=== PATIENT | female | born 1955 | race Caucasian/White ===

== ENCOUNTER 2016-09-30 13:56 | Inpatient (IN) ==
[2016-09-30 15:23] LABS: MANUAL DIFF NEEDED? NO
[2016-09-30 15:26] LABS: BASO% 0.5 % (0.0-0.8); EOS# 0.26 X1000 (0.0-0.7); EOS% 3.1 % (0.0-10.0); HEMATOCRIT 33.8 % (37.0-47.0); HEMOGLOBIN 11.6 g/dL (12.0-16.0); LYMPH# 1.97 X1000 (1.2-3.4); LYMPH% 23.3 % (20.5-51.1); MCH 27.1 PG (27-31); MCHC 34.3 g/dL (33-37); MONO% 5.9 % (1.7-9.3); MPV 10.5 FL (7.4-10.4); NEUT% 67.2 % (42.2-75.2); PLT 314 X1000 (130-400); RBC 4.28 XMIL (4.2-5.4)
[2016-09-30 15:32] LABS: URINE SOURCE CATH
[2016-09-30 15:37] LABS: BILIRUBIN URINE NEGATIVE (NEGATIVE); BLOOD URINE MODERATE (NEGATIVE); COLOR YELLOW; GLUCOSE URINE >1000 mg/dL (NEGATIVE); LEUKOCYTES URINE LARGE (NEGATIVE); NITRITE URINE NEGATIVE (NEGATIVE); PROTEIN URINE 300 mg/dL (NEGATIVE); SP GRAVITY URINE 1.012; TURBIDITY URINE HAZY (CLEAR); UROBILINOGEN URINE NORMAL (NORMAL)
[2016-09-30 15:39] LABS: URINE MICRO REVIEW NEEDED? YES
[2016-09-30 15:50] LABS: UR EPITHELIAL CELLS <10 /HPF (<10); URINE BACTERIA NEGATIVE /HPF; URINE RBC TNTC /HPF (<10); URINE WBC TNTC /HPF (<10)
[2016-09-30 15:51] LABS: CALCIUM 8.5 mg/dL (8.8-10.2); POTASSIUM 4.6 mmol/L (3.5-5.1); TOTAL BILIRUBIN 0.19 mg/dL (0.20-1.00); TOTAL PROTEIN 6.3 g/dL (6.3-8.3)
[2016-09-30 16:01] LABS: URINE CASTS NONE SEEN; URINE CRYSTALS NONE SEEN; URINE SMALL ROUND CELLS NONE SEEN
--- NOTE | 2016-09-30 16:27 | PROVIDER DOCUMENTATION ---
This chart was entered by Mele Dominguez Scribe, acting as scribe for Vamshi Lovett MD. HPI-Female /OB/Breast - General Chief Complaint: UTI Symptoms Stated Complaint: KIDNEY PAIN Time Seen by Provider: 09/30/16 14:53 Source: reports: patient Allergies/Adverse Reactions: Patient Allergies Allergy/AdvReac Type Severity Reaction Status Date / Time No Known Allergies Allergy Verified 09/30/16 14:58 Home Medications: Home Medication List Medication Instructions Recorded Confirmed Last Taken Type Aspirin [Ecotrin] 81 mg PO DAILY 02/22/15 09/30/16 09/29/16 08:00 History Cholecalciferol (Vitamin D3) 1,000 unit PO DAILY 02/22/15 09/30/16 09/29/16 08: 00 History [Vitamin D3] Gabapentin 400 mg PO BID 02/22/15 09/30/16 09/29/16 08:00 History Levothyroxine [Synthroid] 125 microgm PO QAM 02/22/15 09/30/16 09/29/16 08:00 History Amlodipine [Norvasc] 5 mg PO DAILY #30 tablet 03/06/15 09/30/16 09/29/16 08:00 Rx Omeprazole 40 mg PO DAILY 06/01/15 09/30/16 09/29/16 08:00 History Insulin Lispro Protamin/Lispro 40 unit SQ TID AC 08/18/15 09/30/16 09/29/16 08: 00 History [Humalog Mix 75-25 Vial] Furosemide [Lasix] 20 mg PO DAILY #30 tablet 11/10/15 09/30/16 09/29/16 08:00 Rx Hydroxyzine Pamoate [Vistaril] 25 mg PO BID PRN PRN 11/29/15 09/30/16 09/29/16 08:00 History Insulin Glargine [Lantus] 50 unit SUBQ HS #0 11/30/15 09/30/16 09/29/16 08:00 Rx Potassium Chloride [Klor-Con 10] 10 meq PO DAILY 09/30/16 09/30/16 09/29/16 08: 00 History - History of Present Illness-Female /OB Nature of Presenting Problem: pt reports suprapubic pain x 2 months, worse today. patient self-caths. Patient was seeing , but due to financial issues is no longer seeing him. denies fever/chills, n/v/d, or hematuria. Does patient report she is ?: No Location of complaint: reports: suprapubic Quality of Pain: reports: sharp Severity in ED: reports: mild, moderate Onset/Duration: reports: gradual, other (2 months) Timing: reports: still present, getting worse (today) Context/Activities at Onset: reports: none Urinary Symptoms: reports: dysuria. denies: frequency, hematuria, hesitancy, low back pain Modifying Factors: worse with: urinating Associated Symptoms: denies: diarrhea, fever/chills, nausea, vomiting Similar Symptoms Previously?: Yes Recently seen or treated by another doctor?: No Review of Systems - Adult - REVIEW OF SYSTEMS - ADULT Constitutional: denies: chills, fever Eyes: reports: no symptoms reported Ears, Nose, Mouth & Throat: reports: no symptoms reported Cardiovascular: reports: no symptoms reported Respiratory: denies: dyspnea on exertion, shortness of breath Gastrointestinal: reports: abdominal pain. denies: diarrhea, nausea, vomiting Genitourinary: reports: dysuria. denies: discharge, hematuria Musculoskeletal: reports: no symptoms reported Integumentary: reports: no symptoms reported Neurological: reports: no symptoms reported Psychiatric: reports: no symptoms reported Endocrine: reports: no symptoms reported Hematologic/Lymphatic: reports: no symptoms reported Allergic/Immunologic: reports: no symptoms reported All Other Systems: Reviewed and Negative Past History - Adult - PAST MEDICAL HISTORY-ADULT Review of Records: reports: Nursing Assessment Review, Medications Reviewed Cardiovascular: reports: blood clots (dvt), HTN, hyperlipidemia Respiratory: reports: sleep apnea Gastrointestinal: reports: GERD Genitourinary: reports: kidney disease, chronic UTI's, other (bladder spasms, neurogenic bladder with obstructions) Endocrine/Immune: reports: Diabetes, thyroid disorder - PRIOR SURGERIES/PROCEDURES Surgical/Procedure History: reports: cholecystectomy, hysterectomy, indwelling device (suprapubic cath--10/11, replaced 11/21 c daigle cath because suprapubic cath was dislodged), other (bladder surgery, left knee, right hand) - PRIOR HOSPITALIZATIONS Prior Hospitalizations: reports: for other non-related - IMMUNIZATION STATUS Childhood Immunizations: See Nurse Assessment Flu Vaccine: See Nurse Assessment - FAMILY HISTORY Family History: reviewed, not pertinent - SOCIAL HISTORY Smoking: non-smoker Living Situation: family Physical Exam-General - PHYSICAL EXAM-ADULT Initial Vital Signs Reviewed: Yes - CONSTITUTIONAL General Appearance: alert, no apparent distress, obese - EYES Eyes: PERRL/EOMI, pink conjunctivae - HEAD, EARS, NOSE, MOUTH & THROAT HENMT: normocephalic/atraumatic, other (tacky MM's) - NECK Neck: non-tender, full range of motion, supple - RESPIRATORY Respiratory: chest non-tender, lungs clear, normal breath sounds - CARDIOVASCULAR Cardiovascular: normal peripheral pulses, regular rate, rhythm, no edema - GASTROINTESTINAL (ABDOMEN) Abdominal Exam: normal bowel sounds, soft, no organomegaly, no pulsatile mass, distended (obese), tenderness (suprapubic area). negative: guarding, rigid, hernia, mass - LYMPHATIC Lymphatic: no adenopathy. negative: inguinal node tender - MUSCULOSKELETAL Back Exam: normal inspection, no CVA tenderness, no vertebral tenderness Extremity: normal range of motion, non-tender - SKIN Integumentary: normal color, normal turgor, warm/dry - NEUROLOGIC Neurologic: grossly normal - PSYCHIATRIC Psych/Mental Status: anxious, tearful Progress - PLAN OF CARE/RESULTS Progress/Plan/Lab Results: Vital Signs - 8 hr 09/30/16 14:00 Temperature 98.6 F Pulse Rate 89 Respiratory Rate 18 Blood Pressure 161/83 O2 Sat by Pulse Oximetry 99 Laboratory Results - last 24 hr 09/30/16 09/30/16 09/30/16 15:16 15:16 15:26 WBC 8.46 RBC 4.28 Hgb 11.6 L Hct 33.8 L MCV 79.0 L MCH 27.1 MCHC 34.3 RDW Std Deviation 14.0 Plt Count 314 MPV 10.5 H Immature Gran % (Auto) 0.0 Neut % (Auto) 67.2 Lymph % (Auto) 23.3 [place] % (Auto) 5.9 Eos % (Auto) 3.1 Baso % (Auto) 0.5 Immature Gran # (Auto) 0.00 Neut # (Auto) 5.69 Lymph # (Auto) 1.97 [place] # (Auto) 0.50 Eos # (Auto) 0.26 Baso # (Auto) 0.04 Sodium 132 L Potassium 4.6 Chloride 95 L Carbon Dioxide 19 L Anion Gap 18 BUN 37 H Creatinine 3.1 H Estimated GFR/1.73 m2 15 BUN/Creatinine Ratio 12 Glucose 398 H Calculated Osmolality 290 Calcium 8.5 L Total Bilirubin 0.19 L AST 12 ALT 13 Alkaline Phosphatase 124 H Total Protein 6.3 Albumin 3.0 L Globulin 3.3 Albumin/Globulin Ratio 0.9 Urine Source CATH Urine Color YELLOW Urine Turbidity HAZY Urine pH 7.0 Ur Specific [place] 1.012 Urine Protein 300 A Ur Glucose (Stick) >1000 A Ur Ketones (Stick) NEGATIVE Urine Blood MODERATE A Urine Nitrite NEGATIVE Urine Bilirubin NEGATIVE Urobilinogen Dipstick NORMAL Urine Leukocytes LARGE A Urine WBC (Auto) TNTC A Urine RBC (Auto) TNTC A U Epithel Cells (Auto) <10 Urine Bacteria (Auto) NEGATIVE Urine Crystals NONE SEEN Small Round Cells NONE SEEN Urine Casts NONE SEEN Urine Yeast-like Cells PRESENT Orders Category Date Time Status CBC WITH ELECTRONIC DIFF [HEME] Stat Lab 09/30/16 15:16 Completed COMPREHENSIVE METABOLIC PANEL [CHEM] Stat Lab 09/30/16 15:16 Completed UA [URINALYSIS] [URINALYSIS] Stat Lab 09/30/16 15:26 Completed URINE MANUAL MICROSCOPIC [URINALYSIS] Stat Lab 09/30/16 15:26 Completed Result Diagrams: 09/30/16 15:16 09/30/16 15:16 - CONSULTS/PCP/HOSPITALIST Notification #1 *Consult/PCP/Hospitalist*: Hospitalist, Doreen Time Discussed: 16:25 Consult Disposition: Will see in ED, Admit Departure - Departure Time of Disposition Decision: 16:30 DIAGNOSIS: Cystitis [id number] renal failure Qualifiers: Acute renal failure type: unspecified Chronic kidney disease stage: unspecified stage Qualified Code(s): N17.9 - Acute kidney failure, unspecified; N18.9 - Chronic kidney disease, unspecified Disposition: ADMITTED INPATIENT 09 Certified Medical Emergency: Emergent Condition: Stable Referrals and Follow-Ups: Halie Valentino MD [Primary Care Provider] - - Critical Care Note This patient required my direct & personal management of CC.: No This chart was documented by the indicated scribe, (Mele Dominguez, Scribe) and accurately reflects the services I performed and decisions made by me, Vamshi Lovett MD, as attested by the provider's signature.
[2016-09-30] MEDS ORDERED: TYLENOL PO PRN (17:45)
[2016-09-30] MEDS ORDERED: APRESOLINE IV ONE (17:45)
[2016-09-30] MEDS ORDERED: HUMULIN R SUBQ ONE (17:45)
[2016-09-30] MEDS ORDERED: NORCO-7.5 PO PRN ×2 (17:45→17:51)
[2016-09-30] MEDS ORDERED: HYDROXYZINE PO PRN (17:45)
[2016-09-30] MEDS: LOVENOX SUBQ SCH (18:17)
[2016-09-30] MEDS: ROCEPHIN 1 GM/NS 1 GM/50 ML IVPB IV SCH (18:17)
[2016-09-30] MEDS: NS 1,000 ML IV SCH (18:17)
--- NOTE | 2016-09-30 18:45 | HISTORY AND PHYSICAL ---
PRIMARY CARE PHYSICIAN: Dr. Valentino. CHIEF COMPLAINT: Suprapubic pain. HISTORY OF PRESENT ILLNESS: The patient is a 61-year-old white female with a history of diabetes, urinary retention with self catheterization, hypertension, and hypothyroidism, admitted to the hospital after she complained of having fever, chills, and suprapubic pain that has been going on for about a week. The patient does not have any insurance so she could not see any of her doctors. At the same time, the patient has had recurrent urinary tract infections and has been off of antibiotics and according to the patient she has never gone 2 weeks without having some sort of antibiotics. For the past week and a half she started having some fever and chills. It got to the point where she had severe pain in her suprapubic region and she started noticing pus- like urine out of her catheterization, so she presented to the emergency room today for further evaluation. In the emergency room they noticed that she has greenish urine mixed with clots. The UA was positive for a UTI and the patient appears to be dehydrated. We were asked to evaluate the patient for admission. The patient was awake, alert, and oriented when I saw her. She answered questions appropriately. She confirmed that she has had recurrent UTIs and also had been on off and on oral antibiotics for UTI infections; the last around antibiotics less than 2 weeks ago. She nausea but no vomiting. Most of her symptoms are just pain around the suprapubic region. Has not taking anything to alleviate the symptoms. PAST MEDICAL HISTORY: 1. Type 2 diabetes. 2. Hypertension. 3. Hyperlipidemia. 4. Morbid obesity. 5. Urinary retention and self catheterization. Followed by Dr. Ocampo. 6. Peripheral neuropathy. 7. GERD. PAST SURGICAL HISTORY: The patient has had multiple bladder surgeries. ALLERGIES: No known drug allergies. FAMILY HISTORY: Reviewed and noncontributory. SOCIAL HISTORY: The patient denies tobacco, alcohol, or drugs. She lives with her . She is not sexually active. REVIEW OF SYSTEMS: Twelve systems were reviewed and were negative except for what was mentioned in the HPI. HOME MEDICATIONS: 1. Norvasc 5 mg p.o. daily. 2. Aspirin 81 mg 1 tablet p.o. daily. 3. Vitamin D3 1000 international units p.o. daily. 4. Lasix 20 daily. 5. Gabapentin 400 mg b.i.d. 6. Vistaril 25 mg b.i.d. 7. Lantus 50 mg at night. 8. Humalog 40 units before meal 3 times a day. 9. Synthroid 125 mcg p.o. daily. 10. Omeprazole 40 mg p.o. daily. 11. KCl 10 mEq p.o. daily. PHYSICAL EXAMINATION: VITAL SIGNS: Blood pressure 161/63, pulse of 89, respiration 18, temperature 98.6 degrees, saturations of 99% on room air. Weight 323 pounds, 5 feet 2 inches. GENERAL APPEARANCE: Morbidly obese, white female. Appears to be dry. AAO x3. HEENT: Anicteric sclerae. Clear conjunctivae. NECK: Supple. No JVD. No bruit. CARDIOVASCULAR: S1, S2. Normal rate and rhythm. No murmur, rubs, or gallops. PULMONARY: Clear to auscultation bilaterally. GI: Soft, nontender, nondistended. Normoactive bowel sounds. MUSCULOSKELETAL: No clubbing, cyanosis, or edema. : Significant suprapubic tenderness with palpation. NEUROLOGIC: Intact. PSYCHIATRIC: Euthymic mood. LABORATORY: White count 5.46, hemoglobin 11.6, hematocrit of 33.8, platelets of 314,000. Chemistry: Sodium 132, potassium 4.6, chloride 95, bicarb 19, BUN 37, creatinine 3.1 which is her baseline. Glucose of 398. Liver function tests are within normal limits. ASSESSMENT AND PLAN: This is a 61-year-old white female admitted to the hospital for suprapubic tenderness and dysuria, along with pus in the urine. 1. Severe urinary tract infection. She has been doing self catheterization for the past year due to urinary retention. Follow but by Dr. Ocampo. Has had multiple surgeries on her bladder. Urine culture and blood culture were sent from the ER. Start the patient on Rocephin. We will follow up cultures. We will admit the patient to the floor. She will need several days of IV antibiotics. We will keep her inpatient. 2. Dehydration. Start the patient on normal saline since her sodium is on the lower side. We will hold her diuretics. Recheck her renal function in the morning. 3. Diabetes type 2, insulin requiring. We will continue her Lantus and her premeal insulin. Will add a sliding scale for the patient. Put her on a diabetic diet. 4. Hypertension. Blood pressures is elevated. Currently we will resume her Norvasc and we will add hydralazine p.r.n. for systolic blood pressure greater than 180. 5. Hypothyroidism. We will resume her Synthroid 125 mcg daily. 6. Deep vein thrombosis prophylaxis. Put the patient on Lovenox renal dose. 7. Chronic kidney disease stage 4. Stable. Will continue to monitor for now. Consider nephrology consult if her renal is getting worse. 8. Code status. The patient is a full code. Her is her surrogate decision maker. The patient does not have a Living Will. cc: Halie Valentino MD
[2016-09-30] MEDS ORDERED: INSULIN PEN NEEDLES ONE (20:13)
[2016-09-30] MEDS: NEURONTIN PO SCH (20:14)
[2016-09-30] MEDS: ZOFRAN IV PRN (20:14)
[2016-09-30] MEDS ORDERED: LANTUS SUBQ SCH (21:00)
[2016-10-01 07:34] LABS: MANUAL DIFF NEEDED? NO
[2016-10-01 07:53] LABS: BASO% 0.5 % (0.0-0.8); EOS% 3.7 % (0.0-10.0); HEMATOCRIT 34.8 % (37.0-47.0); HEMOGLOBIN 11.5 g/dL (12.0-16.0); IMM GRAN# 0.03 X1000 (0.0-0.04); IMM GRAN% 0.4 % (0.0-0.5); LYMPH# 2.92 X1000 (1.2-3.4); LYMPH% 35.9 % (20.5-51.1); MCH 26.7 PG (27-31); MCV 80.9 FL (81-99); MONO# 0.49 X1000 (0.11-0.59); MPV 10.8 FL (7.4-10.4); NEUT% 53.5 % (42.2-75.2); PLT 345 X1000 (130-400)
[2016-10-01 08:16] LABS: CALCIUM 8.6 mg/dL (8.8-10.2); POTASSIUM 4.7 mmol/L (3.5-5.1)
[2016-10-01] MEDS: VITAMIN D PO SCH (08:22)
[2016-10-01] MEDS: HUMALOG MIX 75/25 SUBQ SCH ×2 (08:23→11:35)
[2016-10-01] MEDS: NORVASC PO SCH (08:23)
[2016-10-01] MEDS: ASPIRIN EC PO SCH (08:23)
[2016-10-01] MEDS: NEURONTIN PO SCH ×2 (08:23→20:32)
[2016-10-01] MEDS: SYNTHROID PO SCH (08:23)
[2016-10-01] MEDS: NS 1,000 ML IV SCH (08:24)
[2016-10-01] MEDS: PRILOSEC PO SCH (08:30)
[2016-10-01] MEDS: ZOFRAN IV PRN (09:05)
[2016-10-01] MEDS ORDERED: SODIUM CHLORIDE 0.9% INJ PRN (10:19)
[2016-10-01] MEDS: PHENERGAN IV PRN (10:53)
[2016-10-01] MEDS ORDERED: D5 NS 500 ML IV SCH (11:48)
[2016-10-01] MEDS ORDERED: D50W SYRINGE ONE (11:52)
[2016-10-01 12:31] LABS: HEMOGLOBIN A1C 11.7 % (4.8-6.0)
--- NOTE | 2016-10-01 12:43 | PROGRESS NOTE ---
DATE: 10/01/2016 SUBJECTIVE: Today, Ms. Garcia refers to be doing a little better. According to the nurse, she has just been confused, and her blood glucose has been going down; last one checked was in the 60s. OBJECTIVE: Blood pressure is 131/57, pulse of 60, respirations 20, temperature 97.4. Patient is saturating 100% on nasal cannula. General: Ms. Garcia is a 61-year-old female. She is in bed and did not seem to be in any distress. HEENT: Mucosa is pink and moist. Anicteric. Acyanotic. Neck is supple. Chest is clear. Cardiovascular: Regular rate and rhythm. Abdomen is soft, distended. There is a Dean catheter in place. Extremities: No pedal edema. TEST DEVELOPMENT ENGINEER: Patient is awake, seems confused. LABORATORY DATA: WBC is 8.14, hemoglobin is 11.5, platelet count is 345,000. Chemistry is reviewed. Creatinine is 3.1, which is not new. Glucose was 128. Repeat glucose check this morning seems to be 60. ASSESSMENT: 1. Altered mental status which started a while ago. Glucose is in the 60s and I am assuming it has been going lower, so we will give the patient a D 50 and get her some orange juice and encourage her to eat. I withheld the Lantus at least for now. 2. Suspected urinary tract infection. Patient is currently on ceftriaxone and will be pending the culture result. 3. History of urinary retention with in and out catheterization at home. 4. Chronic kidney disease, stage 4 to 5. 5. Nausea, unclear etiology. We are going to do an EKG and check on the patient's troponins to make sure the nausea and vomiting does not have any other extra GI etiology. I will also do the patient PTH, calcium, and vitamin D for tomorrow. The patient has a mild metabolic acidosis which I think is consistent with the degree of the renal failure. cc: MD YONAS Hutchinson
--- NOTE | 2016-10-01 14:55 | EKG Report ---
Test Performed on : 10/01/2016 12:32:22 PM Test Reason : chest discomfort Blood Pressure : / mmHG Vent. Rate : 082 BPM Atrial Rate : 082 BPM P-R Int : 158 ms QRS Dur : 086 ms QT Int : 390 ms P-R-T Axes : 042 -24 044 degrees QTc Int : 455 ms Normal sinus rhythm. Normal ECG When compared with ECG of 29-NOV-2015 23:38, No significant change was found Confirmed by Juan VILLAR, Ton Daniels ([id number]) on 10/02/2016 6:21:46 PM
[2016-10-01] MEDS: LOVENOX SUBQ SCH (17:50)
[2016-10-01] MEDS: ROCEPHIN 1 GM/NS 1 GM/50 ML IVPB IV SCH (17:52)
[2016-10-02] MEDS: NS 1,000 ML IV SCH (01:50)
[2016-10-02] MEDS: PRILOSEC PO SCH (06:13)
[2016-10-02 06:33] LABS: MANUAL DIFF NEEDED? NO
[2016-10-02 06:40] LABS: BASO% 0.3 % (0.0-0.8); EOS# 0.29 X1000 (0.0-0.7); EOS% 3.3 % (0.0-10.0); HEMATOCRIT 37.2 % (37.0-47.0); HEMOGLOBIN 12.1 g/dL (12.0-16.0); LYMPH# 1.59 X1000 (1.2-3.4); LYMPH% 17.8 % (20.5-51.1); MCH 26.7 PG (27-31); MCHC 32.5 g/dL (33-37); MCV 82.1 FL (81-99); MONO# 0.58 X1000 (0.11-0.59); MONO% 6.5 % (1.7-9.3); MPV 10.5 FL (7.4-10.4); NEUT% 72.1 % (42.2-75.2); PLT 329 X1000 (130-400); RBC 4.53 XMIL (4.2-5.4)
[2016-10-02 07:11] LABS: CALCIUM 8.6 mg/dL (8.8-10.2); MAGNESIUM 1.9 mg/dL (1.5-2.7); POTASSIUM 4.5 mmol/L (3.5-5.1)
[2016-10-02] MEDS: ASPIRIN EC PO SCH (09:33)
[2016-10-02] MEDS: NORVASC PO SCH (09:33)
[2016-10-02] MEDS: NEURONTIN PO SCH ×2 (09:33→20:33)
[2016-10-02] MEDS: SYNTHROID PO SCH (09:33)
[2016-10-02] MEDS: VITAMIN D PO SCH (09:33)
[2016-10-02] MEDS ORDERED: VITAMIN D PO SCH (11:45)
[2016-10-02] MEDS: PHOSLO PO SCH ×2 (12:23→17:03)
--- NOTE | 2016-10-02 12:35 | PROGRESS NOTE ---
DATE: 10/02/2016 SUBJECTIVE: Today, Ms. Garcia refers to be doing a whole lot better. When I saw her, she was sitting up in the chair, having a very rational conversation. Ms. Garcia also said that before she came in, she had not been taking her insulin for about 3 weeks prior because she ran out of it. OBJECTIVE: Vital signs: Blood pressure is 147/64, pulse of 77 respirations 18, temperature 97.6 degrees. General: Ms. Garcia is a 61-year-old female. She was sitting up in a chair, not seemingly distressed. HEENT: Mucosa pink and moist. Anicteric. Acyanotic. Neck: Supple. Chest: Clear. Cardiovascular: Regular rate and rhythm. There are no murmurs, no rubs. Abdomen: Soft, distended, but nontender. There is a Dean catheter in place. Extremities: No pedal edema. Central Nervous System: Patient is awake, alert, oriented, very conversational, and follows commands. LABORATORY DATA: WBC is 8.91, hemoglobin is 12.1, platelet count 329,000. Sodium is 134, potassium is 4.5, chloride is 100, bicarbonate is 21, BUN is 39, creatinine is 3.1. The patient's vitamin D level is less than 5 and PTH is 111. ASSESSMENT: 1. Altered mental status due to hypoglycemia. This is improved. We have withheld patient's long- acting for now. Her glucose has been at the lower end. The patient had A1c on presentation of 11.7, which is consistent with the fact that she was noncompliant. We would wait for the glucose to be more stabilized before we introduce her long-acting insulin. 2. Suspected urinary tract infection. Patient is on ceftriaxone. We are pending the urine culture. 3. History of neurogenic bladder with frequent in-and-out catheterizations at home. We will start the patient on oxybutynin and tamsulosin. 4. Chronic kidney disease, stage 4. 5. Nausea. Resolved. 6. 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 7. Secondary hyperparathyroidism. We will start the patient on Sensipar. 8. Extreme vitamin D deficiency. We will start the patient on ergocalciferol every 7 days. 9. Mild hyperphosphatemia. We will start the patient on phosphate binders. 10. Non-anion gap metabolic acidosis secondary to renal disease. We will start the patient on oral sodium bicarbonate. So, in general, I think Ms. Garcia is doing a lot better. We will discontinue the IV fluids so we do not over-hydrate her, encourage her to hydrate orally. We will also remove the Dean catheter, start her on oxybutynin for the neurogenic bladder and tamsulosin, and also medication for the bone and mineral disorder associated with chronic kidney disease. We are still pending the urine culture report to be able to adjust her medications. I think by tomorrow we should be able to discharge Ms. Garcia. cc: Ray Leone MD
[2016-10-02] MEDS: ROCEPHIN 1 GM/NS 1 GM/50 ML IVPB IV SCH (17:03)
[2016-10-02] MEDS: LOVENOX SUBQ SCH (17:03)
[2016-10-02] MEDS: DITROPAN PO SCH (20:33)
[2016-10-02] MEDS: SODIUM BICARBONATE PO SCH (20:34)
[2016-10-02] MEDS: FLOMAX PO SCH (20:34)
[2016-10-03] MEDS: PRILOSEC PO SCH (07:27)
[2016-10-03] MEDS: NORVASC PO SCH (08:18)
[2016-10-03] MEDS: SYNTHROID PO SCH (08:18)
[2016-10-03] MEDS: PHOSLO PO SCH ×3 (08:18→18:24)
[2016-10-03] MEDS: SENSIPAR PO SCH (08:18)
[2016-10-03] MEDS: NEURONTIN PO SCH ×2 (08:18→22:13)
[2016-10-03] MEDS: ASPIRIN EC PO SCH (08:18)
[2016-10-03] MEDS: SODIUM BICARBONATE PO SCH ×2 (08:18→22:13)
[2016-10-03] MEDS: DITROPAN PO SCH ×2 (08:18→22:13)
[2016-10-03] MEDS: PHENERGAN IV PRN (09:45)
[2016-10-03] MEDS: NORCO-7.5 PO PRN ×3 (09:45→22:09)
[2016-10-03] MEDS ORDERED: MIRALAX PO ONE (12:06)
[2016-10-03] MEDS ORDERED: LANTUS SUBQ ONE (12:20)
--- NOTE | 2016-10-03 12:50 | PROGRESS NOTE ---
DATE: 10/03/2016 SUBJECTIVE: Today, Ms. Garcia refers to be doing fine, but has constipation. According to Ms. Garcia, she has been using 40 units of glargine on a daily basis and also 40 units of 75/25 insulin 3 times per day before she came in. She said her glucose has also been going low on that regimen that her primary care doctor had put her on. OBJECTIVELY: Vital Signs: Today, her blood pressure is 158/76, pulse is 84, respirations 19, and temperature is 98.2 degrees. General: Ms. Garcia is a 61-year-old female. She was sitting up in a chair in no distress. HEENT: Mucosa pink and moist. Anicteric. Acyanotic. Neck: Supple. Chest: Clear. Cardiovascular: Regular rate and rhythm. Abdomen: Soft, distended, but nontender. Extremities: No pedal edema. Central Nervous System: Patient is awake, alert, and conversational LABORATORY DATA: Glucose is now 325. ASSESSMENT: 1. Altered mental status due to hypoglycemia, improved. 2. Suspected urinary tract infection. Patient is currently on ceftriaxone. Urine culture has been negative, but patient was on antibiotics before the sample. 3. History of neurogenic bladder with frequent in-and-out catheterization at home. The patient has been started on oxybutynin and tamsulosin, and seems to be doing fine. 4. 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 5. Secondary hyperparathyroidism. Patient is on Sensipar. 6. Vitamin D deficiency. We will continue with ergocalciferol. 7. Mild hyperphosphatemia. Patient is on phosphate binders. 8. Non-gap metabolic acidosis secondary to renal disease. 9. Constipation. We will start the patient on MiraLAX. 10. Severe uncontrolled diabetes mellitus. The patient's A1c was 11.7 on presentation and, on that, she was still also having some episodes of hypoglycemia. We reviewed her home medications. Today, we are going to start her on 50 units of Lantus, 5 units 3 times of regular insulin, and a sliding scale, and will be monitoring her glucose throughout the day and tomorrow. If she continues to be stable, we will be able to discharge her first thing tomorrow morning. cc: Ray Leone MD
[2016-10-03] MEDS: HUMULIN R SUBQ SCH ×4 (13:38→22:20)
[2016-10-03] MEDS: LOVENOX SUBQ SCH (18:24)
[2016-10-03] MEDS: ZOFRAN IV PRN (22:08)
[2016-10-03] MEDS: FLOMAX PO SCH (22:13)
[2016-10-03] MEDS: KEFLEX PO SCH (22:36)
[2016-10-04] MEDS: NORCO-7.5 PO PRN ×2 (06:00→20:12)
[2016-10-04] MEDS: PRILOSEC PO SCH (06:01)
--- NOTE | 2016-10-04 07:15 | Diag Imaging Result Doc PS360 ---
ABDOMEN FLAT/UPRIGHT - 10/03/2016 INDICATION: Abdominal Pain TECHNIQUE: Two views COMPARISON: 03/25/2016 FINDINGS: Stable cholecystectomy clips. There is a nonobstructive bowel gas pattern. No free air or abdominal calcifications. IMPRESSION: No acute disease. Electronically signed by Manuel Montoya 10/04/2016 7:12 AM
[2016-10-04 08:03] LABS: CALCIUM 8.4 mg/dL (8.8-10.2); POTASSIUM 5.4 mmol/L (3.5-5.1)
[2016-10-04] MEDS: HUMULIN R SUBQ SCH ×7 (08:27→20:33)
[2016-10-04] MEDS: PHOSLO PO SCH ×3 (08:30→17:18)
[2016-10-04] MEDS: SYNTHROID PO SCH (08:30)
[2016-10-04] MEDS: DITROPAN PO SCH ×2 (08:30→20:13)
[2016-10-04] MEDS: NORVASC PO SCH (08:30)
[2016-10-04] MEDS: SENSIPAR PO SCH (08:30)
[2016-10-04] MEDS: SODIUM BICARBONATE PO SCH ×2 (08:30→20:13)
[2016-10-04] MEDS: NEURONTIN PO SCH ×2 (08:30→20:13)
[2016-10-04] MEDS: ASPIRIN EC PO SCH (08:30)
[2016-10-04] MEDS: KEFLEX PO SCH ×2 (08:30→20:13)
[2016-10-04] MEDS ORDERED: GOLYTELY PO ONE (09:27)
[2016-10-04] MEDS: ZOFRAN IV PRN (13:12)
--- NOTE | 2016-10-04 15:01 | PROGRESS NOTE ---
DATE: 10/04/2016 SUBJECTIVE: Patient reports not able to have bowel movements and she usually uses Fleets enema at home. OBJECTIVE: Vital Signs: Temperature 98.7 degrees, heart rate 95, respiratory rate 20, blood pressure 147/58, O2 saturation 97% on room air. General Examination: This is a 61-year-old female, looking older than her age, lying in bed, in no acute distress. HEENT: Head is normocephalic, atraumatic. Anicteric sclerae and pale conjunctivae. Mucous membranes moist. Neck: Supple. No JVD noted. No carotid bruits. No lymphadenopathy. No thyromegaly. Cardiovascular: No murmur, gallops or rubs. Regular rate and rhythm. Respiratory: Clear bilaterally to auscultation. No work of breathing or using accessory muscles. Abdomen: Soft, nontender to palpation. Bowel sounds present. No organomegaly. Extremities: No clubbing, cyanosis, or edema. Peripheral pulses present in both legs. Neurological: Patient is alert and oriented x3. Moves 4 extremities. LABORATORY DATA: Reviewed. ASSESSMENT AND PLAN: 1. Altered mental status secondary to hypoglycemia, resolved. 2. Suspected urinary tract infection. By now the patient is on ceftriaxone and urine cultures are negative. We will continue while this patient is in the hospital. 3. History of neurogenic bladder. Aware. The patient is on oxybutynin and tamsulosin. 4. Constipation. We have given to her GoLYTELY and she drank almost 4 L of preparation for colonoscopy, but no bowel movement. We will wait and then tomorrow we will see if that medication works. 5. The rest of medical conditions all are stable. cc: Marko Valverde MD
[2016-10-04] MEDS: LOVENOX SUBQ SCH (17:19)
[2016-10-04] MEDS: FLOMAX PO SCH (20:13)
[2016-10-05] MEDS: ZOFRAN IV PRN (03:29)
[2016-10-05] MEDS: PRILOSEC PO SCH (06:12)
[2016-10-05] MEDS: HUMULIN R SUBQ SCH ×3 (06:12→12:17)
[2016-10-05 07:40] VITALS: BP 154/85
[2016-10-05] MEDS: PHOSLO PO SCH ×2 (07:51→12:17)
[2016-10-05] MEDS: NEURONTIN PO SCH (09:48)
[2016-10-05] MEDS: ASPIRIN EC PO SCH (09:48)
[2016-10-05] MEDS: NORVASC PO SCH (09:48)
[2016-10-05] MEDS: SENSIPAR PO SCH (09:48)
[2016-10-05] MEDS: SODIUM BICARBONATE PO SCH (09:48)
[2016-10-05] MEDS: KEFLEX PO SCH (09:48)
[2016-10-05] MEDS: DITROPAN PO SCH (09:48)
[2016-10-05] MEDS: SYNTHROID PO SCH (09:48)
--- NOTE | 2016-10-05 13:43 | DISCHARGE SUMMARY ---
ADMISSION DATE: 09/30/2016 DISCHARGE DATE: 10/05/2016 CONSULTATIONS: None. PERTINENT PROCEDURES: Abdomen x-ray showed stable cholecystectomy clips, nonobstructive bowel gas pattern. No free air. No abdominal calcifications. DISCHARGE DIAGNOSES: 1. Altered mental status secondary to hypoglycemia resolved. 2. Suspected urinary tract infection. Continue p.o. antibiotics. 3. History of neurogenic bladder. Aware. 4. Constipation. The patient was given GoLYTELY. The patient has had bowel movements after the GoLYTELY, improved. 5. 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 6. Secondary hyperparathyroidism. Continue Sensipar. 7. Vitamin D deficiency. Continue supplementation. 8. Mild hyperphosphatemia. Continue with phosphate monitors. 9. Anion gap metabolic acidosis secondary to renal disease, stable. 10. Severe uncontrolled diabetes mellitus. Patient's A1c was 11.7 on presentation but was still having episodes of hypoglycemia, improved. HOSPITAL COURSE: Briefly, Ms Garcia is a 61-year-old female with a past medical history of uncontrolled diabetes, hypertension, hyperlipidemia, morbid obesity, urinary retention and self catheterization followed by Dr. Ocampo. Peripheral neuropathy. GERD. The patient reported to the ED after complaining of fever, chills and suprapubic pain that has been ongoing for a week. The patient states she did not have insurance so she could not seen any of her doctors. At the same time the patient has had recurrent urinary tract infections. Has been off of antibiotics, and according to the patient, she has never gone 2 weeks without having some sort of antibiotics. For the past week and a half, she started having fevers and chills. It was to the point where the she had severe pain in her suprapubic region and she started noticing pus-like urine out of her catheterizations, so she presented to the ED for further evaluation. In the emergency room they noticed that she had greenish urine mixed with clots. The UA was positive for UTI. She also appeared to be dehydrated. The patient did complain of nausea but no vomiting. The patient was admitted for severe urinary tract infection. However, her culture only showed mixed renee with a normal white count. The patient has had some low-grade fevers. She was started on IV antibiotics as well as IV hydration. Her diuretics were held secondary to her dehydration. The patient the next day was having some altered mental status secondary to hypoglycemia. Did withhold her long- acting insulin. Her urine cultures came back as mixed culture. She was switched from IV antibiotics to p.o. Keflex. For the history of her neurogenic bladder and frequent the patient has been started on oxybutynin and Flomax. Has tolerated that well and started on Sensipar secondary to her hyperparathyroidism as well as phosphate binders. She did have a KUB that did show constipation. She was started on MiraLAX with good results. The patient has had medication adjustments with her insulin. She is appropriate for discharge home today. VITAL SIGNS: Temperature is 98.1 degrees, heart rate 103, respirations 20, blood pressure 134/85, O2 is 97% on room air. DISCHARGE DIET: Diabetic. DISCHARGE MEDICATIONS: As per Dr. Calderon. FOLLOW-UP: Patient is being discharged home with her . The patient can return to the ED for any worsening of symptoms. Dictated by REUBEN Davison for Marko Valverde MD cc: Marko Valverde MD
== END 2016-10-05 13:48 | disposition home or self-care (01) ==
LOC: ED 13:56 → 3N 17:48 → SUATTDRO 17:48
PROVIDERS: ATTEND Internal Medicine

== ENCOUNTER 2016-10-07 04:07 | Inpatient (IN) ==
[2016-10-07] MEDS ORDERED: MORPHINE IV ONE (04:37)
[2016-10-07] MEDS ORDERED: ZOFRAN IV ONE (04:37)
--- NOTE | 2016-10-07 04:39 | PROVIDER DOCUMENTATION ---
HPI-Musculoskeletal Pain/Inj - GENERAL Chief Complaint: Fall Stated Complaint: fall Time Seen by Provider: 10/07/16 04:26 Source: patient - HX OF PRESENT ILLNESS-MUSKULOSKELTAL Nature of Presenting Problem: pt was D/C from hospital on Saturday, and she was getting onto her porch @ home, fell onto L hip. She struck her R face, but no LOC. EMS helped her up, but has had increasing pain to L hip, difficulty ambulating since. Also says she fell on her bladder, adn that is another source of pain. Denies any pain except bladder, and L hip, the latter pain radiates to her knee. Quality of Pain: reports: aching, sharp Severity in ED: severe Onset/Duration: abrupt, 2 days ago Timing: constant, getting worse Modifying Factors: worse with: movement, palpation Any recent injury?: Yes Locality of Occurance: Home Similar Symptoms Previously?: No Recently seen or treated by another doctor?: Yes (was D/C from hosp on Saturday) - FALL INJURY Location of Pain/Injury: reports: abdomen, lower extremity Pain Radiation: reports: other (see HPI) Reason for Fall: reports: tripped Symptoms prior to fall:: reports: none Loss of Consciousness: no loss of consciousness Injury Associated Symptoms: reports: unable to bear weight - TRUNK INJURY Location of Injury(s)/Pain: reports: abdomen, pelvis Context / Method of Injury: reports: fall - HIP/PELVIS PAIN/INJURY Hip Pain Location: reports: hip (L) Pain Radiation: reports: other (to L knee) Context / Method of Injury: reports: fall - LOWER EXTREMITY PAIN/INJURY Lower Extremities Pain: hip: left Review of Systems - Adult - REVIEW OF SYSTEMS - ADULT Constitutional: reports: no symptoms reported Eyes: reports: no symptoms reported Ears, Nose, Mouth & Throat: reports: no symptoms reported Cardiovascular: reports: no symptoms reported Respiratory: reports: no symptoms reported Gastrointestinal: reports: see HPI, abdominal pain Musculoskeletal: reports: see HPI Integumentary: reports: no symptoms reported Neurological: reports: no symptoms reported Psychiatric: reports: no symptoms reported Endocrine: reports: no symptoms reported Hematologic/Lymphatic: reports: no symptoms reported Allergic/Immunologic: reports: no symptoms reported Past History - Adult - PAST MEDICAL HISTORY-ADULT Review of Records: reports: Medications Reviewed Major Childhood Illnesses: reports: denies history Cardiovascular: reports: blood clots (dvt), HTN, hyperlipidemia Respiratory: reports: sleep apnea Gastrointestinal: reports: GERD Obstetrical/Gynecological: reports: denies history Genitourinary: reports: kidney disease, chronic UTI's, other (bladder spasms, neurogenic bladder with obstructions) Musculoskeletal: reports: denies history Neurological: reports: denies history Endocrine/Immune: reports: Diabetes, thyroid disorder Other Conditions: reports: denies history - PRIOR SURGERIES/PROCEDURES Surgical/Procedure History: reports: cholecystectomy, hysterectomy, indwelling device (suprapubic cath--10/11, replaced 11/21 c daigle cath because suprapubic cath was dislodged), other (bladder surgery, left knee, right hand) - PRIOR HOSPITALIZATIONS Prior Hospitalizations: reports: for other non-related - IMMUNIZATION STATUS Childhood Immunizations: See Nurse Assessment Flu Vaccine: See Nurse Assessment - FAMILY HISTORY Family History: reviewed, not pertinent - SOCIAL HISTORY Smoking: denies Physical Exam-Injury Related - Physical Exam-Injury Related Initial Vital Signs Reviewed: Yes General Appearance: appears well, alert, mild distress Eyes: PERRL/EOMI, pink conjunctivae Head, Ears, Nose, Mouth & Throat: moist mucous membranes, normal ENT inspection , pharynx normal, other (ecchymosis to R cheek) Neck: non-tender, full range of motion, supple, normal inspection Respiratory: lungs clear, normal breath sounds, no respiratory distress, no accessory muscle use Cardiovascular: regular rate, rhythm, no gallop, no murmur Abdominal Exam: soft, tenderness (lower abdomen) Female Genitalia/Pelvic Exam: deferred Extremity: pedal edema (2+), tenderness (L hip. pain also worse with movement) Integumentary: normal color, warm/dry Neurologic: piece hand II-XII nml as tested, grossly normal, no motor/sensory deficits Psych/Mental Status: normal mood/affect, normal thought content, normal thought process, oriented x 3 Progress - PLAN OF CARE/RESULTS Progress/Plan/Lab Results: Vital Signs - 8 hr 10/07/16 04:17 10/07/16 06:44 Temperature 98.2 F Pulse Rate 116 H 103 H Respiratory Rate 18 Blood Pressure 204/168 107/90 O2 Sat by Pulse Oximetry 96 97 Laboratory Results - last 24 hr 10/07/16 10/07/16 10/07/16 04:30 04:30 05:15 WBC 6.76 RBC 3.64 L Hgb 9.8 L Hct 29.7 L MCV 81.6 MCH 26.9 L MCHC 33.0 RDW Std Deviation 14.8 H Plt Count 277 MPV 11.1 H Immature Gran % (Auto) 0.0 Neut % (Auto) 56.5 Lymph % (Auto) 27.7 Calloway % (Auto) 11.2 H Eos % (Auto) 4.3 Baso % (Auto) 0.3 Immature Gran # (Auto) 0.00 Neut # (Auto) 3.82 Lymph # (Auto) 1.87 Calloway # (Auto) 0.76 H Eos # (Auto) 0.29 Baso # (Auto) 0.02 Sodium 132 L Potassium 5.5 H Chloride 96 L Carbon Dioxide 18 L Anion Gap 18 BUN 66 H Creatinine 4.0 H Estimated GFR/1.73 m2 11 BUN/Creatinine Ratio 17 Glucose 256 H Calculated Osmolality 292 Calcium 8.3 L Total Bilirubin 0.13 L AST 18 ALT 16 Alkaline Phosphatase 117 H Total Protein 6.7 Albumin 3.4 L Globulin 3.3 Albumin/Globulin Ratio 1.0 Urine Source CATH Urine Color YELLOW Urine Turbidity HAZY Urine pH 7.0 Ur Specific Section 1.006 Urine Protein 200 A Ur Glucose (Stick) 200 A Ur Ketones (Stick) NEGATIVE Urine Blood MODERATE A Urine Nitrite NEGATIVE Urine Bilirubin NEGATIVE Urobilinogen Dipstick NORMAL Urine Leukocytes LARGE A Urine WBC (Auto) TNTC A Urine RBC (Auto) 10-20 A U Epithel Cells (Auto) <10 Urine Bacteria (Auto) NEGATIVE Urine Crystals NONE SEEN Small Round Cells Not Reportable Urine Casts NONE SEEN Urine Yeast-like Cells PRESENT Orders Category Date Time Status Daigle Cath Insertion ORDERED Care 10/07/16 06:42 Active CHEST-1 VIEW [RAD] Stat Exams 10/07/16 04:34 Completed PELVIS W/O CONTRAST [CT] Stat Exams 10/07/16 05:18 Completed XRAY PELVIS W/HIP 2-3VW LT [RAD] Stat Exams 10/07/16 04:34 Completed CBC WITH DIFF [HEME] Stat Lab 10/07/16 04:30 Completed COMPREHENSIVE METABOLIC PANEL [CHEM] Stat Lab 10/07/16 04:30 Completed URINALYSIS W/POSS RFLX CULT [URINALYSIS] Stat Lab 10/07/16 05:15 Completed URINE CULTURE [RM] Routine Lab 10/07/16 06:46 Received URINE MANUAL MICROSCOPIC [URINALYSIS] Stat Lab 10/07/16 05:15 Completed 0.9% Sodium Chloride Inj [Ns] 1,000 ml Med 10/07/16 06:43 Discontinued IV 999 mls/hr CefTRIAXONE 2 GM/NS [Rocephin 2 gm/Ns] Med 10/07/16 06:42 Discontinued 2 gm in 50 ml IV NOW Morphine Med 10/07/16 04:37 Discontinued 4 mg IV NOW ONE Ondansetron [Zofran] Med 10/07/16 04:37 Discontinued 8 mg IV NOW ONE Result Diagrams: 10/07/16 04:30 10/07/16 04:30 - XRAY 1 XRAY Study: Chest Impression: Abnormal XRAY Interpretation: Cardiomegly - CT/MRI 1 CT Study: Pelvis CT Results: No fx - CONSULTS/PCP/HOSPITALIST Notification #1 *Consult/PCP/Hospitalist*: Myla/Farooq Time Discussed: 08:01 Consult Disposition: Admit - CHANGE OF SHIFT REPORT (ED Provider) Report Given and Care Transferred to:: [facility] Time of Transfer: 06:17 Items Pending: CT/MRI Results Departure - Departure Date of Disposition Decision: 10/07/16 Time of Disposition Decision: 06:20 DIAGNOSIS: UTI (urinary tract infection), Renal failure, Fall Disposition: ADMITTED INPATIENT 09 Certified Medical Emergency: Emergent Condition: Stable Referrals and Follow-Ups: None,PCP [Primary Care Provider] - - Critical Care Note This patient required my direct & personal management of CC.: No
[2016-10-07 04:46] LABS: MANUAL DIFF NEEDED? NO
[2016-10-07 04:50] LABS: BASO% 0.3 % (0.0-0.8); EOS# 0.29 X1000 (0.0-0.7); EOS% 4.3 % (0.0-10.0); HEMATOCRIT 29.7 % (37.0-47.0); HEMOGLOBIN 9.8 g/dL (12.0-16.0); LYMPH# 1.87 X1000 (1.2-3.4); LYMPH% 27.7 % (20.5-51.1); MCH 26.9 PG (27-31); MCV 81.6 FL (81-99); MONO# 0.76 X1000 (0.11-0.59); MONO% 11.2 % (1.7-9.3); MPV 11.1 FL (7.4-10.4); NEUT% 56.5 % (42.2-75.2); PLT 277 X1000 (130-400); RBC 3.64 XMIL (4.2-5.4)
[2016-10-07 05:20] LABS: ALBUMIN 3.4 g/dL (3.5-5.0); CALCIUM 8.3 mg/dL (8.8-10.2); POTASSIUM 5.5 mmol/L (3.5-5.1); TOTAL BILIRUBIN 0.13 mg/dL (0.20-1.00); TOTAL PROTEIN 6.7 g/dL (6.3-8.3)
[2016-10-07 05:30] LABS: URINE SOURCE CATH
[2016-10-07 05:32] LABS: BILIRUBIN URINE NEGATIVE (NEGATIVE); BLOOD URINE MODERATE (NEGATIVE); COLOR YELLOW; GLUCOSE URINE 200 mg/dL (NEGATIVE); LEUKOCYTES URINE LARGE (NEGATIVE); NITRITE URINE NEGATIVE (NEGATIVE); PROTEIN URINE 200 mg/dL (NEGATIVE); SP GRAVITY URINE 1.006; TURBIDITY URINE HAZY (CLEAR); UROBILINOGEN URINE NORMAL (NORMAL)
[2016-10-07 05:34] LABS: URINE MICRO REVIEW NEEDED? YES
[2016-10-07 05:46] LABS: UR EPITHELIAL CELLS <10 /HPF (<10); URINE BACTERIA NEGATIVE /HPF; URINE CULTURE NEEDED? YES; URINE WBC TNTC /HPF (<10)
[2016-10-07 05:59] LABS: URINE CASTS NONE SEEN; URINE CRYSTALS NONE SEEN
--- NOTE | 2016-10-07 06:31 | Diag Imaging Result Doc PS360 ---
EXAM: PELVIS W/O CONTRAST HISTORY: fell, severe L hip pain TECHNIQUE: COMPARISON: None. FINDINGS: Neither hip is dislocated. No fracture to either hip. No widening of the pubic symphysis. The sacroiliac joints are symmetric. No fracture to the pelvis. IMPRESSION: No acute bony injury. Electronically signed by Scott Bhardwaj 10/07/2016 6:28 AM
--- NOTE | 2016-10-07 06:33 | Diag Imaging Result Doc PS360 ---
EXAM: XRAY PELVIS W/HIP 2-3VW LT HISTORY: she fell TECHNIQUE: Three views COMPARISON: None. FINDINGS: No fracture. No dislocation. IMPRESSION: No acute bony injury. Electronically signed by Scott Bhardwaj 10/07/2016 6:31 AM
--- NOTE | 2016-10-07 06:36 | Diag Imaging Result Doc PS360 ---
EXAM: CHEST-1 VIEW HISTORY: pre-op TECHNIQUE: Supine AP COMPARISON: None. FINDINGS: The lungs are well expanded. The heart is mildly enlarged. The vessels are not distended. There are no infiltrates. No effusion identified. Mild atelectasis in the mid left. IMPRESSION: Cardiomegaly. Electronically signed by Scott Bhardwaj 10/07/2016 6:33 AM
[2016-10-07] MEDS ORDERED: ROCEPHIN 2 GM/NS 2 GM/50 ML IVPB IV ONE (06:42)
[2016-10-07] MEDS ORDERED: NS 1,000 ML IV ONE (06:43)
[2016-10-07] MEDS ORDERED: ZOSYN 3.375 GM/NS 3.375 GM/50 ML IVPB IV SCH (08:45)
[2016-10-07] MEDS ORDERED: ZOFRAN IV PRN (09:47)
[2016-10-07] MEDS ORDERED: VITAMIN D PO SCH (09:47)
--- NOTE | 2016-10-07 10:16 | HISTORY AND PHYSICAL ---
HISTORY OF PRESENT ILLNESS: Ms. Garcia had just gotten discharged from this hospital. She was admitted back on 09/30/2016. I think she was discharged on the and she is back in and it is the . Apparently when she got home she fell and she has been sore. She came into the emergency room this morning. Hip and pelvic x-ray showed no fractures but she is still hurting across her hips. She has been burning some more with urination. She has had several urinary tract infections. I think she had bladder surgery in 2011 and she has had some trouble since that time. So, she has another urinary tract infection. Pelvic CT also showed no acute injury. Her white count was 6,760 but urine had too numerous to count white blood cells and lots of red blood cells, 10-20. Bacteria was negative. She denies fever or chills. No chest pain. Having a difficult time walking, hurting, and we are going to need to initiate some physical therapy and try and get her up and stronger. We will re-culture the urine. In looking at her previous data, the last time she was here, history of diabetes mellitus, urinary retention, she was doing self-catheterizations, hypertension, hypothyroidism. She was complaining of fever and chills and suprapubic pain for over a week. She does not have any insurance so she could not see any of her doctors at that time. Recurrent urinary tract infections. Has been off and on antibiotics. She has never gone 2 weeks by her report without having some sort of antibiotic on previous admission. The previous week before the last admission she started having fever and chills. It got to the point where she had severe pain in the suprapubic region. She started noticing pus-like urine out of the catheter, so that is what brought her to the emergency room. Apparently, she was a little dehydrated at that time. PAST MEDICAL HISTORY: 1. Diabetes mellitus type 2. 2. Hypertension. 3. Hyperlipidemia. 4. Morbid obesity. 5. Urinary retention and self catheterization. She is followed by Dr. Eduar Ocampo. 6. Peripheral neuropathy. 7. Gastroesophageal reflux disease. PAST SURGICAL HISTORY: Patient has had multiple bladder surgeries. ALLERGIES: No known drug allergies. FAMILY HISTORY: Per previous records. Noncontributory. SOCIAL HISTORY: Patient denies alcohol, tobacco, or drugs. She lives with her . REVIEW OF SYSTEMS: She does not report any weight loss or gain. No fever or chills.HEENT: Unremarkable. Respiratory: No increased work of breathing or dyspnea. Cardiovascular: No chest pain or tachy palpitation. GI: Unremarkable. : Unremarkable. Musculoskeletal: Unremarkable except for above. Neurologic: Unremarkable except for above. PHYSICAL EXAMINATION: VITAL SIGNS: Temperature 98.2 degrees, pulse 100, respirations 18, blood pressure 107/90. Height 5 feet 4 inches. EYES: Pupils are equal and round. LUNGS: Clear in all lung flores. CARDIOVASCULAR: Regular rhythm and rate without murmur or S3. ABDOMEN: Soft, nontender, nondistended. Positive bowel sounds. No hepatosplenomegaly. She has a little bit of suprapubic tenderness. Otherwise no pain while lying still. EXTREMITIES: Without clubbing, cyanosis, or edema. LAB: White count 6,760, hematocrit 29, platelet count 277,000. Sodium 132, potassium 5.5, chloride 96, bicarb 18, BUN 66, creatinine 4.0, blood sugar 256. Liver functions unremarkable. AST 18, ALT 16. Urine: Too numerous to count white blood cells, 10-20 red blood cells. Chest x- ray: There was some cardiomegaly. No infiltrates. Lung flores were clear. ASSESSMENT AND PLAN: 1. Recurrent urinary tract infection. We will see if we can explore some of her past data on micro. I see her last culture on 10/02 showed mixed renee. On 05/15 urine was no pathological growth. Back in February 2016 grew out E. coli. December 2015 Klebsiella pneumonia. So it looks like it is between Klebsiella and E. coli in the past. Klebsiella was sensitive to cefazolin and Levaquin. The E. coli was resistant to Levaquin, sensitive to amikacin and nitrofurantoin. So, I think for now we will put her on the Zosyn 3.375 mg IV q.6. Will ask Dr. Yovani Pa to assist in infectious disease, deciding what to do for long- term treatment. See if there is any sign of yeast in the urine. 2. Recent fall she did not fracture but she is very sore; it hurts in the pelvis. She is going to need some physical therapy. 3. Diabetes mellitus type 2. We will check pattern sugars. Put her on a sliding scale. 4. Morbid obesity. Expect she has some obstructive sleep apnea as well. We will have her on a little bit of O2 for now. 5. History of hypothyroidism. Will check her T4 and TSH. 6. Hypertension. Will watch blood pressures. 7. Chronic kidney disease. She has a creatinine of 4.0. In looking back at her previous numbers, her creatinine I think the lowest was 1.8; that was on September 2015. When she was discharged from the hospital the last time it was 3.5. So I think that is going to have to be addressed too. We will ask Dr. Cooper to see and see we can do to improve renal function. MEDICATIONS: Her list of medications from home. She is on Norvasc 5 mg a day, aspirin 81 mg a day. She takes vitamin D2 64341 units weekly, Lasix 20 mg p.o. daily, gabapentin 400 mg b.i.d., Vistaril 25 mg b.i.d. p.r.n. She is on Lantus 50 units subcutaneously at bedtime. She takes insulin lispro 75/25 40 units t.i.d., so we will continue those. We will stop the Levaquin. She is on levothyroxine 125 mcg q.a.m., omeprazole 40 mg daily, Ditropan 5 mg b.i.d. She takes sodium bicarbonate 650 mg p.o. b.i.d., Flomax 0.4 mg at bedtime, and potassium chloride 10 mEq daily. We are going to hold the Lasix. I think we ought to probably hold the Norvasc as well for right now and see what Dr. Cooper wants to do. We will give her normal saline and will run it at 85 mL an hour. In looking back, she has had a myocardial perfusion scan done on 09/30/2015. She had an ejection fraction of 76%. Normal left ventricular function at that time, so she should be able to handle fluid. We will give her 85 mL an hour of normal saline. cc: Freddy Trivedi MD
[2016-10-07] MEDS: NS 1,000 ML IV SCH (11:22)
[2016-10-07] MEDS: ZOSYN 2.25 GM/NS 2.25 GM/50 ML IVPB IV SCH ×3 (11:22→21:23)
[2016-10-07] MEDS: PRILOSEC PO SCH (11:23)
[2016-10-07] MEDS: DITROPAN PO SCH ×2 (11:23→21:22)
[2016-10-07] MEDS: ASPIRIN EC PO SCH (11:23)
[2016-10-07] MEDS: NEURONTIN PO SCH ×2 (11:23→21:22)
[2016-10-07] MEDS: SODIUM BICARBONATE PO SCH ×2 (11:23→21:22)
[2016-10-07] MEDS: SYNTHROID PO SCH (11:24)
[2016-10-07] MEDS: HUMULIN R SUBQ SCH ×3 (11:24→21:23)
[2016-10-07 12:17] LABS: UR CREAT RANDOM 24.3 mg/dL (11-20); UR PROT RANDOM 228.7 mg/dL
--- NOTE | 2016-10-07 13:31 | Diag Imaging Result Doc PS360 ---
EXAM: US RENAL 2 (RETROPER) COMPLETE HISTORY: elevated creatinine TECHNIQUE: COMPARISON: 09/23/2015 FINDINGS: Right kidney measures 11.7 x 4.7 x 4.1 cm. Borderline mildly increased renal echogenicity and cortical thickness. No renal mass. Slightly distended right renal pelvis. The left kidney measures 11.6 x 4.7 x 5.6 cm. Normal echogenicity and cortical thickness. No renal mass. Slightly distended left renal pelvis. A Dean has the urinary bladder decompressed. IMPRESSION: Difficult exam due to the patient's condition and body habitus. Each renal pelvis is mildly distended and there is borderline increased renal echogenicity and cortical thickness to the right kidney which can be seen with medical renal disease. Electronically signed by Scott Bhardwaj 10/07/2016 1:29 PM
[2016-10-07] MEDS: TYLENOL PO PRN ×2 (15:09→21:22)
[2016-10-07] MEDS: HUMALOG MIX 75/25 SUBQ SCH ×2 (15:45→17:45)
[2016-10-07] MEDS ORDERED: INSULIN PEN NEEDLES ONE (17:38)
--- NOTE | 2016-10-07 18:44 | CONSULTATION ---
DATE OF CONSULTATION: 10/07/2016 REASON FOR ADMISSION: Left hip pain with a recent fall and now soreness. REASON FOR CONSULTATION: Acute kidney injury on chronic kidney disease. CONSULTING PHYSICIAN: Freddy Trivedi MD HISTORY OF PRESENT ILLNESS: Ms. Euceda is a 61-year-old white female who has been seen by our services in the past. Patient has canceled several followup appointments after last being seen in our office on 11/30/2015. At that time her creatinine was noted to be 2.2. It is noted that she has had several admissions since then with recently on 09/30/2016. During that period of time, it was found that her creatinine remained in the 3's. Her previous admission was noted for kidney pain and she was just recently discharged in the last several days on 10/07/2016. It was noted that she had hip and pelvic x-ray that indicated no fractures across the hip area. She does have some burning on urination and was found to have a urinary tract infection. She did have a history of bladder surgery in 2011 and states that she has had intermittent trouble since that period of time. Her pelvic CT did show no acute injuries. She had a positive hematuria and proteinuria, negative bacteria. She has no complaints of chest pain, increased palpitation. She has no nausea, vomiting. No diarrhea. No fever or chills. Positive pain on urination. At this time, patient has been admitted to the floor. She is currently being evaluated and monitored with possible physical therapy while she was here. PAST MEDICAL HISTORY: Diabetes mellitus type 2, chronic kidney disease stage 4, hypertension, hyperlipidemia, morbid obesity, urinary retention with self catheterization, she is followed by Dr. Ocampo. Peripheral neuropathy. Gastroesophageal reflux. PAST SURGICAL HISTORY: Multiple bladder surgeries with Dr. Ocampo following. FAMILY HISTORY: Noncontributory. SOCIAL HISTORY: She lives with her . She denies tobacco, alcohol or illicit drug use with recent hospitalization and discharge on 10/07. CURRENT ALLERGIES: No known drug allergies. HOME MEDICATIONS: Synthroid, Ecotrin, gabapentin, Norvasc, Omeprazole, Humalog mix 75/25, Lasix, Vistaril, Lantus insulin, Klor-Con, Levaquin, Ditropan, sodium bicarbonate, tamsulosin and ergocalciferol. REVIEW OF SYSTEMS: Times 10 with pertinent positives listed above in the HPI. PHYSICAL EXAMINATION: Vital Signs: Temperature 98.9 degrees, blood pressure 149/78, heart rate 92, respirations 20, she is on room air. Last recorded saturation 99%. General: This is a 61- year-old white female. She is resting quietly in bed. She is in moderate distress secondary to left and back hip pain. Skin: Warm and dry. HEENT: Normocephalic, atraumatic. Conjunctivae is pale. She has CHAO. Mucous membranes are dry. Neck: Supple. Trachea midline. Unable to determine JVD due to body habitus. Cardiovascular: Regular rate and rhythm. Unable to determine murmur or gallop due to body habitus. Lungs: Clear to auscultation anteriorly. Equal excursion anterior, unable to determine any posterior. She remains on room air, equal excursion. Abdomen: Large, obese, soft, nontender. Positive bowel sounds. Hypoactive. Extremities: She is without clubbing or cyanosis. No edema present though they appear slightly puffy. Integumentary: No rashes or lesions noted. Neurological: She is alert and oriented x3. LABORATORY AND DIAGNOSTICS: Sodium 132, potassium 5.5, chloride 96, CO2 18, BUN 66, creatinine 4. Glucose 256. Her anion gap is 18, calcium 8.3, phosphorus has not been collected. Albumin is 3.4. White count 6.76, hemoglobin 9.8, hematocrit 29.7, with a platelet count of 277,000. Patient is on room air. Last recorded saturation 99%. She has a pelvis CT that was negative. Hip x-ray was negative. Chest x-ray shows cardiomegaly. Patient's urine electrolytes indicate a FENa score 6.98%. Urinalysis is positive for proteinuria, hematuria, negative for leukocytes. ASSESSMENT AND PLAN: 1. Acute kidney injury on chronic kidney disease stage 4. Patient's previous creatinine was 3 prior to her discharge on her last hospitalization in the last week. Her creatinine is now up to 4 with a BUN of 66, this may be multifactorial. She appears to have a urinary tract infection. She has recently fallen. She has been on oral antibiotics along with an ARB and diuretics. Renal ultrasound is currently pending. She is now on renal-dosed antibiotics. We will continue to be available and monitor. No indications for intervention. 2. Electrolytes, she has mild hyperkalemia with hyponatremia. This is probably contributed to more likely #1. She is on normal saline at 85 mL an hour. We will change her Zosyn to renal dosing. 3. Acid-base balance. This remains slightly acidotic as mentioned. 4. Anemia. This remains chronic in appearance. 5. Recent fall with pain. This is followed by primary care team. I would to thank you for allowing us to follow with this patient. Dictated by REUBEN Rey for Lucas Cooper MD cc: REUBEN eRy MD
--- NOTE | 2016-10-07 18:46 | CONSULTATION ---
DATE OF CONSULTATION: 10/07/2016 CONCLUSION: The patient recently fell and injured her leg. She also after she fell started complaining of dysuria. The patient appears to have a urinary tract infection. On urinalysis she has many white cells but no bacteria seen. The culture is pending. Patient has end-stage renal disease. RECOMMENDATIONS: I agree with decision to put the patient on Zosyn pending culture results. DISCUSSION: The patient recently fell and injured her leg. She says that she has been having dysuria. She has not had fever or chills. Laboratory studies thus far show a CBC with a white count of 6760, hemoglobin 9.8 and platelet count 277,000. Creatinine is 4. GFR is 11. Urinalysis shows white cells but no bacteria. Renal ultrasound shows increased renal echogenicity and cortical thickness compatible with medical renal disease. Pelvic CT scan shows no acute bone disease. Patient's chest x-ray shows cardiomegaly. The patient's liver studies are normal except for an alkaline phosphatase of 117. The patient self-catheterizes herself 4 times a day. PAST MEDICAL HISTORY/REVIEW OF SYSTEMS: Eyes and ears: She denies difficulty hearing or seeing. Neck: No stiffness. Respiratory: No cough but she does get short of breath with minimal exertion. Cardiovascular: No chest pain or palpitations. GI: Patient has obstipation, no nausea or vomiting. Genitourinary: As mentioned above, the patient has to self-catheterize herself 4 times a day. Currently she is complaining of dysuria. Neurologic: The patient has generalized weakness. She is not having seizures. Bones, joints, muscles: She does have pain in her knees and ankles when she stands and tries to walk. ADVERTISING COLUMNIST HISTORY: She is a 8, para 8, AB 0. She has had a hysterectomy. PREVIOUS HOSPITALIZATIONS AND OPERATIONS: She has had labor and deliveries and a hysterectomy, carpal tunnel surgery, knee surgeries and bladder operations. MEDICAL DISEASES: Positive for obesity, diabetes mellitus, hypertension and osteoarthritis, hypothyroidism. INFECTIOUS DISEASE HISTORY: Positive for vaginitis and urinary tract infection. FAMILY HISTORY: Positive for diabetes mellitus, hypertension, stroke, and cancer. [place]IAL HISTORY[place] . She does not drink alcoholic beverages or smoke cigarettes or abuse drugs. ALLERGIES: She has no known drug allergies. HOME MEDICATIONS: Include Flomax, bicarbonate, potassium, Ditropan, omeprazole, Synthroid, Levaquin, insulin, Vistaril, gabapentin, Lasix, Accutane and Norvasc. PHYSICAL EXAMINATION: Vital Signs: Temperature is 98.1 degrees, pulse 74, respirations 16, blood pressure 146/42. Patient is 5 feet 2 inches tall, weighs 243 pounds. Generally: This is an obese, middle-aged female. She is in no acute distress at this time. Head, eyes, ears, nose, and throat: She can hear my spoken words and see near objects. No drainage is noted from her nose or ears. Neck: No meningismus. Thorax: No increased AP diameter. Lungs: Clear to auscultation. Cardiovascular: Regular heart rate. Abdomen and flanks: Soft and nontender. Neurologic: Patient is awake. She is weak in all of her extremities. There is no tremor. Her sensation is intact to touch. ALLERGIES: Her chart lists no known allergies. Thank you for the consult. cc: Yovani Pa MD
[2016-10-07] MEDS: LANTUS SUBQ SCH (21:22)
[2016-10-07] MEDS: FLOMAX PO SCH (21:22)
[2016-10-08] MEDS: NS 1,000 ML IV SCH ×2 (01:32→10:02)
[2016-10-08] MEDS ORDERED: NORCO-7.5 PO ONE (02:05)
[2016-10-08] MEDS: ZOSYN 2.25 GM/NS 2.25 GM/50 ML IVPB IV SCH ×5 (03:01→23:14)
[2016-10-08] MEDS: HUMALOG MIX 75/25 SUBQ SCH ×3 (06:28→16:11)
[2016-10-08] MEDS: HUMULIN R SUBQ SCH ×3 (06:29→16:14)
[2016-10-08 06:31] LABS: MANUAL DIFF NEEDED? NO
[2016-10-08 06:34] LABS: BASO% 0.2 % (0.0-0.8); EOS% 4.9 % (0.0-10.0); HEMATOCRIT 26.7 % (37.0-47.0); HEMOGLOBIN 8.6 g/dL (12.0-16.0); LYMPH# 3.14 X1000 (1.2-3.4); LYMPH% 38.3 % (20.5-51.1); MCH 26.6 PG (27-31); MCHC 32.2 g/dL (33-37); MCV 82.7 FL (81-99); MONO# 0.63 X1000 (0.11-0.59); MONO% 7.7 % (1.7-9.3); MPV 10.2 FL (7.4-10.4); NEUT% 48.9 % (42.2-75.2); PLT 299 X1000 (130-400); RBC 3.23 XMIL (4.2-5.4)
[2016-10-08 06:58] LABS: ALBUMIN 3.2 g/dL (3.5-5.0); CALCIUM 8.4 mg/dL (8.8-10.2); MAGNESIUM 1.9 mg/dL (1.5-2.7); POTASSIUM 5.3 mmol/L (3.5-5.1); TOTAL BILIRUBIN 0.12 mg/dL (0.20-1.00); TOTAL PROTEIN 5.9 g/dL (6.3-8.3)
[2016-10-08 07:02] LABS: INR 0.96; PROTIME 10.1 Seconds (9.2-11.7); PTT 25.1 Seconds (22.0-36.0)
[2016-10-08 08:16] LABS: FREE T4 1.49 ng/dL (0.93-1.70)
[2016-10-08] MEDS: ASPIRIN EC PO SCH (08:20)
[2016-10-08] MEDS: DITROPAN PO SCH ×2 (08:20→20:09)
[2016-10-08] MEDS: SYNTHROID PO SCH (08:20)
[2016-10-08] MEDS: SODIUM BICARBONATE PO SCH ×2 (08:20→20:09)
[2016-10-08] MEDS: PRILOSEC PO SCH (08:21)
[2016-10-08] MEDS: NEURONTIN PO SCH ×2 (08:21→20:09)
[2016-10-08] MEDS: NEPHRO-VITE PO SCH (12:14)
--- NOTE | 2016-10-08 12:41 | PROGRESS NOTE ---
DATE: 10/08/2016 TIME SEEN: 0805. SUBJECTIVE: Ms. Garcia is resting quietly in bed. Her head of the bed is elevated. She states that she is actually feeling just a little bit better, though she does continue to have bilateral hip pain. She denies chest pain or increased work of breathing. OBJECTIVE: Vital signs: Her most recent vital signs, her last temperature 97.9 degrees, blood pressure 137/64, heart rate 77, respirations 17. She is on room air. Last recorded saturation is 96%. She has had 1125 in, 1300 out per Dean catheter. Labs: Sodium 137, potassium 5.3, chloride 104, CO2 20, BUN 57, creatinine 3.3, glucose 78. Her anion gap is 13. Her calcium is 8.4, magnesium 1.9, albumin 3.2. TSH is 6.49, free T4 is 1.49. Her white count 8.2, hemoglobin 8.6, hematocrit 26.7, with a platelet count of 299,000. Urine culture shows no growth after 24 hours. Patient has a PT of 10.1, INR 0.96, PTT 25.1. PHYSICAL EXAMINATION: General: This is a 61-year-old white female. She is resting in bed. Head of the bed is elevated. She appears chronically ill. She is in no acute distress. Skin: Warm and dry. HEENT: Normocephalic, atraumatic. Conjunctiva is pale. She has CHAO. Mucous membranes moist. Neck: Supple. Trachea midline. Unable to determine JVD due to patient being erect. Cardiovascular: Regular rate and rhythm. She has an S4. Lungs: Clear to auscultation anteriorly. Equal excursion. On room air. Abdomen: Large, obese, soft, nontender. Positive bowel sounds. Extremities: Have 1+ edema. No clubbing or cyanosis. Neurological: She is alert and oriented x3. Integumentary: Patient has bilateral bruises to the face. She has right facial scratch. She has bruise to the left cheek bone. She continues with bruises to the upper and lower extremities with noted bruising to the left hip. ASSESSMENT AND PLAN: 1. This is a 61-year-old patient with acute kidney injury on chronic kidney disease stage 3B. Patient's creatinine has continued to worsen over the last year. We have not seen her in our office secondary to her not wanting to come in due to not having any insurance coverage. We have stressed that her creatinine has slowly worsened over the past year. We did indicate we would need to have her follow up in our office within 2-3 weeks after discharge. Some improvement today. 2. Urinary tract infection. This is now followed by Dr. Pa. Renal dosed antibiotics. Continue. 3. Electrolytes. Patient had hyperkalemia with hyponatremia on her initial visit. She continues with mild hyperkalemia. We will place her on a low potassium diet. 4. Anemia. This is low but stable. Anemia panel has already been completed. She has a low B12 and a low folate and she is on folic acid. 5. Urinary tract infection. Again, Zosyn which is renally dosed by Dr. Pa. 6. Elevated TSH and free T4. Again, with primary care team following. I would like to thank you for allowing us to follow with this patient. Seen, data reviewed, discussed with Annia Borden on 10/08/16. I agree with the above assessment and plan of care. rg Dictated by REUBEN Rey for Lucas Cooper MD cc: REUBEN Rey MD [facility]
[2016-10-08] MEDS: ATIVAN PO SCH ×2 (13:26→17:10)
--- NOTE | 2016-10-08 15:08 | PROGRESS NOTE ---
DATE: 10/08/2016 PRESENT ILLNESS: The patient is currently being treated for a urinary tract infection manifested by dysuria. She also is complaining of pain in her low back and in the left hip which is made worse by passive movement of the hip. MEDICATIONS: The patient is on Zosyn. PHYSICAL EXAMINATION: Vital Signs: Temperature is 97.9 degrees, pulse 72, respirations 18, blood pressure 159/67. General: This is an ill-appearing, middle-aged female. She is in no acute distress except when I tried to move her left leg. Lungs: Clear to auscultation. Cardiovascular: Regular heart rate. Abdomen: Soft and nontender. LAB AND X-RAY: The patient's CBC shows a white count of 8,200, hemoglobin 8.6, and platelet count 299,000. Creatinine is 3.3. GFR is 14. Liver function studies are normal. Urine culture is negative. ASSESSMENT AND PLAN: The patient still may have an infection. Therefore, I think it would be reasonable to control her Zosyn for a few days. The pain in her hip, running down her leg into her knee persists. Comorbidities include diabetes mellitus, obesity, and osteoarthritis. cc: Yovani Pa MD
--- NOTE | 2016-10-08 18:10 | PROGRESS NOTE ---
DATE: 10/08/2016 SUBJECTIVE: She had just gotten discharged from the hospital. She was admitted back on 09/30/2016, discharged on the , back in on the . She got home and fell and has been sore. She came into the emergency room. Pelvic x-ray and CT of the pelvis was unremarkable but treating her for urinary tract infection. She is very anxious. PAST MEDICAL HISTORY: Reviewed again. 1. Diabetes mellitus type 2. 2. Hypertension. 3. Hyperlipidemia. 4. Morbid obesity. 5. Urinary retention with self-catheterization at home. She has a Dean catheter in place now. 6. Peripheral neuropathy. 7. Gastroesophageal reflux disease. 8. She has had multiple bladder surgeries. OBJECTIVE: General: Exam today she has got multiple complaints, it hurts around her pelvis, hurts in her legs, she feels like she is very anxious, complains of some nonspecific abdominal discomfort and asked for something for nerves. Vital signs: Temperature 97.4 degrees, pulse 72, respirations 18, blood pressure 159/67. Lungs: Are clear in all lung flores. Cardiovascular: Regular rhythm and rate without murmur or S3. Abdomen: Soft. Skin: Is warm and dry. Urine output 2 L. LAB: White count 8200, hematocrit 26, platelet count 299,000. Sodium 137, potassium 5.3, chloride 104, bicarb 20, BUN 57, creatinine 3.3, blood sugar 253, 223, 78. ASSESSMENT AND PLAN: 1. Being treated for urinary tract infection manage with dysuria. Complaint of lower back pain, left hip as well but that appears to be myofascial. Patient is on Zosyn so continue Zosyn for couple days. 2. Pain in her hip running down to her knee appears to be musculoskeletal after recent fall. 3. Diabetes mellitus type 2. Blood sugars controlled. 4. Obesity. 5. Osteoarthritis. 6. Patient has acute kidney injury on chronic stage 3B. Patient's creatinine continue worse over last year. Has been followed by Dr. Cooper, I do not think she has had followup. Continue follow renal function. Continue present IV fluids. 7. Anxiety. Will let her have some Ativan and see if this will help. She is on sodium bicarb 650 mg b.i.d., Flomax 0.4 mg at bedtime, Zosyn 2.25 mg IV q.6, normal saline at 85 mL an hour, Ativan 0.5 mg t.i.d., Synthroid 125 mcg a day, she taken her insulin, Neurontin 400 mg b.i.d., folic acid 1 daily, vitamin D 50,000 units every 7 days, aspirin 81 mg a day. cc: Freddy Trivedi MD
[2016-10-08] MEDS: FLOMAX PO SCH (20:09)
[2016-10-08] MEDS: LANTUS SUBQ SCH (20:09)
[2016-10-09] MEDS: NS 1,000 ML IV SCH ×3 (00:15→17:55)
[2016-10-09] MEDS: HUMULIN R SUBQ SCH ×4 (00:15→17:13)
[2016-10-09] MEDS: TYLENOL PO PRN (00:44)
[2016-10-09] MEDS: ATIVAN PO SCH ×4 (00:44→17:12)
[2016-10-09] MEDS: ZOSYN 2.25 GM/NS 2.25 GM/50 ML IVPB IV SCH ×3 (04:42→16:21)
[2016-10-09 07:01] LABS: IRON SATURATION 12 %; TIBC 233 ug/dL; TOTAL IRON 27 ug/dL (49-151); UNBOUND IRON 206 ug/dL (112-346)
[2016-10-09 07:20] LABS: CALCIUM 8.3 mg/dL (8.8-10.2); POTASSIUM 4.9 mmol/L (3.5-5.1)
[2016-10-09] MEDS: NEPHRO-VITE PO SCH (08:17)
[2016-10-09] MEDS: DITROPAN PO SCH ×2 (08:18→19:43)
[2016-10-09] MEDS: PRILOSEC PO SCH (08:20)
[2016-10-09] MEDS: SYNTHROID PO SCH (08:20)
[2016-10-09] MEDS: SODIUM BICARBONATE PO SCH ×2 (08:20→19:44)
[2016-10-09] MEDS: ASPIRIN EC PO SCH (08:20)
[2016-10-09] MEDS: NEURONTIN PO SCH ×2 (08:21→19:44)
[2016-10-09] MEDS: HUMALOG MIX 75/25 SUBQ SCH ×3 (08:22→16:30)
--- NOTE | 2016-10-09 09:12 | PROGRESS NOTE ---
DATE: 10/09/2016 PRESENT ILLNESS: The patient is currently being treated by me for a urinary tract infection. She continues to have the severe pain in her left hip, and it is worse when I move her hip. MEDICATIONS: The patient is on Zosyn. PHYSICAL EXAMINATION: Vital Signs: Temperature is 97.9 degrees, pulse 82, respirations 16, blood pressure 135/52. Generally, this is an ill-appearing, middle-aged female who is in no acute distress. Lungs clear to auscultation. Cardiovascular: Regular heart rate. Abdomen soft and nontender. Bones, joints, muscles. When I palpate her hip, it is not tender, and there is no erythema. When I passively move her hip, she complains of severe pain in it. LABORATORY DATA AND X-RAY: CBC for today shows a white count of 8,200. Hemoglobin 8.6 and platelet count 299,000. Creatinine is 3.2. The GFR is 15. Repeat urine culture is sterile. ASSESSMENT AND PLAN: 1. Patient has urinary tract infection. I am going to continue Zosyn for a few more days. 2. Regarding her left hip pain, I have consulted Dr. Leavitt. Patient's comorbidities include diabetes mellitus, obesity, and osteoarthritis. cc: Yovani Pa MD
--- NOTE | 2016-10-09 10:41 | PROGRESS NOTE ---
DATE: 10/09/2016 TIME SEEN: 0830. SUBJECTIVE: Ms. Garcia is resting quietly in bed. She has just been given Ativan for anxiety and lower hip pain. Her nurse is at her bedside. She denies chest pain, increased work of breathing. OBJECTIVE: Vital signs: Her most recent vital signs, temperature 98.3 degrees , blood pressure 145/71, heart rate 81, respirations 18. She is on room air. Last recorded saturation 96%. She has had 2610 in, 2975 out per Dean catheter. Labs: Sodium 139, potassium 4.9 , chloride 103, CO2 23, BUN 46, creatinine 3.2, glucose 132. Anion gap 15, calcium 8.3, albumin 3. White count 8.2, hemoglobin 8.6, hematocrit 26.7 yesterday. PHYSICAL EXAMINATION: General: This is a 61-year-old white female. She is resting in bed. She is in mild distress. She has just received Ativan. Skin: Warm and dry. HEENT : Normocephalic, atraumatic. Conjunctivae pale. She has CHAO. Mucous membranes are moist. Neck: Supple. Trachea midline. Unable to determine JVD due to patient's position and body habitus. Cardiovascular: She is regular rate and rhythm. Positive S4. No murmur. Lungs: Clear to auscultation anteriorly. Equal excursion. Diminished posterior bases. She is currently on room air. Abdomen: Obese, soft, nontender. Positive bowel sounds. Extremities: Have 1+ edema. No clubbing or cyanosis. Integumentary: The patient continues to have bilateral bruises to her face. She has right facial scratch. Bruises to the left cheekbone. Bruises to the upper arms, lower extremities, left hip. ASSESSMENT AND PLAN: 1. Acute kidney injury on chronic kidney disease stage 3B. Patient's creatinine is slowly improving, it is down to 3.2, with an improvement in her BUN. She continues on IV fluids as prescribed. No indications for intervention. 2. Urinary tract infection. She is on renal dosed antibiotics. 3. Electrolytes and acid-base balance. These remain stable. 4. Anemia. This has not been repeated, but low but stable. I would like to thank you for allowing us to follow with this patient. Seen, data reviewed, discussed with Annia Borden on 10/09/16. I agree with the above assessment and plan of care. rg Dictated by REUBEN Rey for Lucas Cooper MD cc: REUBEN Rey MD [facility]
[2016-10-09] MEDS ORDERED: NORCO-7.5 PO PRN (12:48)
[2016-10-09] MEDS: MORPHINE IV PRN ×2 (14:07→19:25)
[2016-10-09] MEDS ORDERED: INSULIN PEN NEEDLES ONE (14:49)
--- NOTE | 2016-10-09 14:57 | PROGRESS NOTE ---
DATE: 10/09/2016 SUBJECTIVE: This patient was recently discharged from the hospital. She was admitted back on 09/30/2016 and discharged on 10/05/2016. A couple of days after that, she was readmitted. No acute events overnight. This patient has been treated for urinary tract infection. She is also complaining about left hip pain to pain on mobilization. Orthopedic surgery has been consulted for evaluation. OBJECTIVE: Vital Signs: Temperature 97.9 degrees, pulse 82, respiratory rate 16, blood pressure 135/52. Oxygen saturation 99 on room air. HEENT: Head normocephalic. No trauma. PERRLA. Neck supple. No JVD. No masses. Central trachea. Chest clear to auscultation. No wheezing. No rales. Abdomen is soft. Mild tenderness to the level of the suprapubic area. She has generalized pain/soreness at the level of the lower back. Extremities: No edema. No clubbing. No cyanosis. Neurological. The patient is alert and oriented x3. No focal deficits. LABORATORY: Sodium 138, potassium 4.9, chloride 103, bicarbonate 20. BUN 46. Creatinine 3.2, glucose 132, calcium 8.3. ASSESSMENT AND PLAN: 1. Urinary tract infection. Infectious Disease Department is following this patient. Urine culture done on 10/07/2016 has been negative so far but also, we have a urine culture from 10/02/2016 that did not show any organism, just mixed renee. We will continue with the same medication. 2. Left hip pain running down to the knee, I will add pain medications pending Orthopedic Surgery Department evaluation. 3. Type 2 diabetes. Blood sugar is controlled. 4. Obesity, aware. 5. Osteoarthritis. Continue with the same management. 6. [id number] kidney injury, stage 3B. The BUN and creatinine are slightly better. Nephrology Department is following this patient. Continue with the same management for now. 7. Anxiety. Continue with the same medication. cc: Inder Moise MD
--- NOTE | 2016-10-09 15:16 | CONSULTATION ---
DATE OF CONSULTATION: 10/09/2016 CHIEF COMPLAINT: Left hip pain. HISTORY OF PRESENT ILLNESS: Ms. Garcia is a 61-year-old female who fell onto her left hip at home and she was brought to [facility] on 10/07/2016 for evaluation and we are consulted for further evaluation. She complains of pain in the left buttock region and denies pain in the groin or lateral hip. She also complains of back pain and pain radiating down her leg into her left knee. PAST MEDICAL HISTORY: 1. Diabetes mellitus type 2. 2. Hypertension. 3. Hyperlipidemia. 4. Morbid obesity. 5. Urinary retention with self catheterization. 6. Peripheral neuropathy. 7. Gastroesophageal reflux disease. PAST SURGICAL HISTORY: She has had multiple bladder surgeries. ALLERGIES: No known drug allergies. PRIMARY CARE PROVIDER: None. SOCIAL HISTORY: Patient denies alcohol, tobacco or drugs. REVIEW OF SYSTEMS: A 12 point review of systems was performed and is negative other than what was stated above in HPI. PHYSICAL EXAMINATION: General: The patient is resting comfortably at bedside and she is able to articulate and answer all questions fully. HEENT: Head is normocephalic, atraumatic. Neck: Supple. Respirations: Unlabored. Cardiac: She has 2+ pedal pulses bilaterally. Abdomen: Nondistended. Neurologic: She discerned soft touch to the left leg. Gross motor function is intact. Extremities: She denies pain to palpation of her greater trochanter of her hip and she has pain with palpation of the sciatic notch. She has a positive straight leg raise. She is neurovascularly intact with good peripheral pulses. No edema, ecchymosis or deformity is noted. ASSESSMENT: Left hip pain likely due to radiculopathy. PLAN: She states that she has an appointment in November with Dr. Hussain Christopher for a back injection and we are advising her to keep that appointment and follow up with him. We will have her wear an LSO brace and have her do physical therapy while she is in the hospital. Dictated by SENG Mccabe for Kirill Leavitt MD cc: SENG Mccabe MD [facility]
[2016-10-09] MEDS: FLOMAX PO SCH (19:44)
[2016-10-10] MEDS: SODIUM BICARBONATE PO SCH ×2 (02:00→08:22)
[2016-10-10] MEDS: DITROPAN PO SCH ×2 (02:00→08:23)
[2016-10-10] MEDS: NS 1,000 ML IV SCH ×2 (02:00→16:33)
[2016-10-10] MEDS: HUMULIN R SUBQ SCH ×4 (02:01→16:32)
[2016-10-10] MEDS: NEURONTIN PO SCH ×2 (02:01→08:22)
[2016-10-10] MEDS: FLOMAX PO SCH (02:01)
[2016-10-10] MEDS: LANTUS SUBQ SCH (02:01)
[2016-10-10] MEDS: MORPHINE IV PRN (03:12)
[2016-10-10] MEDS: ZOSYN 2.25 GM/NS 2.25 GM/50 ML IVPB IV SCH ×3 (03:12→15:27)
[2016-10-10 06:40] LABS: MANUAL DIFF NEEDED? NO
[2016-10-10 07:00] LABS: BASO% 0.1 % (0.0-0.8); EOS# 0.33 X1000 (0.0-0.7); EOS% 4.1 % (0.0-10.0); HEMATOCRIT 27.2 % (37.0-47.0); HEMOGLOBIN 8.6 g/dL (12.0-16.0); IMM GRAN# 0.02 X1000 (0.0-0.04); IMM GRAN% 0.2 % (0.0-0.5); LYMPH# 2.02 X1000 (1.2-3.4); MCH 26.4 PG (27-31); MCHC 31.6 g/dL (33-37); MCV 83.4 FL (81-99); MONO# 0.61 X1000 (0.11-0.59); MONO% 7.5 % (1.7-9.3); MPV 10.2 FL (7.4-10.4); NEUT% 63.1 % (42.2-75.2); PLT 319 X1000 (130-400); RBC 3.26 XMIL (4.2-5.4)
[2016-10-10 07:08] LABS: ALBUMIN 2.7 g/dL (3.5-5.0); CALCIUM 8.1 mg/dL (8.8-10.2)
[2016-10-10 07:13] LABS: HEMOGLOBIN A1C 10.8 % (4.8-6.0)
[2016-10-10] MEDS: PRILOSEC PO SCH (08:22)
[2016-10-10] MEDS: SYNTHROID PO SCH (08:22)
[2016-10-10] MEDS: ASPIRIN EC PO SCH (08:23)
[2016-10-10] MEDS: NEPHRO-VITE PO SCH (08:23)
[2016-10-10] MEDS: HUMALOG MIX 75/25 SUBQ SCH ×3 (08:24→16:32)
--- NOTE | 2016-10-10 08:24 | PROGRESS NOTE ---
DATE: 10/10/2016 SUBJECTIVE: Ms. Garcia is sitting at bedside chair, eating breakfast this morning. No acute distress. OBJECTIVE: Bilateral lower extremity Exam: She does have sensation to light touch to the feet. Focus motor exam does not show that she has good motor function in bilateral lower extremities. ASSESSMENT: Back pain with radiculopathy. PLAN: I think Ms. Garcia probably does have some degenerative changes in her back, which is probably causing some radiculopathy. I would recommend when she is discharged that she will need to follow with a spine surgeon, whom she has already seen, sounds like one orthopedic surgeon. We usually refer to spine and neuro. We will wait until her UTI has cleared. cc: Kirill Leavitt MD
[2016-10-10] MEDS: ATIVAN PO SCH ×2 (08:55→15:32)
--- NOTE | 2016-10-10 10:24 | PROGRESS NOTE ---
DATE: 10/10/2016 DATE SEEN: 10/10/2016 TIME SEEN: 08:30 AM SUBJECTIVE: Ms. Garcia is sitting up in a chair. She denies any chest pain. No increased work of breathing. She does state that her left hip hurts, though her abdominal and lower back area is feeling just slightly better. OBJECTIVE: Vital Signs: Her temperature 97.8 degrees, blood pressure 143/72, heart rate 80, respirations 18. She is on room air. Last recorded saturation 99%. She has had 1840 in. She has had 900 out per Dean catheter. LABORATORY DATA: Sodium 140, potassium 5, chloride 108, CO2 19. BUN 40, creatinine 2.8, glucose 101. Anion gap 13, calcium 8.1, phosphorus 4, albumin 2.7., White count 8.09. Hemoglobin 8.6, hematocrit 27.2, with a platelet count of 319,000. PHYSICAL EXAMINATION: General: This is a 61-year-old white female. She is resting in a chair. She is in no acute distress. Skin: Warm and dry. HEENT: Normocephalic, atraumatic. Conjunctiva is pink. She has CHAO. Mucous membranes are moist. Neck: Supple. Trachea midline. No JVD. Cardiovascular: Regular rate and rhythm. She has a positive S4. No murmur. Lungs: Clear to auscultation anteriorly. Equal excursion. Diminished posterior bases. She is currently on room air. Abdomen: Obese, soft, nontender. Positive bowel sounds. Extremities: 1+ edema. No clubbing or cyanosis. Integumentary: She continues with bruises to her facial area, upper arms, and lower extremities, and to her left hip lower sacral area. No clubbing or cyanosis present. Palpable pulses. ASSESSMENT AND PLAN: 1. Acute kidney injury on chronic kidney disease stage 3B. Patient's BUN and creatinine have continued to improve. She is close to her baseline. There is no indications for intervention today. 2. Electrolytes and acid-base balance. These are stable. 3. Anemia. This remains stable. 4. Urinary tract infection. Patient is on renal dosed antibiotics. 5. Recent fall. This is followed by the primary care team. I would to thank you for allowing us to follow with this patient. Seen, data reviewed, discussed with Annia Borden on 10/10/16. I agree with the above assessment and plan of care. rg Dictated by REUBEN Rey for Lucas Cooper MD cc: REUBEN Rey MD [facility]
[2016-10-10 14:23] VITALS: BP 158/49
--- NOTE | 2016-10-10 14:23 | PROGRESS NOTE ---
DATE: 10/10/2016 PRESENT ILLNESS: The patient has a urinary tract infection. MEDICATIONS: The patient is receiving Zosyn. PHYSICAL EXAMINATION: Vital Signs: Temperature is 98.4 degrees, respirations 18, blood pressure 156/66. General: This is a somewhat ill-appearing, middle-aged female. She is feeling much better today after she has had pain relief due to Dr. Bolanos's medication. Lungs: Clear to auscultation. Cardiovascular: Regular heart rate. Abdomen and flank: Soft and nontender. LABORATORY AND X-RAY: Patient's last positive urine culture was E. coli and the most recent one shows no growth. Her CBC for today shows a white count of 8090, hemoglobin 8.6 and platelet count 319,000. Creatinine is 2.8. The GFR is 17. ASSESSMENT AND PLAN: 1. The patient has a urinary tract infection. She is being discharged today. I have electronically sent a prescription for Keflex 500 mg p.o. every 12 hours to her pharmacy in [place]. The length of treatment will be 10 days. There will be 20 pills dispensed to her of the Keflex. 2. Comorbidities include diabetes mellitus, obesity and osteoarthritis. cc: Yovani Pa MD
--- NOTE | 2016-10-10 19:28 | DISCHARGE SUMMARY ---
ADMISSION DATE: 10/07/2016 DISCHARGE DATE: 10/10/2016 CONSULTATIONS: 1. Dr. Yovani Pa with Infectious Disease. 2. Dr. Lucas Cooper with Nephrology. 3. Dr. Kirill Leavitt with Orthopedics. PERTINENT PROCEDURES: 1. Hip/pelvis x-ray showed no acute bony injury. 2. Pelvis CT showed no acute bony injury. 3. Renal ultrasound was difficult due to the patient's body habitus. Each renal pelvis is mildly distended. There is borderline increased renal echogenicity and cortical thickness to the right kidney which can be seen with medical renal disease. DISCHARGE DIAGNOSES: 1. Acute kidney injury on chronic kidney disease, stage 3b followed by Nephrology. Stable, close to baseline. No indication for intervention. 2. Electrolytes and acid base remain stable as well as anemia. 3. Back pain with radiculopathy. She will need to follow up with a spine surgeon as per Dr. Leavitt. 4. Urinary tract infection. Patient will be discharged on p.o. antibiotics per Dr. Yovani Pa. HOSPITAL COURSE: Briefly, Ms Garcia is a 61-year-old female just recently discharged from the hospital. Admitted back on 09/30/2016, discharged on 10/05/2016 and back in on 10/07/2016. When she got home, she fell and has been sore. She came to the ED. Hip and pelvis x-ray showed no fractures, but she was still hurting across her hips. She has been burning some more with urination. She has had several urinary tract infections as well as bladder surgery in 2011 and stated that she had trouble with her urinary since that time. Pelvic CT showed no acute injury. Her white count was 6000, but her urine had too numerous to count white blood cells and lots of red cells. Bacteria was negative. No fever. No chills. The patient was having a difficult time walking, hurting. She does carry a history of diabetes mellitus, urinary retention. She was doing some self-catheterizations, followed by Dr. Ocampo. Morbid obesity. Hyperlipidemia, hypertension, diabetes mellitus type 2, peripheral neuropathy, GERD. The patient was admitted for recurrent UTI. She was started on IV antibiotics as well as IV fluids as well as consults for Dr. Yovani Pa as well as Dr. Cooper. She underwent a renal ultrasound that did show evidence of some medical renal disease. The patient still complained of left hip pain. Dr. Kirill Leavitt was brought in for consultation. He felt that the patient was having some back pain with radiculopathy reference to some degenerative changes in her back which is causing her some radiculopathy and recommend that when she is discharged to follow up with a spine and neurosurgeon. She has worked with physical therapy while here. Slowly, she has improved. There were no indications for intervention in reference to her acute kidney injury on chronic kidney disease. Electrolytes and acid balance. Acid base balance are stable as well as her anemia. She remained on renally dosed antibiotics. She will be discharged home on p.o. antibiotics as per Dr. Pa who has already sent her prescription to the pharmacy of [facility]. VITAL SIGNS AT TIME OF HER DISCHARGE: Temperature is 98.4 degrees, heart rate 95, respirations 18, blood pressure is 156/66, O2 is 99% on room air. DISCHARGE DIET: Regular. DISCHARGE MEDICATIONS: 1. As per Dr. Bolanos, Norvasc 5 mg p.o. daily. 2. Enteric-coated aspirin 81 mg p.o. daily. 3. Keflex 500 mg p.o. q.12 hours. 4. Vitamin D 50,000 units p.o. q. 7 days. 5. Lasix 20 mg p.o. daily. 6. Gabapentin 400 mg p.o. b.i.d. 7. Hydroxyzine pamoate 25 mg p.o. b.i.d. p.r.n. 8. Lantus 50 units subcutaneous at bedtime. 9. Humalog mix 75/25, 40 units subcutaneously t.i.d. 10. Synthroid 125 mcg p.o. q.a.m. 11. Prilosec 40 mg p.o. daily. 12. Ditropan 5 mg p.o. b.i.d. 13. Klor-Con 10 mEq p.o. daily. 14. Sodium bicarbonate 650 mg p.o. b.i.d. 15. Flomax 0.4 mg p.o. at bedtime. FOLLOWUP: The patient is being discharged home with her . She has a walker and does not want any home health. Patient is to return to the ED for any worsening of symptoms. She is to follow up with spine and neurosurgeon as per Dr. Leavitt and continue to take all medications as prescribed. Discharge Time: 30 minutes. Dictated by REUBEN Davison for Inder Moise MD cc: Inder Moise MD
== END 2016-10-10 17:08 | disposition home or self-care (01) ==
LOC: ED 04:07 → 3N 09:28 → SUATTDRO 09:28
PROVIDERS: ATTEND Internal Medicine

== ENCOUNTER 2017-01-19 14:35 | Inpatient (IN) ==
[2017-01-19 16:02] LABS: MANUAL DIFF NEEDED? NO
[2017-01-19 16:09] LABS: BASO% 0.3 % (0.0-0.8); EOS# 0.23 X1000 (0.0-0.7); EOS% 3.2 % (0.0-10.0); HEMATOCRIT 32.4 % (37.0-47.0); HEMOGLOBIN 10.8 g/dL (12.0-16.0); LYMPH# 2.39 X1000 (1.2-3.4); LYMPH% 32.9 % (20.5-51.1); MCH 27.1 PG (27-31); MCHC 33.3 g/dL (33-37); MCV 81.2 FL (81-99); MONO# 0.55 X1000 (0.11-0.59); MONO% 7.6 % (1.7-9.3); MPV 10.6 FL (7.4-10.4); PLT 409 X1000 (130-400); RBC 3.99 XMIL (4.2-5.4)
--- NOTE | 2017-01-19 16:09 | PROVIDER DOCUMENTATION ---
HPI-Abdominal Pain/GI Problem - General Chief Complaint: Female Stated Complaint: BLADDER Time Seen by Provider: 01/19/17 15:30 Source: patient, family Allergies/Adverse Reactions: Patient Allergies Allergy/AdvReac Type Severity Reaction Status Date / Time No Known Allergies Allergy Verified 01/19/17 15:54 Home Medications: Home Medication List Medication Instructions Recorded Confirmed Last Taken Type Aspirin [Ecotrin] 81 mg PO DAILY 02/22/15 11/26/16 11/25/16 History Gabapentin 400 mg PO BID 02/22/15 11/26/16 11/25/16 History Levothyroxine [Synthroid] 125 microgm PO QAM 02/22/15 11/26/16 11/25/16 History Amlodipine [Norvasc] 5 mg PO DAILY #30 tablet 03/06/15 11/26/16 11/25/16 Rx Omeprazole 40 mg PO DAILY 06/01/15 11/26/16 11/25/16 History Insulin Lispro Protamin/Lispro 40 unit SQ TID AC 08/18/15 11/26/16 11/25/16 History [Humalog Mix 75-25 Vial] Hydroxyzine Pamoate [Vistaril] 25 mg PO BID PRN PRN 11/29/15 11/26/16 11/25/16 History Insulin Glargine [Lantus] 50 unit SUBQ HS #0 11/30/15 11/26/16 11/25/16 Rx Oxybutynin [Ditropan] 5 mg PO BID #90 tablet 10/05/16 11/26/16 11/25/16 Rx Sodium Bicarbonate 650 mg PO BID #90 tablet 10/05/16 11/26/16 11/25/16 Rx Folic Acid/Vitamin B Comp W-C 1 each PO DAILY #60 tablet 10/10/16 11/26/1611/25 Rx [Nephro-Alanna] Hydrocodone/APAP 7.5 mg/325 mg 1 each PO Q6H PRN PRN #30 tablet 10/10/1611/25/16 Rx [[place]enix-7.5] Acetaminophen/Diphenhydramine 1 each PO Q6-8H PRN PRN #20 tablet 11/26/16 Unknown Rx [Percogesic 325-12.5 mg Tablet] Methocarbamol [Robaxin-750] 750 mg PO TID #15 tablet 11/26/16 Unknown Rx - History of Present Illness-ABD Nature of Presenting Problems: Pt presents to ER per EMS with c/o progressively worsening lower abdominal/ suprapubic pain, dysuria, and urinary frequency x 1 week. Reports seen at a ' walk in clinic' one week ago and started on antibiotics for 'urine infection,' but symptoms seem worse. Reports worsening pain now radiating through to back, nausea, general weakness, and questionable subjective fever. Reports hx ' bladder problems' in past. Abdominal Pain Onset Location: reports: suprapubic Pain Radiation: reports: flank Quality of Pain: reports: aching, fullness, other ('pressure') Severity in ED: reports: moderate Onset/Duration: reports: 1 week ago Timing: reports: still present, getting worse Activities at Onset: reports: none Exposure to sick contacts?: No Modifying Factors: improves with: nothing Associated Symptoms: reports: fever/chills (subjective), genitourinary problems (dysuria, urinary frequency.), nausea, weakness (general weakness) Last BM: unsure Dark Stools Present?: reports: none noticed Rectal Bleeding: reports: none Rectal Pain: reports: none Bruising or Bleeding Gums?: No Similar Symptoms Previously?: Yes (reports hx 'bladder' problems with similar symptoms in past.) Recently seen or treated by another doctor?: Yes (reports seen approx 1 week ago at a 'walk in clinic' and rx UTI) Review of Systems - Adult - REVIEW OF SYSTEMS - ADULT Constitutional: reports: see HPI, fever (SUBJECTIVE), other (GENERAL WEAKNESS) Eyes: reports: no symptoms reported Ears, Nose, Mouth & Throat: reports: no symptoms reported Cardiovascular: reports: no symptoms reported Respiratory: reports: no symptoms reported Gastrointestinal: reports: see HPI, abdominal pain (LOWER ABDOMINAL/SUPRAPUBIC PAIN), nausea, poor appetite Genitourinary: reports: see HPI, dysuria, frequency, flank pain, frequent UTI's Musculoskeletal: reports: no symptoms reported Neurological: reports: no symptoms reported Psychiatric: reports: no symptoms reported Endocrine: reports: no symptoms reported Hematologic/Lymphatic: reports: no symptoms reported Allergic/Immunologic: reports: no symptoms reported All Other Systems: Reviewed and Negative Past History - Adult - PAST MEDICAL HISTORY-ADULT Review of Records: reports: Old Records Reviewed, Nursing Assessment Review, Medications Reviewed, Social history reviewed & non-contributory. Major Childhood Illnesses: reports: denies history Cardiovascular: reports: blood clots (dvt), HTN, hyperlipidemia Respiratory: reports: sleep apnea Gastrointestinal: reports: GERD Obstetrical/Gynecological: reports: denies history Genitourinary: reports: kidney disease, chronic UTI's, other (bladder spasms, neurogenic bladder with obstructions) Musculoskeletal: reports: denies history Neurological: reports: denies history Psychiatric: reports: denies history Endocrine/Immune: reports: Diabetes, thyroid disorder Other Conditions: reports: denies history - PRIOR SURGERIES/PROCEDURES Surgical/Procedure History: reports: cholecystectomy, hysterectomy, indwelling device (suprapubic cath--10/11, replaced 11/21 c daigle cath because suprapubic cath was dislodged), other (bladder surgery, left knee, right hand) - PRIOR HOSPITALIZATIONS Prior Hospitalizations: reports: for other non-related - IMMUNIZATION STATUS Childhood Immunizations: See Nurse Assessment Flu Vaccine: See Nurse Assessment - FAMILY HISTORY Family History: reviewed, not pertinent - SOCIAL HISTORY Smoking: denies Substance Use: denies Physical Exam-General - PHYSICAL EXAM-ADULT Initial Vital Signs Reviewed: Yes - CONSTITUTIONAL General Appearance: alert (AOX3.), mild distress, anxious - EYES Eyes: PERRL/EOMI, pink conjunctivae - HEAD, EARS, NOSE, MOUTH & THROAT HENMT: normocephalic/atraumatic, moist mucous membranes, normal ENT inspection - NECK Neck: non-tender, full range of motion, supple - RESPIRATORY Respiratory: chest non-tender, lungs clear, normal breath sounds, no pleuratic chest pain, no respiratory distress - CARDIOVASCULAR Cardiovascular: normal peripheral pulses, regular rate, rhythm, other (2+ TO 3+ LOWER EXTREMITY EDEMA) - GASTROINTESTINAL (ABDOMEN) Abdominal Exam: normal bowel sounds, soft, no organomegaly, tenderness ( PALPABLE TENDERNESS TO LOWER MIDLINE/SUPRAPUBIC AREAS OF ABDOMEN NOTED ON EXAM.) , other (OBESE) - LYMPHATIC Lymphatic: no adenopathy - MUSCULOSKELETAL Back Exam: CVA tenderness (BILATERAL FLANK TENDERNESS) Extremity: normal range of motion, non-tender, normal capillary refill, pedal edema, swelling (2+ TO 3+ LOWER EXTREMITY EDEMA) Peripheral Pulses: radial (R): 3+, radial (L): 3+, dorsalis-pedis (R): 3+, dorsalis-pedis (L): 3+ - SKIN Integumentary: normal color, normal turgor, warm/dry - NEUROLOGIC Neurologic: grossly normal, no motor/sensory deficits - PSYCHIATRIC Psych/Mental Status: normal mood/affect, oriented x 3 Progress - PLAN OF CARE/RESULTS Progress/Plan/Lab Results: Vital Signs - 8 hr 01/19/17 14:37 Temperature 97.8 F Pulse Rate 85 Respiratory Rate 18 Blood Pressure 158/87 O2 Sat by Pulse Oximetry 100 Orders Category Date Time Status IV [Saline Loc] NOW Care 01/19/17 15:59 Active CBC WITH ELECTRONIC DIFF [HEME] Stat Lab 01/19/17 15:47 Results COMPREHENSIVE METABOLIC PANEL [CHEM] Stat Lab 01/19/17 15:47 Received UA [URINALYSIS W/POSS RFLX CULT-1] [URINALYSIS] Stat Lab 01/19/17 15:24 Uncollected Result Diagrams: 01/19/17 15:47 01/19/17 15:47 - CT/MRI 1 CT Study: Abdomen, Pelvis Impression: Abnormal ( FINDINGS: The gallbladder has been removed. I believe there is mild fatty infiltration of the liver. Normal noncontrasted spleen, pancreas, and adrenal glands. There are bilateral renal cysts and cortical scarring. No renal stones. Mild to moderate bilateral hydronephrosis. No ureteral stones. No aortic aneurysm. There are enlarged periaortic and pericaval lymph nodes similar to the prior exam. No bowel obstruction. Normal appendix. No abscess. There is stool throughout the colon. The bladder wall is thickened and there are adjacent inflammatory changes. No calcifications within the bladder. There is a single air bubble within the urinary bladder. There are calcifications within the uterus. Prominent spinal stenosis at similar to the prior exam. IMPRESSION: 1.Recurrent cystitis with bilateral hydronephrosis 2.Bilateral renal scarring 3.Cholecystectomy 4.Stable retroperitoneal adenopathy 5.Constipation 6.Spinal stenosis at L4-5 7.Mild fatty infiltration of the liver Electronically signed by Scott Bhardwaj 01/19/2017 5:00 PM) - CONSULTS/PCP/HOSPITALIST Notification #1 *Consult/PCP/Hospitalist*: Irvin ALEXIS / Dr. Jameson (Hospitalist) Time Discussed: 17:52 (Will accept pt, see in the ER and write all orders. ) Departure - Departure Date of Disposition Decision: 01/19/17 Time of Disposition Decision: 17:52 DIAGNOSIS: Hypokalemia, Dehydration Urinary tract infection Qualifiers: Urinary tract infection type: site unspecified Hematuria presence: with hematuria Qualified Code(s): N39.0 - Urinary tract infection, site not specified ; R31.9 - Hematuria, unspecified [id number] renal failure Qualifiers: Acute renal failure type: unspecified Chronic kidney disease stage: unspecified stage Qualified Code(s): N17.9 - Acute kidney failure, unspecified; N18.9 - Chronic kidney disease, unspecified Disposition: ADMITTED INPATIENT 09 Certified Medical Emergency: Emergent Condition: Stable Referrals and Follow-Ups: None,PCP [Primary Care Provider] - - Critical Care Note This patient required my direct & personal management of CC.: No Attestation - Physician/ SARA Attestation Patient care was provided by Advanced Practice Provider:: Yes Advanced Practice Provider:: Sebastien Mcfadden Advanced Practice Provider documentation review:: The Mid-level provider documentation, treatment plan and medical decision making was reviewed by the physician who agrees with all treatment and medical decision making by the MLP. The physician spent face to face time with patient:: No Advanced Practice Provider documentation review:: Supervising physician onsite and consulted in the evaluation and care of this patient. The physician did not have a face to face encounter with the patient.
[2017-01-19 16:11] LABS: URINE SOURCE CATH
[2017-01-19 16:14] LABS: URINE MICRO REVIEW NEEDED? YES
[2017-01-19 16:16] LABS: BILIRUBIN URINE NEGATIVE (NEGATIVE); BLOOD URINE MODERATE (NEGATIVE); GLUCOSE URINE 300 mg/dL (NEGATIVE); LEUKOCYTES URINE LARGE (NEGATIVE); NITRITE URINE NEGATIVE (NEGATIVE); PROTEIN URINE 300 mg/dL (NEGATIVE); SP GRAVITY URINE 1.008; TURBIDITY URINE HAZY (CLEAR); UROBILINOGEN URINE NORMAL (NORMAL)
[2017-01-19 16:21] LABS: UR EPITHELIAL CELLS <10 /HPF (<10); URINE BACTERIA NEGATIVE /HPF; URINE RBC 20-40 /HPF (<10)
[2017-01-19 16:22] LABS: COLOR GREEN; URINE CULTURE NEEDED? YES; URINE WBC TNTC /HPF (<10)
[2017-01-19 16:31] LABS: ALBUMIN 3.3 g/dL (3.5-5.0); CALCIUM 8.5 mg/dL (8.8-10.2); POTASSIUM 3.3 mmol/L (3.5-5.1); TOTAL BILIRUBIN 0.18 mg/dL (0.20-1.00); TOTAL PROTEIN 6.9 g/dL (6.3-8.3)
[2017-01-19] MEDS ORDERED: ROCEPHIN 1 GM in NS 50 ML IV ONE (16:46)
--- NOTE | 2017-01-19 17:03 | Diag Imaging Result Doc PS360 ---
EXAM: CT ABDOMEN/PELVIS W/O CONTRAST HISTORY: BILATERAL FLANK PAIN TECHNIQUE: CT abdomen and pelvis without contrast. Dose reduction protocol. COMPARISON: 09/24/2015 FINDINGS: The gallbladder has been removed. I believe there is mild fatty infiltration of the liver. Normal noncontrasted spleen, pancreas, and adrenal glands. There are bilateral renal cysts and cortical scarring. No renal stones. Mild to moderate bilateral hydronephrosis. No ureteral stones. No aortic aneurysm. There are enlarged periaortic and pericaval lymph nodes similar to the prior exam. No bowel obstruction. Normal appendix. No abscess. There is stool throughout the colon. The bladder wall is thickened and there are adjacent inflammatory changes. No calcifications within the bladder. There is a single air bubble within the urinary bladder. There are calcifications within the uterus. Prominent spinal stenosis at similar to the prior exam. IMPRESSION: 1.Recurrent cystitis with bilateral hydronephrosis 2.Bilateral renal scarring 3.Cholecystectomy 4.Stable retroperitoneal adenopathy 5.Constipation 6.Spinal stenosis at L4-5 7.Mild fatty infiltration of the liver Electronically signed by Scott Bhardwaj 01/19/2017 5:00 PM
[2017-01-19] MEDS ORDERED: NS 1,000 ML IV ONE (17:46)
[2017-01-19 18:38] LABS: UR CREAT RANDOM 50.3 mg/dL (11-20); UR PROT RANDOM 517.2 mg/dL
[2017-01-19] MEDS ORDERED: KLOR-CON PO ONE (19:09)
[2017-01-19] MEDS: NS 1,000 ML IV SCH (20:14)
[2017-01-19] MEDS: SODIUM BICARBONATE PO SCH (22:27)
[2017-01-19] MEDS: TYLENOL PO PRN (22:28)
[2017-01-19] MEDS: HEPARIN SUBQ SCH (22:28)
[2017-01-19] MEDS: DITROPAN PO SCH (22:28)
[2017-01-20] MEDS: HUMULIN R SUBQ SCH ×5 (00:50→21:55)
[2017-01-20] MEDS: ZOFRAN IV PRN ×2 (03:38→21:50)
[2017-01-20] MEDS: HEPARIN SUBQ SCH ×3 (04:27→21:52)
[2017-01-20] MEDS: SYNTHROID PO SCH (06:48)
[2017-01-20] MEDS: PRILOSEC PO SCH (06:51)
[2017-01-20 06:57] LABS: HEMATOCRIT 31.5 % (37.0-47.0); HEMOGLOBIN 10.1 g/dL (12.0-16.0); MCHC 32.1 g/dL (33-37); MCV 84.2 FL (81-99); MPV 10.7 FL (7.4-10.4); RBC 3.74 XMIL (4.2-5.4)
[2017-01-20 07:13] LABS: ALBUMIN 2.8 g/dL (3.5-5.0); CALCIUM 7.7 mg/dL (8.8-10.2); POTASSIUM 3.6 mmol/L (3.5-5.1)
[2017-01-20] MEDS: NS 1,000 ML IV SCH (07:20)
[2017-01-20 07:35] LABS: FREE T4 1.37 ng/dL (0.93-1.70)
[2017-01-20] MEDS: 1/2 NS 1,000 ML IV SCH ×3 (08:12→16:48)
[2017-01-20] MEDS: NORVASC PO SCH (08:13)
[2017-01-20] MEDS: DITROPAN PO SCH ×2 (08:13→21:52)
[2017-01-20] MEDS: ASPIRIN EC PO SCH (08:13)
[2017-01-20] MEDS: SODIUM BICARBONATE PO SCH ×2 (08:13→21:52)
[2017-01-20] MEDS: HYDROXYZINE PO SCH (08:13)
[2017-01-20] MEDS: TYLENOL PO PRN ×2 (12:30→21:51)
--- NOTE | 2017-01-20 15:37 | HISTORY AND PHYSICAL ---
PRIMARY CARE PHYSICIAN: Dr. Valentino. UROLOGIST: Dr. Ocampo. CHIEF COMPLAINT: A 1 week history of suprapubic pain, dysuria, frequency, and urgency. HISTORY OF PRESENT ILLNESS: Ms. Garcia is a 61-year-old female with a history of multiple medical problems including diabetes mellitus, type 2, stage IV chronic kidney disease, chronic urinary retention secondary to a neurogenic bladder which requires self-catheterizations , who presented to the ER today with a chief complaint of a 1-week history of dysuria, frequency, urgency, and suprapubic pain. The patient states that this has happened to her before. She usually ends up admitted to the hospital because she has a urinary tract infection. The patient reports that she went to an urgent care clinic about a week ago and was diagnosed with a urinary tract infection and given a prescription for an antibiotic. The patient reports that after she finished the antibiotic, which she could not remember the name of, she still had the same symptoms. The patient also reports chills but no fever. She also reports a very poor appetite. She denies having any nausea or vomiting at this time. The patient reports that she performs self- catheterizations because of her neurogenic bladder. The patient is followed by Dr. Ocampo. The patient has had multiple urologic procedures done in the past. Today, in the ER , a urinalysis was done that revealed large leukocytes, grainy colored urine, moderate blood, and many WBCs. This was followed by a CTA of the abdomen and pelvis which revealed recurrent cystitis with bilateral hydronephrosis. Also, the patient was noted to have a BUN of 39 with a creatinine of 4.2. The patient's baseline creatinine is around 3.1. In the ER, urine culture was obtained and the patient was started on Rocephin as well as IV fluids. PAST MEDICAL HISTORY: 1. Hypertension. 2. Chronic urinary retention. 3. Neurogenic bladder requiring self-catheterizations. 4. Diabetes mellitus type 2. 5. Morbid obesity. 6. Hypothyroidism. 7. Dyslipidemia. 8. GERD. 9. Chronic hydronephrosis. 10. Obstructive sleep apnea. 11. Recurrent urinary tract infections. 12. History of arterial ischemia of the left arm. 13. Gastritis. 14. Chronic kidney disease stage IV. PAST SURGICAL HISTORY: 1. Cystoscopy with bladder biopsy in September of 2013. 2. Cystoscopy with suprapubic tube placement. 3. Cystoscopy with bladder biopsy in January of 2015. 4. Left brachial artery thrombectomy. 5. Left ulna artery thrombectomy. FAMILY HISTORY: Reviewed and noncontributory due to age. SOCIAL HISTORY: The patient is and lives at home with her . She denies any tobacco, alcohol, or illicit drug use. ALLERGIES: No known drug allergies. HOME MEDICATIONS: 1. Sodium bicarbonate 650 mg p.o. twice a day. 2. Klor-Con 1 tablet oral daily. 3. Ditropan 5 mg p.o. twice a day. 4. Omeprazole 40 mg p.o. daily. 5. Synthroid 125 mcg p.o. every morning. 6. Vistaril 25 mg p.o. daily. 7. Gabapentin 400 mg p.o. twice a day. 8. Lasix 40 mg p.o. daily. 9. Aspirin 81 mg p.o. daily. 10. Norvasc 5 mg p.o. daily. 11. Lipitor 40 mg p.o. daily. REVIEW OF SYSTEMS: A 12 point review of systems has been performed. Please refer to the history of present illness for pertinent positives and negatives. PHYSICAL EXAMINATION: VITAL SIGNS: Temperature is 97.8 degrees, blood pressure 158/87, heart rate 85 , respirations 18, O2 saturations 100% on room air. GENERAL: This is a morbidly obese female lying on the stretcher in no acute distress. SKIN: No lesions. No rashes. Normal capillary refill. HEENT: Normocephalic and atraumatic. PERRLA. EOMI. Trachea midline. Oral mucosa is moist. NECK: Supple. No JVD. No lymphadenopathy. No carotid bruits. HEART: S1, S2 normal. Regular rate and rhythm. LUNGS: Equal air entry bilaterally. No wheezing, no rales, no rhonchi. ABDOMEN: Positive bowel sounds. Soft. Positive for suprapubic tenderness. No rebound tenderness. EXTREMITIES: There is +1 edema bilaterally. No cyanosis. No calf tenderness. NEUROLOGIC: The patient is alert and oriented x4. No focal neurologic deficits noted. Cranial nerves 2 through 12 intact. LABS: White blood cell count 7.2, hemoglobin 10.8, hematocrit 32.4, platelets 409,000. Sodium 141, potassium 3.3, chloride 105, CO2 21, BUN 39, creatinine 4.2, glucose 147, calcium 8.5. Total bilirubin 0.1, AST 19, ALT 17, alkaline phosphatase 103, albumin 3.3. UA positive for moderate blood, large leukocytes, too numerous to count WBCs. CT of the abdomen and pelvis reveals recurrent cystitis with bilateral hydronephrosis, constipation, mild fatty infiltration of the liver. ASSESSMENT AND PLAN: 1. Cystitis with bilateral hydronephrosis. A urine culture has been obtained. A Dean catheter has been placed. We will start the patient on intravenous antibiotics and consult urology. 2. Acute kidney injury on chronic kidney disease stage 4. The patient's creatinine today is 4.2. We will check urine studies. We will also start the patient on normal saline and monitor the urine output closely. We will avoid nephrotoxic agents. If the patient's creatinine does not improve, we will consult the chemistry faculty member. 3. Insulin-dependent diabetes mellitus type 2. We will start the patient on sliding scale insulin and monitor Accu-Cheks before meals and at bedtime. 4. Neurogenic bladder. The patient has a Dean catheter in place at this time. 5. Hypertension. We will continue on Norvasc. 6. Hypothyroidism. Continue on Synthroid. 7. Gastroesophageal reflux disease. Continue on omeprazole. 8. Deep vein thrombosis prophylaxis. We will start the patient on heparin 5000 units subcutaneous every 8 hours. 9. The plan of care was discussed with the patient at the bedside. cc: Chloe Jameson MD MTDD
[2017-01-20] MEDS: ROCEPHIN 1 GM in NS 50 ML IV SCH (16:48)
--- NOTE | 2017-01-20 18:43 | PROGRESS NOTE ---
DATE: 01/20/2017 SUBJECTIVE: The patient states that she feels a lot better today. No acute events noted overnight. OBJECTIVE: Vital Signs: Temperature 97.0 degrees, blood pressure 186/67, heart rate 78, respirations 20, O2 saturation is 100% on room air. General: This is a morbidly obese female, lying in bed in no acute distress. Head: Normocephalic, atraumatic. Heart: S1, S2. Normal. Regular rate and rhythm. Lungs: Clear to auscultation bilaterally. No wheezes , no rales. No rhonchi. Abdomen: Positive bowel sounds. Soft, nontender, nondistended. Extremities: 2+ edema. No cyanosis. No calf tenderness. Neurologic: The patient is alert and oriented x4. No focal neurologic deficits noted. LABS: White blood cell count 5.3, hemoglobin 10.1, hematocrit 31.5, platelet count 320,000. Sodium 144, potassium 3.6, chloride 110, CO2 21, BUN 36, creatinine 3.6, glucose 164, calcium 7.7, phosphorus 4.1, albumin 2.8. ASSESSMENT AND PLAN: 1. Cystitis with bilateral hydronephrosis. Continue with IV antibiotic therapy and IV fluids. Urology has been consulted. 2. Acute kidney injury on chronic kidney disease. Improving. Continue with IV fluids. 3. Hypertension. I am going to add metoprolol to the patient's antihypertensive regimen. 4. Neurogenic bladder. Aware. 5. Hypothyroidism. Continue on Synthroid. 6. Diabetes mellitus type 2. Continue on sliding scale insulin. 7. Gastroesophageal reflux disease. Continue on omeprazole. 8. Deep vein thrombosis prophylaxis. Continue on heparin 5000 units subcutaneous every 8 hours. 9. Will consult Physical Therapy. cc: MD YONAS Nance
[2017-01-20] MEDS: LOPRESSOR PO SCH (21:52)
[2017-01-21] MEDS: 1/2 NS 1,000 ML IV SCH ×3 (03:16→23:27)
[2017-01-21] MEDS: HEPARIN SUBQ SCH ×3 (06:22→22:29)
[2017-01-21] MEDS: HUMULIN R SUBQ SCH ×4 (06:22→22:31)
[2017-01-21] MEDS: PRILOSEC PO SCH (06:24)
[2017-01-21] MEDS: SYNTHROID PO SCH (06:24)
[2017-01-21 06:51] LABS: HEMATOCRIT 30.6 % (37.0-47.0); HEMOGLOBIN 10.1 g/dL (12.0-16.0); MCH 27.5 PG (27-31); MCV 83.4 FL (81-99); MPV 10.5 FL (7.4-10.4); RBC 3.67 XMIL (4.2-5.4)
[2017-01-21 07:17] LABS: ALBUMIN 2.8 g/dL (3.5-5.0); CALCIUM 7.9 mg/dL (8.8-10.2); POTASSIUM 3.6 mmol/L (3.5-5.1)
--- NOTE | 2017-01-21 08:06 | CONSULTATION ---
DATE OF CONSULTATION: 01/20/2017 REQUESTING PHYSICIAN: Dr. Jameson. REASON FOR CONSULTATION: Bilateral hydronephrosis. HISTORY OF PRESENT ILLNESS: A 61-year-old female, who has an extensive urologic history of intermittent hematuria, recurrent UTIs and urinary retention. She was originally seen by a urologist in [place], subsequently in and eventually switched her care to Dr. Miguel Ocampo. She reports most recently having seen Dr. Ocampo in November of this year. She has neurogenic bladder, which has been managed with a suprapubic tube that inadvertently came out, urethral catheterization, and intermittent catheterization. Most recently she reports having been catheterizing herself twice a day and getting fairly large amounts of urine in amount of over 10 ounces. She presented to the emergency room 1 day ago with abdominal and suprapubic pain as well as increase in frequency. She reports being seen on outpatient basis at the walk-in clinic and being told she has "UTI." She denies gross hematuria, nausea or vomiting, unintentional weight loss. During evaluation she had a CT of abdomen and pelvis without contrast which revealed a thickened urinary bladder with perivesical inflammation as well as bilateral mild hydronephrosis. She had Dean catheter placed. Upon admission her creatinine was 4.2. Today it is down to 3.6. PAST MEDICAL HISTORY: Diabetes mellitus, hypertension, hyperlipidemia, obesity, peripheral neuropathy, GERD, urinary retention secondary to neurogenic bladder. PAST SURGICAL HISTORY: Cystoscopy with retrograde pyelogram and bladder biopsies, cystoscopy with suprapubic tube placement. ALLERGIES: No known drug allergies. MEDICATIONS: Synthroid, gabapentin, aspirin, Norvasc, omeprazole, Vistaril, Ditropan, sodium bicarbonate, furosemide, potassium, Lipitor. FAMILY HISTORY: She denies family history of malignancies. SOCIAL HISTORY: She denies tobacco, alcohol or drug use. REVIEW OF SYSTEMS: Negative in 12 systems except as HPI. PHYSICAL EXAMINATION: Vital signs: Temperature 97.7 degrees, pulse 78, blood pressure 189/72.General: No acute distress. Pleasant female. HEENT: Normocephalic atraumatic. Cardiovascular: Regular rhythm. Pulmonary: Bilateral breath sounds. Abdomen: Protuberant, nontender, no distention. Bladder is nontender to palpation, Dean catheter in place draining straw-colored urine. Pelvic examination was deferred at this time. Lymphatics: No groin lymphadenopathy. Dermatologic: No obvious skin rashes. Neurologic: Alert and oriented x 3. Psychiatric: Appropriate mood and affect. PERTINENT LABORATORY DATA: White cell count of 5000, creatinine 3.6. Urinalysis on 01/19/2017 positive for glucose, protein, blood, white cells. It is negative for bacteria. PERTINENT IMAGES: CT abdomen and pelvis without contrast per HPI. ASSESSMENT/PLAN: A 61-year-old female with diabetes and neurogenic bladder, with subsequent urinary retention. She reports recently decreasing her catheterization schedule from 4 times to 3 times and subsequently to 2 times in the last month. She has bilateral hydronephrosis which is likely related to the fact the bladder stay full. I have discussed with her the importance of catheterizing at least 3 times a day. She is on Ditropan secondary to urge incontinence and frequency, and that definitely does not help her empty, but should not affect her upper tract as long as she catheterizes on regimented schedule. Per record review, her creatinine was around 3 in September of this year, 3 in December 2015, and 2.8 in August of 2015. I have discussed with the patient that until her creatinine stabilizes, it is worth keeping urethral Dean in place. I have discussed that once renal function is improved, she should be able to resume catheterizing herself, but has to do it at least 3 times a day. I reiterated the importance of upper tract damage if she does not adhere. We will also revisit placement of suprapubic tube. At this point she would like to proceed with intermittent self catheterization. PLAN: 1. I agree with Dean catheter for now. 2. Okay to remove Dean catheter by the time of discharge-stabilization of her kidney function. 3. She states she will catheterize herself 3 times a day. 4. We will be happy to see her in clinic 2-4 weeks after discharge with the measurement of postvoid residual and checking a urine. Thank you for the consultation. cc: MD Chloe Thapa MD
[2017-01-21] MEDS: DITROPAN PO SCH ×2 (09:14→22:30)
[2017-01-21] MEDS: ASPIRIN EC PO SCH (09:14)
[2017-01-21] MEDS: NORVASC PO SCH (09:14)
[2017-01-21] MEDS: HYDROXYZINE PO SCH (09:14)
[2017-01-21] MEDS: SODIUM BICARBONATE PO SCH ×2 (09:14→22:30)
[2017-01-21] MEDS: LOPRESSOR PO SCH ×2 (09:14→22:30)
--- NOTE | 2017-01-21 15:09 | PROGRESS NOTE ---
DATE: 01/21/2017 SUBJECTIVE: Patient reports feeling better today. The patient reports that she was told how many times she needs to do catheterization but today after she has this Dean catheter. Denies any fever. Denies any chills. OBJECTIVE: Vital Signs: Temperature 98.0 degrees, heart rate 65, respiratory rate 16, blood pressure 168/63, O2 saturation 98% on room air. General Examination: This is a morbidly obese and chronically ill-looking, 61-year-old female lying in bed, in no acute distress. HEENT: Head is normocephalic, atraumatic. Neck: Supple. No JVD noted. No carotid bruits. Cardiovascular: S1, S2 heard. No murmurs, gallops, or rubs. Regular rate and rhythm. Respiratory: Clear bilaterally to auscultation. No work of breathing or using accessory muscles. Abdomen: Soft, nontender to palpation. Nondistended. Bowel sounds present. No organomegaly. Extremities: There is 2+ pitting edema. No cyanosis. Peripheral pulses present in both legs. Neurological: Patient is alert and oriented x3. Moves 4 extremities. LABORATORY DATA: White cell count 6.11, hemoglobin 10.1, hematocrit 30.6, platelets 340,000. BMP shows creatinine 3.4 and BUN 34. ASSESSMENT AND PLAN: 1. Cystitis with bilateral hydronephrosis. Dr. Chaney has been consulted for bilateral hydronephrosis. We know the patient has neurogenic bladder and initially she was managing with a suprapubic catheter but now she was told that she needs to do self catheterization at least 3-4 times per day. That is the reason why she developed hydronephrosis. Since she is on a Dean catheter the creatinine is going back to her baseline, which apparently is 3.0 according to urology. They are okay to remove the Dean catheter when she is discharged. They are going to see her in the office in 4 weeks. At this time we are going to continue with the same management. 2. Acute on chronic kidney disease. With Dean catheter this patient is doing much better. Definitely kidney function is going back to baseline. We are going to continue to check BMP. 3. Hypertension. Metoprolol has been added to her current treatment yesterday. Blood pressure is still a little bit high. Will continue checking blood pressure every 6 hours. 4. Neurogenic bladder. Aware. Patient is on Ditropan. 5. Hypothyroidism. Will continue with same dose of Synthroid. 6. Diabetes mellitus type 2. We will continue with sliding scale insulin as well. 7. Gastroesophageal reflux disease. We will continue omeprazole. 8. Physical deconditioning. Physical therapy has been consulted. Patient reports that she has become very weak recently. Will check with them to see if this patient will need to go to a rehab facility or not. cc: Marko Valverde MD
[2017-01-21] MEDS: ROCEPHIN 1 GM in NS 50 ML IV SCH (15:59)
[2017-01-21] MEDS: TYLENOL PO PRN (17:54)
[2017-01-22] MEDS: HUMULIN R SUBQ SCH ×2 (06:14→12:56)
[2017-01-22 06:48] LABS: MANUAL DIFF NEEDED? NO
[2017-01-22 06:52] LABS: BASO% 0.1 % (0.0-0.8); EOS# 0.38 X1000 (0.0-0.7); EOS% 5.5 % (0.0-10.0); HEMATOCRIT 32.8 % (37.0-47.0); HEMOGLOBIN 10.7 g/dL (12.0-16.0); LYMPH# 2.01 X1000 (1.2-3.4); LYMPH% 28.9 % (20.5-51.1); MCH 26.8 PG (27-31); MCHC 32.6 g/dL (33-37); MONO# 0.42 X1000 (0.11-0.59); MPV 10.7 FL (7.4-10.4); NEUT% 59.5 % (42.2-75.2); PLT 327 X1000 (130-400)
[2017-01-22] MEDS: SYNTHROID PO SCH (06:55)
[2017-01-22] MEDS: HEPARIN SUBQ SCH ×3 (06:56→12:56)
[2017-01-22] MEDS: PRILOSEC PO SCH (06:56)
[2017-01-22 07:05] LABS: POTASSIUM 3.6 mmol/L (3.5-5.1)
[2017-01-22 07:52] VITALS: BP 171/76
[2017-01-22] MEDS: ASPIRIN EC PO SCH (10:41)
[2017-01-22] MEDS: LOPRESSOR PO SCH (10:41)
[2017-01-22] MEDS: HYDROXYZINE PO SCH (10:41)
[2017-01-22] MEDS: SODIUM BICARBONATE PO SCH (10:42)
[2017-01-22] MEDS: DITROPAN PO SCH (10:42)
[2017-01-22] MEDS: NORVASC PO SCH (10:42)
[2017-01-22] MEDS: 1/2 NS 1,000 ML IV SCH (11:41)
[2017-01-22] MEDS: TYLENOL PO PRN (11:53)
--- NOTE | 2017-01-22 14:42 | Diag Imaging Result Doc PS360 ---
CHEST-PORTABLE - 01/22/2017 INDICATION: mild sob TECHNIQUE: COMPARISON: 10/11/2016 FINDINGS: There is some linear atelectasis in the left upper lobe. No focal infiltrates, pneumothorax, or pleural effusion. Heart size is borderline enlarged. IMPRESSION: No specific acute disease. Electronically signed by Manuel Montoya 01/22/2017 2:40 PM
--- NOTE | 2017-01-22 15:20 | DISCHARGE SUMMARY ---
ADMISSION DATE: 01/19/2017 DISCHARGE DATE: 01/22/2017 CONSULTATIONS: Dr. Chaney with urology. PERTINENT PROCEDURES: Abdomen and pelvis CT showed recurrent cystitis with bilateral hydronephrosis, bilateral renal scarring and cholecystectomy, stable retroperitoneal adenopathy, constipation, spinal stenosis at L4 through L5, mild fatty infiltration of the liver. DISCHARGE DIAGNOSES: 1. Cystitis with bilateral hydronephrosis. Neurogenic bladder with subsequent urinary retention. She reported Dr. Chaney decreasing her catheterization schedule from four to three times and then subsequently to two times in the last month. He discussed with her the importance of catheterizing at least 3 times a day. She will remain on Ditropan secondary to urge incontinence and frequency. He reiterated the importance the upper GI tract damage if she does not adhere. They will also revisit placement of a suprapubic tube. At this point, she would like to proceed with intermittent self catheterization. Her Daigle catheter will be removed at discharge. Catheterize herself 3 times a day. I will follow up with her in the clinic in 2-4 weeks after discharge with management of postvoid residuals and checking of her urine. 2. Acute on chronic kidney disease. Stable. 3. Hypertension. Metoprolol has been added to her current regimen. 4. Neurogenic bladder. Aware. Continue Ditropan. 5. Hypothyroidism. Continue Synthroid. 6. Diabetes mellitus type 2. Continue home medications. 7. Gastroesophageal reflux disease. Continue proton pump inhibitor. 8. Physical deconditioning. The patient has been working with physical therapy. She will be discharged to rehabilitation. HOSPITAL COURSE: Ms. Garica is a 61-year-old female with a history of multiple medical problems, including diabetes mellitus type 2, stage IV chronic kidney disease, chronic urinary retention secondary to neurogenic bladder which requires self catheterization, who presented to the ED with a chief complaint of 1 week of dysuria, frequency, urgency and suprapubic pain. This has happened to her before. She usually ends up admitted to the hospital because of UTI. She reports she went to the urgent care a week ago, was diagnosed with a UTI and given prescription antibiotic. She finished the antibiotic that she could not remember the name of. She still has the same symptoms. She reports that she performs self catheterization because of her neurogenic bladder. She is followed by Dr. Ocampo. She has had multiple urologic procedures done in the past. In the ED, urinalysis showed large leukocytes, grainy colored urine, moderate blood, many WBCs. CT of the abdomen and pelvis revealed recurrent cystitis with bilateral hydronephrosis, as well as a BUN of 39 and a creatinine of 4.2. Her baseline is around 3.1. Urine culture was obtained and she was started on IV Rocephin, as well as IV fluids with a urology consult. A Daigle catheter was placed. Per Dr. Chaney's report, after speaking with the patient she reports she recently decreased her catheterization schedule from 4 times to 3 times and subsequently to 2 times in the last month. She has bilateral hydronephrosis which is likely related to the fact that bladder stays full. He did discuss the importance of catheterization at least 3 times a day. She is on Ditropan secondary to urge incontinence and frequency, and that definitely does not help her empty, but it should not affect her upper GI tract as long as she catheterizes on a regimented schedule. He agrees with the Adigle catheter and, once her creatinine is stable, she can start self catheterizing again and, again, he reiterated the importance of upper GI tract damage if she does not adhere to her self catheterization schedule. He also revisited placement of a suprapubic tube. At this point, she would like to proceed with intermittent self catheterization. His recommendations is at least 3 times per day, and follow up in the clinic in 2-4 weeks after discharge to measure postvoid residuals and shaking of urine. The patient was noted to have physical deconditioning. Physical therapy was consulted. They recommend rehabilitation. She has been accepted to [facility]. VITAL SIGNS AT TIME OF DISCHARGE: Temperature is 97.4 degrees, heart rate 69, respirations 20, blood pressure 171/76, O2 was 97% on room air. Creatinine at time of her discharge was 3.2. DISCHARGE DIET: Diabetic. DISCHARGE MEDICATIONS: As per Dr. Calderon. Please see MAR. FOLLOWUP: Ms. Garcia is being discharged to [facility]. She will follow up with Dr. Chaney in 2-4 weeks. She will continue with self catheterizations three times a day. Take all medications as prescribed. She can return to the ED for any worsening of symptoms. Dictated by REUBEN Davison for Marko Valverde MD Addendum: Patient was seen and examined by myself. Agree with OR[employer]LE [employer]MS CONSULTANT note. It reflects my assessment and plan. Patient admitted basically to hospital for acute on chronic kidney disease secondary to neurogenic bladder. Urology was consulted who remarked the importance of self catheterization at least three times per day. She was placed on daigle catheter while she was here and it was removed upon discharge, and creatinine went back to 3.0 which is her baseline. Patient is being discharged in stable condition and will be seen by Urologist in 4 weeks. cc: Marko Valverde MD MTDD
== END 2017-01-22 16:37 ==
LOC: ED 14:35 → 3N 20:01 → SUATTDRO 20:01 → 3N 20:48
PROVIDERS: ADMIT Internal Medicine; ATTEND Internal Medicine

== ENCOUNTER 2018-07-07 22:31 | Inpatient (IN) ==
[2018-07-08 00:30] LABS: URINE SOURCE CATH
[2018-07-08 00:36] LABS: BILIRUBIN URINE NEGATIVE (NEGATIVE); BLOOD URINE LARGE (NEGATIVE); COLOR BROWN; GLUCOSE URINE NEGATIVE (NEGATIVE); KETONE URINE NEGATIVE (NEGATIVE); LEUKOCYTES URINE LARGE (NEGATIVE); NITRITE URINE NEGATIVE (NEGATIVE); PH URINE 6.5; PROTEIN URINE 300 mg/dL (NEGATIVE); SP GRAVITY URINE 1.004; TURBIDITY URINE TURBID (CLEAR); UROBILINOGEN URINE NORMAL (NORMAL)
[2018-07-08 00:46] LABS: PHOSPHORUS 9.2 mg/dL (2.7-4.5)
[2018-07-08 00:59] LABS: D-DIMER 0.96 ug/mLFEU (0.0-0.52)
[2018-07-08 01:05] LABS: UR EPITHELIAL CELLS >10 /HPF (<10); URINE BACTERIA NEGATIVE /HPF; URINE RBC 20-40 /HPF (<10); URINE WBC TNTC /HPF (<10); URINE YEAST NONE SEEN
[2018-07-08 01:05] LABS: PTT 89.8 Seconds (22.3-41.8)
[2018-07-08 01:06] LABS: URINE CASTS NONE SEEN; URINE CRYSTALS NONE SEEN; URINE SMALL ROUND CELLS NONE SEEN
[2018-07-08] MEDS ORDERED: LASIX IV ONE (01:11)
[2018-07-08] MEDS ORDERED: VITAMIN K PO ONE (01:19)
[2018-07-08] MEDS ORDERED: DUONEB (A & A) INH ONE (01:20)
[2018-07-08] MEDS ORDERED: ALBUTEROL 0.5% INH CONC FOR HYPERKALEMIA INH ONE (01:24)
[2018-07-08] MEDS ORDERED: CALCIUM CHLORIDE 1 GM in NS 100 ML IV ONE (01:24)
[2018-07-08] MEDS ORDERED: HUMULIN R IV ONE ×2 (01:26→05:09)
[2018-07-08] MEDS ORDERED: D50W SYRINGE IV ONE ×2 (01:26→05:09)
[2018-07-08] MEDS ORDERED: IMODIUM LIQUID PO ONE (01:51)
[2018-07-08] MEDS ORDERED: REGLAN IV ONE (01:53)
[2018-07-08] MEDS ORDERED: ZOFRAN IM ONE (01:55)
[2018-07-08 02:11] LABS: PROTIME 74.5 Seconds (11.0-16.0)
[2018-07-08 02:12] LABS: INR 8.36
[2018-07-08 04:03] LABS: BASO# 0.02 X1000 (0.0-0.2); BASO% 0.2 % (0.0-0.8); EOS# 0.37 X1000 (0.0-0.7); EOS% 3.9 % (0.0-10.0); HEMATOCRIT 30.5 % (37.0-47.0); HEMOGLOBIN 9.3 g/dL (12.0-16.0); LYMPH# 4.18 X1000 (1.2-3.4); LYMPH% 44.2 % (20.5-51.1); MCH 26.3 PG (27-31); MCHC 30.5 g/dL (33-37); MCV 86.2 FL (81-99); MONO# 0.62 X1000 (0.11-0.59); MONO% 6.6 % (1.7-9.3); MPV 9.9 FL (7.4-10.4); NEUT# 4.26 X1000 (1.4-6.5); NEUT% 45.1 % (42.2-75.2); PLT 345 X1000 (130-400); RBC 3.54 XMIL (4.2-5.4); RDW 16.4 % (11.5-14.5); WBC 9.45 X1000 (4.8-10.8)
[2018-07-08 04:31] LABS: PROTIME 86.6 Seconds (11.0-16.0); PTT 98.1 Seconds (22.3-41.8)
[2018-07-08 04:58] LABS: AGAP 21; ALB/GLOB RATIO 1.2; ALBUMIN 2.9 g/dL (3.5-5.0); ALKALINE PHOSPHATASE 68 U/L (32-104); BUN 82 mg/dL (8-22); CALCIUM 7.6 mg/dL (8.8-10.2); CHLORIDE 106 mmol/L (98-107); COSMO 301; GLUCOSE 115 mg/dL (70-104); GOT 9 U/L (10-30); GPT 8 U/L (10-36); PHOSPHORUS 9.2 mg/dL (2.7-4.5); SODIUM 138 mmol/L (136-145); TCO2 11 mmol/L (25-35); TOTAL BILIRUBIN 0.17 mg/dL (0.20-1.00); TOTAL PROTEIN 5.3 g/dL (6.3-8.3)
[2018-07-08 04:59] LABS: CREATININE 7.9 mg/dL (0.5-0.9)
[2018-07-08 05:02] LABS: POTASSIUM 6.3 mmol/L (3.5-5.1)
[2018-07-08] MEDS ORDERED: VITAMIN K SUBQ ONE (06:18)
--- NOTE | 2018-07-08 06:21 | Diag Imaging Result Doc PS360 ---
CHEST-2 VIEWS - 07/07/2018 INDICATION: sob COMPARISON: 06/24/2018 FINDINGS: Lung volumes are low. There is worsening pulmonary vascular congestion. There is worsening multifocal ill-defined infiltrate bilaterally. Stable cardiomegaly. No pneumothorax or pleural effusion. IMPRESSION: Worsening pulmonary vascular congestion. Worsening ill-defined infiltrates bilaterally concerning for pulmonary edema. Correlate clinically. Electronically signed by Manuel Montoya 07/08/2018 6:18 AM
[2018-07-08] MEDS ORDERED: NS 2,000 ML MISC PRN (07:22)
[2018-07-08] MEDS: HUMALOG SUBQ SCH ×4 (07:22→21:18)
--- NOTE | 2018-07-08 07:27 | EKG Report ---
Test Performed on : 07/07/2018 11:48:04 PM Test Reason : CP Blood Pressure : / mmHG Vent. Rate : 090 BPM Atrial Rate : 090 BPM P-R Int : 174 ms QRS Dur : 054 ms QT Int : 336 ms P-R-T Axes : 050 -33 024 degrees QTc Int : 411 ms Sinus rhythm. with frequent and consecutive premature ventricular complexes. Left axis deviation Inferior infarct , age undetermined Possible Anterolateral infarct (cited on or before 24-JUN-2018) Abnormal ECG When compared with ECG of 24-JUN-2018 21:00, (Unconfirmed) premature ventricular complexes. are now present ST now depressed in Anterior leads Nonspecific T wave abnormality now evident in Anterolateral leads Unconfirmed Result
--- NOTE | 2018-07-08 08:23 | NEPHROLOGY CONSULTATION ---
DATE: 07/08/2018 REASON FOR ADMISSION: Abnormal labs. REASON FOR CONSULTATION: Hyperkalemia with ESRD and assistance with medical management. CONSULTING PHYSICIAN: Dr. Hills for Dr. Chacon. HISTORY OF PRESENT ILLNESS: Ms. Garcia is a 62-year-old white female, who is known to our outpatient services for hemodialysis at the [facility] on Saturday, , Saturday. The patient is due for her dialysis treatment today. She had labs drawn with her INR yesterday per [facility] the [facility]. Due to these abnormal labs, the patient was sent to the ER. She was found to have an INR of 8.36, ProTime 74.5, PTT of 89.8. Her D-dimer was slightly elevated at 0.96. She also had a slight bump in her troponin of 0.358 from her previous hospitalization. The patient was found initially to have a potassium of 7.3. During this stay, she was to be treated with Lasix, albuterol inhaler, D50, and insulin. I had received a phone call from Dr. Hills at 1:20 am, indicating that her EKG appeared normal, and they were to repeat labs in an hour. I had requested that they needed to give her an amp of calcium gluconate to protect her heart function. I did not receive a phone call between 2 and 3 a.m., but presented to the emergency room at 6 a.m. this morning. The patient's potassium is down to 6.3. Her INR is found to be 10.1. Vital signs appear normal. She is in sinus rhythm on the monitor. She denies chest pain. States that she has had nausea, vomiting, and diarrhea for approximately 1 [facility] the [facility]. She states she has an occasional cough. No recent fever or chills. No increased lower extremity swelling that she can see. She has had some oozing around her left femoral tunnel dialysis catheter, though there is dry blood at that site at this time. She has no complaints of recent falls, though she has severe ecchymoses to her upper and lower extremities. PAST MEDICAL HISTORY: She is positive for end-stage renal disease with hemodialysis at the outpatient clinic on Saturday, , Saturday. She has hypertension, hypothyroidism, diabetes mellitus type 2, anemia of chronic disease, chronic back pain, sleep apnea, osteodystrophy of chronic disease. She has chronic urinary tract infections with a positive urine on initial straight cath. She has a long history of long-term rehab. PAST SURGICAL HISTORY: Hysterectomy, carpal tunnel surgery, left knee surgery, bladder surgery, previous spinal blocks, placement of dialysis tunneled catheter, last one to the right chest wall, now current one to the left groin. SOCIAL HISTORY: The [facility] a [facility] in a [facility]. She is followed by Dr. Valentino. Denies any tobacco, alcohol, or illicit drug use. FAMILY HISTORY: Sister with coronary artery disease with PCIs. Mother with uterine cancer. No history of renal disease. ALLERGIES: Listed as no known drug allergies. HOME MEDICATIONS: Have yet to be reconciled. Previous medications have been Norvasc, PhosLo, Coreg, Tylenol, Epogen, vitamin D2, Dialyvite, Neurontin, EMLA cream, Synthroid, belladonna, Ditropan, MiraLAX, and hydrocodone. REVIEW OF SYSTEMS: Review of systems x10 with pertinent positives listed above in the HPI. IMAGING AND LABORATORY DATA: Her most recent labs drawn at 3:50 show a sodium of 138, potassium 6.3, chloride 106, CO2 of 11, BUN 82, creatinine 7.9, glucose 115, her anion gap is 21, her calcium is 7.6. Her phosphorus is 9.2, albumin is 2.9, magnesium is 2. Her white count is 9.45, hemoglobin 9.3, hematocrit 30.5, with a platelet count of 345,000. Her PT is up to 86.6, INR 10.12, PTT 98.1. Her most recent troponin is slightly lower at 0.344. Plasma lactate is 0.5. Urinalysis shows turbid brown urine, positive for proteinuria, hematuria, leukocytes, WBCs, indicating negative for urine bacteria. This has been sent for culture. She has also had stool sent for culture. Blood cultures are currently pending. Her initial chest x- ray on admission showed worsening pulmonary vascular congestion, worsening ill-defined infiltrates, bilateral, for pulmonary edema. PHYSICAL EXAMINATION: Vital Signs: The patient's most recent vital signs show her last temperature 98.4, current blood pressure 151/62, heart rate 76, respirations are 22. She is on room air, and her last recorded saturation is 98% on the monitor. The patient has had large stool out this evening with some emesis, nothing recorded. General: This is a 63-year-old, elderly female. She appears older than her stated age. She is in no acute distress. She appears chronically ill. Skin: Warm and dry. HEENT: Normocephalic, atraumatic. Conjunctivae pale pink. She has CHAO. Mucous membranes are dry. Heart: No murmur or gallop appreciated. Lungs: Clear to auscultation bilaterally. Equal excursion. Currently on room air. Abdomen: Large, obese, soft, nontender. Hypoactive bowel sounds. Genitourinary: Not inspected. Extremities: She has a femoral PermCath to her left groin. There is some dried blood under the dressing. She has no rashes or lesions. Trace pretibial edema. Neurological: She is alert and oriented x3. Good historian assist with exam. ASSESSMENT AND PLAN: 1. Chronic kidney disease stage 5D. The patient is currently in the emergency room. She is awaiting a bed assignment on [facility]. Her potassium is at 6.3. Her INR is elevated. I have spoken to Dr. Chacon in regards with emergent dialysis. We will plan for dialysis early this morning. We will place her on a 2-potassium bath. She is to dialyze for 3.5 hours. We will hold all heparin, and pull the patient to her outpatient dry weight after receiving 2 units of FFP. 2. Elevated INR and PT. We will repeat her vitamin K 5 mg subcutaneously. We will also give her 2 units of fresh frozen plasma. Dr. Chacon is in agreement. 3. Anemia. This is fairly stable. We will continue to monitor during her hospital stay. 4. Urinary tract infection. Culture has been sent. We will order Rocephin to be given prophylactically with no renal dosing indicated. 5. Acid-base balance. The patient is metabolic acidosis. We will plan for correction on dialysis. I would like to thank you for allowing us to follow with this patient. Dictated by REUBEN Rey for Lucas Cooper MD cc: REUBEN eRy MD [facility]
[2018-07-08 08:42] LABS: INR 10.12
[2018-07-08 09:30] LABS: BASO# 0.02 X1000 (0.0-0.2); BASO% 0.3 % (0.0-0.8); EOS# 0.18 X1000 (0.0-0.7); IMM GRAN# 0.02 X1000 (0.0-0.04); IMM GRAN% 0.3 % (0.0-0.5); LYMPH# 1.37 X1000 (1.2-3.4); LYMPH% 22.6 % (20.5-51.1); MCV 86.7 FL (81-99); MONO# 0.51 X1000 (0.11-0.59); MONO% 8.4 % (1.7-9.3); MPV 9.6 FL (7.4-10.4); NEUT# 3.97 X1000 (1.4-6.5); NEUT% 65.4 % (42.2-75.2); PLT 328 X1000 (130-400); RBC 3.46 XMIL (4.2-5.4); RDW 16.3 % (11.5-14.5); WBC 6.07 X1000 (4.8-10.8)
[2018-07-08 09:42] LABS: PTT 83.3 Seconds (22.3-41.8)
[2018-07-08 10:06] LABS: INR 4.42; PROTIME 45.1 Seconds (11.0-16.0)
[2018-07-08 10:09] LABS: CALCIUM 7.8 mg/dL (8.8-10.2)
[2018-07-08 10:17] LABS: POTASSIUM 6.6 mmol/L (3.5-5.1)
[2018-07-08] MEDS ORDERED: ROCEPHIN 1 GM in NS 50 ML IV SCH (12:00)
[2018-07-08] MEDS ORDERED: ALBUTEROL NEB INH PRN (14:58)
--- NOTE | 2018-07-08 15:00 | CARDIOLOGY CONSULTATION ---
DATE: 07/08/2018 INDICATION FOR CONSULTATION: Abnormal cardiac enzymes. HISTORY OF PRESENT ILLNESS: Ms. Garcia is a 63-year-old female with a history of end-stage renal disease, who apparently presented to the hospital yesterday on instruction from her primary care physician for abnormal laboratories, including a markedly elevated INR, as well as potassium. She had been in her usual state of health, and missed her dialysis session on Saturday due to the weather, such that her last dialysis session was on . She denies any overt shortness of breath, other than her typical shortness of breath that occurs with minimal exertion. She denies any orthopnea or pain complaints. She has been treated for a recent gynecologic yeast infection with fluconazole, I believe, and did not notify her primary care physician, who manages her Coumadin. She denies any overt bleeding issues or falls. No recent fevers. No chest pain. PAST MEDICAL HISTORY: Significant for: 1. End-stage renal disease. 2. 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 3. Hypertension. 4. Hyperlipidemia. 5. Sleep apnea. 6. Multiple troponinemias with consistently positive troponins on every check back through 05/2017. SOCIAL HISTORY: She does not currently smoke. She is , lives with her . No alcohol. FAMILY HISTORY: Significant for hypertension. REVIEW OF SYSTEMS: A 10-system review of systems is negative, except for those things mentioned in the HPI. PHYSICAL EXAMINATION: Vital Signs: She is afebrile, her heart rate is 77, blood pressure is 157/69. General: She is in no acute distress. HEENT: Oropharynx is moist. Poor dentition. Eye examination shows pink conjunctivae. White sclerae. Neck: No obvious thyromegaly or thyroid tenderness. Cardiovascular: She sounds to be in a regular rate and rhythm. I do not hear any obvious murmurs. She has no S3. She has no lower extremity edema. She has warm and well perfused extremities. Chest: Sounds relatively clear. She just finished her dialysis session. She has no increased work of breathing. Abdomen: Soft, nontender. She has no obvious organomegaly. Skin: Warm and dry throughout with the exception of some mild ecchymoses primarily on her left upper extremity. Neurological: She is moving all extremities well. She has no lateralizing symptoms. Psychiatric: Alert, oriented, pleasant. She has normal mood and affect. PERTINENT DATA: Her EKG reviewed by me on 07/07/2018 at 2348 shows sinus rhythm. She has low voltage. She has no ischemic changes. No sign of injury. Her chest x-ray demonstrated worsened pulmonary vascular congestion with ill-defined infiltrates bilaterally, concerning for pulmonary edema. Her laboratory data demonstrates white count of 6, her hematocrit is 30, her platelet count is 328,000. Her INR is 4.4, with a presenting INR of 8.8. Her sodium is 136, potassium was 6.6, with a presenting of 7.3, her BUN is 84, creatinine is 8. Her troponin was 0.326 most recently. Her presenting troponin was 0.358. She had a troponin of 0.439 on 06/05/2018. ASSESSMENT: Ms. Garcia is a 63-year-old female with a history of end-stage renal disease with persistently positive troponins. Troponin is likely elevated secondary to combined volume overload as well as hyperkalemia and end-stage renal disease. PLAN: We will evaluate her with an echocardiogram. If this is unremarkable, then I would not proceed with an ischemia evaluation given her normal EKG. She runs persistently positive troponin levels. I have instructed her to contact her primary care physician when initiated on antibiotics secondary to her concurrent use of warfarin. Will follow up on the echo, and if this is unremarkable, then we will likely sign off. cc: Edilson Arias MD
--- NOTE | 2018-07-08 15:38 | PROGRESS NOTE ---
DATE: 07/08/2018 INTERVAL HISTORY: Please note that the history and physical has not been dictated on the patient, and there is no ER documentation. I obtained history component by seeing the patient in person. In brief, Ms. Garcia is a 63-year-old lady with multiple past comorbidities, including end-stage renal disease, multiple UTIs, hypertension, insulin-dependent diabetes mellitus, anemia of chronic disease, heart failure with preserved ejection fraction, MRSA from hemodialysis catheter, who comes in with chief complaints of diarrhea with loose watery stools of 3 days duration, cough with hemoptysis, and abnormal labs done at an outside place. She states that she lives with her at home. Overnight, she was found to have elevated INR for which she received p.o. and subcutaneous vitamin K and 2 units of fresh frozen plasma. She was also found to have hyperkalemia. She was given insulin D 50, calcium gluconate and albuterol. At the time of evaluation by the time I could evaluate the patient, the patient was already taken for hemodialysis. The patient currently denies any chest pain. She is feeling a little short of breath; however, it is better than when she came in with. She also denies any more hemoptysis, though she has a routine cough because of sinusitis. She had 1 bowel movement in the emergency room which was loose. After that, she has not had a bowel. She states she was started on antibiotics for her urinary tract infection as an outpatient. According to records, it is amoxicillin currently. OBJECTIVE: Vital Signs: Detect temperature of 97.8 degrees, pulse of 81 per minute, respiratory rate 19, blood pressure 178/67, saturating 95% on 2 L nasal cannula. General: She does not appear in any acute distress. HEENT: Oral cavity is moist. Lungs: Air entry bilaterally equal. No wheeze, rhonchi, or crackles. Cardiovascular: S1, S2 normal. No murmur, rub, or gallop. Abdomen: Soft, nontender. Extremities: No lower extremity edema. She had left groin hemodialysis catheter. Neurologic: She is alert, oriented x3. LABS: Repeat BMP has been ordered in the morning time. Her CBC had detected no leukocyte, normal hemoglobin and normal platelet count. MICROBIOLOGY: Her stool fecal occult blood test was negative. Her stool for WBC was also negative. She had urine culture and blood culture in lab. IMAGING: Chest x-ray performed on admission had pulmonary vascular congestion and worsening ill- defined infiltrate bilaterally concerning for pulmonary edema. ASSESSMENT AND PLAN: 1. Hyperkalemia in the setting of end-stage renal disease status post multiple medications in the emergency room and was trending down. Patient is receiving hemodialysis currently. I will get repeat potassium study done after hemodialysis. Her EKG did not have peak T-waves, however it was of poor quality and I will repeat it in the afternoon time. 2. Elevated troponins. She denies known history of coronary artery disease. She did have elevated troponins on previous admission as well. This could be in the setting of end-stage renal disease and current metabolic derangement. I will follow up with echocardiogram. 3. Supratherapeutic INR in the setting of warfarin that she has been taking for diagnosis of pulmonary embolism in February 2019. Hold warfarin. Followup daily INR. Her acute gastroenteritis and use of multiple medications could have interacted with warfarin metabolism, which might have caused supratherapeutic INR. 4. Chronic kidney disease stage V on Saturday, , Saturday hemodialysis with normocytic anemia related to anemia of chronic disease, currently appears stable. The patient to receive hemodialysis on Saturday, , Saturday schedule. Additional dialysis schedule will be set up based on her electrolyte profile. Appreciate Nephrology recommendation. 5. Acute hypoxic respiratory failure because of bilateral pulmonary edema and pulmonary vascular congestion. This will be taken care of during hemodialysis with ultrafiltration. 6. History of insulin-dependent diabetes mellitus. Start her home insulin glargine regimen, continue levothyroxine for hypothyroidism, continue oxybutynin for bladder spasms, continue Percocet for her chronic pain. 7. History of multiple urinary tract infections. The patient continues to have bladder spasms for which she is taking oxybutynin. Currently, patient denies any urinary symptoms per se; however, her history has been inconsistent, so it has been difficult to determine if she has urinary symptoms for which we will treat with antibiotics. Considering she has not had any leukocytosis, my plan is to stop antibiotics very soon if her symptoms resolve. Unfortunately, urine culture has been collected and would likely grow something. 8. Disposition: The patient remains inside the hospital for close monitoring of her electrolyte profile. Plan of care is discussed with her. All of her questions have been answered. Surrogate decision maker is the patient's and sister. cc: Brett Barnett MD
--- NOTE | 2018-07-08 15:40 | Diag Imaging Result Doc PS360 ---
EXAM: CHEST-2 VIEWS - 07/08/2018 HISTORY: Pulm edema TECHNIQUE: Chest two views COMPARISON: Prior exam 07/08/2018 FINDINGS: There is stable cardiomegaly. Inspiration is mildly shallow. There has been some decrease in vascular congestion/interstitial edema compared to prior. There is some perihilar atelectasis on the left. There is no substantial pleural effusion or pneumothorax identified. IMPRESSION: Stable cardiomegaly. Some decrease in vascular congestion/interstitial edema compared to prior. Electronically signed by Tono Clancy 07/08/2018 3:37 PM
[2018-07-08] MEDS: NORVASC PO SCH (15:53)
[2018-07-08] MEDS: TYLENOL PO PRN (15:54)
[2018-07-08] MEDS: PERCOCET-5 PO PRN (15:54)
--- NOTE | 2018-07-08 16:12 | EKG Report ---
Test Performed on : 07/08/2018 4:04:51 PM Test Reason : Follow up hyperkalemia Blood Pressure : / mmHG Vent. Rate : 092 BPM Atrial Rate : 092 BPM P-R Int : 164 ms QRS Dur : 082 ms QT Int : 354 ms P-R-T Axes : 043 -26 061 degrees QTc Int : 437 ms Normal sinus rhythm. Normal ECG When compared with ECG of 07-JUL-2018 23:48, (Unconfirmed) premature ventricular complexes. are no longer present Criteria for Inferior infarct are no longer present ST no longer depressed in Inferior leads ST no longer depressed in Anterior leads Nonspecific T wave abnormality no longer evident in Inferior leads Nonspecific T wave abnormality, improved in Anterolateral leads Unconfirmed Result
[2018-07-08 16:48] LABS: CALCIUM 7.9 mg/dL (8.8-10.2); CREATININE 4.7 mg/dL (0.5-0.9); POTASSIUM 4.5 mmol/L (3.5-5.1)
[2018-07-08] MEDS: LIDODERM TOP SCH (17:54)
[2018-07-08] MEDS: ZOFRAN IV PRN (21:17)
[2018-07-08] MEDS: LASIX PO SCH (21:17)
[2018-07-08] MEDS: DITROPAN PO SCH (21:18)
[2018-07-08] MEDS: COREG PO SCH (21:18)
[2018-07-08] MEDS: CALMOSEPTINE OINTMENT TOP PRN (21:53)
--- NOTE | 2018-07-08 23:12 | ECHO REPORT ---
ORDER DATE: 07/08/2018 MEASUREMENTS: Left ventricular end-diastolic diameter 4.2, end systolic diameter 2.3, left atrium 4.4. SUMMARY: 1. Technically difficult study due to limited acoustic window quality. Intravenous echo contrast agent was utilized to enhance endocardial definition. 2. The aortic valve is trileaflet and opens adequately on 2-dimensional images. Mild mitral annular calcification is demonstrated. The tricuspid valve is without evidence of structural abnormality. The aortic root is normal size. The pulmonic valve is not well demonstrated. 3. Normal left ventricular chamber size with mild concentric left ventricular hypertrophy is suggested. Estimated left ventricular ejection fraction appears to be at least 65%. No regional wall motion abnormalities are evident. The left atrium is mildly enlarged. The right atrium and right ventricle are grossly normal size with grossly preserved right ventricular systolic function. 4. No pericardial effusion. 5. Appearance of inferior vena cava suggests normal central venous pressure. cc: MD Edilson Zee MD
[2018-07-09] MEDS: PERCOCET-5 PO PRN ×2 (00:15→06:01)
[2018-07-09] MEDS: CALMOSEPTINE OINTMENT TOP PRN (04:09)
[2018-07-09] MEDS: ZOFRAN IV PRN (04:41)
[2018-07-09] MEDS: TYLENOL PO PRN (04:41)
[2018-07-09 05:43] LABS: INR 1.69; PROTIME 21.2 Seconds (11.0-16.0)
[2018-07-09] MEDS: HUMALOG SUBQ SCH ×4 (06:00→21:44)
[2018-07-09] MEDS: SYNTHROID PO SCH (06:00)
[2018-07-09 06:18] LABS: ALBUMIN 2.8 g/dL (3.5-5.0); CALCIUM 7.9 mg/dL (8.8-10.2); PHOSPHORUS 6.3 mg/dL (2.7-4.5); POTASSIUM 5.2 mmol/L (3.5-5.1)
--- NOTE | 2018-07-09 08:57 | HISTORY AND PHYSICAL ---
PRIMARY CARE PHYSICIAN: Halie Valentino MD REASON FOR ADMISSION: Abnormal labs. HISTORY OF PRESENT ILLNESS: Ms. Chaim Garcia is a patient well known to our service with past medical history of endstage kidney disease dialyzed on Saturday, and Saturday; type 2 diabetes, hypothyroidism, hypertension, and abnormal cardiac enzymes who has been admitted previously for pneumonia, UTI, pulmonary edema and bleeding from her dialysis catheter site. On this occasion she comes in complaining of a 1-day history of sudden shortness of breath, but to compound matters, she was referred to the hospital because of her abnormal labs, namely potassium of 7.3, PT 72, INR of 8.8. She only admits to having 2 episodes of hemoptysis today, no hematuria or bleeding per rectum even though she has had multiple loose stools over the last several days. No bleeding from any other orifice. She denies any lightheadedness or weakness with this. She did say in addition to her shortness of breath she had been having some orthopnea today, but no leg swelling or abdominal distention. No fever or chills. No chest pain, palpitations or any anginal-type symptoms. No abdominal pain. No GI complaints. No complaints. REVIEW OF SYSTEMS: A 12 systems review was done, defined per HPI. ALLERGIES: No known allergies per the patient. HOME MEDICATION: List has not been reconciled at this time. SOCIAL HISTORY: Lives with her . Does not smoke, drink or use illicit drugs. FAMILY HISTORY: Notable for heart disease and diabetes in first-degree relatives. History of uterine cancer. PAST SURGICAL HISTORY: She has had carpal tunnel surgery, left knee surgery, bladder surgery, hysterectomy, dialysis catheter placements. DATA: White count 7000, hemoglobin 10, hematocrit 30, platelets 374,000. Chemistry: Sodium is 135, potassium 7.3, bicarbonate 16, BUN 74, creatinine 7.8, calcium 7.7, magnesium 1.9, phosphorus 9.2. Troponin 0.358, but CK is only 56. Albumin 3.1. Lactate is normal. PT 76, INR 3.4. Urinalysis does show too numerous to count WBCs and RBCs 20-40, large leukocytes, greater than 10 epithelial cells. Chest film shows increased vascular markings with borderline cardiomegaly. EKG: Ordered, but not available for review. Calcium chloride was given empirically as well as intravenous Lasix. PHYSICAL EXAMINATION: VITAL SIGNS: Blood pressure 134/90, heart rate 79, respirations 20, temperature 98.4, 93% on room air. GENERAL: She is a middle-aged chronically ill woman who is not in acute distress. She is A and O x3. Normal mood and affect. HEAD: Normocephalic, atraumatic. EYES: PERRLA. She is anicteric and mildly pale. ENT: Oropharynx exam is grossly normal. No central cyanosis. NECK: Supple. No visible JVD noted. The neck is short and thick. No thyromegaly visualized. No bruit appreciated. CHEST: Few bibasilar crepitations heard with decreased sounds in the bases. CARDIOVASCULAR: First and second heart sounds heard with a 2/6 systolic ejection murmur heard in the aortic and pulmonic areas. No radiation appreciated. Rhythm is regular. ABDOMEN: Protuberant and soft. No focal areas of tenderness. Decreased bowel sounds. RECTAL: Exam is deferred. EXTREMITIES: No edema, clubbing or peripheral cyanosis. NEURO: No focal deficits. SKIN: Intact with no breakdown, lesions or erythema, although sacrum and gluteal areas were not examined. MUSCULAR: Grossly normal. ASSESSMENT AND PLAN: 1. Pulmonary edema secondary to underlying heart disease/underlying kidney disease. Patient will be scheduled for hemodialysis today, which is her usual scheduled day for ultrafiltration and hemodialysis. Lasix was given since the patient is not anuric to assist with pulmonary edema and hyperkalemia. 2. Hyperkalemia secondary to endstage renal disease and yet to be determined other causes, i.e. medications. Dextrose, insulin, albuterol, calcium chloride and Lasix given to address this. Will repeat levels in a few hours and may repeat some of these treatments if still elevated, i.e. greater than 5.4 potassium. 3. Hypertension. Resume high blood pressure medications provided they will not worsen current electrolyte derangements. 4. Type 2 diabetes. Will continue with long-acting insulin and sliding scale. 5. Endstage kidney disease. Consult Dr. Cooper for hemodialysis and ultrafiltration. 6. Abnormal troponins. Repeat troponin and CK. This probably could be related to underlying kidney disease. I was empirically going to start the patient on aspirin, but patient warned me that aspirin has made her bleed out in the past. For now we will avoid this. Coupled with that, the patient's PT and PTT are elevated and this will further increase her risk of bleeding. Elevated PT and PTT etiology is yet to be determined. The patient has told me that she has not been taking anticoagulation for close to 2-4 weeks. Will give the patient a 1-time dose of vitamin K orally and repeat INR later today. The patient has had a history of deep vein thrombosis and pulmonary emboli and caution on treating this should be considered in light of her past medical history. cc: MD Pascual Fontenot MD
[2018-07-09] MEDS ORDERED: BASAGLAR SUBQ SCH (09:00)
[2018-07-09] MEDS: LIDODERM TOP SCH (09:32)
[2018-07-09] MEDS: COREG PO SCH ×2 (09:33→21:42)
[2018-07-09] MEDS: NEPHRO-VITE PO SCH (09:33)
[2018-07-09] MEDS: LASIX PO SCH ×2 (09:33→21:42)
[2018-07-09] MEDS: NEURONTIN PO SCH (09:33)
[2018-07-09] MEDS: DITROPAN PO SCH ×2 (09:33→21:42)
[2018-07-09] MEDS: NORVASC PO SCH (09:34)
[2018-07-09 10:16] LABS: HEMATOCRIT 31.8 % (37.0-47.0); HEMOGLOBIN 9.4 g/dL (12.0-16.0); MCHC 29.6 g/dL (33-37); MCV 87.8 FL (81-99); MPV 10.3 FL (7.4-10.4); RBC 3.62 XMIL (4.2-5.4); RDW 16.5 % (11.5-14.5); WBC 5.59 X1000 (4.8-10.8)
[2018-07-09] MEDS ORDERED: COUMADIN PO ONE (11:15)
--- NOTE | 2018-07-09 11:52 | PROGRESS NOTE ---
DATE: 07/27/2018 INTERVAL HISTORY: No acute events. SUBJECTIVE: Patient is feeling much better. Yesterday, I had evaluated her for her left leg pain, which was present right below-knee on anterior kim. There were no evidence of any bleeding or mass or fracture. I had ordered local lidocaine patch, following which she had started feeling better. She is feeling much better today. Denies any new complaints. We discussed about her INR, history of blood clots. Discussed about resuming her Coumadin. I answered all of her questions. VITALS: Currently, temperature of 98 degrees, pulse of 68, blood pressure 134/41, saturating 92 to 96 percent on room air. PHYSICAL EXAMINATION: General: Appears obese, not in any acute distress. HEENT: Oral cavity is moist. Lungs: Air entry bilaterally equal. No wheeze, rhonchi, or crackles. Cardiovascular: S1, S2 normal. No murmur or gallop. Abdomen: Soft, nontender. Extremities: No lower extremity edema. She has a left-sided groin hemodialysis catheter. She also has lidocaine patch over left anterior kim. Neurologic: She is alert, oriented x3. LABS: Suggestive of normocytic anemia, normal platelet count. INR of 1.69. Her potassium is 5.2. She does have low bicarbonate, elevated BUN and creatinine, and blood sugars have been within acceptable range, except hyperphosphatemia and hypocalcemia, though her corrected calcium is within normal limits. ASSESSMENT AND PLAN: 1. Hyperkalemia in the setting of end-stage renal disease, status post multiple medications in the emergency room, now resolving and currently in acceptable range after dialysis on July 08. Electrocardiogram did not have peak T-waves or hyperkalemia-related changes. I will continue to monitor basic metabolic panel. 2. Elevated troponins without known history of coronary artery disease. This was likely in the setting of multiple metabolic derangement, including hyperkalemia and end-stage renal disease. Her echocardiogram had ejection fraction of 65% without any regional wall motion abnormalities. 3. Supratherapeutic INR in the setting of warfarin use for history of pulmonary embolism in March 2018, and a right internal jugular vein deep vein thrombosis in April 2018, exacerbated by a history of diarrhea at home, now resolved after vitamin K administration. I will resume her warfarin today with 1-time load and follow up with daily INR. Currently, her INR is 1.7. I will follow up INR tomorrow morning. If it is still subtherapeutic, my plan is to start her on heparin drip until the INR becomes therapeutic as she had pulmonary embolism and right internal jugular vein deep vein thrombosis within less than 3 months. 4. Chronic kidney disease stage 5 on Saturday, , Saturday hemodialysis with normocytic anemia of chronic disease with hyperphosphatemia, currently stable. The patient will receive hemodialysis tomorrow. I will start her on calcium acetate. Nephrology on board. She does not have any need of blood transfusion currently as her hemoglobin is stable. 5. Acute hypoxic respiratory failure because of bilateral pulmonary edema and pulmonary vascular congestion on presentation, now improving. Continue hemodialysis with ultrafiltration and home dose of Lasix since she is still making urine, though incontinent. 6. History of insulin-dependent diabetes mellitus. Resume her home and continue her home insulin glargine regimen, continue levothyroxine for hypothyroidism, continue oxybutynin for bladder spasms, Percocet for chronic pain. 7. History of multiple urinary tract infections with multiple organisms, including recent urinary tract infection with Pseudomonas. Her urinary symptoms have been inconsistent and it was difficult to make out if the chronology of her symptoms were in association of vaginal candidiasis and if it was just bladder spasm related to her history of bladder spasm. However, she does intermittently mention burning while passing urine. Considering it asymptomatic urinary tract infection, I will change her antibiotics to intravenous cefepime and will follow up with final urine culture results. 8. Disposition: The patient will be transferred out of [facility] to medical floor. Once her INR becomes therapeutic, my plan is to discharge her home with [facility] and patient is in agreement, though she is bed-bound chronically. Plan of care was discussed with her. All of her questions have been answered. cc: Brett Barnett MD
[2018-07-09] MEDS: MAXIPIME 0.5 GM in NS 50 ML IV SCH (12:17)
[2018-07-09] MEDS: PHOSLO PO SCH ×2 (12:17→17:01)
[2018-07-09] MEDS ORDERED: HEPARIN IV ONE (13:16)
[2018-07-09] MEDS: HEPARIN 25,000 UNIT in NS 250 ML IV SCH (13:34)
--- NOTE | 2018-07-09 14:48 | NEPHROLOGY PROGRESS NOTE ---
DATE: 07/09/2018 TIME SEEN: 0845. SUBJECTIVE: Ms. Garcia is sitting up in bed. She has her breakfast in front of her. States that she is slightly nauseated today. OBJECTIVE: Her most recent vital signs: Temperature is 98.3 degrees, blood pressure 136/57, heart rate 67, respirations 18, she is on 2 L nasal cannula, last recorded saturation 98%. Intake and output: She has had 1342 in, 2984 out. This was on dialysis. LABORATORY DATA: Sodium 137, potassium 5.2, chloride 100, CO2 of 20, BUN 45, creatinine 5, glucose is 91, her anion gap is 17, calcium 7.9, phosphorus 6.3, albumin is 2.8. Her pro-time is 21.2 with an INR of 1.69. Previous hemoglobin of 9. MICROBIOLOGICAL DATA: Patient has urine cultures that have resulted has gram-negative rods. PHYSICAL EXAMINATION: General: This is a 63-year-old white female. She is resting quietly in bed. She appears chronically ill, in no acute distress. Skin: Warm and dry. HEENT: Normocephalic, atraumatic. Conjunctiva is pale pink. She has CHAO. Mucous membranes are dry. Neck: Supple trachea midline. No evidence of JVD in the upright position. Cardiovascular: She has regular rate and rhythm. No murmur or gallop is appreciated. Lungs: Clear to auscultation bilateral with equal excursion. She is on O2. Abdomen: Obese, soft, large, nontender. Positive bowel sounds, hypoactive. Genitourinary: Not inspected. Minimal void with dialysis assist. Extremities: She continues with femoral PermCath to her left groin. Dressing has been changed. This is dry and intact. She does continue with trace pretibial edema. Integumentary: She has different stages of healing of ecchymosis to her upper and lower extremities. Neurological: She is alert and oriented x3. ASSESSMENT AND PLAN: 1. Chronic kidney disease, stage 5D. The patient is due for her routine dialysis treatment in the a.m. No indications for acute changes today. 2. Electrolytes, hyperkalemia. This remains slightly elevated. No indications for intervention. We will continue to monitor. 3. Anemia. This is low but stable. 4. Elevated INR. Patient had responded nicely to 2 doses of vitamin K and 2 units of fresh frozen plasma yesterday. Her PT is 21.2 with an INR of 1.69 today. Hemoglobin remains stable. 5. Urinary tract infection. Patient is currently on Rocephin. She continues with gram-negative rods. Sensitivity is pending. 6. Weakness, more than likely secondary to #1 and #4. We will continue to monitor. I would like to thank you for allowing us to follow with this patient. Dictated by REUBEN Rey for Lucas Cooper MD cc: REUBEN Rey MD
[2018-07-09] MEDS: COUMADIN PO SCH (21:42)
[2018-07-10] MEDS: HEPARIN 25,000 UNIT in NS 250 ML IV SCH ×2 (03:18→12:24)
[2018-07-10 04:23] LABS: BASO# 0.03 X1000 (0.0-0.2); BASO% 0.5 % (0.0-0.8); EOS# 0.38 X1000 (0.0-0.7); EOS% 5.7 % (0.0-10.0); HEMATOCRIT 29.3 % (37.0-47.0); HEMOGLOBIN 8.9 g/dL (12.0-16.0); LYMPH# 2.17 X1000 (1.2-3.4); LYMPH% 32.8 % (20.5-51.1); MCH 26.5 PG (27-31); MCHC 30.4 g/dL (33-37); MCV 87.2 FL (81-99); MONO# 0.55 X1000 (0.11-0.59); MONO% 8.3 % (1.7-9.3); MPV 10.2 FL (7.4-10.4); NEUT# 3.49 X1000 (1.4-6.5); NEUT% 52.7 % (42.2-75.2); PLT 343 X1000 (130-400); RBC 3.36 XMIL (4.2-5.4); RDW 16.2 % (11.5-14.5); WBC 6.62 X1000 (4.8-10.8)
[2018-07-10 04:35] LABS: PROTIME 24.2 Seconds (11.0-16.0)
[2018-07-10 04:41] LABS: ALBUMIN 2.9 g/dL (3.5-5.0); CALCIUM 7.6 mg/dL (8.8-10.2); CREATININE 5.4 mg/dL (0.5-0.9); PHOSPHORUS 6.8 mg/dL (2.7-4.5)
[2018-07-10 04:45] LABS: POTASSIUM 6.3 mmol/L (3.5-5.1)
[2018-07-10] MEDS: HUMALOG SUBQ SCH ×4 (06:11→20:41)
[2018-07-10] MEDS: SYNTHROID PO SCH (06:11)
[2018-07-10] MEDS ORDERED: TIGHT: 0.2 ML/HR FOR DIALYSIS MISC PRN (06:58)
[2018-07-10] MEDS ORDERED: HEPARIN IV PRN (06:58)
[2018-07-10] MEDS ORDERED: NS 2,000 ML MISC PRN (06:58)
[2018-07-10] MEDS ORDERED: INSULIN PEN NEEDLES ONE (07:47)
[2018-07-10] MEDS: LASIX PO SCH ×2 (09:38→20:44)
[2018-07-10] MEDS: COREG PO SCH ×2 (09:38→20:39)
[2018-07-10] MEDS: NEPHRO-VITE PO SCH (09:38)
[2018-07-10] MEDS: PHOSLO PO SCH ×3 (09:38→17:18)
[2018-07-10] MEDS: NORVASC PO SCH (09:39)
[2018-07-10] MEDS: DITROPAN PO SCH ×2 (09:39→20:39)
[2018-07-10] MEDS: NEURONTIN PO SCH (09:39)
[2018-07-10] MEDS: BASAGLAR SUBQ SCH (09:39)
[2018-07-10] MEDS: LIDODERM TOP SCH (09:40)
[2018-07-10] MEDS: ZOFRAN IV PRN (10:35)
--- NOTE | 2018-07-10 14:07 | NEPHROLOGY PROGRESS NOTE ---
DATE: 07/10/2018 SUBJECTIVE: Ms. Garcia is sitting up in bed. She states that she is feeling a little bit better. She remains on heparin drip. No acute distress. LABORATORY DATA: Sodium 134, potassium 6.3, chloride 100, CO2 of 21, BUN 54, creatinine 5.4, glucose 79, anion gap 13, calcium 7.6, phosphorus 6.8, albumin is 2.9. White count 6.0, hemoglobin 8.9, hematocrit 29.3, with a platelet count of 343,000. Her ProTime is 24.2 with an INR of 2, PTT 76.4, on heparin drip, currently titrating. PHYSICAL EXAMINATION: Vital Signs: Temperature 98.1 degrees, blood pressure 116/48, heart rate 65, respirations 16, she is on 2 L nasal cannula, last recorded saturation 98%. She has had 112 in. She has had 0 documented out. General: This is a 63-year-old white female. She appears older than her stated age, in no acute distress. Skin: Warm and dry. HEENT: Normocephalic, atraumatic. Conjunctiva is pale. She has CHAO. Mucous membranes are dry. Neck: Supple. Trachea midline. Unable to determine JVD due to her body habitus and the position in her bed. Cardiovascular: She is regular rate and rhythm. No murmur or gallop appreciated. Lungs: Clear to auscultation bilateral with equal excursion on O2. Abdomen: Obese, soft, large, nontender. Positive bowel sounds, hypoactive noted. Genitourinary: Not inspected. Minimal void with dialysis assist. Extremities: The patient has femoral PermCath to the left groin. Dressing is dry and intact. She has trace pretibial edema. Integumentary: She has different stages of healing of ecchymosis to her upper and lower extremities. Neurologic: Alert and oriented x3. ASSESSMENT AND PLAN: 1. Chronic kidney disease stage 5D. The patient is due for her routine dialysis treatment today. We will place her on a 2-potassium bath. She is to dialyze for 3.5 hours. We will again challenge the patient's dry weight. 2. Electrolytes. The patient has had rebound hyperkalemia. Potassium of 6.3. We would place her on a regular diet, low potassium intake. We will dialyze her on a 2-potassium bath. 3. Acidosis. This is planned for correction on dialysis. 4. Anemia. This remains low, but stable. 5. Elevated INR. The patient remains on heparin drip. Her PTT is 76.4. Followed by the primary care team. 6. Urinary tract infection. She remains on Rocephin. I would like to thank you for allowing us to follow with this patient. Dictated by REUBEN Rey for Lucas Cooper MD cc: REUBEN Rey MD
--- NOTE | 2018-07-10 15:26 | PROGRESS NOTE ---
DATE: 07/10/2018 INTERVAL HISTORY: The patient is doing well. No new complaints this morning. No acute events overnight. Denies dyspnea, chest pain, fever, chills, and increased cough. REVIEW OF SYSTEMS: Twelve point review of systems negative except as per interval history. LABS: WBC 6.6, hemoglobin 8.9, hematocrit 29.3, platelets 343,000. INR 2, PTT 24.2. Sodium 134, potassium 6.3, BUN 54, creatinine 5.4, a.m. glucose 86 but down to 52 overnight, calcium 7.6, phosphorus 6.8, albumin 2.9. VITAL SIGNS: T-max 98.9 degrees, pulse 82, respirations 18, blood pressure 140/52, O2 saturation 98% on room air. PHYSICAL EXAMINATION: General: No acute distress. Vital Signs: As above. HEENT: Normocephalic, atraumatic. Moist mucous membranes. No cervical adenopathy. Cardiovascular: Regular rate and rhythm. No murmurs, rubs, or gallops. Pulmonary: Clear to auscultation bilaterally. No wheezing, rales, or rhonchi noted. Abdomen: Soft, nontender, nondistended. Bowel sounds positive. Extremities: Peripheral pulses intact. No clubbing, cyanosis, or edema. Left groin Vas-Cath remains in place. Neurologic: Cranial nerves grossly intact. No focal motor or sensory deficits. Psychiatric: Normal mood and affect. Awake, alert, oriented x3. Skin: No new rashes or lesions identified. ASSESSMENT AND PLAN: 1. End-stage renal disease. Nephrology on board and continued to adjust dialysis. Attempting to get more fluid off of her and to regulate potassium as below. Continue to monitor labs. 2. Hyperkalemia. Multiple medications on admission. Improved with dialysis but now somewhat high again today. The patient is asymptomatic. Nephrology on board and dialyzing today. 3. Elevated troponin, only mild elevation, likely type 2 myocardial infarction/demand ischemia related to end-stage renal disease, hyperkalemia. Echocardiogram unremarkable. 4. Recent pulmonary embolism, supratherapeutic INR. The patient with pulmonary embolism in March of 2018 and right internal jugular deep venous thrombosis in April 2018. Was on warfarin at home. INR on admission was supratherapeutic up to 10.1. This was reversed and came down to 1.6. Now back on Coumadin and up therapeutic at 2.0. Heparin drip was stopped as her INR is now therapeutic. 5. Insulin-dependent diabetes mellitus, hyperglycemia. Patient with mild intermittent episodes of hypoglycemia on her home dose and sliding scale. Decreased basal insulin to 20 units daily. We will monitor sugar. 6. Possible urinary tract infection. Patient with some dysuria on admission. Urine culture growing gram-negative rods, specifics pending. The patient has previously had multiple urinary tract infections with recent pseudomonas. Continue cefepime until urine culture result is available. 7. Disposition. Nephrology still trying to get more fluid off her and adjust her potassium. Also awaiting final urine culture. When nephrology clears her for discharge and urine culture results, we will hopefully be able to discharge her home with home health, which is what the patient prefers. She is chronically bedbound. YONAS
[2018-07-10] MEDS: MAXIPIME 0.5 GM in NS 50 ML IV SCH (16:39)
[2018-07-10] MEDS: COUMADIN PO SCH (20:39)
[2018-07-10] MEDS: PERCOCET-5 PO PRN (22:26)
[2018-07-11] MEDS: HEPARIN 25,000 UNIT in NS 250 ML IV SCH (00:34)
[2018-07-11 05:48] LABS: ALBUMIN 2.6 g/dL (3.5-5.0); CALCIUM 7.6 mg/dL (8.8-10.2); CREATININE 4.6 mg/dL (0.5-0.9); PHOSPHORUS 5.2 mg/dL (2.7-4.5); POTASSIUM 4.6 mmol/L (3.5-5.1)
[2018-07-11] MEDS: SYNTHROID PO SCH (06:40)
[2018-07-11] MEDS: HUMALOG SUBQ SCH ×4 (06:42→22:03)
[2018-07-11 07:03] LABS: INR 2.57; PROTIME 29.5 Seconds (11.0-16.0)
[2018-07-11] MEDS: NEPHRO-VITE PO SCH (08:16)
[2018-07-11] MEDS: LASIX PO SCH ×2 (08:16→22:02)
[2018-07-11] MEDS: NEURONTIN PO SCH (08:16)
[2018-07-11] MEDS: DITROPAN PO SCH ×2 (08:17→22:02)
[2018-07-11] MEDS: PHOSLO PO SCH ×4 (08:17→18:31)
[2018-07-11] MEDS: COREG PO SCH ×2 (08:17→22:03)
[2018-07-11] MEDS: NORVASC PO SCH (08:17)
[2018-07-11] MEDS: BASAGLAR SUBQ SCH (08:18)
[2018-07-11] MEDS: LIDODERM TOP SCH (08:18)
--- NOTE | 2018-07-11 09:25 | NEPHROLOGY PROGRESS NOTE ---
DATE: 07/11/2018 SUBJECTIVE: The patient is sitting up in bed eating breakfast. She states that she feels better. She is wanting to go home. OBJECTIVE: Vital Signs: Temperature 99 degrees, pulse 73, respiratory rate 18, blood pressure 141/37. Intake 772 mL, output 3.2 L. General: This is a middle-aged female, sitting up in bed. Awake and alert, no acute distress. HEENT: Normocephalic, atraumatic. Her mucous membranes are dry. Poor dental hygiene. CHAO. EOMI. Neck: Supple. No JVD. No hepatojugular reflux. Cardiovascular: Regular rate and rhythm without murmur or gallop. Pulmonary: She is on room air. She is clear bilaterally. She has equal excursion. No increased work of breathing. Abdomen: Obese, soft, nontender. Positive bowel sounds all 4 quadrants. : Minimal void. Hemodialysis assist. Extremities: She has trace lower extremity edema, left greater than right. There is a femoral PermCath noted. Integumentary: Skin is clean, dry and intact with ecchymoses. Her dressing is clean, dry, and intact. LAB DATA: WBC of 6.6, hemoglobin 8.9. Sodium 138, potassium 4.6, CO2 25, creatinine 4.6, albumin 2.6, calcium 7.6. ASSESSMENT AND PLAN: 1. Chronic kidney disease stage 5D with fluid overload and hyperkalemia. The patient has underwent dialysis 2 days in a row and has had almost 6 L removed during that time. She is not overloaded at this time and is back to room air. We will plan to dialyze her on Saturday per her routine prescription. 2. Electrolytes, acid-base balance. These are in target. Her potassium is 4.6. Hyperkalemia resolved. 3. Anemia, stable. Continue EPO in the hospital. 4. Elevated INR. She is on Coumadin at this time. Dictated by REUBEN Abreu for Lucas Cooper MD cc: Lucas Cooper MD
[2018-07-11] MEDS: MAXIPIME 0.5 GM in NS 50 ML IV SCH (11:45)
[2018-07-11] MEDS: VELTASSA PO SCH (11:46)
[2018-07-11] MEDS: ZOFRAN IV PRN (12:19)
--- NOTE | 2018-07-11 15:41 | PROGRESS NOTE ---
DATE: 07/11/2018 SUBJECTIVE: She is sitting up in bed. She is working with her coloring book. She has no major complaints. OBJECTIVE: Blood pressure is 144/51, heart rate 69, respiratory rate of 19, temperature 99.7 degrees, 100% on room air.Cardiovascular: Regular rate and rhythm. Pulmonary: Bilateral breath sounds. Clear to auscultation. GI: Soft, nontender, nondistended. Bowel sounds are positive. LABORATORY DATA: INR is 2.5 today. BUN and creatinine 35 and 4.6. PROBLEM LIST: 1. End-stage renal. Continue dialysis. Nephrology is following. 2. Hyperkalemia. She is improving today is back to normal but she had dialysis. I am going to initiate Veltassa and just monitor her. 3. Elevated troponin which is likely demand ischemia and end-stage renal. She seems to be stable. 4. Pulmonary embolism with supratherapeutic INR. Her INR is now therapeutic and we will monitor her INR periodically. 5. Diabetes. Her blood sugars are overall controlled. 6. Pseudomonas urinary tract infection. She is on cefepime, which I think should be covering it, so we will continue to monitor. DISPOSITION: She is going to go home. We are waiting on discharge plans. She wants to go home with home health so we will continue to monitor with nephrology and decide about discharged this weekend. We will continue to follow. cc: Jason Clifford MD
[2018-07-11] MEDS: COUMADIN PO SCH (22:02)
[2018-07-12] MEDS: HUMALOG SUBQ SCH ×4 (06:01→22:36)
[2018-07-12] MEDS: SYNTHROID PO SCH (06:03)
[2018-07-12 06:46] LABS: BASO# 0.03 X1000 (0.0-0.2); BASO% 0.4 % (0.0-0.8); EOS% 5.2 % (0.0-10.0); HEMATOCRIT 29.5 % (37.0-47.0); HEMOGLOBIN 8.8 g/dL (12.0-16.0); LYMPH# 2.21 X1000 (1.2-3.4); LYMPH% 28.6 % (20.5-51.1); MCH 26.1 PG (27-31); MCHC 29.8 g/dL (33-37); MCV 87.5 FL (81-99); MONO# 0.68 X1000 (0.11-0.59); MONO% 8.8 % (1.7-9.3); MPV 9.8 FL (7.4-10.4); NEUT# 4.41 X1000 (1.4-6.5); PLT 351 X1000 (130-400); RBC 3.37 XMIL (4.2-5.4); RDW 16.3 % (11.5-14.5); WBC 7.73 X1000 (4.8-10.8)
[2018-07-12 07:07] LABS: CALCIUM 8.4 mg/dL (8.8-10.2); CREATININE 5.4 mg/dL (0.5-0.9); PHOSPHORUS 6.4 mg/dL (2.7-4.5); POTASSIUM 5.4 mmol/L (3.5-5.1)
[2018-07-12] MEDS ORDERED: NS 2,000 ML MISC PRN (08:20)
[2018-07-12] MEDS ORDERED: TIGHT: 0.2 ML/HR FOR DIALYSIS MISC PRN (08:20)
[2018-07-12] MEDS ORDERED: HEPARIN IV PRN (08:20)
[2018-07-12] MEDS: BASAGLAR SUBQ SCH (09:06)
[2018-07-12] MEDS: NEURONTIN PO SCH (09:06)
[2018-07-12] MEDS: DITROPAN PO SCH ×2 (09:07→22:34)
[2018-07-12] MEDS: NORVASC PO SCH (09:07)
[2018-07-12] MEDS: COREG PO SCH ×2 (09:07→22:34)
[2018-07-12] MEDS: LASIX PO SCH ×2 (09:07→22:34)
[2018-07-12] MEDS: PHOSLO PO SCH ×3 (09:07→16:55)
[2018-07-12] MEDS: LIDODERM TOP SCH (09:07)
[2018-07-12] MEDS: NEPHRO-VITE PO SCH (09:07)
[2018-07-12] MEDS: VELTASSA PO SCH (09:10)
[2018-07-12] MEDS ORDERED: EPOGEN SUBQ ONE ×2 (09:33→13:45)
--- NOTE | 2018-07-12 09:56 | NEPHROLOGY PROGRESS NOTE ---
DATE: 07/12/2018 SUBJECTIVE: Patient is sitting up in bed waiting to go to dialysis. She hopes to go home. OBJECTIVE: Vital Signs: Temperature 98.6 degrees, pulse 64, respiratory rate 17, blood pressure 131/87. Intake and output have not been recorded. General: This is a middle-aged female, sitting up in bed in no acute distress. HEENT: Normocephalic, atraumatic. Oral mucosa moist. Neck: Supple without JVD. Cardiovascular: Regular rate and rhythm. No murmur or gallop. Pulmonary: Clear bilaterally. Equal excursion. Abdomen: Soft. Positive bowel sounds. Obese. : Minimal void. Hemodialysis assist. Extremities: Trace lower edema, left greater than right. Integumentary: Skin is warm and dry. LAB DATA: WBC of 7.7, hemoglobin 8.8. Sodium 135, potassium 5.4, CO2 28, creatinine 5.4. ASSESSMENT AND PLAN: 1. Chronic kidney disease 5 D. Today is her routine dialysis day. She will dialyze on a 2 potassium bath/ultrafiltration to dry weight 3-1/2 hour treatment. 2. Electrolytes, acid-base balance, anemia. Acceptable. She will be treated with dialysis as noted above. 3. Anemia, stable. Continue EPO. Dictated by REUBEN Abreu for Lucas Cooper MD cc: Lucas Cooper MD
[2018-07-12] MEDS: ZOFRAN IV PRN (11:59)
[2018-07-12] MEDS: MAXIPIME 0.5 GM in NS 50 ML IV SCH (13:41)
--- NOTE | 2018-07-12 16:18 | PROGRESS NOTE ---
DATE: 07/12/2018 SUBJECTIVE: The patient has no major complaints. She is asking about going home. OBJECTIVE: Vital signs: Blood pressure 150/45, heart rate 69, respiratory rate 19, temperature 98.6 degrees. 93 to 100 percent on room air. Cardiovascular: Regular rate and rhythm. Pulmonary: Bilateral breath sounds clear to auscultation. GI: Soft, nontender, nondistended. Bowel sounds are positive. PROBLEM LIST: 1. End-stage renal. She is on dialysis. Nephrology is continuing to manage. 2. Hyperkalemia. Is a little bit resurgence today. We did start Veltassa. Continue to follow. 3. Elevated troponin which is demand ischemia and stable. 4. Pulmonary embolism. We are waiting on a repeat INR. 5. Type 2 diabetes. Blood sugars overall controlled. 6. Pseudomonas urinary tract infection. She is on cefepime. Oral options are really limited, am not sure, we may have to potentially give her cefepime with dialysis. DISPOSITION: Anticipate discharge soon. I am just not entirely sure, but I will discuss with Nephrology about is there a potential for her to be able to go home soon. cc: Jason Clifford MD
[2018-07-12] MEDS: COUMADIN PO SCH (22:34)
[2018-07-13] MEDS: SYNTHROID PO SCH (06:06)
[2018-07-13] MEDS: HUMALOG SUBQ SCH ×3 (06:24→17:14)
[2018-07-13 06:45] LABS: BASO# 0.04 X1000 (0.0-0.2); BASO% 0.6 % (0.0-0.8); EOS# 0.36 X1000 (0.0-0.7); EOS% 5.1 % (0.0-10.0); HEMATOCRIT 29.3 % (37.0-47.0); HEMOGLOBIN 8.6 g/dL (12.0-16.0); LYMPH# 2.17 X1000 (1.2-3.4); LYMPH% 30.8 % (20.5-51.1); MCH 25.7 PG (27-31); MCHC 29.4 g/dL (33-37); MCV 87.7 FL (81-99); MONO# 0.65 X1000 (0.11-0.59); MONO% 9.2 % (1.7-9.3); MPV 9.7 FL (7.4-10.4); NEUT# 3.83 X1000 (1.4-6.5); NEUT% 54.3 % (42.2-75.2); PLT 285 X1000 (130-400); RBC 3.34 XMIL (4.2-5.4); WBC 7.05 X1000 (4.8-10.8)
[2018-07-13 06:57] LABS: INR 3.58; PROTIME 38.2 Seconds (11.0-16.0)
[2018-07-13 07:08] LABS: ALBUMIN 2.8 g/dL (3.5-5.0); CALCIUM 8.1 mg/dL (8.8-10.2); CREATININE 4.2 mg/dL (0.5-0.9); PHOSPHORUS 5.2 mg/dL (2.7-4.5); POTASSIUM 4.9 mmol/L (3.5-5.1)
[2018-07-13] MEDS: VELTASSA PO SCH (09:41)
[2018-07-13] MEDS: LIDODERM TOP SCH (09:42)
[2018-07-13] MEDS: NORVASC PO SCH (09:42)
[2018-07-13] MEDS: LASIX PO SCH (09:42)
[2018-07-13] MEDS: NEURONTIN PO SCH (09:42)
[2018-07-13] MEDS: COREG PO SCH (09:42)
[2018-07-13] MEDS: NEPHRO-VITE PO SCH (09:43)
[2018-07-13] MEDS: DITROPAN PO SCH (09:43)
[2018-07-13] MEDS: BASAGLAR SUBQ SCH (09:43)
[2018-07-13] MEDS: PHOSLO PO SCH ×3 (09:43→17:24)
[2018-07-13] MEDS: MAXIPIME 0.5 GM in NS 50 ML IV SCH (11:54)
[2018-07-13 16:03] VITALS: BP 120/40
--- NOTE | 2018-07-13 16:34 | DISCHARGE SUMMARY ---
ADMISSION DATE: 07/08/2018 DISCHARGE DATE: 07/13/2018 PROBLEM LIST: 1. End stage renal. 2. Hyperkalemia. 3. Elevated troponin due to demand ischemia. 4. History of pulmonary embolism. 5. Type 2 diabetes. 6. Pseudomonas urinary tract infection. 7. Coagulopathy. CONSULTATIONS: 1. Nephrology. 2. Cardiology. HOSPITAL COURSE: The patient came in with abnormal cardiac enzymes and an elevated potassium, and her INR was 8.8. The patient was admitted for coagulopathy. She had pulmonary edema. She was hyperkalemic. Renal was consulted. Cardiology was consulted. She was on Coumadin and her INR on admission was 8 and german to 10. She got 2 units of FFP and probably a lot of other treatments, but in any case, the patient stabilized. She did get dialysis for her hyperkalemia. Cardiology was also consulted because of her elevated troponins, but they felt that this was secondary to multiple issues, including her end-stage renal and hyperkalemia. Her echocardiogram showed an EF of 65%, was otherwise unremarkable. Her troponins were 0.358, 0.326. The patient stabilized, hyperkalemia improved, elevated troponins were not considered to be a major issue. She had a supratherapeutic INR, history of PE, was on Coumadin at 2.5. Her INR reduced. I think she ended up being a bit subtherapeutic, 1.6 on the and then she was put back on her Coumadin at 2.5. The day of discharge her INR has come up to 3.5, so I have elected to hold her dose tonight and start her on 2 mg daily. In any case, her potassium has still been up and down. Today her potassium is down to 4.9. I did go ahead and start Veltassa. She had been 5.4 the day before. I think she may need some chronic therapy associated with Veltassa. I went ahead and wrote her a prescription. Hopefully that will be covered. She is a dialysis patient, that is not a guarantee. She has a Pseudomonas UTI which has been sensitive to cefepime and ceftazidime. She has gotten cefepime since the which is only about 4 days/5 days. I have discussed with Renal Service about giving her ceftazidime which it was also sensitive to with dialysis or after dialysis for another at least 2 doses, so she should get treatment there. Other than that, I feel she is stable for discharge. The other issue is her INR is a bit up and down at 3.58, but we have adjusted her Coumadin, hold her dose tonight and start 2 mg tomorrow. DISCHARGE MEDICATIONS: Amlodipine 10, Dialyvite daily, gabapentin 200 daily, glargine 30 daily, Lasix 80 b.i.d., Protonix 40 daily, Coumadin 2 at bedtime starting the , albuterol q.8, Coreg 6.25 b.i.d., Ditropan 5 daily, Epogen is Saturday, Saturday, Saturday, MiraLAX 17 q.6, probably just daily should be fine on that, oxycodone p.r.n. Synthroid 75 daily and then the Veltassa 7.4 daily. FOLLOWUP: She will follow up with Dr. Cooper and Dr. Valentino. She will need a PT/INR in 48 to 72 hours. I have ordered home health to draw that and get results to her primary care physician, which I think is Dr. Valentino, who manages her Coumadin, and she will get at least another couple doses of ceftazidime per Renal Service with outpatient dialysis to complete her course for Pseudomonas urinary tract infection. She has gotten a dose of cefepime prior to discharge. TIME SPENT: 32 minute discharge. cc: MD Halie Crow MD Reginald D. Gladish, MD MTDD
[2018-07-13] MEDS: PERCOCET-5 PO PRN (17:23)
== END 2018-07-13 18:48 | disposition home health service (06) | DRG 640 ==
LOC: ED 22:31 → EDIPHOLD 07-08 03:26 → SUATTDRO 07-08 03:26 → 3S 07-08 18:06 → 3N 07-09 15:38
PROVIDERS: ATTEND Internal Medicine
CPT/HCPCS: 36430; 71020; 71046; 80048; 80053; 80069; 81001; 82270; 82550; 82948; 83605; 83735; 84100; 84484; 85025; 85027; 85379; 85610; 85730; 86850; 86900; 86901; 87040; 87045; 87046; 87077; 87088; 87186; 87205; 89055; 93005; 93306; 94640; 94761; 96365; 96372; 96375; 99285; A9270; C8924; J0692; J0696; J0885; J1644; J1815; J1940; J2405; J3430; J7030; J7050; P9017; Q9957; XXXXX

== ENCOUNTER 2018-07-31 12:56 | Inpatient (IN) ==
[2018-07-31] MEDS ORDERED: SODIUM CHLORIDE 0.9% INJ ONE (14:18)
[2018-07-31] MEDS ORDERED: PROTONIX IV ONE (14:18)
[2018-07-31] MEDS ORDERED: ROCEPHIN 1 GM in NS 50 ML IV ONE (14:18)
[2018-07-31 14:26] LABS: BASO# 0.04 X1000 (0.0-0.2); BASO% 0.6 % (0.0-0.8); EOS# 0.38 X1000 (0.0-0.7); EOS% 5.9 % (0.0-10.0); HEMATOCRIT 33.2 % (37.0-47.0); HEMOGLOBIN 10.2 g/dL (12.0-16.0); LYMPH# 1.46 X1000 (1.2-3.4); LYMPH% 22.8 % (20.5-51.1); MCH 26.3 PG (27-31); MCHC 30.7 g/dL (33-37); MCV 85.6 FL (81-99); MONO# 0.61 X1000 (0.11-0.59); MONO% 9.5 % (1.7-9.3); MPV 10.6 FL (7.4-10.4); NEUT% 61.2 % (42.2-75.2); PLT 320 X1000 (130-400); RBC 3.88 XMIL (4.2-5.4); RDW 16.8 % (11.5-14.5); WBC 6.39 X1000 (4.8-10.8)
[2018-07-31 14:44] LABS: ALB/GLOB RATIO 1.3; ALBUMIN 3.4 g/dL (3.5-5.0); CALCIUM 8.3 mg/dL (8.8-10.2); CREATININE 3.5 mg/dL (0.5-0.9); POTASSIUM 4.6 mmol/L (3.5-5.1); TOTAL BILIRUBIN 0.26 mg/dL (0.20-1.00); TOTAL PROTEIN 6.1 g/dL (6.3-8.3)
[2018-07-31 14:55] LABS: URINE SOURCE CATH
--- NOTE | 2018-07-31 14:58 | Diag Imaging Result Doc PS360 ---
CHEST-2 VIEWS - 07/31/2018 INDICATION: sob HD COMPARISON: 07/18/2018 FINDINGS: Lung volumes are severely low. There is cardiomegaly. There is some ill-defined infiltrate at the left upper lobe. No pneumothorax or significant pleural effusion. IMPRESSION: Left upper lobe infiltrate. Electronically signed by Manuel Montoya 07/31/2018 2:56 PM
[2018-07-31 15:00] LABS: BILIRUBIN URINE NEGATIVE (NEGATIVE); BLOOD URINE LARGE (NEGATIVE); COLOR ORANGE; GLUCOSE URINE 200 mg/dL (NEGATIVE); KETONE URINE NEGATIVE (NEGATIVE); LEUKOCYTES URINE LARGE (NEGATIVE); NITRITE URINE NEGATIVE (NEGATIVE); PH URINE 6.5; PROTEIN URINE 300 mg/dL (NEGATIVE); TURBIDITY URINE HAZY (CLEAR); UROBILINOGEN URINE NORMAL (NORMAL)
[2018-07-31 15:01] LABS: UR EPITHELIAL CELLS <10 /HPF (<10); URINE BACTERIA NEGATIVE /HPF; URINE RBC TNTC /HPF (<10); URINE WBC TNTC /HPF (<10)
[2018-07-31 15:07] LABS: URINE YEAST NONE SEEN
[2018-07-31] MEDS ORDERED: ASPIRIN PO ONE (15:29)
--- NOTE | 2018-07-31 15:48 | EKG Report ---
Test Performed on : 07/31/2018 3:24:53 PM Test Reason : CP Blood Pressure : / mmHG Vent. Rate : 062 BPM Atrial Rate : 062 BPM P-R Int : 164 ms QRS Dur : 084 ms QT Int : 420 ms P-R-T Axes : 038 -30 025 degrees QTc Int : 426 ms Normal sinus rhythm. Left axis deviation Abnormal ECG When compared with ECG of 18-JUL-2018 18:48, (Unconfirmed) No significant change was found Unconfirmed Result
[2018-07-31] MEDS ORDERED: MAXIPIME 1 GM in NS 50 ML IV ONE (16:19)
[2018-07-31] MEDS: MAXIPIME 1 GM in NS 50 ML IV SCH (18:15)
[2018-07-31 19:00] LABS: INR 1.87
[2018-07-31 19:01] LABS: PTT 45.4 Seconds (22.3-41.8)
[2018-07-31] MEDS: NORVASC PO SCH (19:01)
--- NOTE | 2018-07-31 19:13 | HISTORY AND PHYSICAL ---
ADDENDUM: I agree with most components of history, physical, assessment and plan. In brief, Ms. Garcia is a 63-year-old lady who came in from the dialysis unit as she had significant perineal pain when her dialysis catheter got kinked associated with hematuria. While in the emergency room, she was hemodynamically stable except that the chest x-ray did suggest a left upper lobe infiltrate; however, patient has been afebrile. Currently, the patient denies any abdominal discomfort, and she wanted to eat. PHYSICAL EXAMINATION: VITAL SIGNS: Temperature of 98.5 degrees, pulse of 65, blood pressure of 119/57, saturating 100% on room air. GENERAL: She does not appear in any acute distress. HEENT: Oral cavity is moist. LUNGS: Air entry bilaterally equal. No wheeze, rhonchi, or crackles. CARDIOVASCULAR: S1, S2 normal. Regular. No murmur, rub, or gallop. ABDOMEN: Soft, nontender. GENITOURINARY: She has a urine catheter. She has a left-sided groin dialysis catheter. She denies any cough except occasionally. LABORATORY DATA: Urinalysis was suggestive of large blood, RBCs and WBCs. MICROBIOLOGY: Urine culture in lab. ASSESSMENT AND PLAN: 1. Acute hematuria likely related to obstructed Dean catheter and suspected urinary bladder trauma because of kinking of urinary catheter. I will continue to monitor patient under observation status and follow up with coagulation profile. We will continue her intravenous antibiotics for suspected urinary tract infection. 2. Left upper lobe infiltrate without any symptoms of leukocytosis. I will just monitor her. 3. Chronically elevated troponin in the setting of end-stage renal disease. I will follow up with EKG. 4. For end-stage renal disease, nephrology will be consulted. DISPOSITION: Patient would be admitted under observation status until her hematuria resolves. Plan of care discussed with her. cc: Brett Barnett MD
--- NOTE | 2018-07-31 19:49 | HISTORY AND PHYSICAL ---
CHIEF COMPLAINT: "My bottom hurts and my catheter hurts." HISTORY OF PRESENT ILLNESS: This is a morbidly obese, 63-year-old female with a history of end- stage renal disease on hemodialysis, diabetes mellitus type 2, hypertension, and medical noncompliance. She presented to the emergency room after having dialysis. She stated that during dialysis, they made her sit in a hard chair, and it hurt the chronic decubitus on her sacral and buttocks area. She stated that her Dean catheter was laid in her lap during dialysis, and it would not drain. She states that other than this, she has been in her normal state of health. She denied any chest pain, palpitations, any syncope, dizziness, any fevers. In the emergency room, she was noted to have hematuria but scant catheter drainage. The catheter was repositioned and began draining, and her vaginal pressure and suprapubic pressure relieved. The patient has a long history of decubitus to sacral and buttocks, as well as perirectal and vulvar irritation. She states that this had been better. Pain had been less until she sat in the hard chair at dialysis. PAST MEDICAL HISTORY: End-stage renal disease on chronic hemodialysis, diabetes mellitus type 2, hypertension, hypothyroid, anemia of chronic disease, chronic back pain, sleep apnea, chronic urinary tract infections with the last documented being in June 2018. She did have Pseudomonas, for which she received Ancef. PAST SURGICAL HISTORY: Hysterectomy, carpal tunnel surgery, left knee surgery, bladder surgery, placement of dialysis tunneled catheter. SOCIAL HISTORY: She denies any alcohol, tobacco, or illicit drug use. ALLERGIES: Listed as no known drug allergies. HOME MEDICATIONS: A list will be obtained by the nursing staff, and once verified, we will review and restart as appropriate. REVIEW OF SYSTEMS: Discussed with patient with pertinent positives stated in HPI. She denied any syncope, dizziness, any chest pain, palpitations, any nausea, vomiting, diarrhea, constipation, any fevers or chills. PHYSICAL EXAMINATION: GENERAL: This is a 63-year-old female who is lying in the bed, watching TV, in no distress. VITAL SIGNS: Blood pressure is 165/84 with a heart rate of 68, respirations are 18, temperature is 98.6 degrees, with O2 saturations 100% on room air. EYES: Pupils equal, round, react to light. EOMs are intact. Sclerae anicteric. HENT: Head is normocephalic, atraumatic. Mucous membranes are moist. NECK: Supple, with trachea midline. CARDIOVASCULAR: Regular rate and rhythm. S1 and S2 appreciated. She has no murmur. She has bilateral lower extremity edema which is chronic. Calves are nontender to palpation. Peripheral pulses are palpable x4 extremities. PULMONARY: Breath sounds are diminished at the bases, clear. Chest rises and falls symmetrically with respiration. Chest wall is nontender to palpation. GASTROINTESTINAL: Abdomen is large, soft, nontender, nondistended, with bowel sounds in all 4 quadrants. GENITOURINARY: She has a Dean patent to the bedside bag. She does have hematuria with urine the color of trotter Joaquim-Aid. Suprapubic is nontender to palpation. NEUROLOGIC: She is alert and oriented x3. LABORATORIES: WBC is 6.3 with hemoglobin 10.2, hematocrit 33.2, and platelets of 320,000. Sodium 142, potassium 4.6, BUN 30, creatinine 3.5, with a glucose of 112. Troponin was 0.476, repeat was 0.439. IMAGING STUDIES: Chest x-ray reveals a left upper lobe infiltrate. ASSESSMENT AND PLAN: 1. Left upper lobe infiltrate. We will obtain blood cultures. Start antibiotic coverage of cefepime. We will start incentive spirometer and monitor. 2. End-stage renal disease, on hemodialysis. We will consult Dr. Cooper for medical management. 3. Hypertension. We will identify home medications and continue as appropriate. 4. Hypothyroid. We will check a TSH and continue her medications. 5. Diabetes mellitus type 2. She will be placed on pattern blood glucose with sliding scale insulin. 6. Anemia of chronic disease. This is stable. We will monitor hemoglobin and hematocrit. 7. Hematuria. This is very likely secondary to her catheter being pulled or malpositioned. We will monitor her I and O as well as the color of her urine. 8. Chronic decubitus. We will consult Wound Management. 9. Further treatments pending hospital course. Dictated by REUBEN Ramos for Brett Barnett MD This chart was documented by, REUBEN Ramos and accurately reflects the services performed, treatment plan and medical decisions as attested by the providers signature Brett Barnett MD. cc: REUBEN Ramos MD I agree with most components of history, physical, assessment and plan. A separate addendum has been dictated. MTDD
[2018-07-31] MEDS: MORPHINE IV PRN (21:06)
[2018-07-31] MEDS: NEURONTIN PO SCH (22:36)
[2018-07-31] MEDS: COREG PO SCH (22:36)
--- NOTE | 2018-08-01 00:11 | PROVIDER DOCUMENTATION ---
This chart was entered by Minal Breaux Scribe, acting as scribe for Marilee Longoria MD. HPI-Female /OB/Breast - General Chief Complaint: UTI Symptoms Stated Complaint: ABDOMINAL PAIN Time Seen by Provider: 07/31/18 14:01 Allergies/Adverse Reactions: Patient Allergies Allergy/AdvReac Type Severity Reaction Status Date / Time No Known Allergies Allergy Verified 06/29/18 16:13 Home Medications: Home Medication List Medication Instructions Recorded Confirmed Last Taken Type Folic Acid/Vit Bcomp,C [Dialyvite 1 tab PO DAILY 10/09/17 07/08/18 07/07/18 History 800 Tablet] Hydrophilic Cream [Triad] 1 applicatn TOP DAILY 10/09/17 07/08/18 07/07/18 History Epoetin Tien [Epogen] 10,000 unit SUBQ MoWeFr@0900 vial 12/02/17 07/31/18 07/07/18 Rx Levothyroxine [Synthroid] 75 microgm PO DAILY@0700 tablet 12/02/17 07/31/18 07/07/18 Rx Oxybutynin [Ditropan] 5 mg PO BID tablet 12/02/17 07/08/18 07/07/18 Rx Albuterol Sulfate 0.63 mg IH Q8HR PRN #120 vial.neb 04/09/18 07/31/18 07/07/18 Rx Carvedilol [Coreg] 6.25 mg PO BID #60 tab 04/09/18 07/31/18 07/07/18 Rx Amlodipine Besylate 1 tab PO DAILY 06/27/18 07/31/18 07/07/18 History Furosemide [Lasix] 2 tab PO BID 06/27/18 07/31/18 07/07/18 History Gabapentin 2 cap PO DAILY 06/27/18 07/31/18 07/07/18 History Insulin Glargine,Hum.rec.anlog 30 units SQ DAILY 06/27/18 07/31/18 07/07/18 History [Lantus Solostar] Oxycodone HCl/Acetaminophen 1 ea PO Q6-8H PRN PRN #20 tab 06/27/18 07/31/18 07/07/18 Rx [Percocet 5-325 mg Tablet] Pantoprazole [Protonix] 1 tab PO DAILY 06/27/18 07/31/18 07/07/18 History Patiromer [Veltassa] 8.4 gm PO DAILY #30 pkt 07/13/18 Unknown Rx Amoxicillin/Potassium Clav 1 ea PO TID 07/31/18 07/31/18 Unknown History [Augmentin 500-125 Tablet] Warfarin Sodium [Coumadin] 2.5 mg PO QHS 07/31/18 07/31/18 Unknown History - History of Present Illness-Female /OB Nature of Presenting Problem: Patient is a 63 year old female who presents to the ED via EMS with suprapubic pain and hematuria. Also states having a bedsore to buttock. Denies fever. she also report SOB for the last few weeks, denies chest pain or plapitation. denies leg edema. Does patient report she is ?: No Location of complaint: reports: suprapubic Radiation: reports: none Quality of Pain: reports: aching Severity in ED: reports: mild Onset/Duration: reports: unsure Timing: reports: still present Context/Activities at Onset: reports: light activity Urinary Symptoms: reports: hematuria Modifying Factors: improves with: nothing Associated Symptoms: reports: denies symptoms Similar Symptoms Previously?: Yes Recently seen or treated by another doctor?: No Review of Systems - Adult - REVIEW OF SYSTEMS - ADULT Constitutional: reports: no symptoms reported Eyes: reports: no symptoms reported Ears, Nose, Mouth & Throat: reports: no symptoms reported Cardiovascular: reports: no symptoms reported Respiratory: reports: no symptoms reported Gastrointestinal: reports: abdominal pain (suprapubic). denies: diarrhea, nausea, vomiting Genitourinary: reports: no symptoms reported, hematuria. denies: dysuria, flank pain Musculoskeletal: reports: no symptoms reported. denies: back pain, muscle aches, neck pain Integumentary: reports: other (bed sores). denies: hives, itching, rash Neurological: reports: no symptoms reported Past History - Adult - PAST MEDICAL HISTORY-ADULT Review of Records: reports: Nursing Assessment Review, Medications Reviewed, Social history reviewed & non-contributory. Major Childhood Illnesses: reports: denies history Cardiovascular: reports: blood clots (dvt), CHF, HTN, hyperlipidemia, murmur Respiratory: reports: sleep apnea Gastrointestinal: reports: GERD Obstetrical/Gynecological: reports: denies history Genitourinary: reports: dialysis, ESRD, kidney disease, chronic UTI's, other (bladder spasms, neurogenic bladder with obstructions) Musculoskeletal: reports: denies history Neurological: reports: denies history Psychiatric: reports: denies history Endocrine/Immune: reports: Diabetes, thyroid disorder Other Conditions: reports: denies history - PRIOR SURGERIES/PROCEDURES Surgical/Procedure History: reports: cholecystectomy, hysterectomy, indwelling device (suprapubic cath--10/11, replaced 11/21 c daigle cath because suprapubic cath was dislodged), orthopedic (extremity), other (bladder surgery, left knee, right hand) - PRIOR HOSPITALIZATIONS Prior Hospitalizations: reports: for other non-related - IMMUNIZATION STATUS Childhood Immunizations: See Nurse Assessment Flu Vaccine: See Nurse Assessment - FAMILY HISTORY Family History: reviewed, not pertinent - SOCIAL HISTORY Smoking: denies Substance Use: denies Physical Exam-General - PHYSICAL EXAM-ADULT Initial Vital Signs Reviewed: Yes - CONSTITUTIONAL General Appearance: alert, no apparent distress. negative: lethargic, slow to respond - HEAD, EARS, NOSE, MOUTH & THROAT HENMT: moist mucous membranes. negative: angioedema, hearing deficit - RESPIRATORY Respiratory: chest non-tender, lungs clear, normal breath sounds. negative: crackles, rhonchi - CARDIOVASCULAR Cardiovascular: normal peripheral pulses, regular rate, rhythm, systolic murmur. negative: tachycardia - GASTROINTESTINAL (ABDOMEN) Abdominal Exam: normal bowel sounds, soft, tenderness (suprapubic). negative: guarding, rebound - GENITOURINARY Female Genitalia/Pelvic Exam: other (hematuria present in urinary catheter bag) - MUSCULOSKELETAL Back Exam: no CVA tenderness, no vertebral tenderness - SKIN Integumentary: normal turgor, warm/dry, other (erythematous patches lower back (sacral area), no signs of infection). negative: cyanosis, jaundice - PSYCHIATRIC Psych/Mental Status: oriented x 3. negative: paranoid Progress - PLAN OF CARE/RESULTS Progress/Plan/Lab Results: Vital Signs - 8 hr 07/31/18 17:30 Temperature 98.5 F Pulse Rate 65 Respiratory Rate 18 Blood Pressure 191/57 O2 Sat by Pulse Oximetry 100 Laboratory Results - last 24 hr 07/31/18 07/31/18 07/31/18 14:17 14:17 14:17 WBC 6.39 RBC 3.88 L Hgb 10.2 L Hct 33.2 L MCV 85.6 MCH 26.3 L MCHC 30.7 L RDW Std Deviation 16.8 H Plt Count 320 MPV 10.6 H Immature Gran % (Auto) 0.0 Neut % (Auto) 61.2 Lymph % (Auto) 22.8 [place] % (Auto) 9.5 H Eos % (Auto) 5.9 Baso % (Auto) 0.6 Immature Gran # (Auto) 0.00 Neut # (Auto) 3.90 Lymph # (Auto) 1.46 [place] # (Auto) 0.61 H Eos # (Auto) 0.38 Baso # (Auto) 0.04 PT 23.0 H INR 1.87 PTT (Actin FS) 45.4 H Sodium 142 Potassium 4.6 Chloride 104 Carbon Dioxide 23 L Anion Gap 15 BUN 30 H Creatinine 3.5 H Estimated GFR/1.73 m2 13 BUN/Creatinine Ratio 9 Glucose 112 H Calculated Osmolality 290 Calcium 8.3 L Total Bilirubin 0.26 AST 8 L ALT 5 L Alkaline Phosphatase 77 Troponin T Total Protein 6.1 L Albumin 3.4 L Globulin 2.7 Albumin/Globulin Ratio 1.3 Lipase 19 Urine Source Urine Color Urine Turbidity Urine pH Ur Specific [place] Urine Protein Ur Glucose (Stick) Ur Ketones (Stick) Urine Blood Urine Nitrite Urine Bilirubin Urobilinogen Dipstick Urine Leukocytes Urine WBC (Auto) Urine RBC (Auto) U Epithel Cells (Auto) Urine Bacteria (Auto) Urine Crystals Small Round Cells Urine Casts Urine Yeast-like Cells 07/31/18 07/31/18 07/31/18 14:31 14:36 16:49 WBC RBC Hgb Hct MCV MCH MCHC RDW Std Deviation Plt Count MPV Immature Gran % (Auto) Neut % (Auto) Lymph % (Auto) [place] % (Auto) Eos % (Auto) Baso % (Auto) Immature Gran # (Auto) Neut # (Auto) Lymph # (Auto) [place] # (Auto) Eos # (Auto) Baso # (Auto) PT INR PTT (Actin FS) Sodium Potassium Chloride Carbon Dioxide Anion Gap BUN Creatinine Estimated GFR/1.73 m2 BUN/Creatinine Ratio Glucose Calculated Osmolality Calcium Total Bilirubin AST ALT Alkaline Phosphatase Troponin T 0.476 H* 0.439 H* Total Protein Albumin Globulin Albumin/Globulin Ratio Lipase Urine Source CATH Urine Color ORANGE Urine Turbidity HAZY Urine pH 6.5 Ur Specific [place] 1.010 Urine Protein 300 A Ur Glucose (Stick) 200 A Ur Ketones (Stick) NEGATIVE Urine Blood LARGE A Urine Nitrite NEGATIVE Urine Bilirubin NEGATIVE Urobilinogen Dipstick NORMAL Urine Leukocytes LARGE A Urine WBC (Auto) TNTC A Urine RBC (Auto) TNTC A U Epithel Cells (Auto) <10 Urine Bacteria (Auto) NEGATIVE Urine Crystals Not Reportable Small Round Cells Not Reportable Urine Casts Not Reportable Urine Yeast-like Cells NONE SEEN Orders Category Date Time Status Admit Patient To Observation Status Routine AdmDCTranf 07/31/18 18:26 Active Activity - Up with Assistance ORDERED Care 07/31/18 18:08 Active Intake and Output-Strict ORDERED Care 07/31/18 18:08 Active Nursing- MD Consult Request ROUTINE Care 07/31/18 18:11 Active Update & Confirm Home Medicati ROUTINE Care 07/31/18 18:11 Active Vital Signs Order Q 8-HR ASSESS Care 07/31/18 18:08 Active Z-Document. for Tele Applied ORDERED Care 07/31/18 18:09 Active Physician/Provider Consults Routine Cons 07/31/18 18:08 Ordered Renal Diet Diet 07/31/18 17:18 Active cxr [CHEST-2 VIEWS] [RAD] Stat Exams 07/31/18 14:18 Completed CBC WITH DIFF [HEME] Routine Lab 07/31/18 18:40 Ordered CBC WITH ELECTRONIC DIFF [HEME] Stat Lab 07/31/18 14:17 Completed CMP [COMPREHENSIVE METABOLIC PANEL] [CHEM] Stat Lab 07/31/18 14:17 Completed LIPASE [CHEM] Stat Lab 07/31/18 14:17 Completed PROTIME WITH INR [COAG] Routine Lab 07/31/18 14:17 Completed PTT [COAG] Stat Lab 07/31/18 14:17 Completed TROPONIN T Routine Lab 07/31/18 19:11 Completed TROPONIN T Stat Lab 07/31/18 14:31 Completed TROPONIN T Stat Lab 07/31/18 16:49 Completed URINALYSIS W/POSS RFLX CULT [URINALYSIS] Stat Lab 07/31/18 14:36 Completed URINE CULTURE [RM] Routine Lab 07/31/18 15:08 Received URINE MANUAL MICROSCOPIC [URINALYSIS] Stat Lab 07/31/18 14:36 Completed Acetaminophen [Tylenol] Med 07/31/18 18:08 Active 650 mg PO Q6H PRN PRN Amlodipine [Norvasc] Med 07/31/18 18:15 Active 10 mg PO DAILY Aspirin Med 07/31/18 15:29 Discontinued 325 mg PO NOW ONE Carvedilol [Coreg] Med 07/31/18 21:00 Active 6.25 mg PO BID CefEPIME [Maxipime] 1 gm Med 07/31/18 16:19 Discontinued 0.9% Sodium Chloride Inj [Ns] 50 ml IV NOW CefEPIME [Maxipime] 1 gm Med 07/31/18 18:15 Active 0.9% Sodium Chloride Inj [Ns] 50 ml IV Q12H CefTRIAXONE [Rocephin] 1 gm Med 07/31/18 14:18 Discontinued 0.9% Sodium Chloride Inj [Ns] 50 ml IV NOW Gabapentin [Neurontin] Med 07/31/18 21:00 Active 100 mg PO BID Levothyroxine [Synthroid] Med 08/01/18 07:00 Active 75 microgm PO DAILY@0700 Pantoprazole [Protonix] Med 07/31/18 14:18 Discontinued 40 mg IV NOW ONE Sodium Chloride 0.9% Med 07/31/18 14:18 Discontinued 10 ml INJ NOW ONE Telemetry [OM.EQ] Routine Oth 07/31/18 18:08 Active EKG [EKG] Stat Ther 07/31/18 14:17 Draft Transfer/Admit Order [TRANSFER] Routine Transfer 07/31/18 18:16 Completed Result Diagrams: 07/31/18 14:17 07/31/18 14:17 - EKG 1 Time of EKG reading by physician:: 15:24 EKG Read and Signed by:: Theo Vyas EKG Interpretation (*Must complete 3 of following elements*): Abnormal Rate: 62 Rhythm: normal sinus rhythm [place]: left [place] Interval: normal Comments: abnormal ECG - XRAY 1 XRAY Study: Chest Impression: See EMR Report ( CHEST-2 VIEWS - 07/31/2018 INDICATION: sob HD COMPARISON: 07/18/2018 FINDINGS: Lung volumes are severely low. There is cardiomegaly. There is some ill-defined infiltrate at the left upper lobe. No pneumothorax or significant pleural effusion. IMPRESSION: Left upper lobe infiltrate. Electronically signed by Manuel Montoya 07/31/2018 2:56 PM 07/31/18 1456 Interpreting Physician: Manuel Montoya MD Dictated Date/Time: 07/31/18 1450 cc: Marilee Núñez MD; Halie Valentino MD) - CONSULTS/PCP/HOSPITALIST Notification #1 *Consult/PCP/Hospitalist*: NOE Sheldon admitting for Dr. Leone Time Discussed: 16:36 Consult Disposition: Admit (Hx, PE and patient care discussed with NOE Sheldon, accepted.) #2 Consult: Dr. Dumont Time Discussed: 16:11 Consult Disposition: other (Dr. Dumont said her troponin elevation is likely from ESRD, no chest pain or new EKG changes. trend troponin for 2 more times.) Departure - Departure Date of Disposition Decision: 07/31/18 Time of Disposition Decision: 16:35 DIAGNOSIS: SOB (shortness of breath) UTI (urinary tract infection) Qualifiers: Urinary tract infection type: site unspecified Hematuria presence: with hematuria Qualified Code(s): N39.0 - Urinary tract infection, site not specified; R31.9 - Hematuria, unspecified Disposition: ADMITTED INPATIENT 09 Certified Medical Emergency: Emergent Condition: Stable - Critical Care Note This patient required my direct & personal management of CC.: No Attestation - Physician/ SARA Attestation Patient care was provided by Advanced Practice Provider:: No The physician spent face to face time with patient:: Yes Advanced Practice Provider documentation review:: Supervising physician onsite and consulted in the evaluation and care of this patient. The physician did have a face to face encounter with the patient. This chart was documented by the indicated scribe, (Minal Breaux Scribe) and accurately reflects the services I performed and decisions made by me, Marilee Longoria MD, as attested by the provider's signature.
[2018-08-01] MEDS: MAXIPIME 1 GM in NS 50 ML IV SCH ×2 (06:15→17:36)
[2018-08-01] MEDS: CALMOSEPTINE OINTMENT TOP PRN (06:19)
[2018-08-01 06:55] LABS: BASO# 0.04 X1000 (0.0-0.2); BASO% 0.5 % (0.0-0.8); EOS# 0.44 X1000 (0.0-0.7); HEMATOCRIT 35.2 % (37.0-47.0); HEMOGLOBIN 10.7 g/dL (12.0-16.0); LYMPH% 21.7 % (20.5-51.1); MCH 26.4 PG (27-31); MCHC 30.4 g/dL (33-37); MCV 86.9 FL (81-99); MONO# 0.64 X1000 (0.11-0.59); MONO% 8.7 % (1.7-9.3); MPV 10.7 FL (7.4-10.4); NEUT# 4.67 X1000 (1.4-6.5); NEUT% 63.1 % (42.2-75.2); PLT 342 X1000 (130-400); RBC 4.05 XMIL (4.2-5.4); RDW 17.1 % (11.5-14.5); WBC 7.39 X1000 (4.8-10.8)
[2018-08-01] MEDS: NEURONTIN PO SCH ×2 (11:22→21:10)
[2018-08-01] MEDS: NORVASC PO SCH (11:22)
[2018-08-01] MEDS: COREG PO SCH ×2 (11:22→21:10)
[2018-08-01] MEDS: SYNTHROID PO SCH (11:22)
--- NOTE | 2018-08-01 16:35 | NEPHROLOGY PROGRESS NOTE ---
DATE: 08/01/2018 SUBJECTIVE: She was admitted yesterday after dialysis because of complaint of blood in her urine. She has missed several of her treatments recently, but she did attend on yesterday. She was evaluated in the emergency room and subsequently admitted to the hospital with diagnoses of hematuria and left upper lobe pulmonary infiltrate. She is being treated with cefepime and her routine home medications. No shortness of breath, nausea or vomiting today. OBJECTIVE: Vital Signs: Blood pressure 156/53, heart rate 68, respirations 16. General: No acute distress. Skin: Warm and dry. Conjunctivae are pink. Neck: Neck veins are not appreciated. Heart: Regular. Lungs: Equal. No crackles. Abdomen: Soft, nontender. Bowel sounds are present. Extremities: 1+ edema. No clubbing or cyanosis. IMPRESSION: 1. Hematuria. Culture negative thus far. Likely Dean trauma. 2. Pulmonary infiltrate. She is receiving IV antibiotics. Not sure what to make of that. Certainly, she is well compensated and I would not expect this would require protracted hospitalization. 3. CKD 5D. Her next scheduled dialysis is tomorrow. Electrolytes/acid base/anemia all in target. cc: Lucas Cooper MD
--- NOTE | 2018-08-01 19:49 | PROGRESS NOTE ---
DATE: 08/01/2018 INTERVAL HISTORY: No acute events. Her hematuria is resolving. Patient denies chest pain, cough, nausea, vomiting, abdominal pain. VITALS: Detect temperature of 98.6 degrees, pulse 70, respiratory rate 18, blood pressure 140/41, saturating 100% on nasal cannula. PHYSICAL EXAMINATION: Patient does not appear in any acute distress, oral cavity is moist. Air entry bilateral equal, no wheeze, rhonchi, or crackles. S1, S2 normal, regular. No murmur, rub, or gallop.Abdomen: Soft, nontender. She has urine catheter which is just emptied. There is some blood that I could see in the Dean catheter bag. She has left-sided groin dialysis catheter. LAB DATA: Suggestive of normocytic anemia with hemoglobin of 10.7, platelet count of 342,000 which is stable. No BMP today. Her troponins had peaked. Her urine culture has not shown any growth. ASSESSMENT AND PLAN: 1. Hematuria likely traumatic at the time of Dean catheter insertion currently appears to be resolving. I will keep the Dean catheter in and if hematuria results tomorrow my plan is to discontinue urine catheter. 2. Left upper lobe infiltrate without symptoms of cough, shortness of breath or leukocytosis. It looks pulmonary vascular congestion on my evaluation, I will continue intravenous cefepime and will follow up with chest x-ray tomorrow morning. Her urine culture has no growth till date. If chest x-ray is better and patient does not have any symptoms my plan is to stop the antibiotics. 3. End-stage renal disease on hemodialysis. Nephrology on board. 4. Continue amlodipine for essential hypertension with carvedilol, continue levothyroxine for hypothyroidism, gabapentin for peripheral neuropathy, start clotrimazole vaginal cream for vaginal candidiasis. 5. Disposition. Patient remains inside the hospital to monitor for resolution of hematuria. If her hematuria is better and urine culture does not show any growth by tomorrow my plan is to discharge her back home. Plan of care discussed with her, all of her questions have been answered. cc: Brett Barnett MD
[2018-08-01] MEDS: MORPHINE IV PRN (21:10)
[2018-08-01] MEDS: GYNE-LOTRIMIN VAGINAL CREAM VAG SCH (22:55)
[2018-08-01] MEDS: TYLENOL PO PRN (23:50)
[2018-08-02] MEDS: MORPHINE IV PRN ×3 (01:48→22:31)
[2018-08-02] MEDS: MAXIPIME 1 GM in NS 50 ML IV SCH ×2 (06:14→18:36)
[2018-08-02] MEDS: SYNTHROID PO SCH (06:14)
--- NOTE | 2018-08-02 07:42 | Diag Imaging Result Doc PS360 ---
EXAM: CHEST-PORTABLE - 08/02/2018 HISTORY: Follow up chest xray for left upper lobe infiltrate TECHNIQUE: Portable chest COMPARISON: 07/31/2018 FINDINGS: There is cardiomegaly. Inspiration is somewhat shallow. There are mild perihilar infiltrates or edema. There is no substantial pleural effusion or pneumothorax identified. IMPRESSION: Cardiomegaly. Somewhat shallow inspiration. Mild perihilar infiltrates or edema. Electronically signed by Tono Clancy 08/02/2018 7:40 AM
[2018-08-02] MEDS: NORVASC PO SCH (08:24)
[2018-08-02] MEDS: NEURONTIN PO SCH ×2 (08:24→22:30)
[2018-08-02] MEDS: COREG PO SCH ×2 (08:24→22:29)
[2018-08-02] MEDS ORDERED: HEPARIN IV PRN (09:16)
[2018-08-02] MEDS ORDERED: NS 2,000 ML MISC PRN (09:16)
--- NOTE | 2018-08-02 16:03 | PROGRESS NOTE ---
DATE: 08/02/2018 INTERVAL HISTORY: No acute events overnight. The patient went for dialysis today. She continues to have hematuria. She is denying chest pain, shortness of breath. She is occasionally coughing, but it is not something more than usual for her. She denies nausea, vomiting, abdominal pain. PHYSICAL EXAMINATION: Vital signs: Current vitals detect temperature of 97.6 degrees, pulse 56, respiratory rate 20, blood pressure 130/48, saturating 99% on 2 L nasal cannula. General: Morbidly obese, not in any acute distress. HEENT: Oral cavity is moist. Lungs: Air entry bilaterally equal. No wheeze, rhonchi, or crackles. Cardiovascular: S1, S2 normal. No murmur, rub, or gallop. Abdomen: Soft, nontender. She has urine catheter and there is some blood in the catheter bag. She has left-sided groin dialysis catheter. LABORATORY DATA: No new labs today. Previously, her INR was elevated to 1.8 as she was taking warfarin. ASSESSMENT AND PLAN: 1. Hematuria, likely in the setting of warfarin use as well as related to presence of Dean catheter. It has not subsided. The patient is hemodynamically stable. However, on previous CT scan abdomen in 2018, she did have bladder wall thickening. Considering her current hematuria, I will consult Urology to see if she would need any uroscopic diagnostics. I am holding warfarin for now which she was taking for pulmonary embolism. 2. Left upper lobe infiltrate without any symptoms of cough, shortness of breath, or leukocytosis. Likely pulmonary vascular congestion in the setting of end- stage renal disease. My plan is to stop antibiotics since her urine culture has been negative. Repeat chest x-ray does not suggest any significant abnormality. 3. End-stage renal disease on hemodialysis. Nephrology on board. She has received hemodialysis today. 4. Continue amlodipine for essential hypertension, carvedilol for essential hypertension, levothyroxine for hypothyroidism, gabapentin for peripheral neuropathy, clotrimazole vaginal cream for vaginal candidiasis. 5. History of pulmonary embolism. Hold warfarin at the moment considering her ongoing hematuria. 6. Disposition. Awaiting Urology recommendations. If no further inpatient diagnostics are planned, my plan is to discharge the patient later today or tomorrow. Plan of care discussed with her. All of her questions have been answered. cc: Brett Barnett MD MTDD
--- NOTE | 2018-08-02 16:16 | NEPHROLOGY PROGRESS NOTE ---
DATE: 08/02/2018 SUBJECTIVE: She had nausea and vomiting this morning, but states she is better now. No chest pain or shortness of breath. OBJECTIVE: Vital Signs: Blood pressure 147/51, heart rate 58, respirations 16, afebrile. She is currently on dialysis. Heart: Regular. No gallops. Lungs: Equal. No crackles. Neck: Neck veins are not distended. Abdomen: Benign. Extremities: Have no edema, clubbing, or cyanosis. IMPRESSION: Chronic kidney disease 5D. She is undergoing her routine dialysis treatment today. Electrolytes and acid-base are in target as of yesterday. Euvolemic. No changes. cc: Lucas Cooper MD
--- NOTE | 2018-08-02 19:53 | Diag Imaging Result Doc PS360 ---
EXAM: CT ABDOMEN/PELVIS W/O CONTRAST - 08/02/2018 HISTORY: Hematuria, evaluate for nephrolithiasis, bladder mass TECHNIQUE: CT renal stone search without contrast COMPARISON: 06/24/2018 FINDINGS: There is substantial bilateral hydronephrosis with bilateral hydroureters similar to the prior exam. There are no obstructing renal stones identified. There is no discrete nonobstructing renal stone identified. There are extensive atherosclerotic vascular calcifications, including at renal arteries. There is a Dean catheter in the urinary bladder. There is some thickening of the urinary bladder clemente which is most prominent anteriorly and superiorly on the right. This appears to have decreased, but the apparent difference could be exaggerated because the urinary bladder is more distended on this exam compared to the prior exam. There is retroperitoneal adenopathy which appears stable. There are lumbar spine degenerative changes and L5 pars interarticularis defects similar to prior. There is no evidence of bowel obstruction. There is no free air. IMPRESSION: Bilateral hydronephrosis and bilateral hydroureters similar to prior. No evidence of obstructing renal stone. No discrete renal stone identified. There are extensive atherosclerotic vascular calcifications. Apparent mild decrease in urinary bladder wall thickening compared to prior. This may relate to cystitis, scarring, or unusual mass lesion. Stable retroperitoneal adenopathy. Lumbar spine degenerative changes and L5 pars interarticularis defects. This exam was performed using automated exposure control, adjustment of mA or kV according to patient size, and/or use of iterative reconstruction technique. Electronically signed by Tono Clancy 08/02/2018 7:51 PM
--- NOTE | 2018-08-02 20:02 | CONSULTATION ---
DATE OF CONSULTATION: 08/02/2018 ATTENDING AND REFERRING PHYSICIAN: Angel. HISTORY OF PRESENT ILLNESS: This 63-year-old female was admitted with hematuria and left upper lobe lung infiltrate. The patient has end-stage renal disease and is on hemodialysis 3 times a week. She states that while at dialysis she had increasing pelvic area pain and pressure. She also noted hematuria in her Dean catheter. When she was seen in the emergency room, it appears the catheter was readjusted and it started draining and that felt better, however she continued with hematuria. The patient has been followed in the Urology Clinic for many years secondary to a neurogenic bladder. She was supposed to be on clean intermittent catheterization around 4 times a day. The patient admits she did not do that very often and would develop a febrile urinary tract infection and had to be admitted to the hospital. The patient has had multiple cystoscopic exams and retrograde pyelograms to evaluate her recurrent episodes of hematuria. The evaluations were either negative or consistent with hemorrhagic cystitis. The patient states that she is feeling better since she has been in the hospital. She continues with Dean catheter drainage and the urine is light pink. She does not make very much urine. 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 CURRENT MEDICATIONS: Documented on her chart. PAST SURGICAL HISTORY: Hysterectomy, multiple cystoscopic exams with bilateral retrograde pyelograms, and some bladder biopsies. Left knee surgery, carpal tunnel surgery, placement of a dialysis catheter in the left inguinal area. SOCIAL HISTORY: She denies tobacco or alcohol use. ALLERGIES: No known drug allergies. REVIEW OF SYSTEMS: She states she has a decubitus ulcer on her lower back. She is receiving home IV antibiotics secondary to a Pseudomonas urinary infection. She denies any problems with strokes or seizures. She states she really does not have a cough or any type of chest pain. She denies current bowel problems. PHYSICAL EXAMINATION: General: A morbidly obese, age apparent, normally developed, white female, oriented in all ways and cooperative. HEENT: Normal for age. Lungs: Clear. Cardiovascular: Regular rate and rhythm. Grade 2 systolic ejection murmur. Abdomen: Very obese, soft, nontender. No hepatosplenomegaly or masses. Normal bowel sounds. Exam: Reveals a Dean catheter in place. A complete exam is deferred until surgery. Extremities: No clubbing, cyanosis, or edema. Neurologic: No focal deficits. LABORATORY EVALUATION: Has a white count of 7.39, hemoglobin 10.7, hematocrit of 35.2 and platelets are 342,000. Serum electrolytes are normal. BUN 30, creatinine 3.5. She last dialyzed today. Urinalysis on the 4th had too numerous to count white cells, mjb-[id number]-count red cells, with the indwelling Dean catheter. The urine culture was no growth. IMPRESSION: 1. Morbid obesity. 2. End-stage renal disease. 3. Neurogenic bladder with history of retention. 4. Greater than a 10 year history of recurrent hematuria with multiple evaluations evaluated as normal or consistent with hemorrhagic cystitis. Her last evaluation was about 3-1/2 years ago. RECOMMEND: Cystoscopic exam with bilateral retrograde ureteral pyelograms and bladder biopsies as needed. This planned procedure, benefits versus risks, possible complications, including bleeding, infection, not finding a reason for hematuria other then being on dialysis and being anticoagulated, need for bladder biopsies, need for further evaluation was discussed with the patient. She seems to understand and desires to proceed. We discussed still the best way to manage her bladder would be clean intermittent catheterization. The frequency of catheterizations could probably be reduced since she is on dialysis. We will further discuss that after her evaluation. Thank you for this consultation. cc: Miguel Ocampo MD
[2018-08-02] MEDS ORDERED: COREG PO SCH (21:00)
[2018-08-02] MEDS ORDERED: LASIX PO SCH (21:00)
[2018-08-02] MEDS: DITROPAN PO SCH (22:40)
[2018-08-02] MEDS: GYNE-LOTRIMIN VAGINAL CREAM VAG SCH (22:41)
[2018-08-03] MEDS: MORPHINE IV PRN ×5 (04:16→23:20)
[2018-08-03] MEDS: SYNTHROID PO SCH (06:40)
[2018-08-03 06:45] LABS: BASO# 0.03 X1000 (0.0-0.2); BASO% 0.4 % (0.0-0.8); EOS% 6.9 % (0.0-10.0); HEMATOCRIT 34.7 % (37.0-47.0); HEMOGLOBIN 10.5 g/dL (12.0-16.0); LYMPH# 1.78 X1000 (1.2-3.4); LYMPH% 24.5 % (20.5-51.1); MCH 26.4 PG (27-31); MCHC 30.3 g/dL (33-37); MCV 87.4 FL (81-99); MONO# 0.72 X1000 (0.11-0.59); MONO% 9.9 % (1.7-9.3); MPV 10.8 FL (7.4-10.4); NEUT# 4.24 X1000 (1.4-6.5); NEUT% 58.3 % (42.2-75.2); PLT 321 X1000 (130-400); RBC 3.97 XMIL (4.2-5.4); RDW 16.9 % (11.5-14.5); WBC 7.27 X1000 (4.8-10.8)
[2018-08-03 06:52] LABS: INR 1.41; PROTIME 18.3 Seconds (11.0-16.0)
[2018-08-03 07:05] LABS: CALCIUM 8.5 mg/dL (8.8-10.2); CREATININE 4.7 mg/dL (0.5-0.9); PHOSPHORUS 5.7 mg/dL (2.7-4.5); POTASSIUM 4.8 mmol/L (3.5-5.1)
[2018-08-03] MEDS: NEPHRO-VITE PO SCH (10:58)
[2018-08-03] MEDS: DITROPAN PO SCH ×2 (10:58→21:28)
[2018-08-03] MEDS: NORVASC PO SCH (10:58)
[2018-08-03] MEDS: NEURONTIN PO SCH ×3 (10:58→21:28)
[2018-08-03] MEDS: PROTONIX PO SCH (10:59)
[2018-08-03] MEDS: COREG PO SCH ×2 (10:59→21:28)
--- NOTE | 2018-08-03 17:57 | PROGRESS NOTE ---
DATE: 08/03/2018 INTERVAL HISTORY: No acute events. She continues to have a little bit of hematuria. Urology had seen the patient. Apparently, patient has had history of multiple episodes of hemorrhagic cystitis in the past with negative workup. She is planned to undergo cystoscopy evaluation tomorrow. The patient denies any chest pain or shortness of breath. Denies any new complaints. We discussed about holding her Coumadin that she has been taking for DVT and PE in light of her current hematuria, and she agreed with the plan. OBJECTIVE: Vital Signs: Currently detect temperature of 98.4 degrees, pulse 61, respiratory rate 16, blood pressure 127/48, saturating 98% on 2 L nasal cannula. General: Does not appear in any acute distress. HEENT: Oral cavity is moist. No pallor, cyanosis, clubbing, or icterus. Morbidly obese. Lungs: Air entry bilaterally equal. No wheeze, rhonchi, or crackles. Heart: S1, S2 normal. No murmur, rub, or gallop. Abdomen: Soft, nontender. She has urine catheter and some blood in the catheter bag. Back: She has left-sided groin dialysis catheter. LABORATORY DATA: Suggestive of normocytic anemia, normal platelet count. INR of 1.4. Normal electrolytes except elevated BUN and creatinine. She also has hyperphosphatemia. No new microbiological data. Urine culture did not have any growth. ASSESSMENT AND PLAN: 1. Hematuria in the setting of warfarin use, presence of Dean catheter with prior history of multiple hemorrhagic cystitis episode. Since it has continued, urology was consulted, and the patient is to undergo cystoscopy evaluation on August 04. CT scan of abdomen and pelvis had detected bilateral hydronephrosis and hydroureter without any obstructing renal stone. In fact, decrease in the urinary bladder wall thickening compared to prior presentation. Her hydronephrosis was stable as compared to prior presentation. Continue to hold warfarin. 2. Left upper lobe infiltrate without any symptoms of cough, shortness of breath, or leukocytosis on presentation. The patient is now complaining of cough with yellowish expectoration. On the repeat chest x-ray, it did look like pulmonary vascular congestion in the setting of end- stage renal disease. I have stopped the antibiotics. In any case, I will send the sputum to see if it grows any bacteria or not. I will reintroduce antibiotics until I get the sputum results back. 3. End-stage renal disease on hemodialysis. Nephrology on board. She is on Saturday, , Saturday hemodialysis schedule. 4. 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 Continue to hold warfarin and restart warfarin tomorrow after uroscopic cystoscopic procedure if her hematuria resolves. 5. Disposition: Patient remains inside the hospital for management of her hematuria. Plan of care discussed with her. All of her questions have been answered. cc: Brett Barnett MD
[2018-08-03] MEDS: GYNE-LOTRIMIN VAGINAL CREAM VAG SCH (21:29)
[2018-08-04] MEDS: SYNTHROID PO SCH (06:07)
[2018-08-04] MEDS ORDERED: FENTANYL ONE (08:46)
[2018-08-04] MEDS ORDERED: NEOSPORIN G.U. IRRIGANT ONE (08:47)
[2018-08-04] MEDS ORDERED: ROBINUL ONE (08:47)
[2018-08-04] MEDS ORDERED: XYLOCAINE-MPF 2% ONE (08:47)
[2018-08-04] MEDS ORDERED: DIPRIVAN 1% ONE (08:47)
[2018-08-04] MEDS ORDERED: KEFZOL 2 GM/D5W 2 GM/50 ML IVPB ONE (09:09)
[2018-08-04] MEDS ORDERED: EPHEDRINE ONE (09:28)
[2018-08-04] MEDS ORDERED: NEO-SYNEPHRINE ONE (09:38)
[2018-08-04] MEDS ORDERED: SODIUM CHLORIDE 0.9% 10 ML ONE (09:38)
[2018-08-04] MEDS ORDERED: ZOFRAN ONE (09:41)
--- NOTE | 2018-08-04 11:23 | NEPHROLOGY PROGRESS NOTE ---
DATE: 08/04/2018 SUBJECTIVE: Patient is resting in bed. No events overnight. OBJECTIVE: Vital Signs: Temperature 98.2 degrees, pulse 68, respiratory rate 18, blood pressure 118/69. Intake 1.4 L. Output none. Physical Examination: General: Middle-aged female, chronically ill-appearing, resting in bed. She is in no acute distress. HEENT: Normocephalic, atraumatic. CHAO. Oral mucosa moist. Dentition poor. Neck: Supple. Trachea midline. No JVD. Cardiovascular: Regular rate and rhythm. No gallop appreciated. Pulmonary: She is clear bilaterally. Has equal excursion. Does remain on O2 supplementation via nasal cannula. Abdomen: Obese, soft. Positive bowel sounds. : Not inspected. Extremities: No clubbing, cyanosis. She has some trace dependent edema to the backs of the thighs. Integumentary: Skin is pale, warm, and dry. Neurologic: Grossly nonfocal otherwise. Lab Data: Labs on 08/03/2018, sodium 147, potassium 4.8, CO2 24, BUN 35, creatinine 4.7, calcium 8.5. ASSESSMENT AND PLAN: 1. Chronic kidney disease 5D. She routinely dialyzes on Saturday, , Saturday. She did undergo dialysis on Saturday and had 4 L removed at that time. She appears euvolemic today. Does not have any indications for additional treatment today. We will plan to keep her on her routine schedule and dialyze her again tomorrow. 2. Hematuria, felt likely traumatic from Dean catheter insertion. Plan was to discontinue that. Dictated by REUBEN Abreu for Lucas Cooper MD Face to face encounter, data reviewed, discussed with Sheyla Knutson on 08/04/18. I agree with the above assessment and plan of care. cc: Lucas Cooper MD [facility]
--- NOTE | 2018-08-04 12:44 | PROGRESS NOTE ---
DATE: 08/04/2018 INTERVAL HISTORY: The patient had started developing right-sided breast pain yesterday and she is complaining of tenderness there. She denies any abnormal breast discharge. She has been afebrile. Temperature of 97.4 degrees, pulse 73, respiratory rate 16, blood pressure 130/45, saturating 100% on nasal cannula. We discussed about getting an ultrasound of the breast. Patient is about to go for a cystoscopy procedure today. PHYSICAL EXAMINATION: General: Does not appear in any acute distress. Oral cavity is moist. Lungs: Air entry bilaterally equal. No wheeze, rhonchi, or crackles. S1, S2 normal. No murmur, rub, or gallop. Abdomen is soft, nontender. She has a urine catheter with some blood in the catheter bag. She has left-sided groin dialysis catheter. Right breast examination suggests there is a hematoma or mass at around 9 o'clock position, which is excruciatingly tender. There is also tinea corporis rash underneath the lower margin of the breast. LABS: No new labs today. ASSESSMENT AND PLAN: 1. Hematuria in the setting of warfarin use, though the INR was therapeutic on admission. The patient did have a history of multiple hemorrhagic cystitis episode with negative workup. Urology is planning cystoscopy procedure today. CT scan of the abdomen and pelvis did detect bilateral hydronephrosis and hydroureter without any obstructive renal mass on admission. Continue to hold warfarin. 2. Left upper lobe infiltrate without any symptoms of cough, shortness of breath, or leukocytosis on presentation. The patient does have a history of chronic obstructive pulmonary disease and according to her, her cough symptoms are mostly pretty close to her baseline. In any case, I will get sputum analysis. She is not on any antibiotics. Sputum may suggest just colonization if it grows any bacteria since the patient is not significantly symptomatic. I will continue to monitor. 3. End-stage renal disease, on hemodialysis. Nephrology on board. On Saturday, , Saturday dialysis schedule. 4. History of internal jugular deep venous thrombosis in April 2018 and pulmonary embolism in February 2018. Continue to hold warfarin and start it after urologic procedure today. 5. Disposition. Based on urology procedure, I will consider discharging patient later today or tomorrow. Plan of care discussed with her. 6. Right breast mass. She has had a breast ultrasound in the past which was negative for right- sided breast malignancy . On my evaluation, it does looked like a hematoma so I will consider get an ultrasound to rule out any underlying mass. I will also start her on topical antifungal for tinea rash. Plan of care discussed with the patient. All of her questions have been answered. cc: Brett Barnett MD MTDD
--- NOTE | 2018-08-04 12:46 | Diag Imaging Result Doc PS360 ---
EXAM: RETROGRADES 2 OR 3 FILMS HISTORY: NEUROGENIC BLADDER, ZULY. RETROGRADES TECHNIQUE: 28 films submitted COMPARISON: None. FINDINGS: The early films show retrograde filling of the distal ureter. A catheter was advanced into the ureter to fill the renal pelvis. The ureter is dilated. Poor distention of the renal pelvis and calyces. Catheter was also advanced into the right ureter which have a similar appearance with dilatation of the ureter pelvis and calyces. No stricture or focal filling defect identified. IMPRESSION: Bilateral hydronephrosis. Electronically signed by Scott Bhardwaj 08/04/2018 12:43 PM
[2018-08-04] MEDS: DITROPAN PO SCH ×2 (13:28→22:00)
[2018-08-04] MEDS: PROTONIX PO SCH (13:28)
[2018-08-04] MEDS: NEPHRO-VITE PO SCH (13:28)
[2018-08-04] MEDS: NEURONTIN PO SCH ×2 (13:28→22:00)
[2018-08-04] MEDS: LOTRIMIN 1% CREAM TOP SCH ×2 (13:29→22:01)
[2018-08-04] MEDS: MORPHINE IV PRN ×3 (13:40→22:00)
[2018-08-04] MEDS: NORVASC PO SCH (14:09)
[2018-08-04] MEDS: COREG PO SCH ×2 (14:09→22:00)
--- NOTE | 2018-08-04 15:04 | OPERATIVE NOTE ---
PROCEDURE DATE: 08/04/2018 SURGEON: Dr. Miguel Ocampo. PREOPERATIVE DIAGNOSES: 1. Hematuria in a patient with end-stage renal disease. 2. Neurogenic bladder with urinary retention. POSTOP DIAGNOSES: 1. Hematuria in a patient with end-stage renal disease. 2. Neurogenic bladder with urinary retention. PROCEDURES PERFORMED: 1. Cystoscopic exam. 2. Bilateral retrograde ureteral pyelograms. 3. Cold cup bladder biopsy with fulguration. ANESTHESIA: General via laryngeal mask. FINDINGS: 1. Cystoscopic exam: Urethra - greater than 21-Iranian, without stricture. 2. Bladder - Ureteral orifices laterally displaced on the high trigone. The ureteral orifices were wide open and the 21-Iranian sheath cystoscope could be passed through the ureteral openings and into the distal ureter on both sides. There was bullous edema consistent with an indwelling Dean catheter and some red areas consistent with cystitis cystica. There were no papillary lesions noted. 3. Left retrograde ureteral pyelogram revealed marked hydroureteronephrosis on the left and right sides. No filling defects were seen. 4. exam - Normal external female. Atrophic mucosa. No adnexal masses. Palpably normal bladder. There appeared to be a sacral decubitus ulcer on the right side. The anal sphincter was very patulous. INDICATION FOR PROCEDURE: This 63-year-old female with long history of poorly controlled diabetes and neurogenic bladder, with end-stage renal disease. Was noted to have hematuria. DESCRIPTION OF PROCEDURE: After informed consent was obtained from the patient and her receiving IV antibiotics, she was taken the main OR cystoscopy room,, placed in the supine position. General anesthesia via laryngeal mask was achieved. She was then placed in the low lithotomy position and prepped and draped in the usual sterile fashion for cystoscopic exam. A 21-Iranian sheath cystoscope was passed through the patient's urethra and into the bladder with findings as noted above. The 21-Iranian sheath cystoscope engaged the left ureteral orifice and advanced into the distal ureter. An 8-Iranian cone-tipped catheter was passed through the cystoscope and into the ureter, advanced up to the mid ureter. Contrast was injected. Again, no filling defects were seen. The patient had very hydronephrotic collecting systems bilaterally. Right retrograde ureteral pyelogram was accomplished similarly. The 8-Iranian cone-tipped catheter was removed. The cold cup biopsy forceps were placed and a cold cup biopsy was taken from the right mid posterior wall and the left upper trigone. These were sent to Pathology in separate containers. The Bugbee electrode was placed and hemostasis was achieved. The bladder was left distended. A 16-Iranian Dean catheter was passed through the patient's urethra and into the bladder. 10 mL sterile water placed in the Dean's balloon. The efflux was clear. She tolerated the procedure well. Estimated blood loss was 1 mL. She was taken to the recovery room in good condition. cc: Miguel Ocampo MD
--- NOTE | 2018-08-04 15:38 | Diag Imaging Result Doc PS360 ---
EXAM: US BREAST COMPLETE UNILAT-RT 08/04/2018 HISTORY: Right breast pain with hematoma. Rule out mass. COMMENT: All four quadrants and the subareolar region are evaluated. There is dense fibroglandular tissue. There are no discrete masses or other ultrasonographic abnormalities. There has been no appreciable change since 10/24/2017. IMPRESSION: No evidence of mass or other ultrasonographic abnormality. Electronically signed by Brent Feliz 08/04/2018 3:35 PM
[2018-08-04] MEDS: GYNE-LOTRIMIN VAGINAL CREAM VAG SCH (22:00)
[2018-08-05] MEDS: MORPHINE IV PRN ×3 (02:51→22:10)
[2018-08-05 06:38] LABS: BASO# 0.03 X1000 (0.0-0.2); BASO% 0.3 % (0.0-0.8); EOS# 0.56 X1000 (0.0-0.7); EOS% 6.1 % (0.0-10.0); HEMATOCRIT 35.1 % (37.0-47.0); HEMOGLOBIN 10.6 g/dL (12.0-16.0); LYMPH# 1.95 X1000 (1.2-3.4); LYMPH% 21.3 % (20.5-51.1); MCH 26.4 PG (27-31); MCHC 30.2 g/dL (33-37); MCV 87.5 FL (81-99); MONO# 0.77 X1000 (0.11-0.59); MONO% 8.4 % (1.7-9.3); MPV 10.8 FL (7.4-10.4); NEUT# 5.85 X1000 (1.4-6.5); NEUT% 63.9 % (42.2-75.2); PLT 364 X1000 (130-400); RBC 4.01 XMIL (4.2-5.4); RDW 16.9 % (11.5-14.5); WBC 9.16 X1000 (4.8-10.8)
[2018-08-05] MEDS ORDERED: HEPARIN IV PRN (06:39)
[2018-08-05] MEDS ORDERED: NS 2,000 ML MISC PRN (06:39)
[2018-08-05] MEDS ORDERED: TIGHT: 0.2 ML/HR FOR DIALYSIS MISC PRN (06:39)
[2018-08-05] MEDS: SYNTHROID PO SCH (06:40)
[2018-08-05 06:48] LABS: INR 1.25; PROTIME 16.6 Seconds (11.0-16.0)
[2018-08-05 07:00] LABS: CALCIUM 8.9 mg/dL (8.8-10.2); MAGNESIUM 2.3 mg/dL (1.5-2.7); PHOSPHORUS 8.3 mg/dL (2.7-4.5); POTASSIUM 5.8 mmol/L (3.5-5.1)
[2018-08-05 07:10] LABS: CREATININE 6.2 mg/dL (0.5-0.9)
[2018-08-05] MEDS: ALBUTEROL NEB INH PRN (07:49)
[2018-08-05] MEDS: PROTONIX PO SCH (08:10)
[2018-08-05] MEDS: PERIDEX MT SCH (08:10)
[2018-08-05] MEDS: NEPHRO-VITE PO SCH (08:10)
[2018-08-05] MEDS: NORVASC PO SCH (08:11)
[2018-08-05] MEDS: NEURONTIN PO SCH ×3 (08:11→08:16)
[2018-08-05] MEDS: DITROPAN PO SCH (08:11)
[2018-08-05] MEDS: COREG PO SCH ×2 (08:11→22:55)
[2018-08-05] MEDS ORDERED: MAXIPIME 2 GM in NS 100 ML IV SCH ×2 (10:00→17:00)
--- NOTE | 2018-08-05 15:20 | NEPHROLOGY PROGRESS NOTE ---
DATE: 08/05/2018 SUBJECTIVE: The patient is sitting up in bed. She is hoping to go home today after dialysis. OBJECTIVE: Vital signs: Temperature 98.3, pulse 68, respiratory rate 15, blood pressure 118/97, intake 1.6 L, output 881 mL. General: This is a middle-aged female sitting up in bed. She is awake and alert. She is no acute distress. HEENT: Normocephalic, atraumatic. PERRL. Oral mucosa moist. Neck: Supple without JVD. Cardiovascular: Regular rate and rhythm without murmur or gallop. Pulmonary: She is clear bilaterally. She is currently on room air. Abdomen: Obese, soft, with positive bowel sounds. : Not inspected. Extremities: Without clubbing, cyanosis, or edema. Integumentary: Skin is warm and dry. LAB DATA: Hemoglobin 10.6. Sodium 131, potassium 5.8, CO2 24, creatinine 6.2. ASSESSMENT AND PLAN: 1. Chronic kidney disease 5D. Today is her routine dialysis day. She will dialyze on a 2K bath/UF to her dry weight/3.5 hour treatment. 2. Disposition. From a Renal perspective, we have no reason to keep her after dialysis. She can be discharged at the discretion of the primary. 3. Hematuria in the setting of Coumadin. The patient has been seen by Urology. 4. Left upper lobe infiltrate. Has history of chronic obstructive pulmonary disease. Followed by primary. Dictated by REUBEN Abreu for Lucas Cooper MD Face to face encounter, data reviewed, discussed with Sheyla Knutson on 08/05/18. I agree with the above assessment and plan of care. cc: Lucas Cooper MD [facility]ENTERHuang
--- NOTE | 2018-08-05 17:56 | PROGRESS NOTE ---
DATE: 08/05/2018 INTERVAL HISTORY: The patient underwent cystoscopy procedure yesterday, which she tolerated well without any acute abnormalities detectable. She still has urinary catheter. She continues to have hematuria. We discussed about pneumonia. We also discussed about the fact that we are holding the Coumadin and that it puts her at risk of progression of her pulmonary embolism and right internal jugular DVT. After discussion with the patient, we decided to hold off on Coumadin for now, get another ultrasound of the right internal jugular vein, and once her hematuria resolves as an outpatient, consider restarting Coumadin. She is in agreement. OBJECTIVE: Currently vital signs detect temperature 98.7 degrees, pulse 73, respiratory rate 18, blood pressure 124/47, saturating 100% on room air. On physical examination, morbidly obese, not in any acute distress. Oral cavity is moist. She is wearing glasses. Air entry bilaterally equal. No wheeze, rhonchi, or crackles. S1, S2 normal. No murmur, rub or gallop. Abdomen is soft, nontender. She has urinary catheter with bloody output. She also has a left-sided groin dialysis catheter. Right breast examination essentially suggest no new hematoma that I could appreciate. Ultrasound of the breast was also unremarkable. There is no tenderness. The tinea corporis rash underneath the lower margin of the breast is essentially stable. MICROBIOLOGY: Sputum culture is growing gram-negative rods. DIAGNOSTIC DATA: Breast ultrasound did not detect any evidence of mass or any ultrasonographic abnormality. The patient underwent cystoscopic exam, bilateral retrograde ureteral pyelogram and cold cup bladder biopsy with fulguration. 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 ASSESSMENT AND PLAN: 1. Hematuria in the setting of warfarin use, likely because of hemorrhagic cystitis versus traumatic Edan catheterization. Currently her INR is down to 1.25. She is status post ureteroscopic procedure and biopsy. Continue to hold warfarin. After discussion with Urology, the patient was provided 2 options. One was to discontinue Dean catheter and do intermittent catheterization by home care nurse as an outpatient or continue Dean catheter. The patient decided on the former, so we will go ahead and discontinue Dean catheter. 2. Left upper lobe pneumonia due to gram-negative organism. Start the patient on intravenous cefepime. Follow up with final culture results. She continues to complain of sputum with yellowish expectoration, and now is symptomatic. 3. Endstage renal disease on Saturday, and Saturday hemodialysis. Follow up with potassium level for hyperkalemia. 4. History of internal jugular deep venous thrombosis in 04/2018 and pulmonary embolism in 02/2018. Continue to hold warfarin. After discussion with the risk versus benefit, it was decided to hold warfarin until her hematuria resolves. We will also follow up with right internal jugular ultrasound to look at the status of the internal jugular blood clot, and she would consider resuming warfarin as an outpatient after discussion with her regular doctor. 5. Right breast mass. Ultrasound was negative for any acute abnormalities. 6. Disposition I am awaiting final sputum culture results. Once they are back my plan is to change antibiotics to p.o. and potentially discharge her back to home tomorrow. Plan of care discussed with her. All of her questions have been answered. cc: Brett Barnett MD
[2018-08-05] MEDS ORDERED: ZOFRAN IV PRN (21:42)
[2018-08-06] MEDS: NEURONTIN PO SCH ×3 (00:28→08:55)
[2018-08-06] MEDS: DITROPAN PO SCH ×3 (00:28→21:37)
[2018-08-06] MEDS: LOTRIMIN 1% CREAM TOP SCH ×2 (00:29→08:57)
[2018-08-06] MEDS: GYNE-LOTRIMIN VAGINAL CREAM VAG SCH (00:29)
[2018-08-06] MEDS: PERIDEX MT SCH ×2 (00:29→08:54)
[2018-08-06] MEDS ORDERED: IMODIUM PO ONE ×2 (00:53→06:29)
[2018-08-06] MEDS: SYNTHROID PO SCH (06:54)
[2018-08-06] MEDS: ALBUTEROL NEB INH PRN (07:42)
--- NOTE | 2018-08-06 08:28 | NEPHROLOGY PROGRESS NOTE ---
DATE: 08/06/2018 SUBJECTIVE: Patient is sitting up in bed. She states that she had multiple episodes of diarrhea last night. OBJECTIVE: Vital Signs: Temperature 99.4 degrees, pulse 69, respiratory rate 18, blood pressure 136/40. Intake 920 mL, output 2.4 L. Physical Examination: General: Middle-aged, chronically ill-appearing female sitting up in bed. Awake and alert. No acute distress today. HEENT: Normocephalic, atraumatic. Her oral mucosa is dry. Neck: Supple. There is no JVD. Cardiovascular: Regular rate and rhythm. Pulmonary: She is on room air. Clear bilaterally. Abdomen: Soft, obese. Positive bowel sounds. : Not inspected. Extremities: No clubbing, cyanosis, edema. Integumentary: Skin remains warm and dry. Neurologic: Grossly nonfocal. Lab Data: She has had no chemistries or hematologies drawn. She did have a Clostridium difficile toxin assay that was negative. ASSESSMENT AND PLAN: 1. Chronic kidney disease 5D. Continue on dialysis Saturday, , Saturday while she remains in the hospital. She can continue her outpatient treatment at her home clinic once she is discharged. 2. Left upper lobe infiltrate. I believe they are waiting on her final cultures to come back to send her home on appropriate antibiotics. 3. Disposition. Again, from a renal perspective, she can be discharged at the discretion of the primary. Otherwise, will continue her next dialysis treatment tomorrow. Dictated by REUBEN Abreu for Lucas Cooper MD Face to face encounter, data reviewed, discussed with Sheyla Knutson on 08/06/18. I agree with the above assessment and plan of care. cc: Lucas Cooper MD [facility]
[2018-08-06] MEDS: NORVASC PO SCH (08:54)
[2018-08-06] MEDS: COREG PO SCH ×2 (08:54→21:37)
[2018-08-06] MEDS: NEPHRO-VITE PO SCH (08:54)
[2018-08-06] MEDS: PROTONIX PO SCH (08:54)
[2018-08-06 12:31] VITALS: BP 138/49
[2018-08-06] MEDS ORDERED: LEVAQUIN PO ONE (13:53)
[2018-08-06] MEDS: TYLENOL PO PRN ×2 (14:06→21:37)
[2018-08-06] MEDS: CALMOSEPTINE OINTMENT TOP PRN (14:07)
--- NOTE | 2018-08-06 16:25 | DISCHARGE SUMMARY ---
ADMISSION DATE: 08/03/2018 DISCHARGE DATE: 08/06/200 PRIMARY CARE PHYSICIAN: Dr. Valentino. ADMISSION DIAGNOSES: 1. Left upper lobe infiltrate. 2. End-stage renal disease, on hemodialysis. 3. Hypertension. 4. Hypothyroidism. 5. Diabetes type 2. 6. Anemia of chronic disease. 7. Hematuria. 8. Chronic decubitus. DISCHARGE DIAGNOSES: 1. Hematuria in the setting of warfarin use, likely because of hemorrhagic cystitis versus traumatic Dean catheterization. 2. A left upper lobe pneumonia due to a gram-negative organism. 3. End-stage renal disease with hemodialysis Saturday, , Saturday. 4. History of internal jugular deep venous thrombosis in April 2018 and pulmonary embolism in February 2018. 5. A right breast mass with ultrasound negative for acute abnormalities. SUMMARY OF FINDINGS: This is a 63-year-old female who presented to the emergency room after having dialysis stating that during dialysis they made her sit in a hard chair and hurt the chronic decubitus on her sacral and buttocks area. Stated that her Dean catheter was laid in her lap during dialysis and it would not drain. The catheter was repositioned and began draining and her vaginal pressure and suprapubic pressure was relieved. She has a long he standing history of decubitus to her sacral area and buttocks as well as a perirectal and vulvar irritation. The pain had improved until she sat in the hard chair at dialysis. Her chest x-ray revealed a left upper lobe infiltrate so she was admitted, started on antibiotic coverage with cefepime. We consulted Nephrology for her dialysis treatment. We held her anticoagulant. We consulted Urology. They did a cystoscopic exam with a bilateral retrograde ureteral pyelogram and a cold cut bladder biopsy with fulguration. She tolerated that procedure well. We did do a breast ultrasound on 08/04/2018 for right breast pain with a hematoma. The impression showed no evidence of mass or other ultrasonographic abnormality. She has remained afebrile for greater than 24 hours and it is now felt that she can safely be discharged home with home health services. We made the decision to hold her Coumadin after we discussed it with the patient due to the blood in her urine and she will need to discuss that with her outpatient doctor on resuming it once her hematuria resolves. We did remove her urine catheter. Home health care nurse is to do 3 times weekly straight catheterization to evaluate for any urine retention as per the urology recommendations. She is to check her blood sugars and restart her insulin as required after discussion with her primary care physician. She did not require any insulin on this admission, so the attending stopped it and it is now felt that she can safely be discharged home. DISCHARGE MEDICATIONS: 1. DuoNeb 0.63 mg inhalation every 8 hours p.r.n. 2. Clotrimazole 1% cream topically b.i.d. 3. Folic acid 0.8 mg 1 tablet p.o. daily. 4. Gabapentin 100 mg 2 capsules p.o. daily. 5. Levaquin 500 mg p.o. every 48 #4 with no refill. 6. Oxybutynin 5 mg p.o. b.i.d. 7. Pantoprazole 40 mg p.o. daily. 8. Amlodipine 10 mg p.o. daily. 9. Coreg 6.25 mg p.o. b.i.d. 10. Epogen 23126 units subcutaneous Saturday, Saturday, Saturday. 11. Triad cream 1 application topically daily. 12. Synthroid 75 mcg p.o. daily. 13. Oxycodone 08/3250 p.o. every 6-8 hours p.r.n. 14. Veltassa 8.4 gram p.o. daily. FOLLOWUP: 1. Follow-up she will need to follow up with her primary care physician in 1 to 2 weeks and call the office for an appointment. 2. She will need to follow up with Nephrology and call their office for an appointment. 3. She needs to follow up with Urology and call their office for an appointment. 4. Again, she will have home health services. All discharge instructions have been reviewed with the patient and she verbalizes understanding. TIME SPENT: 35 minutes Dictated by REUBEN Garcia for Brett Barnett MD cc: REUBEN Garcia MD Bhavna Gowda, MD Reginald D. Gladish, MD William E. Hughes, MD I agree with above mentioned discharge summary. A separate addendum has been dictated. [facility]
--- NOTE | 2018-08-06 17:43 | PROGRESS NOTE ---
DATE: 08/06/2018 This is also an addendum to the discharge summary dictated by the nurse practitioner. I agree with most components of her discharge summary mentioned. In brief, Ms. Garcia was admitted for hematuria and underwent cystoscopy and biopsy and uroscopic procedure. She tolerated the procedure well. She continues to have hematuria for which her Coumadin has been held. SUBJECTIVE: The patient states overnight she has had diarrhea, but C. difficile toxin was unremarkable. I discussed with her about antibiotic associated diarrhea and the fact that it should get better as I am changing antibiotics from intravenous to Ceftin that she can take by mouth. OBJECTIVE: Vital signs: Temperature 98.3 degrees, pulse 70, respiratory rate 20, blood pressure 138/49, saturating 95% on 2 L nasal cannula. General: Obese, not in any acute distress. HEENT: Oral cavity is dry. Lungs: Air entry bilaterally equal. No wheeze, rhonchi, crackles. Cardiovascular: S1, S2 normal. No murmur, rub, or gallop. Abdomen: Soft, nontender. She does not have a urine catheter. She has a left-sided groin dialysis catheter. MICROBIOLOGY: Sputum culture is now growing Proteus mirabilis which was sensitive to levofloxacin. LABS: Essentially no new labs today. Her ultrasound of the right neck is pending. ASSESSMENT: 1. Hematuria in the setting of warfarin use. Likely because of hemorrhagic cystitis versus traumatic Dean catheterization, status post cystoscopy. 2. Left upper lobe pneumonia due to Proteus. 3. End-stage renal disease. On Saturday, , and Saturday hemodialysis. 4. History of internal jugular deep vein thrombosis in April 2018 and pulmonary embolism in February 2018. On warfarin. 5. History of insulin-dependent diabetes mellitus. PLAN: At the time of discharge she still had hematuria and after discussion with Urology and the patient, the urine catheter was discontinued. Plan was to have her intermittent catheterization thrice every week by home care nurse. Her warfarin was held. She was advised to follow up on right-sided neck ultrasound results as an outpatient when she sees her doctor and discuss about restarting warfarin as tolerated. She was also provided a prescription of levofloxacin for her pneumonia that she should complete. At the time of discharge all of her questions were answered. cc: Brett Barnett MD
--- NOTE | 2018-08-07 11:35 | Extremity Venous Study ---
PROCEDURE NAME: Venous U/S Right Arm - 08/05/2018 PROCEDURE: Right upper extremity venous duplex and color flow imaging study using the GE Vivid E9 ultrasound System with a 9L-D transducer. REFERRING PHYSICIAN: Dr. Barnett. MANAGER CLINIC: Janell Kumar [facility]. IDENTIFICATION: 63-year-old female. INDICATION: Follow up deep venous thrombosis involving the right internal jugular vein. FINDINGS: Right internal jugular vein had flow through it. There was some thickening of the venous wall suggestive of chronic thrombophlebitis but no acute deep venous thrombosis involving the internal jugular vein on the right. The right subclavian and axillary vein had flow through them as did the brachial vein on the right. The superficial veins involving the right arm were compressible throughout their length. INTERPRETATION: Chronic thrombophlebitis involving the right internal jugular vein without evidence of an acute deep venous thrombosis involving the right internal jugular vein. cc: MD Brett Mcdonough MD
[2018-08-08] MEDS ORDERED: LEVAQUIN PO SCH (09:00)
== END 2018-08-07 01:15 | disposition home or self-care (01) | DRG 668 ==
LOC: SUPCPDRO → ED 12:56 → EDIPHOLD 18:39 → INTOOBSV 18:39 → 4N 08-01 07:39
PROVIDERS: ATTEND Internal Medicine
CPT/HCPCS: 71010; 71020; 71045; 71046; 74176; 74420; 76641; 80048; 80053; 81001; 82948; 83690; 83735; 84100; 84132; 84134; 84484; 85025; 85610; 85730; 87070; 87077; 87088; 87186; 87205; 87324; 88305; 88313; 93005; 93971; 94640; 94761; 96365; 96366; 96367; 96375; 99285; A9270; C9113; J0690; J0692; J0696; J1644; J2270; J2370; J2405; J3010; J7030; Q9966; Q9967; S0164; XXXXX

== ENCOUNTER 2018-09-04 05:34 | Inpatient (IN) ==
--- NOTE | 2018-09-04 05:42 | PROVIDER DOCUMENTATION ---
HPI-Rash/Wound/ReCheck - General Stated Complaint: spider bite Time Seen by Provider: 09/04/18 05:38 Source: patient Allergies/Adverse Reactions: Allergies Allergy/AdvReac Type Severity Reaction Status Date / Time No Known Allergies Allergy Verified 06/29/18 16:13 Home Medications: Home Medication List Medication Instructions Recorded Confirmed Last Taken Type Folic Acid/Vit Bcomp,C [Dialyvite 1 tab PO DAILY 10/09/17 08/01/18 07/31/18 09:00 History 800 Tablet] Hydrophilic Cream [Triad] 1 applicatn TOP DAILY 10/09/17 08/01/18 07/31/18 20:00 History Epoetin Tien [Epogen] 10,000 unit SUBQ MoWeFr@0900 vial 12/02/17 07/31/18 07/07/18 Rx Levothyroxine [Synthroid] 75 microgm PO DAILY@0700 tablet 12/02/17 07/31/18 07/07/18 Rx Oxybutynin [Ditropan] 5 mg PO BID tablet 12/02/17 08/01/18 07/31/18 08:00 Rx Albuterol Sulfate 0.63 mg IH Q8HR PRN #120 vial.neb 04/09/18 07/31/18 07/07/18 Rx Carvedilol [Coreg] 6.25 mg PO BID #60 tab 04/09/18 07/31/18 07/07/18 Rx Amlodipine Besylate 1 tab PO DAILY 06/27/18 07/31/18 07/07/18 History Gabapentin 2 cap PO DAILY 06/27/18 07/31/18 07/07/18 History Oxycodone HCl/Acetaminophen 1 ea PO Q6-8H PRN PRN #20 tab 06/27/18 07/31/1806/27 Rx [Percocet 5-325 mg Tablet] Pantoprazole [Protonix] 1 tab PO DAILY 06/27/18 07/31/18 07/07/18 History Patiromer [Veltassa] 8.4 gm PO DAILY #30 pkt 07/13/18 08/01/18 07/31/18 08:00 Rx Clotrimazole 1% Cream [Lotrimin 1% 1 applic TOP BID #1 tube 08/06/18 Unknown Rx Cream] Levofloxacin [Levaquin] 500 mg PO Q48H #4 tab 08/06/18 Unknown Rx Clindamycin [Cleocin] 300 mg PO Q6HR #80 cap 08/28/18 Unknown Rx Hydrocodone/Acetaminophen [[place] 1 ea PO Q4-6H PRN PRN #12 tab 08/28/18 Unknown Rx 5-325 Tablet] Sulfamethoxazole/Trimethoprim 2 ea PO BID #40 tab 08/28/18 Unknown Rx [Bactrim Ds Tablet] - History of Present Illness-Dermatology Nature of Presenting Problem: Patient is a 63 year old white female with ESRD (followed by Dr. Hobbs, scheduled for hemodialysis this am) who presents by EMS with worsening painful ulceration over right breast . Patient seen on arrival by Dr. Hobbs who plans hemodialysis today. Dr. Hobbs is concerned that ulceration may be related to her underlying kidney disease. No reported fever. Location: reports: other (right breat ulceration with black eschar) Onset/Duration: reports: gradual, other (onset 1 month ago) Timing: reports: still present Context/Associated Symptoms: denies: fever Identifiable cause?: No Locality of [place]: Home Similar Symptoms Previously?: No Recently seen or treated by another doctor?: No Review of Systems - Adult - REVIEW OF SYSTEMS - ADULT Constitutional: denies: chills, fever Eyes: reports: no symptoms reported Ears, Nose, Mouth & Throat: reports: no symptoms reported Cardiovascular: denies: chest pain Respiratory: denies: shortness of breath Gastrointestinal: denies: abdominal pain Genitourinary: denies: dysuria Musculoskeletal: reports: no symptoms reported Integumentary: reports: no symptoms reported Neurological: reports: see HPI Psychiatric: reports: see HPI Endocrine: reports: no symptoms reported Hematologic/Lymphatic: reports: no symptoms reported Allergic/Immunologic: reports: no symptoms reported All Other Systems: Reviewed and Negative Past History - Adult - PAST MEDICAL HISTORY-ADULT Review of Records: reports: Old Records Reviewed, Nursing Assessment Review, M edications Reviewed, Social history reviewed & non-contributory. Major Childhood Illnesses: reports: denies history Cardiovascular: reports: blood clots (dvt), CHF, HTN, hyperlipidemia, murmur Respiratory: reports: sleep apnea Gastrointestinal: reports: GERD Obstetrical/Gynecological: reports: denies history Genitourinary: reports: dialysis, ESRD, kidney disease, chronic UTI's, other (bladder spasms, neurogenic bladder with obstructions) Musculoskeletal: reports: denies history Neurological: reports: denies history Psychiatric: reports: denies history Endocrine/Immune: reports: Diabetes, thyroid disorder Other Conditions: reports: denies history - PRIOR SURGERIES/PROCEDURES Surgical/Procedure History: reports: cholecystectomy, hysterectomy, indwelling device (suprapubic cath--10/11, replaced 11/21 c daigle cath because suprapubic cath was dislodged), orthopedic (extremity), other (bladder surgery, left knee, right hand) - PRIOR HOSPITALIZATIONS Prior Hospitalizations: reports: for other non-related - IMMUNIZATION STATUS Childhood Immunizations: See Nurse Assessment Flu Vaccine: See Nurse Assessment - FAMILY HISTORY Family History: reviewed, not pertinent Physical Exam-General - CONSTITUTIONAL General Appearance: alert, obese - EYES Eyes: other (clear) - HEAD, EARS, NOSE, MOUTH & THROAT HENMT: moist mucous membranes - NECK Neck: supple - RESPIRATORY Respiratory: no respiratory distress, no accessory muscle use, decreased breath sounds, other (large ulceration over inferior aspect of right breast with black eschar) - CARDIOVASCULAR Cardiovascular: regular rate, rhythm - GASTROINTESTINAL (ABDOMEN) Abdominal Exam: non tender, soft - MUSCULOSKELETAL Back Exam: no CVA tenderness Extremity: other (dialysis catheter in place over left groin) Peripheral Pulses: radial (R): 2+, radial (L): 2+ - SKIN Integumentary: normal color, normal turgor - NEUROLOGIC Neurologic: grossly normal - PSYCHIATRIC Psych/Mental Status: anxious Progress - PLAN OF CARE/RESULTS Progress/Plan/Lab Results: Vital Signs - 8 hr 09/04/18 05:56 Temperature 98.0 F Pulse Rate 80 Respiratory Rate 18 Blood Pressure 210/80 O2 Sat by Pulse Oximetry 98 Orders Category Date Time Status Dialysate Bath: DIRECTED Care 09/04/18 06:47 Active Dialysate Flow: DIRECTED Care 09/04/18 06:47 Active Dialysis Blood Flow: DIRECTED Care 09/04/18 06:47 Active Dialysis Machine Settings: DIRECTED Care 09/04/18 06:47 Active Dialysis Treatment Time: DIRECTED Care 09/04/18 06:47 Active Dialysis Treatment Weight ROUTINE Care 09/04/18 06:47 Active Dialysis UF Removal Amount: DIRECTED Care 09/04/18 06:47 Active Dialyzer Type: DIRECTED Care 09/04/18 06:47 Active NRSG - Obtain Dialysis Consent NOW Care 09/04/18 06:47 Active CBC WITH ELECTRONIC DIFF [HEME] Stat Lab 09/04/18 06:38 Ordered CMP [COMPREHENSIVE METABOLIC PANEL] [CHEM] Stat Lab 09/04/18 06:39 Uncollected LACTATE, PLASMA [CHEM] Stat Lab 09/04/18 06:39 Uncollected 0.9% Sodium Chloride Inj [Ns] 2,000 ml Med 09/04/18 06:47 Ordered MISC As Directed mls/hr Heparin Med 09/04/18 06:47 Ordered 5,000 unit IV BOLUS PRN Morphine Med 09/04/18 06:48 Once 4 mg IV NOW ONE Ondansetron [Zofran] Med 09/04/18 06:49 Once 4 mg IV NOW ONE Result Diagrams: 09/04/18 06:14 09/04/18 09:25 - CONSULTS/PCP/HOSPITALIST Notification #1 *Consult/PCP/Hospitalist*: Keesha Bolanos Time Discussed: 10:27 Consult Disposition: Will see in ED, Admit - CHANGE OF SHIFT REPORT (ED Provider) 1 Report Given and Care Transferred to:: Dr. Vyas Time of Transfer: 07:00 Items Pending: Labs Comment: contact Dr. Hobbs when labs are back Departure - Departure Date of Disposition Decision: 09/04/18 Time of Disposition Decision: 10:26 DIAGNOSIS: Ulcer of skin of breast, ESRD (end stage renal disease) Disposition: ADMITTED INPATIENT 09 Certified Medical Emergency: Emergent Condition: Fair Referrals and Follow-Ups: Halie Valentino MD [Primary Care Provider] - - Critical Care Note This patient required my direct & personal management of CC.: No Attestation - Physician/ SARA Attestation Patient care was provided by Advanced Practice Provider:: No The physician spent face to face time with patient:: Yes Advanced Practice Provider documentation review:: Supervising physician onsite and consulted in the evaluation and care of this patient. The physician did have a face to face encounter with the patient.
[2018-09-04] MEDS ORDERED: HEPARIN IV PRN (06:47)
[2018-09-04] MEDS ORDERED: NS 2,000 ML MISC PRN (06:47)
[2018-09-04] MEDS ORDERED: MORPHINE IV ONE (06:48)
[2018-09-04] MEDS ORDERED: ZOFRAN IV ONE (06:49)
[2018-09-04 06:50] LABS: BASO# 0.02 X1000 (0.0-0.2); BASO% 0.2 % (0.0-0.8); EOS# 0.62 X1000 (0.0-0.7); HEMATOCRIT 37.6 % (37.0-47.0); IMM GRAN# 0.04 X1000 (0.0-0.04); IMM GRAN% 0.4 % (0.0-0.5); LYMPH# 1.46 X1000 (1.2-3.4); LYMPH% 16.4 % (20.5-51.1); MCH 24.7 PG (27-31); MCHC 31.9 g/dL (33-37); MCV 77.5 FL (81-99); MONO# 0.68 X1000 (0.11-0.59); MONO% 7.6 % (1.7-9.3); NEUT# 6.08 X1000 (1.4-6.5); NEUT% 68.4 % (42.2-75.2); PLT 410 X1000 (130-400); RBC 4.85 XMIL (4.2-5.4); RDW 17.8 % (11.5-14.5)
[2018-09-04 10:00] LABS: AGAP 15; ALBUMIN 3.1 g/dL (3.5-5.0); ALKALINE PHOSPHATASE 98 U/L (32-104); BUN 47 mg/dL (8-22); CALCIUM 8.5 mg/dL (8.8-10.2); CHLORIDE 99 mmol/L (98-107); COSMO 284; CREATININE 4.5 mg/dL (0.5-0.9); ESTIMATED GFR 10; GLUCOSE 92 mg/dL (70-104); GOT 8 U/L (10-30); GPT < 5 U/L (10-36); POTASSIUM 5.3 mmol/L (3.5-5.1); SODIUM 136 mmol/L (136-145); TCO2 22 mmol/L (25-35); TOTAL BILIRUBIN 0.26 mg/dL (0.20-1.00); TOTAL PROTEIN 6.2 g/dL (6.3-8.3)
[2018-09-04] MEDS ORDERED: TYLENOL PO PRN (10:31)
[2018-09-04] MEDS ORDERED: MAXIPIME 1 GM in NS 50 ML IV ONE (11:29)
[2018-09-04] MEDS ORDERED: VANCOMYCIN IV PER PHARMACY MISC SCH ×2 (11:30→12:27)
[2018-09-04] MEDS: HUMALOG SUBQ SCH ×3 (13:28→21:26)
[2018-09-04] MEDS: HEPARIN SUBQ SCH (13:35)
[2018-09-04] MEDS ORDERED: VANCOMYCIN 1 GM/NS 1 GM/250 ML IVPB IV ONE (14:00)
--- NOTE | 2018-09-04 14:38 | HISTORY AND PHYSICAL ---
PRIMARY CARE PROVIDER: Halie Valentino MD GUM COOK: Lucas Cooper MD CHIEF COMPLAINT: Right breast lesion with pain. HISTORY OF PRESENT ILLNESS: Ms. Garcia is a 63-year-old female who looks older than her stated age and carries a past medical history of end-stage renal disease on hemodialysis, diabetes mellitus type 2, hypertension, hypothyroidism, medical noncompliance, who came to the ED because of right breast pain. The patient does have an area that looks like eschar as well and redness, tenderness, and hot to the touch. She reports she believed it was a spider bite. She has been taking p.o. antibiotics for it that were given to her in the emergency room. Home health has also been addressing it with wound care. She also has a wound, a chronic decubitus, on her sacral as well as buttock area that is also being addressed by home health. However, she could no longer stand the pain and came to the ED to be evaluated. She was first taken to hemodialysis per ED report. Dr. Cooper was concerned that this area may need some debridement or just at least evaluated by General Surgery. We will go ahead and place her on IV antibiotic and await General Surgery's recommendations, and we will go ahead and consult Wound Care and admit her to the floor. PAST MEDICAL HISTORY: 1. End-stage renal disease, on hemodialysis. 2. Diabetes mellitus, type 2. 3. Hypertension. 4. Hypothyroidism. 5. Anemia of chronic disease. 6. Chronic back pain. 7. Sleep apnea. 8. Chronic urinary tract infections. 9. Previous right breast wound, believed to be from a spider bite. 10. Previous sacral and buttock area decubitus that are chronic. PAST SURGICAL HISTORY: 1. Hysterectomy. 2. Carpal tunnel. 3. Left knee. 4. Bladder surgery. 5. Placement and replacement of tunneled dialysis catheter to her left groin. SOCIAL HISTORY: No alcohol, tobacco, or illicit drug use. She lives at home with her who has stage IV cancer and has home health. ALLERGIES: No known drug allergies. HOME MEDICATIONS: Have not been reconciled. REVIEW OF SYSTEMS: The patient denies any chest pain, shortness of breath, fever, chills. No nausea, vomiting, diarrhea, or constipation. No syncope or dizziness. PHYSICAL EXAMINATION: VITAL SIGNS: Temperature is 97.8 degrees, heart rate 73, respirations 18, blood pressure 169/66, O2 was 96% on 2 L nasal cannula. GENERAL: Ms. Garcia is a 63-year-old female who is lying on the stretcher in dialysis in no acute distress. HEENT: Atraumatic, normocephalic. PERRL. NECK: Supple. Trachea midline. CARDIOVASCULAR: S1, S2 appreciated. No murmurs, gallops, or rubs noted. No JVD. PULMONARY: Bilateral breath sounds clear. GASTROINTESTINAL: Soft, nontender, nondistended. Positive bowel sounds 4 quadrants. SKIN: She does have under her right breast an area that is hot to the touch, reddened with some eschar. She has a hemodialysis catheter in her left groin. She also verbally reported a sacral and a buttock decubitus that are chronic; however, due to her being on hemodialysis, I did not physically assess these. I did not want to interrupt her dialysis machine. NEUROLOGIC: No focal deficits noted. LABORATORY DATA: White count 8, hemoglobin 12, hematocrit 37, platelet count 410,000. Sodium 136, potassium 5.3, BUN 47, creatinine 4.5, blood glucose is 92. DIAGNOSTIC DATA: None. ASSESSMENT AND PLAN: 1. Right breast infection, probable cellulitis, eschar. Rule out calciphylaxis. We will continue IV antibiotics with vancomycin and cefepime. We will renally dose those. She will receive her first dose after antibiotics. We will have Pharmacy dose her vancomycin and we renally dosed her cefepime q. 48 h. after dialysis. 2. Hyperkalemia of 5.3. Addressed in dialysis. 3. End-stage renal disease, on hemodialysis Saturday, , Saturday. 4. Known chronic sacral and buttocks decubitus. We will consult Wound Care. 5. Hypertension. We will continue home medications when reconciled. 6. Hypothyroidism. 7. Type 2 diabetes. We will do fingerstick blood sugars and sliding scale. 8. Anemia of chronic disease, stable. Further recommendation to follow physician evaluation and laboratory and diagnostic data. Patient seen and examined by me face to face, all the laboratory, vitals signs and images were reviewed, patient presented with right breast pain that actually has been going on for a couple weeks, the area is red, warm, with signs of infection, has a black scar in the lower part of the areolar area that likely has to be removed surgically, she will be admitted and placed on antibiotics, broad coverage, we will continue with some of her home medications, dialysis, pain treatment, telemetry, I agree with the rest of the [employer]CR[employer]IVER assessment and plan, Inder Wood MD. Dictated by REUBEN Davison for Inder Moise MD cc: MD Lucas Calvin MD Lynn R. Buckner, MD Bhavna Gowda, MD [facility] HOSPITALHuang
[2018-09-04] MEDS ORDERED: VANCOMYCIN 1 GM/NS 1 GM/250 ML IVPB IV SCH (15:00)
[2018-09-04] MEDS: NORCO-7.5 PO PRN ×2 (15:26→21:23)
--- NOTE | 2018-09-04 16:31 | NEPHROLOGY CONSULTATION ---
DATE: 09/04/2018 DATE AND TIME OF EXAMINATION: She was seen at 0600 on the morning of 09/04/2018. REASON FOR CONSULTATION: Assistance with medical management. HISTORY OF PRESENT ILLNESS: Ms. Garcia is a 63-year-old white female who is well known to us from outpatient dialysis as well as from frequent admissions to the hospital. She had plans for dialysis this morning, but she called the ambulance before it was time to go to dialysis and asked to be taken to the emergency room. Specifically, she had a lesion on her right breast that she states is a spider bite. There was no spider witnessed, but she simply reached this conclusion based on appearance. Very tender, large eschar. She is concerned about it. No chills or fever or sweats or night sweats. Shortness of breath is minimal. PAST MEDICAL HISTORY: ESRD, diabetes, hypertension, hypothyroidism, CKD, obstructive sleep apnea, bed-bound state. HOME MEDICATIONS: Include multivitamin, Mircera, levothyroxine, oxybutynin, carvedilol, albuterol, amlodipine, gabapentin, pantoprazole, oxycodone, patiromer, clotrimazole, levofloxacin, clindamycin, hydrocodone, sulfamethoxazole. These antibiotics were just recently written and she has not started them. They were written for her breast abnormality. SOCIAL HISTORY: She lives in the [facility] in a trailer that is fitted for the patient requiring hospital bed. Lives with her , who has metastatic cancer. FAMILY HISTORY: Noncontributory. REVIEW OF SYSTEMS: Noncontributory. PHYSICAL EXAMINATION: Vital Signs: Blood pressure 174/54, heart rate 67, respirations 14, afebrile. Generally she is a chronically ill, elderly obese woman, in no acute distress. Skin is pale and dry. Conjunctivae are pink. Pupils are equal. Oropharynx is clear. No teeth. Normal tongue. Neck is supple. Trachea is midline. Neck vein distention is not visible. Heart is regular. No gallops. Lungs are equal, shallow. No crackles. Right breast with 3 cm eschar with surrounding erythema but no induration. Exquisitely tender. No discharge. Abdomen is soft, obese, nontender with bowel sounds present. Extremities: 1+ edema. No clubbing or cyanosis. IMPRESSION: Breast ulcer. Not totally characteristic for calciphylaxis, but certainly concerning. We will check PTH, calcium, phosphate. Her binder is not listed on her medication list. If she is taken to the operating room by Dr. Crocker, then a biopsy would be very helpful in directing our care. We will dialyze her on the morning of the . No other changes. cc: Lucas Cooper MD
[2018-09-04] MEDS: ZOFRAN IV PRN (18:51)
--- NOTE | 2018-09-04 21:13 | CONSULTATION ---
DATE OF CONSULTATION: 09/04/2018 REASON FOR CONSULTATION: Ms. Garcia is a 63-year-old white female who has endstage renal disease. She has developed an open wound and redness involving her right breast, and we were asked to evaluate her breast. There is a question whether this could be related to her endstage renal disease and calciphylaxis. PAST MEDICAL HISTORY: Endstage renal disease, diabetes, hypertension, hypothyroidism, obstructive sleep apnea, and she is essentially bedbound. HOME MEDICATIONS: Multiple and listed in the chart, and reviewed by me. SOCIAL HISTORY: She lives in a trailer. She has a hospital bed. Her is at home with her, but he has metastatic cancer. Noncontributory. REVIEW OF SYSTEMS: A 14-point review of systems was performed and was essentially the same except for history of present illness. PHYSICAL EXAMINATION: On exam, Ms. Chaim Garcia is an older white female who is overweight, but she is awake, pleasant, in no acute distress. HEENT: No jaundice. No oral lesions. No cervical or supraclavicular lymphadenopathy. Her heart has a regular rate. Lungs were clear. Her abdomen was soft. Her right breast had an open wound just to the right of the nipple-areolar complex, with an eschar. She had induration and hardness involving her distal breast in the periareolar area, with some redness. The tissue was abnormally firm. Her left breast was normal to palpation. She had no significant peripheral edema. She had no focal deficits. She is awake and cooperative. IMPRESSION: Chronic open wound involving right breast, with the distal part of breast tissue or the area in the periareolar space hard, with some surrounding inflammation and cellulitis. There does not appear to be un-drained purulence. PLAN: Tomorrow I will debride her right breast wound. We may have to remove the distal part of her breast and nipple-areolar complex to get a healthy wound. I discussed this frankly with her, again reiterating that this could be like a partial mastectomy once we debride all the abnormal tissue. We will send it to the pathologist for permanent section. We will plan to do this tomorrow. She wants to proceed. She is okay with losing the distal part of her breast if needed. cc: Stacy Crocker MD
[2018-09-05] MEDS: DILAUDID IV PRN ×4 (00:11→21:25)
[2018-09-05] MEDS: HEPARIN SUBQ SCH ×2 (00:17→13:12)
[2018-09-05] MEDS: BENADRYL IV PRN ×2 (02:58→21:26)
[2018-09-05] MEDS ORDERED: FENTANYL ONE (07:45)
[2018-09-05] MEDS ORDERED: DIPRIVAN 1% ONE (07:45)
[2018-09-05] MEDS ORDERED: XYLOCAINE-MPF 2% ONE (07:48)
[2018-09-05] MEDS ORDERED: QUELICIN (DOSE) ONE (07:55)
[2018-09-05 07:56] LABS: AGAP 17; ALB/GLOB RATIO 0.7; ALBUMIN 2.8 g/dL (3.5-5.0); ALKALINE PHOSPHATASE 101 U/L (32-104); BUN 37 mg/dL (8-22); CALCIUM 8.4 mg/dL (8.8-10.2); CHLORIDE 99 mmol/L (98-107); COSMO 281; CREATININE 4.3 mg/dL (0.5-0.9); ESTIMATED GFR 10; GLUCOSE 64 mg/dL (70-104); GOT 10 U/L (10-30); GPT < 5 U/L (10-36); MAGNESIUM 2.1 mg/dL (1.5-2.7); POTASSIUM 5.1 mmol/L (3.5-5.1); SODIUM 137 mmol/L (136-145); TCO2 21 mmol/L (25-35); TOTAL BILIRUBIN 0.31 mg/dL (0.20-1.00); TOTAL PROTEIN 6.6 g/dL (6.3-8.3)
[2018-09-05] MEDS: HUMALOG SUBQ SCH ×4 (08:11→21:26)
[2018-09-05] MEDS ORDERED: SENSORCAINE 0.5%-EPI 1:200,000 ONE (08:45)
[2018-09-05 09:05] LABS: CALCIUM 8.5 mg/dL (8.8-10.2); PHOSPHORUS 5.5 mg/dL (2.7-4.5)
[2018-09-05 09:33] LABS: BASO# 0.03 X1000 (0.0-0.2); BASO% 0.4 % (0.0-0.8); EOS# 0.62 X1000 (0.0-0.7); EOS% 8.4 % (0.0-10.0); HEMATOCRIT 37.5 % (37.0-47.0); HEMOGLOBIN 11.4 g/dL (12.0-16.0); LYMPH# 1.63 X1000 (1.2-3.4); MCH 24.4 PG (27-31); MCHC 30.4 g/dL (33-37); MCV 80.3 FL (81-99); MONO# 0.61 X1000 (0.11-0.59); MONO% 8.2 % (1.7-9.3); MPV 10.5 FL (7.4-10.4); NEUT# 4.52 X1000 (1.4-6.5); PLT 389 X1000 (130-400); RBC 4.67 XMIL (4.2-5.4); RDW 17.6 % (11.5-14.5); WBC 7.41 X1000 (4.8-10.8)
[2018-09-05] MEDS ORDERED: MORPHINE ONE (09:42)
[2018-09-05] MEDS: ZOFRAN IV PRN (10:46)
--- NOTE | 2018-09-05 13:05 | OPERATIVE NOTE ---
PROCEDURE DATE: 09/05/2018 PREOPERATIVE DIAGNOSIS: Open wound and necrosis of distal periareolar right breast tissue. POSTOPERATIVE DIAGNOSIS: Open wound and necrosis of distal periareolar right breast tissue. PRINCIPLE PROCEDURES: Partial mastectomy of the distal right breast. SURGEON: Dr. Stacy Crocker MD. ANESTHESIA: General. ESTIMATED BLOOD LOSS: 30 mL. DRAINS: None. INDICATIONS: Chaim Garcia is a 63-year-old white female, who has end-stage renal disease and requires chronic hemodialysis. She has developed a chronic open wound with necrosis involving the lateral periareolar area of the right breast. She also has a hard compromised distal right breast tissue, and we decided we had to excise all of this tissue which would include the nipple-areolar complex of the right breast to get a healthy wound. DESCRIPTION OF PROCEDURE: The patient was brought to the operating room, placed supine, received general anesthesia, and was ventilated. Right breast was prepped and draped in a sterile field. I marked an elliptical incision that would encompass all the compromised skin and breast tissue involving her distal right breast. This did involve her nipple areolar complex, and the chronic open sore with necrosis. I made my incision with a 10 blade scalpel. Then, I used the cautery to cut through the distal part of her breast and amputate this compromised breast tissue, skin and nipple-areolar complex. I used hemostats and 3-0 silk ties as needed to control larger blood vessels. The rest of the bleeding was controlled using the cautery. I closed the wound in layers. First layer with 3-0 popoff Vicryl stitches, closed the breast tissue anteriorly and posteriorly, and then I used a skin clip webmethods architect to close the skin transversely. Dressings will be applied. She tolerated the procedure well with plans for her to go the recovery room and then return to the floor. cc: Stacy Crocker MD
--- NOTE | 2018-09-05 13:06 | NEPHROLOGY PROGRESS NOTE ---
DATE: 09/05/2018 SUBJECTIVE: Her pain is controlled adequately today. She has plans for surgical resection of her right breast ulcer. Dr. Crocker will send a sample to pathology to assess for possible calciphylaxis. No shortness of breath, nausea or vomiting. OBJECTIVE: Vital Signs: Blood pressure 175/70, heart rate 68, respirations 12, afebrile. General: No acute distress. Skin: Warm and dry. Neck: Neck veins are not distended. Heart: Regular. No gallops. Lungs: Equal. No crackles. Breasts: Not examined today. Abdomen: Soft, obese, nontender. Bowel sounds present. Extremities: Minimal edema. No clubbing, or cyanosis. IMPRESSION: 1. Chronic kidney disease 5D. She will have her routine dialysis today. 2. Breast lesion. Excisional biopsy today. PLAN: We will check PTH, phosphorus, calcium. Possible calciphylaxis. cc: Lucas Cooper MD
[2018-09-05] MEDS ORDERED: APRESOLINE IV PRN (13:13)
--- NOTE | 2018-09-05 13:39 | PROGRESS NOTE ---
DATE: 09/05/2018 SUBJECTIVE: The patient is status post partial mastectomy of the distal right breast due to an open wound and necrosis of the distal periareolar right breast tissue. She seems to be doing good, her breast is covered with a dressing. She is tolerating p.o. She is complaining about pain in that area, but better compared with yesterday. Blood pressure elevated. I have placed this patient back on her home medications and also as needed medications for high blood pressure. OBJECTIVE: Vital Signs: Temperature 97.8 degrees, pulse 85, respiratory rate 21 and blood pressure 193/64. Oxygen saturation 99% on 2 L of nasal cannula. HEENT: Head normocephalic. No trauma. PERRLA. Neck: Supple. No JVD. No masses. Central trachea. Chest: Decreased breath sounds at the bases. Right breast covered with a dressing. Abdomen: Soft, nontender, and nondistended. No hepatosplenomegaly. Neurological: The patient is alert and oriented x3. No focal neurological deficits. LABORATORY: WBC 7.4, hemoglobin 11.4, hematocrit 37.5, and platelets 389,000. Sodium 137, potassium 5.1, chloride 99, bicarbonate 21, BUN 37, creatinine 4.3, glucose 64, calcium 8.5, phosphorus 5.5, and magnesium 2.1. ASSESSMENT AND PLAN: 1. Right breast open wound and necrosis of the distal periareolar, status post partial mastectomy of the distal right breast. She seems tolerating well the procedure. We will continue to monitor. We will continue with antibiotics. Blood cultures so far negative. 2. Hypertension. I have placed this patient back on her home medications, and also medications as needed for high blood pressure. We will continue to monitor. Continue with dialysis as well. 3. Hyperkalemia, resolved. 4. End-stage renal disease on hemodialysis Saturday, and Saturday. 5. Known chronic sacral and buttocks decubitus ulcer. Continue with wound care. 6. Hypothyroidism. Continue with levothyroxine. 7. Type 2 diabetes. Continue with pattern of blood sugar and sliding scale insulin. 8. Anemia of chronic disease. Stable. 9. Morbid obesity with a body mass index of 40.6 kg. Aware. cc: Inder Moise MD
[2018-09-05] MEDS: NORVASC PO SCH (14:22)
[2018-09-05] MEDS: COREG PO SCH ×2 (14:22→21:24)
[2018-09-05 19:36] LABS: URINE SOURCE CATH
[2018-09-05 19:43] LABS: BILIRUBIN URINE NEGATIVE (NEGATIVE); BLOOD URINE LARGE (NEGATIVE); COLOR ORANGE; GLUCOSE URINE 100 mg/dL (NEGATIVE); KETONE URINE NEGATIVE (NEGATIVE); LEUKOCYTES URINE LARGE (NEGATIVE); NITRITE URINE NEGATIVE (NEGATIVE); PROTEIN URINE 600 mg/dL (NEGATIVE); TURBIDITY URINE TURBID (CLEAR); UR EPITHELIAL CELLS <10 /HPF (<10); URINE BACTERIA NEGATIVE /HPF; URINE RBC TNTC /HPF (<10); URINE WBC TNTC /HPF (<10); UROBILINOGEN URINE NORMAL (NORMAL)
[2018-09-05 19:52] LABS: URINE CASTS NONE SEEN
[2018-09-06] MEDS: HEPARIN SUBQ SCH ×3 (00:31→23:27)
[2018-09-06] MEDS: DILAUDID IV PRN ×5 (01:48→23:26)
[2018-09-06] MEDS ORDERED: PNEUMOVAX 23 IM ONE (02:19)
[2018-09-06] MEDS: BENADRYL IV PRN (03:05)
[2018-09-06] MEDS: ZOFRAN IV PRN (04:30)
[2018-09-06] MEDS: SYNTHROID PO SCH (06:09)
[2018-09-06 06:14] LABS: HEMATOCRIT 34.5 % (37.0-47.0); HEMOGLOBIN 10.5 g/dL (12.0-16.0); MCH 24.7 PG (27-31); MCHC 30.4 g/dL (33-37); MCV 81.2 FL (81-99); MPV 9.7 FL (7.4-10.4); RBC 4.25 XMIL (4.2-5.4); RDW 17.3 % (11.5-14.5); WBC 7.63 X1000 (4.8-10.8)
[2018-09-06] MEDS: HUMALOG SUBQ SCH ×4 (06:30→21:13)
[2018-09-06 06:49] LABS: CREATININE 4.8 mg/dL (0.5-0.9)
--- NOTE | 2018-09-06 08:03 | GENERAL SURGERY PROGRESS NOTE ---
DATE: 09/06/2018 SUBJECTIVE: Patient seems to be doing okay. OBJECTIVE: Vital Signs: Patient is currently afebrile. Her vital signs are stable. General: No acute distress. Cardiovascular: Regular rate and rhythm. Chest wall: With dressing intact. No erythema noted. ASSESSMENT AND PLAN: A 63-year-old female, currently postoperative day #1 from partial mastectomy of the right distal breast. Postoperative state. At this time, patient seems to be doing okay from a postoperative state. We will continue to monitor through the weekend and have Dr. Crocker evaluate her again on Saturday. cc: Griffin Arizmendi MD
[2018-09-06] MEDS ORDERED: NS 2,000 ML MISC PRN (09:33)
[2018-09-06] MEDS ORDERED: TIGHT: 0.2 ML/HR FOR DIALYSIS MISC PRN (09:33)
[2018-09-06] MEDS ORDERED: HEPARIN IV PRN (09:33)
[2018-09-06] MEDS: NEPHRO-VITE PO SCH (09:36)
[2018-09-06] MEDS: NORVASC PO SCH (09:36)
[2018-09-06] MEDS: COREG PO SCH ×3 (09:37→21:15)
[2018-09-06] MEDS: NEURONTIN PO SCH (09:37)
[2018-09-06] MEDS: MAXIPIME 0.5 GM in NS 50 ML IV SCH (15:47)
--- NOTE | 2018-09-06 17:59 | PROGRESS NOTE ---
DATE: 09/06/2018 SUBJECTIVE: This patient is status post partial mastectomy. At this moment, she is getting dialysis. She has been complaining of right breast pain, but she seems to be doing okay. She is tolerating p.o. and tolerating dialysis. OBJECTIVE: Vital Signs: Temperature 98.8, pulse 69, respiratory rate 18, blood pressure 172/53, oxygen saturation 99 on 3 L of nasal cannula. HEENT: Head normocephalic. No trauma. PERRLA. Neck: Supple. No JVD. No masses. Central trachea. Chest: Decreased breath sounds at the bases. Right breast covered with a dressing, some serous discharge. She has some ilya and they look fine, no pus. Abdomen: Soft, nontender, nondistended. No hepatosplenomegaly. Extremities: No edema. No clubbing. No cyanosis. Neurological: The patient is alert and oriented x3. No focal deficits. LABORATORY: WBC 7.6, hemoglobin 10.5, hematocrit 34.5, platelets 354. Sodium 135, potassium 5, chloride 98, bicarbonate 24, BUN 46, creatinine 4.8, glucose 107, calcium 8. ASSESSMENT AND PLAN: 1. Right breast open wound and necrosis of the distal areolar area, status post partial mastectomy of the distal right breast. She seems to be doing good. She is complaining of pain, continue to monitor during the weekend. Surgery Department on board. Blood cultures so far negative. 2. Hypertension. Continue with same management. 3. Hyperkalemia, resolved. 4. End-stage renal disease. On hemodialysis Saturday, and Saturday. At this moment, she is getting dialysis. 5. Known chronic sacral and buttocks decubitus ulcer, continue with wound care. 6. Hypothyroidism. Continue with levothyroxine. 7. Type 2 diabetes. Continue with pattern of blood sugar and sliding scale insulin. 8. Anemia of chronic disease, stable. 9. Morbid obesity with a body mass index of 40.6, aware. Diet and exercise has been discussed. cc: Inder Moise MD
[2018-09-07] MEDS: DILAUDID IV PRN ×4 (03:40→21:37)
[2018-09-07 06:29] LABS: BASO# 0.03 X1000 (0.0-0.2); BASO% 0.4 % (0.0-0.8); EOS# 0.45 X1000 (0.0-0.7); EOS% 6.4 % (0.0-10.0); HEMATOCRIT 34.5 % (37.0-47.0); HEMOGLOBIN 10.3 g/dL (12.0-16.0); LYMPH# 1.98 X1000 (1.2-3.4); MCH 24.3 PG (27-31); MCHC 29.9 g/dL (33-37); MCV 81.6 FL (81-99); MONO# 0.67 X1000 (0.11-0.59); MONO% 9.5 % (1.7-9.3); MPV 10.1 FL (7.4-10.4); NEUT# 3.94 X1000 (1.4-6.5); NEUT% 55.7 % (42.2-75.2); PLT 329 X1000 (130-400); RBC 4.23 XMIL (4.2-5.4); RDW 17.3 % (11.5-14.5); WBC 7.07 X1000 (4.8-10.8)
[2018-09-07] MEDS: SYNTHROID PO SCH (06:43)
[2018-09-07] MEDS: HUMALOG SUBQ SCH ×4 (06:44→21:49)
[2018-09-07 06:48] LABS: CALCIUM 7.9 mg/dL (8.8-10.2); CREATININE 3.2 mg/dL (0.5-0.9); POTASSIUM 4.2 mmol/L (3.5-5.1)
--- NOTE | 2018-09-07 07:00 | GENERAL SURGERY PROGRESS NOTE ---
DATE: 09/07/2018 Patient seems to be doing well. Her wound has an intact dressing on it. She has been hemodynamically stable. No major issues. We will just monitor her through the weekend, given the severity of her wound. cc: Griffin Arizmendi MD
[2018-09-07] MEDS: NEPHRO-VITE PO SCH (09:19)
[2018-09-07] MEDS: NEURONTIN PO SCH (09:19)
[2018-09-07] MEDS: COREG PO SCH ×2 (09:19→21:38)
[2018-09-07] MEDS: NORVASC PO SCH (09:19)
--- NOTE | 2018-09-07 13:20 | PROGRESS NOTE ---
DATE: 09/07/2018 INTERVAL HISTORY: The patient doing well, status post partial right mastectomy. Still complaining of right breast pain, but reasonably controlled on current medication. No new complaints. No acute events overnight. REVIEW OF SYSTEMS: 12-point review of systems negative except as per interval history. LABORATORIES: CBC 7, hemoglobin 10.3, hematocrit 34.5, platelets 329,000. Sodium 138, potassium 4.2, bicarb 27, BUN 25, creatinine 3.2, glucose 138. OBJECTIVE: Vitals: Temperature maximum 99.2 degrees, pulse 66, respirations 18, blood pressure 130/49, O2 saturation 95% on 3 L by nasal cannula. General: No acute distress. Vitals as above. HEENT: Normocephalic, atraumatic. Moist mucous membranes. No cervical adenopathy. Cardiovascular: Regular rate and rhythm. No murmurs, rubs, or gallops. Pulmonary: Essentially clear to auscultation bilaterally. Right breast dressed. Dressing clean, dry, intact. Surgical incision with ilya, which looks good. Abdomen: Soft, nontender, nondistended. Bowel sounds positive. Extremities: Peripheral pulses intact. No clubbing, cyanosis, or edema. Neurologic: Cranial nerves grossly intact. No focal deficits. Psychiatric: Normal mood and affect. Awake, alert, oriented x3. Skin: As above. Otherwise, no new rashes or lesions. Skin: Decubitus ulcers bandaged. ASSESSMENT AND PLAN: 1. Right breast wound with necrosis and infection. Status post partial mastectomy of the right breast. Seems to be doing well postoperative. Pain reasonably controlled. Blood cultures no growth. Surgery following and wants to monitor her over the weekend to make sure that no further intervention is necessary. Continue antibiotics with vancomycin and Cefepime for now. 2. Hypertension. Reasonable control on current regimen. Monitor. 3. Hyperkalemia, resolved. 4. Endstage renal disease. On scheduled dialysis Saturday, , and Saturday. 5. Chronic sacral and buttocks ulcers, stable. Continue wound care. 6. Hypothyroidism. Continue home Synthroid. 7. Diabetes. Reasonable control on current regimen, continue monitoring glucoses. 8. Anemia of chronic disease. Blood counts stable. 9. Morbid obesity. Diet and exercise have been discussed. BMI of 40.6.
[2018-09-07] MEDS: HEPARIN SUBQ SCH (17:09)
[2018-09-08] MEDS: DILAUDID IV PRN ×6 (01:07→21:17)
[2018-09-08] MEDS: HEPARIN SUBQ SCH (04:24)
[2018-09-08 06:16] LABS: BASO# 0.02 X1000 (0.0-0.2); BASO% 0.3 % (0.0-0.8); EOS# 0.54 X1000 (0.0-0.7); EOS% 7.8 % (0.0-10.0); HEMOGLOBIN 10.5 g/dL (12.0-16.0); MCH 24.6 PG (27-31); MONO# 0.64 X1000 (0.11-0.59); MONO% 9.2 % (1.7-9.3); MPV 9.9 FL (7.4-10.4); NEUT# 4.15 X1000 (1.4-6.5); NEUT% 59.7 % (42.2-75.2); PLT 345 X1000 (130-400); RBC 4.27 XMIL (4.2-5.4); RDW 17.6 % (11.5-14.5); WBC 6.95 X1000 (4.8-10.8)
[2018-09-08] MEDS: SYNTHROID PO SCH (06:38)
[2018-09-08] MEDS: HUMALOG SUBQ SCH ×4 (06:38→21:19)
[2018-09-08 06:39] LABS: ALBUMIN 2.8 g/dL (3.5-5.0); CALCIUM 8.4 mg/dL (8.8-10.2); CREATININE 4.2 mg/dL (0.5-0.9); PHOSPHORUS 5.7 mg/dL (2.7-4.5); POTASSIUM 4.4 mmol/L (3.5-5.1)
--- NOTE | 2018-09-08 08:09 | PROGRESS NOTE ---
DATE: 09/08/2018 Ms. Garcia is now postop day 3 from a distal right partial mastectomy for a chronic open wound involving her right breast. We closed her wound primarily. It is intact but there is some cellulitis along the wound. She has been on IV antibiotics including Maxipime and vancomycin. Her white blood cell count is normal. She is afebrile. The incision site is tender. She has end- stage renal disease and is on chronic hemodialysis. Her heart rate is 62, blood pressure 154/61, O2 saturation 99%. She is afebrile. White blood cell count is 7, hematocrit is 35%. BUN and creatinine are 33 and 4.2. There is no drainage from her wound. I agree with continuing IV antibiotics at this time and we will follow the wound. cc: Stacy Crocker MD
[2018-09-08] MEDS: NORVASC PO SCH (10:03)
[2018-09-08] MEDS: NEPHRO-VITE PO SCH (10:03)
[2018-09-08] MEDS: COREG PO SCH ×2 (10:03→21:19)
[2018-09-08] MEDS: NEURONTIN PO SCH (10:03)
--- NOTE | 2018-09-08 12:56 | NEPHROLOGY PROGRESS NOTE ---
DATE: 09/08/2018 SUBJECTIVE: Ms. Garcia is resting quietly on her left side. She has a dressing to her right chest wall with indications of some discomfort secondary to a partial mastectomy. OBJECTIVE: Vital Signs: Her most recent vital signs show her last temperature 97.7, blood pressure 154/61, heart rate 62, respirations 16, she is on 2 L nasal cannula with last recorded saturation 99%. She has had 1920 in. She has had 400 out to Dean catheter. General: This is a 63-year-old white female resting quietly in bed. She appears in no acute distress though moderate discomfort. Skin: Warm and dry. HEENT: Normocephalic, atraumatic. Conjunctivae pale pink. She has CHAO. Mucous membranes are dry. Neck: Supple. Trachea midline. Unable to determine JVD. Cardiovascular: She is regular rate and rhythm. She is without murmur or gallop. Lungs: Clear to auscultation bilaterally. Equal excursion on O2. Abdomen: Large, obese, soft, nontender. Positive bowel sounds. Genitourinary: Not inspected. Minimal void with dialysis assist. Integumentary: The patient has distal partial mastectomy, postop day #3, with dressing to her right breast. This is following complaints of cellulitis. IV antibiotics include Maxipime and vancomycin. She remains afebrile. Neurological: She is alert and oriented x3. LABORATORY DATA: Sodium 138, potassium 4.4, chloride 99, CO2 25, BUN 33, creatinine 4.2, glucose is 153. The patient's anion gap is 14. Calcium 8.4, phosphorus 5.7, albumin is 2.8. White count 6.95, hemoglobin 10.5, hematocrit 35, platelet count 345,000. ASSESSMENT AND PLAN: 1. Chronic kidney disease, stage 5D. Patient is due for her routine dialysis treatment in the a.m. No indications for intervention today. 2. Electrolytes, acid-base balance, and anemia. These are acceptable. 3. Cellulitis versus possible calciphylaxis to her right breast. Her specimen from biopsy is still pending. This is followed by Surgery and primary care. We will attempt to rule out calciphylaxis. She remains on renal dosed antibiotics. I would to thank you for allowing us to follow with this patient. Dictated by REUBEN Rey for Lucas Cooper MD Face to face encounter, data reviewed, discussed with Annia Borden on 09/08/18. I agree with the above assessment and plan of care. cc: REUBEN Rey MD [facility]
--- NOTE | 2018-09-08 13:44 | PROGRESS NOTE ---
DATE: 09/08/2018 INTERVAL HISTORY: Complaining only of right breast pain. Doing well on current pain med regimen. Surgery took her bandage down this morning. There is still some redness at the site, but no fluctuance, induration, or drainage. No new complaints. No acute events from 08/05. REVIEW OF SYSTEMS: Twelve point review of systems negative except as per interval history. LABORATORIES: WBC 6.9, hemoglobin 10.5, hematocrit 35, platelets 345,000. BUN 33, creatinine 4.2, glucose 159, albumin 2.8. OBJECTIVE: Vitals: Temperature maximum 98.8 degrees, pulse 63, respirations 22, blood pressure 144/57, O2 saturation 98% on room air. General: No acute distress. Vitals: As above. HEENT: Normocephalic, atraumatic. Moist mucous membranes. No cervical adenopathy. Cardiovascular: Regular rate and rhythm. No murmurs, rubs or gallops. Pulmonary: Clear to auscultation bilaterally. Right partial mastectomy site with stapled wound. Minimal erythema around the wound, but no induration, fluctuance or drainage. Minimal tenderness. Abdomen: Soft, nontender, nondistended. Bowel sounds positive. Extremities: Peripheral pulses intact. No clubbing, cyanosis, or edema. Neurologic: Cranial nerves grossly intact. No focal deficits. Psychiatric: Normal mood and affect. Awake, alert, oriented x3. Skin: No new rashes or lesions. Surgical site as above. Skin: Decubitus ulcers bandaged. ASSESSMENT AND PLAN: 1. Right breast wound with necrosis and infection. Status post partial mastectomy of the right breast. Doing well postop. Pain reasonably controlled. Blood cultures negative. Still awaiting pathology. Given ongoing erythema, Surgery wants to continue to watch the wound, but no immediate plan for intervention given the lack of fluctuance, induration, drainage, or other clear signs of infection. Continue antibiotics with vancomycin and cefepime for now. 2. Hypertension, reasonable control on current regimen. Continue to monitor. 3. Hyperkalemia, resolved. 4. End-stage renal disease, on scheduled dialysis Tuesdays, , and Saturdays. 5. Chronic sacral and buttocks ulcer, stable. Continue wound care. 6. Hypothyroidism. Continue on Synthroid. 7. Diabetes. Good control on current regimen. Continue monitoring glucose. 8. Anemia of chronic disease. Blood count stable on last check. 9. Morbid obesity. Diet and exercise have been discussed. BMI 40.6. DISPOSITION: Likely to transition to p.o. antibiotics and discharge home when Surgery is satisfied that no further intervention will be needed for her right breast.
[2018-09-08] MEDS: MAXIPIME 0.5 GM in NS 50 ML IV SCH (15:25)
[2018-09-09] MEDS: DILAUDID IV PRN ×3 (01:31→19:54)
[2018-09-09] MEDS: HEPARIN SUBQ SCH ×3 (06:45→17:10)
[2018-09-09] MEDS: SYNTHROID PO SCH (06:46)
[2018-09-09] MEDS: HUMALOG SUBQ SCH ×3 (06:51→16:00)
[2018-09-09 07:18] LABS: ALBUMIN 2.8 g/dL (3.5-5.0); CALCIUM 8.4 mg/dL (8.8-10.2); CREATININE 4.7 mg/dL (0.5-0.9); PHOSPHORUS 6.1 mg/dL (2.7-4.5); POTASSIUM 4.4 mmol/L (3.5-5.1)
--- NOTE | 2018-09-09 10:10 | PROGRESS NOTE ---
DATE: 09/09/2018 Ms. Garcia's right breast wound seems to have cellulitis at the closure. There is no purulence. It seems to be less tender. It is intact. PLAN: We will continue IV antibiotics and wound care. Her pathology is pending. cc: Stacy Crocker MD
[2018-09-09] MEDS: NEURONTIN PO SCH (10:24)
[2018-09-09] MEDS: NEPHRO-VITE PO SCH (10:24)
[2018-09-09] MEDS: NORVASC PO SCH (10:25)
[2018-09-09] MEDS: COREG PO SCH ×2 (10:25→19:55)
--- NOTE | 2018-09-09 12:43 | PROGRESS NOTE ---
DATE: 09/09/2018 INTERVAL HISTORY: No acute events overnight noted. No new complaints. Right breast pain remains well controlled. REVIEW OF SYSTEMS: Twelve point review negative except as per interval history. LABORATORY DATA: Sodium 129, potassium 4.4, BUN 40, creatinine 4.7, glucose 195 to 164. PHYSICAL EXAMINATION: Vital signs: T-max 98.6 degrees, pulse is 60, respirations 18, blood pressure 140/69, O2 saturation 98% on 2 L by nasal cannula. General: No acute distress. Vital signs above. HEENT: Normocephalic, atraumatic. Moist mucous membranes. Neck: No cervical adenopathy. Cardiovascular: Regular rate and rhythm. No murmurs, rubs, or gallops. Pulmonary: Clear to auscultation bilaterally. Chest wall: Right partial mastectomy site with a stapled wound. Everything around the wound appears to be Improving. Still no induration, fluctuance, or drainage. Minimal tenderness which also appears to be improving. Abdomen: Soft, nontender, nondistended. Bowel sounds positive. Extremities: Peripheral pulses intact. No clubbing, cyanosis. Trace to 1+ edema, stable. Neurologic: Cranial nerves grossly intact. No focal deficits identified. Psychiatric: Normal mood and affect. Awake, alert, oriented x3. Skin: No new rashes or lesions. Surgical site as above. Decubitus ulcers bandaged. ASSESSMENT AND PLAN: 1. Right breast wound with necrosis and infection. Status post partial mastectomy of the right breast. Doing well postoperatively. Pain has been controlled. Blood cultures are negative. Pathology still pending. On antibiotics for possible cellulitis of the wound site given her erythema. Everything does appear to be improving. Mild tenderness. Still no fluctuance, induration, or purulent drainage to suggest deeper infection. 2. Hypertension, reasonable control. Continue to monitor. 3. Hyperkalemia, resolved. 4. Hyponatremia, sudden-onset. No clear inciting etiology. Will recheck labs this afternoon to see if it is real. If it is, will consider placing patient on fluid restriction. 5. Endstage renal disease, on dialysis Tuesdays, and Saturdays. Nephrology following. 6. Hypothyroidism. Continue on Synthroid. 7. Diabetes. Good control on current regimen. Continue monitoring glucose. 8. Anemia of chronic disease. Blood counts remain stable on last check. 9. Morbid obesity. Diet and exercise have been discussed. BMI 40.6.
[2018-09-09] MEDS: NS 2,000 ML MISC PRN (14:00)
[2018-09-09 14:17] LABS: CALCIUM 8.5 mg/dL (8.8-10.2); CREATININE 4.6 mg/dL (0.5-0.9); POTASSIUM 4.7 mmol/L (3.5-5.1)
[2018-09-09] MEDS ORDERED: STERILE WATER INJ. INJ ONE ×2 (15:29→17:34)
[2018-09-09] MEDS ORDERED: CATHFLO IV ONE ×2 (15:29→17:34)
[2018-09-09] MEDS ORDERED: VANCOMYCIN 1 GM/NS 1 GM/250 ML IVPB IV ONE (17:00)
--- NOTE | 2018-09-09 20:17 | NEPHROLOGY PROGRESS NOTE ---
DATE: 09/09/2018 DATE AND TIME SEEN: On 09/09/2018 at 0650 hours. SUBJECTIVE: Ms. Garcia is resting quietly in bed. Head of the bed is slightly elevated. She is in no acute distress. Skin is warm and dry. She denies any discomfort. She has just been changed. OBJECTIVE: Vital Signs: Temperature 98.3 degrees, blood pressure 138/56, heart rate 65, respirations 20. She is on room air, last recorded saturation 97%. She has had 1060 input and 250 mL out to void. LABORATORY DATA: Sodium 129, potassium 4.4, chloride 93, CO2 of 23, BUN 40, creatinine 4.7, glucose 164. Her anion gap is 13, calcium 8.4, phosphorus 6.1, albumin 2.8. Previous hemoglobin 10.3. Her last PTH was 130 on the . PHYSICAL EXAMINATION: General: This is a 63-year-old white female resting quietly in bed. Head of the bed is elevated. She is in no acute distress. Skin: Warm and dry. HEENT: Normocephalic, atraumatic. Conjunctiva is pale. She has CHAO. Mucous membranes are dry. Neck: Supple. Trachea midline. No evidence of JVD. Cardiovascular: Regular rate and rhythm. She is without murmur or gallop. She has an S4. Lungs: Clear to auscultation bilaterally. Equal excursion on room air. Abdomen: Soft, quiet. Positive bowel sounds. Genitourinary: Not inspected. Minimal void with dialysis assist. Extremities: No edema. No clubbing or cyanosis. Integumentary: Patient has a dressing to her right breast. This is dry and intact. This is postoperative day number 4. Not inspected. Neurological: Alert and oriented x3. ASSESSMENT AND PLAN: 1. Chronic kidney disease stage 5D. The patient is due for her routine dialysis treatment today. We will place her on a 2-potassium bath. She is to dialyze for 3-1/2 hours. We will attempt to pull the patient to her outpatient dry weight. We will hold heparin today secondary to continuing to have pressure dressing to her right breast. 2. Electrolytes and acid-base balance. These are acceptable with correction on dialysis. 3. Anemia. This is acceptable. 4. Cellulitis versus calciphylaxis to her right breast. Followed by surgery. We are currently attempting to rule out calciphylaxis secondary to waiting for biopsying. She remains on renal dosed antibiotics. I would like to thank you for allowing us to follow with this patient. Dictated by REUBEN Rey for Lucas Cooper MD Face to face encounter, data reviewed, discussed with Annia Borden on 09/09/18. I agree with the above assessment and plan of care. cc: REUBEN Rey MD [facility]
[2018-09-10] MEDS: DILAUDID IV PRN ×5 (03:28→21:01)
[2018-09-10] MEDS: COREG PO SCH ×3 (05:05→20:10)
[2018-09-10] MEDS: HUMALOG SUBQ SCH ×6 (05:05→22:00)
[2018-09-10] MEDS: HEPARIN SUBQ SCH ×3 (06:18→18:38)
[2018-09-10] MEDS: SYNTHROID PO SCH (06:18)
[2018-09-10 07:42] LABS: ALBUMIN 2.8 g/dL (3.5-5.0); CALCIUM 8.1 mg/dL (8.8-10.2); CREATININE 4.9 mg/dL (0.5-0.9); PHOSPHORUS 5.9 mg/dL (2.7-4.5); POTASSIUM 4.6 mmol/L (3.5-5.1)
[2018-09-10] MEDS ORDERED: NS 2,000 ML MISC PRN (08:04)
[2018-09-10] MEDS ORDERED: TIGHT: 0.2 ML/HR FOR DIALYSIS MISC PRN (08:04)
[2018-09-10] MEDS ORDERED: HEPARIN IV PRN (08:04)
--- NOTE | 2018-09-10 08:06 | PROGRESS NOTE ---
DATE: 09/10/2018 Ms. Garcia's right breast incision appears to be less red. The incision seems to be healing well. There is no evidence of wound infection, although we did feel that she had some cellulitis along the wound immediately postoperatively. She remains on IV antibiotics and intermittent hemodialysis. Her skin clips will have to remain at least another week. cc: Stacy Crocker MD
[2018-09-10] MEDS: NS 2,000 ML MISC PRN (08:42)
[2018-09-10] MEDS: NEURONTIN PO SCH (13:04)
[2018-09-10] MEDS: NEPHRO-VITE PO SCH (13:04)
[2018-09-10] MEDS: NORVASC PO SCH (13:04)
--- NOTE | 2018-09-10 14:12 | PROGRESS NOTE ---
DATE: 09/10/2018 INTERVAL HISTORY: No acute events overnight. No new complaints. Right breast pain improving and remains well controlled. The patient seen on dialysis. REVIEW OF SYSTEMS: Twelve point review of systems is negative except as per interval history. LABORATORY DATA: Sodium 133, potassium 4.6, bicarbonate 23, BUN 44, creatinine 4.9, glucose 148, phosphorus 5.9, albumin 2.8, calcium 8.1. VITAL SIGNS: T-max 99.0, pulse 68, respirations 18, blood pressure 148/53, O2 saturation 97% on 3 L by nasal cannula. PHYSICAL EXAMINATION: General: No acute distress. Vitals: As above. HEENT: Normocephalic and atraumatic. Moist mucous membranes. No cervical adenopathy. Cardiovascular: Regular rate and rhythm. No murmurs, rubs or gallops. Pulmonary: Clear to auscultation bilaterally. No wheezing, rales or rhonchi. Chest Wall: Right partial mastectomy site with stapled wound. Erythema around the wound appears to be largely resolved. Still no induration, fluctuance or drainage. Abdomen: Soft, nontender and nondistended. Bowel sounds positive. Extremities: Peripheral pulses intact. No clubbing or cyanosis. Trace to 1+ edema stable. Neurologic: Cranial nerves grossly intact. No focal deficits identified. Psychiatric: Normal mood and affect. Awake, alert and oriented x3. Skin: No new rashes or lesions. Surgical site as above. Decubitus ulcers bandaged. ASSESSMENT AND PLAN: 1. Right breast wound with necrosis and infection. Status post partial mastectomy of the right breast. Doing well postoperatively, pain has been controlled. Blood cultures negative. Pathology showing thickened squamous epithelium and breast tissue with marked acute and chronic inflammation, necrosis, ulceration and granulation tissue formation. On antibiotics for possible cellulitis at the wound site, which appears to be much improved/nearly resolved. No fluctuance, induration or purulent drainage to suggest deeper infection. Anticipate discharge once Surgery is satisfied with the progress of her wound. 2. Hypertension. Occasional elevations but overall reasonable control. Continue to monitor. 3. Hyperkalemia, resolved. 4. Hyponatremia. Mild, asymptomatic and slightly improved. No need for acute intervention at this time. Continue to monitor. 5. End-stage renal disease. Nephrology following. Gets dialysis Saturday, , and Saturday. 6. Hypothyroidism. Continue on Synthroid. 7. Diabetes. Good control on current regimen. Continue monitoring glucose. 8. Anemia of chronic disease. Blood counts stable on last check. 9. Morbid obesity. Diet and exercise were discussed. Body mass index 40.6. 10. Decubitus ulcers have been present for quite some time. Continue with wound care.
--- NOTE | 2018-09-10 15:40 | NEPHROLOGY PROGRESS NOTE ---
DATE: 09/10/2018 TIME SEEN: 0825. SUBJECTIVE: Ms. Garcia is resting quietly in bed. She is in the dialysis unit. She is getting ready to start her hemodialysis. She has no specific complaints, though she appears chronically ill. OBJECTIVE: Vital signs: Her most recent vital signs, her temperature is 98.2, blood pressure 148/53, heart rate 60, respirations 20. She is on 2 L nasal cannula. Last recorded saturation 97%. She has had 1,580 in, 1,714 out. Labs: Sodium 133, potassium 4.6, chloride 97, CO2 23, BUN 44, creatinine 4.9, glucose is 147. The patient has an anion gap of 13. Her calcium is 8.1, phosphorus 5.9, albumin 2.8. The patient has a previous hemoglobin of 10.5 on the . PHYSICAL EXAMINATION: General: This is a 63-year-old white female resting quietly in bed, in no acute distress, though chronically ill. Skin: Warm and dry. HEENT: Normocephalic, atraumatic. Conjunctiva is pale pink. She has CHAO. Mucous membranes are dry. Neck: Supple. Trachea midline. No evidence of JVD. Cardiovascular: She is regular rate and rhythm. She has an S4 present. Lungs: Clear to auscultation bilaterally. Equal excursion. On room air. Abdomen: Large, round, soft, nontender. Positive bowel sounds. Genitourinary: Not inspected. Minimal void with dialysis assist. Extremities: Have no edema. No clubbing or cyanosis. Integumentary: The patient has a dressing to her right breast. This is dry and intact. Postop day #5. Not inspected. Neurological: Alert and oriented x3. ASSESSMENT AND PLAN: 1. Chronic kidney disease stage 5D. The patient was unable to tolerate her dialysis treatment yesterday secondary to clotting of her dialysis catheter. She was given Cathflo yesterday x2. It was left in during the night. We will plan for dialysis on a 2 K bath. She is to dialyze for 3.5 hours. We will attempt to pull patient to her outpatient dry weight using heparin flush today. 2. Electrolytes and acid-base balance and anemia. These are all acceptable. 3. Infection of right breast, status post partial mastectomy. This is followed by Surgery and the primary care. We have spoken to Radiology in regards with looking for cells indicating possible calciphylaxis. I would like to thank you for allowing us to follow with this patient. Dictated by REUBEN Rey for Lucas Cooper MD cc: REUBEN Rey MD
[2018-09-10] MEDS ORDERED: VANCOMYCIN 1 GM/NS 1 GM/250 ML IVPB IV ONE (17:00)
[2018-09-10] MEDS: MAXIPIME 0.5 GM in NS 50 ML IV SCH (17:47)
[2018-09-10] MEDS ORDERED: B & O 15A SUPP PR ONE (19:25)
[2018-09-11] MEDS: DILAUDID IV PRN ×5 (01:26→21:46)
[2018-09-11] MEDS: SYNTHROID PO SCH ×2 (05:57→06:01)
[2018-09-11] MEDS: HEPARIN SUBQ SCH ×2 (05:57→17:41)
[2018-09-11] MEDS ORDERED: NS 2,000 ML MISC PRN (06:39)
[2018-09-11] MEDS ORDERED: HEPARIN IV PRN (06:39)
[2018-09-11] MEDS ORDERED: TIGHT: 0.2 ML/HR FOR DIALYSIS MISC PRN (06:39)
[2018-09-11] MEDS: HUMALOG SUBQ SCH ×4 (06:47→21:51)
[2018-09-11 07:05] LABS: ALBUMIN 2.6 g/dL (3.5-5.0); CALCIUM 7.7 mg/dL (8.8-10.2); CREATININE 3.4 mg/dL (0.5-0.9); POTASSIUM 4.2 mmol/L (3.5-5.1)
[2018-09-11] MEDS ORDERED: CALMOSEPTINE OINTMENT TOP PRN (12:32)
[2018-09-11] MEDS: NEURONTIN PO SCH (13:04)
[2018-09-11] MEDS: NEPHRO-VITE PO SCH (13:05)
[2018-09-11] MEDS: NORVASC PO SCH (13:05)
[2018-09-11] MEDS: COREG PO SCH ×2 (13:08→21:50)
--- NOTE | 2018-09-11 15:43 | NEPHROLOGY PROGRESS NOTE ---
DATE: 09/11/2018 SUBJECTIVE: Patient is sitting up in bed. She is complaining of her diet consistency. Specifically, that she wants ground up sausage and gravy with her eggs. OBJECTIVE: Vital Signs: Temperature 98.8 degrees, pulse 65, respiratory rate 16, blood pressure 129/56. Intake. 906 mL; output 4.1 liters. General: Elderly female, resting in bed. Awake alert, no acute distress. HEENT: Normocephalic, atraumatic. CHAO. Neck: Supple. No JVD. Cardiovascular: Regular rate and rhythm. Pulmonary: Clear bilaterally. Abdomen: Soft, positive bowel sounds. Chest: Right breast with ilya. No drainage. Extremities: No clubbing, cyanosis, edema. Integumentary: Skin is warm and dry, other than above noted and skin is fine. Neurologic: Grossly nonfocal. LAB DATA: Sodium 139, potassium 4.2, CO2 26, phosphorus 5.0, calcium 7.7. ASSESSMENT AND PLAN: 1. Chronic kidney disease 5 D. She dialyzes on Saturday, Saturday, Saturday. We will continue her on that schedule. Next dialysis tomorrow. 2. Cellulitis versus calciphylaxis to the right breast. We are awaiting secondary report of the biopsy. 3. Electrolytes, acid-base balance. These are acceptable. Dictated by REUBEN Abreu for Lucas Cooper MD cc: Lucas Cooper MD
[2018-09-11] MEDS ORDERED: VANCOMYCIN 1 GM/NS 1 GM/250 ML IVPB IV ONE (17:00)
--- NOTE | 2018-09-11 18:11 | PROGRESS NOTE ---
DATE: 09/11/2018 Ms. Garcia's breast incision seems to be healing well. Her clips remain in place. She is nearing discharge. I think that her skin clips need to stay at least in until next week. Maybe we can ask home health to remove them next . I feel that her wound is healing well. cc: Stacy Crocker MD
--- NOTE | 2018-09-11 18:29 | PROGRESS NOTE ---
DATE: 09/11/2018 INTERVAL HISTORY: No acute events overnight. Her vitals were unremarkable. The patient is denying any new complaints. We discussed about right breast wound ilya management, surgeon is also at bedside. Currently, patient denies any nausea, vomiting, undue pain on the right breast site. VITAL SIGNS: Temperature 98.5, pulse 69, respiratory rate 20, blood pressure 140/42. Saturating 96% on 2 L nasal cannula. PHYSICAL EXAMINATION: General: Patient does not appear in any acute distress. She is eating her dinner. HEENT: Oral cavity is moist. Lungs: Air entry bilaterally equal. No wheeze or rhonchi or crackles. Cardiovascular: S1, S2 normal. No murmur, rub, or gallop. Abdomen: Soft, nontender. Mild bilateral lower extremity edema. She also has a transverse scar of partial mastectomy with ilya on. There is mild erythema around the staple site. LABS: She does not have new CBC, BMP is suggestive of elevated BUN and creatinine. Microbiology: Blood culture no positive data. No new imaging. ASSESSMENT AND PLAN: 1. Right breast wound with necrosis and infection, status post partial mastectomy on 09/05/2018, with local cellulitis. Continue intravenous vancomycin and intravenous cefepime, and I will stop it at the time of discharge. Surgeon is planning removal of every alternate ilya today or tomorrow, and then would plan outpatient removals of ilya at least one week later, I will discuss with director of social work team if home nurse can do that since the patient has transportation issues in seeing the surgeon doctor in his office. She does not have any localized tenderness on the breast. 2. Continue home amlodipine, carvedilol for essential hypertension; levothyroxine for hypothyroidism; folic acid, multivitamin, gabapentin for chronic pain, end-stage renal disease. Nephrology on board. She is on Saturday, , Saturday hemodialysis through left groin catheter. 3. Anemia of chronic disease, diabetes and morbid obesity are currently in stable condition. I will continue silver sulfadiazine for decubitus ulcer and wound care. 4. Disposition: If her wound continues to do better and the surgeon doctor is able to remove alternate ilya, my plan is to discharge her without any antibiotics tomorrow to home. We also have to make plans of outpatient ilya removed either in surgeon's office or with home health care. I will involve director of social work to figure that out. Plan of care discussed with her. All of her questions have been answered. cc: Brett Barnett MD
[2018-09-11] MEDS: ZOFRAN IV PRN (21:55)
[2018-09-12] MEDS: ZOFRAN IV PRN ×3 (00:48→21:37)
[2018-09-12] MEDS: DILAUDID IV PRN ×7 (00:50→21:38)
[2018-09-12] MEDS: HEPARIN SUBQ SCH ×2 (04:59→17:11)
[2018-09-12] MEDS: SYNTHROID PO SCH ×2 (05:06→08:04)
[2018-09-12 06:45] LABS: ALBUMIN 2.9 g/dL (3.5-5.0); CALCIUM 8.2 mg/dL (8.8-10.2); CREATININE 3.2 mg/dL (0.5-0.9); PHOSPHORUS 4.6 mg/dL (2.7-4.5); POTASSIUM 3.8 mmol/L (3.5-5.1)
[2018-09-12] MEDS: HUMALOG SUBQ SCH ×3 (06:59→16:58)
[2018-09-12] MEDS: NEPHRO-VITE PO SCH (08:14)
[2018-09-12] MEDS: NEURONTIN PO SCH (08:14)
[2018-09-12] MEDS: COREG PO SCH ×2 (08:15→21:38)
[2018-09-12] MEDS: NORVASC PO SCH (08:15)
--- NOTE | 2018-09-12 13:29 | PROGRESS NOTE ---
DATE: 09/12/2018 INTERVAL HISTORY: No acute events overnight. SUBJECTIVE: Ms. Garcia is feeling the same. Denies any new complaints. She tells me that the surgeon doctor had evaluated her and had recommended that the patient should remain inside the hospital for another day considering mild erythema around the staple site and then tomorrow, staple removal will be planned. I discussed with the social and political studies professor team. It looks like the home care team can take care of remaining ilya as an outpatient and she may not have to follow up with surgeon doctor just for stable removal in the future, considering she has had ambulance issues and transportation issues currently. OBJECTIVE: Vital signs: Currently, temperature of 98.5 degrees, pulse 59, respiratory rate 14, blood pressure 123/48, saturating 96% 2 L nasal cannula. General: Morbidly obese, not in any acute distress. HEENT: Oral cavity is moist. Lungs: Air entry bilaterally equal. No wheeze, rhonchi, crackles. Cardiovascular: S1, S2 normal. No murmur or gallop. Abdomen: Soft, nontender. Extremities: Mild bilateral lower extremity edema. Skin: She has a transverse incision of partial mastectomy with ilya on about 20 cm over the right breast, and there is mild erythema around the incision site without any fluctuance that I could notice and only mild tenderness. LABORATORY DATA: BMP suggestive of normal electrolytes except elevated BUN/creatinine. Hyperglycemia in acceptable range. Microbiology noted. No imaging data. ASSESSMENT AND PLAN: 1. Right breast wound with necrosis and infection, status post partial mastectomy on 09/05/2018 with local cellulitis. Continue intravenous vancomycin and intravenous cefepime dosing according to Nephrology, which I will stop at the time of discharge. Surgery team on board and they are planning possible alternate staple removal tomorrow after which the remaining ilya should be removed by home care nurse next week on Saturday. The orders have been placed for it. 2. Others: Essential hypertension. Continue home amlodipine and carvedilol; continue levothyroxine for hypothyroidism; gabapentin for peripheral neuropathy; she is on Saturday, , Saturday hemodialysis through left groin catheter for her end-stage renal disease, and I will continue her folic acid and multivitamin for normocytic anemia. DISPOSITION: After alternate ilya have been removed by surgery team, I will plan on discharging the patient home with home care potentially later today or most likely tomorrow. Plan of care discussed with her. All of her questions have been answered. cc: Brett Barnett MD
[2018-09-12] MEDS: MAXIPIME 0.5 GM in NS 50 ML IV SCH (15:35)
--- NOTE | 2018-09-12 17:43 | PROGRESS NOTE ---
DATE: 09/12/2018 Ms. Garcia's mastectomy site is healing well. I removed every other skin clip. I think the rest of the skin clips need to stay for at least another week. There is some redness at her incision, but I do not feel there is any infection along her wound. Discharge planning is being done. cc: Stacy Crocker MD
[2018-09-13] MEDS: HUMALOG SUBQ SCH ×3 (00:51→15:46)
[2018-09-13] MEDS: DILAUDID IV PRN ×3 (00:54→13:51)
[2018-09-13] MEDS: ZOFRAN IV PRN ×3 (00:54→11:00)
[2018-09-13] MEDS: SYNTHROID PO SCH (05:52)
[2018-09-13] MEDS: HEPARIN SUBQ SCH (05:52)
[2018-09-13] MEDS ORDERED: NS 2,000 ML MISC PRN (07:47)
[2018-09-13] MEDS ORDERED: HEPARIN IV PRN (07:47)
[2018-09-13] MEDS ORDERED: TIGHT: 0.2 ML/HR FOR DIALYSIS MISC PRN (07:47)
[2018-09-13 08:43] LABS: ALBUMIN 2.5 g/dL (3.5-5.0); CALCIUM 8.4 mg/dL (8.8-10.2); CREATININE 4.3 mg/dL (0.5-0.9); PHOSPHORUS 5.9 mg/dL (2.7-4.5); POTASSIUM 4.6 mmol/L (3.5-5.1)
[2018-09-13] MEDS ORDERED: SSD CREAM TOP SCH (09:00)
[2018-09-13] MEDS ORDERED: CATHFLO IV ONE (09:21)
[2018-09-13] MEDS ORDERED: STERILE WATER INJ. INJ ONE (09:21)
[2018-09-13] MEDS: COREG PO SCH (12:22)
[2018-09-13] MEDS: NORVASC PO SCH (12:22)
[2018-09-13] MEDS: NEPHRO-VITE PO SCH (12:22)
[2018-09-13] MEDS: NEURONTIN PO SCH (12:22)
[2018-09-13] MEDS ORDERED: ULTRAM PO ONE (13:00)
[2018-09-13 15:48] VITALS: BP 153/42
--- NOTE | 2018-09-14 07:44 | NEPHROLOGY PROGRESS NOTE ---
DATE: 09/13/2018 SUBJECTIVE: The patient is undergoing hemodialysis. Her catheter is not flowing. She is to have cath flow placed. OBJECTIVE: Vital Signs: Temperature 98.6 degrees, pulse 60, respiratory rate 20, blood pressure 137/39. Intake 1.1 L, output 250 mL. General: This is a middle-aged female, resting in bed. She does not appear in distress. HEENT: Normocephalic, atraumatic. CHAO. Oral mucosa moist. Neck: Supple without JVD. Cardiovascular: Regular rate and rhythm. Pulmonary: No increased work of breathing. She is clear. Abdomen: Soft. Positive bowel sounds. : She continues with ilya to the right breast. There is some erythema noted to the incision line. Integumentary: Skin is warm and dry. Extremities: No clubbing, cyanosis, or edema. LABORATORY DATA: Sodium 135, potassium 4.6, CO2 of 23, creatinine 4.3, calcium 8.8. Phosphorus 5.9. Albumin 2.5. ASSESSMENT AND PLAN: 1. Chronic kidney disease 5D. She did not dialyze yesterday. We are dialyzing her today. Her labs are acceptable. If her catheter will not flow, to hold dialysis until Saturday if need be. 2. Cellulitis versus calciphylaxis to the right breast. We did call and request Pathology to review her specimen, specifically for calciphylaxis to rule that out. 3. Electrolytes, acid-base balance. Those are acceptable. 4. Disposition. Patient likely to be discharged today or tomorrow. Dictated by REUBEN Abreu for Lucas Cooper MD cc: Lucas Cooper MD
--- NOTE | 2018-09-14 11:27 | DISCHARGE SUMMARY ---
ADMISSION DATE: 09/04/2018 DISCHARGE DATE: 09/13/2018 DISCHARGE DISPOSITION: Home. DISCHARGE CONDITION: The patient is hemodynamically stable. She is pretty much bedbound because of morbid obesity. She has some discomfort on the right breast site, mainly burning. However, there is no discharge or warmth at the incision site. DISCHARGE DIAGNOSES: 1. Right breast lesion with eschar formation with necrosis of wound and surrounding inflammation and cellulitis. 2. Mastectomy surgery site wound infection/inflammation 2. Hyperkalemia. 3. Chronic sacral and buttock decubitus ulcer, not infected. OTHER DIAGNOSES: 1. Essential hypertension. 2. Hypothyroidism. 3. Peripheral neuropathy. 4. End-stage renal disease on Saturday, , Saturday hemodialysis through left groin catheter. 5. Anemia of chronic disease. 6. Chronic back pain. 7. Previous right breast wound, believed to be from spider bite. DISCHARGE MEDICATIONS: Amlodipine 10 mg daily, folic acid, vitamin B complex 1 tablet daily, gabapentin 200 mg daily, pantoprazole 40 mg daily, albuterol sulfate 0.63 mg inhaler every 8 hours as needed, carvedilol 6.25 mg b.i.d., [place] 5 one tablet every 6 hours as needed for pain(12 tablets have been prescribed), silver sulfadiazine cream 1 application daily, levothyroxine 75 mcg daily. CONSULTATIONS DURING HOSPITALIZATION: General surgeon, Dr. Crocker, and policy and planning manager, Dr. Cooper. PROCEDURES DURING HOSPITALIZATION: On September 05, the patient underwent partial mastectomy of distal right breast for open wound and necrosis of the distal periareolar right breast tissue. VITALS: At the time of discharge, temperature 98.4 degrees, pulse 80, respiratory rate 19, blood pressure 180/40, saturating 100% on nasal cannula. PHYSICAL EXAMINATION: Morbidly obese. Not in acute distress. However, she is complaining of some pain over the right breast site. Oral cavity is moist. Lungs: Air entry bilaterally equal. No wheeze, rhonchi, crackles. Cardiovascular: S1, S2 normal. No murmur, rub, or gallop. Abdomen: Soft, nontender. Mild bilateral lower extremity edema. She has a transverse incision of partial mastectomy on the right with ilya, about 20 cm over right breast. Her ilya have been removed on intermittent basis. Some of the ilya are still on. There is mild erythema around the incision site without any fluctuance and only mild tenderness. SIGNIFICANT LABS DURING HOSPITAL ADMISSION: Her sodium was 135, BUN 38, creatinine 4.3, blood sugar 165, albumin 2.5. Her hemoglobin was 10.5, platelet count of 345,000. SIGNIFICANT MICROBIOLOGY DATA DURING HOSPITAL ADMISSION: Urine culture had yeast. Blood culture, no growth to date. SIGNIFICANT IMAGING DURING HOSPITALIZATION: No significant imaging. PATHOLOGY: The right breast tissue had suggested, it had thickened squamous epithelium and breast tissue with marked acute and chronic inflammation, necrosis, ulceration, and granulation tissue formation. There were scattered dystrophic calcifications within the subcutaneous tissue vessels that were identified. This could be in the setting of chronic kidney disease related calcium deposition on my review of the pathology report. HOSPITAL COURSE SUMMARY: Ms. Garcia is a 63-year-old, lady with a past medical history of end-stage renal disease who came in on 09/04/2018 with chief complaint of right breast lesion with pain. In the emergency room, it looked like she had an eschar formation as well as there was redness and tenderness around the wound on the right breast. She reports she believed it was a spider bite. Apparently, the wound had appeared several days ago. She was seen in the emergency room and was discharged on oral antibiotics and wound nurse was taking care of it at home. However, her pain became intractable and she had come to the emergency room again. This time around, she was admitted for need for IV antibiotics. General surgery was consulted. Considering her wound failure of p.o. antibiotics outpatient and chronically open wound, she underwent right- sided partial mastectomy of distal right breast for open wound and necrosis of distal periareolar right breast tissue, which she tolerated well. Postprocedure course was, however, uncomplicated except there was some erythema around the ilya on the right breast site. Suspecting infection, she was kept on intravenous vancomycin and cefepime. She received her routine hemodialysis during this admission. Her erythema did not get worse during hospital admission and so intermittent ilya were removed. At the time of discharge, there was no evidence of any fluctuance at the wound site and she was on IV antibiotics for almost 9 days so it was decided to discharge the patient. Through school social worker team home care, staple removal of right breast remaining wound ilay was planned. The patient's ilya should be removed no earlier than 5 days after discharge. Staple removal order has been put in for the staple removal on Saturday. Plan of care was discussed with the patient and all of her questions were answered at the time of discharge. She was not on any antibiotics at the time of discharge. More than 30 minutes were spent in discharging this patient. cc: Brett Barnett MD MTDD
== END 2018-09-13 16:00 | disposition home health service (06) | DRG 907 ==
LOC: SUPCPDRO → ED 05:34 → SUATTDRO 10:40 → 4N 10:40
PROVIDERS: ATTEND Internal Medicine
PROC: GE.MAST (2018-09-05 09:05)
CPT/HCPCS: 80048; 80053; 80069; 81001; 82310; 82948; 83605; 83735; 83970; 84100; 85025; 85027; 87040; 87088; 88305; 88313; 96374; 99285; A9270; J0330; J0692; J1170; J1200; J1644; J1815; J2270; J2405; J2997; J3010; J3370; J7030; XXXXX

== ENCOUNTER 2018-10-08 22:06 | Inpatient (IN) ==
[2018-10-09 00:04] LABS: INR 2.32; PROTIME 27.2 Seconds (11.0-16.0)
[2018-10-09 00:05] LABS: BASO# 0.05 X1000 (0.0-0.2); BASO% 0.6 % (0.0-0.8); EOS# 0.68 X1000 (0.0-0.7); EOS% 8.1 % (0.0-10.0); HEMATOCRIT 36.6 % (37.0-47.0); HEMOGLOBIN 11.5 g/dL (12.0-16.0); IMM GRAN# 0.02 X1000 (0.0-0.04); IMM GRAN% 0.2 % (0.0-0.5); LYMPH# 2.49 X1000 (1.2-3.4); LYMPH% 29.7 % (20.5-51.1); MCH 25.1 PG (27-31); MCHC 31.4 g/dL (33-37); MCV 79.7 FL (81-99); MONO# 0.53 X1000 (0.11-0.59); MONO% 6.3 % (1.7-9.3); NEUT% 55.1 % (42.2-75.2); PLT 368 X1000 (130-400); PTT 39.7 Seconds (22.3-41.8); RBC 4.59 XMIL (4.2-5.4); RDW 19.2 % (11.5-14.5); WBC 8.37 X1000 (4.8-10.8)
[2018-10-09 00:24] LABS: ALB/GLOB RATIO 1.2; ALBUMIN 3.8 g/dL (3.5-5.0); CALCIUM 8.4 mg/dL (8.8-10.2); CREATININE 4.3 mg/dL (0.5-0.9); POTASSIUM 5.2 mmol/L (3.5-5.1); TOTAL BILIRUBIN 0.31 mg/dL (0.20-1.00); TOTAL PROTEIN 7.1 g/dL (6.3-8.3)
[2018-10-09 00:58] LABS: URINE SOURCE CATH
[2018-10-09 01:01] LABS: BILIRUBIN URINE NEGATIVE (NEGATIVE); BLOOD URINE SMALL (NEGATIVE); COLOR YELLOW; GLUCOSE URINE 150 mg/dL (NEGATIVE); KETONE URINE NEGATIVE (NEGATIVE); LEUKOCYTES URINE LARGE (NEGATIVE); NITRITE URINE NEGATIVE (NEGATIVE); PH URINE 8.5; PROTEIN URINE 600 mg/dL (NEGATIVE); SP GRAVITY URINE 1.011; TURBIDITY URINE HAZY (CLEAR); UROBILINOGEN URINE NORMAL (NORMAL)
[2018-10-09 01:02] LABS: UR EPITHELIAL CELLS <10 /HPF (<10); URINE BACTERIA NEGATIVE /HPF; URINE RBC 20-40 /HPF (<10); URINE WBC TNTC /HPF (<10)
[2018-10-09 01:22] LABS: URINE CASTS NONE SEEN; URINE CRYSTALS NONE SEEN; URINE SMALL ROUND CELLS NONE SEEN; URINE YEAST NONE SEEN
[2018-10-09] MEDS ORDERED: FLAGYL 500 MG/NS 500 MG/100 ML IVPB IV ONE (01:57)
--- NOTE | 2018-10-09 02:39 | PROVIDER DOCUMENTATION ---
This chart was entered by Pili Ruvalcaba Scribe, acting as scribe for Willard Linda MD. HPI-Abdominal Pain/GI Problem - General Stated Complaint: BACK PAIN, NAUSEA, VOMITING Time Seen by Provider: 10/08/18 22:14 Source: patient Allergies/Adverse Reactions: Patient Allergies Allergy/AdvReac Type Severity Reaction Status Date / Time No Known Allergies Allergy Verified 09/30/18 23:31 Home Medications: Home Medication List Medication Instructions Recorded Confirmed Last Taken Type Levothyroxine [Synthroid] 75 microgm PO DAILY@0700 tablet 12/02/17 09/30/18 07/07/18 Rx Carvedilol [Coreg] 6.25 mg PO BID #60 tab 04/09/18 09/30/18 07/07/18 Rx Amlodipine Besylate 1 tab PO DAILY 06/27/18 09/30/18 07/07/18 History Gabapentin 2 cap PO DAILY 06/27/18 09/30/18 07/07/18 History Pantoprazole [Protonix] 1 tab PO DAILY 06/27/18 09/30/18 07/07/18 History Carvedilol 6.25 mg PO BID 09/30/18 09/30/18 Unknown History Furosemide [Lasix] 40 mg PO DAILY 09/30/18 09/30/18 Unknown History Hydralazine [Apresoline] 50 mg PO TID 09/30/18 09/30/18 Unknown History Warfarin Sodium 2.5 mg PO DAILY 09/30/18 09/30/18 Unknown History Amoxicillin 500 mg PO TID #30 cap 10/01/18 Unknown Rx Doxycycline Hyclate 100 mg PO Q12HR #20 tab 10/01/18 Unknown Rx - History of Present Illness-ABD Nature of Presenting Problems: 63yof presents to ED by EMS cc nausea, vomiting, and diarrhea since 8am today. Pt reports she had a left side masectomy recently. Pt has hx of CHF, DM, HTN and is on dialysis ,,. Abdominal Pain Onset Location: reports: generalized abdomen Pain Radiation: reports: no radiation Quality of Pain: reports: aching Severity in ED: reports: mild Onset/Duration: reports: this morning Timing: reports: still present, intermittent Activities at Onset: reports: none Modifying Factors: improves with: nothing Associated Symptoms: reports: diarrhea, nausea, vomiting Last BM: this evening Dark Stools Present?: reports: none noticed Rectal Bleeding: reports: none Rectal Pain: reports: none Emesis Description: reports: none Bruising or Bleeding Gums?: No Similar Symptoms Previously?: No Recently seen or treated by another doctor?: No Review of Systems - Adult - REVIEW OF SYSTEMS - ADULT Constitutional: reports: see HPI. denies: chills, fever, fatique Eyes: reports: no symptoms reported Ears, Nose, Mouth & Throat: reports: no symptoms reported Cardiovascular: reports: no symptoms reported Respiratory: reports: no symptoms reported Gastrointestinal: reports: see HPI, diarrhea, nausea, vomiting Genitourinary: reports: no symptoms reported Musculoskeletal: reports: no symptoms reported Integumentary: reports: no symptoms reported Neurological: reports: no symptoms reported Psychiatric: reports: no symptoms reported Endocrine: reports: no symptoms reported Hematologic/Lymphatic: reports: no symptoms reported Allergic/Immunologic: reports: no symptoms reported All Other Systems: Reviewed and Negative Past History - Adult - PAST MEDICAL HISTORY-ADULT Review of Records: reports: Nursing Assessment Review, Medications Reviewed, Social history reviewed & non-contributory. Major Childhood Illnesses: reports: denies history Cardiovascular: reports: blood clots (dvt), CHF, HTN, hyperlipidemia, murmur Respiratory: reports: sleep apnea Gastrointestinal: reports: GERD Obstetrical/Gynecological: reports: denies history Genitourinary: reports: dialysis, ESRD, kidney disease, chronic UTI's, other (bladder spasms, neurogenic bladder with obstructions) Musculoskeletal: reports: denies history Neurological: reports: denies history Psychiatric: reports: denies history Endocrine/Immune: reports: Diabetes, thyroid disorder Other Conditions: reports: denies history - PRIOR SURGERIES/PROCEDURES Surgical/Procedure History: reports: cholecystectomy, hysterectomy, indwelling device (suprapubic cath--10/11, replaced 11/21 c daigle cath because suprapubic cath was dislodged), orthopedic (extremity), other (bladder surgery, left knee, right hand) - PRIOR HOSPITALIZATIONS Prior Hospitalizations: reports: for other non-related - IMMUNIZATION STATUS Childhood Immunizations: See Nurse Assessment Flu Vaccine: See Nurse Assessment - FAMILY HISTORY Family History: reviewed, not pertinent Physical Exam-General - PHYSICAL EXAM-ADULT Initial Vital Signs Reviewed: Yes - CONSTITUTIONAL General Appearance: appears well, alert. negative: anxious, combative - EYES Eyes: PERRL/EOMI, pink conjunctivae. negative: photophobia - HEAD, EARS, NOSE, MOUTH & THROAT HENMT: moist mucous membranes, normal ENT inspection, TMs normal, pharynx normal . negative: angioedema, dental decay, hearing deficit - NECK Neck: non-tender, full range of motion, supple, normal inspection. negative: Brudzinski's sign, carotid bruit, C-spine tenderness - RESPIRATORY Respiratory: chest non-tender, lungs clear, normal breath sounds, no pleuratic chest pain, no respiratory distress, no accessory muscle use. negative: crackles, rales, rhonchi - CARDIOVASCULAR Cardiovascular: normal peripheral pulses, regular rate, rhythm, no edema, no gallop, no JVD, no murmur. negative: bradycardia, tachycardia - GASTROINTESTINAL (ABDOMEN) Abdominal Exam: normal bowel sounds, non tender, soft, no organomegaly. negative: rigid, rebound, tenderness - LYMPHATIC Lymphatic: negative: no adenopathy, striations - MUSCULOSKELETAL Back Exam: normal inspection. negative: swelling Extremity: normal range of motion, normal inspection. negative: deformity, erythema - SKIN Integumentary: normal color, normal turgor, warm/dry. 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 negative: facial droop, focal weakness - PSYCHIATRIC Psych/Mental Status: normal mood/affect, normal thought content, normal thought process, oriented x 3. negative: disoriented x 3, anxious, disheveled Progress - PLAN OF CARE/RESULTS Progress/Plan/Lab Results: Orders Category Date Time Status CHEST-PORTABLE [RAD] Stat Exams 10/08/18 22:[address] ABDOMEN/PELVIS W/O CONTRAST [CT] Stat Exams 10/08/18 22:22 Ordered C DIFF TOXIN [STOOL] Stat Lab 10/08/18 22:22 Uncollected CBC WITH ELECTRONIC DIFF [HEME] Stat Lab 10/08/18 22:22 Uncollected COMPREHENSIVE METABOLIC PANEL [CHEM] Stat Lab 10/08/18 22:22 Uncollected PROTIME WITH INR [COAG] Stat Lab 10/08/18 22:22 Uncollected PTT [COAG] Stat Lab 10/08/18 22:22 Uncollected URINALYSIS W/POSS RFLX CULT [URINALYSIS] Stat Lab 10/08/18 22:22 Uncollected Result Diagrams: 10/08/18 20:45 10/08/18 20:45 - CT/MRI 1 CT Study: Abdomen, Pelvis Impression: See EMR Report (Mild bilateral hydronephrosis. No stone within the course of either ureter. Retropritoneal adenopathy. Rectal wall thickening with adjacent inflammatory changes. This could represent component of infection. Cirrhosis of the liver.) - CONSULTS/PCP/HOSPITALIST Notification #1 *Consult/PCP/Hospitalist*: Dr. Chacon Time Discussed: 02:30 Consult Disposition: Admit Departure - Departure Date of Disposition Decision: 10/08/18 Time of Disposition Decision: 02:38 DIAGNOSIS: Colitis Disposition: ADMITTED INPATIENT 09 Certified Medical Emergency: Emergent Condition: Serious Referrals and Follow-Ups: Halie Valentino MD [Primary Care Provider] - - Critical Care Note This patient required my direct & personal management of CC.: No Attestation - Physician/ SARA Attestation Patient care was provided by Advanced Practice Provider:: No The physician spent face to face time with patient:: Yes Advanced Practice Provider documentation review:: Supervising physician onsite and consulted in the evaluation and care of this patient. The physician did have a face to face encounter with the patient. This chart was documented by the indicated scribe, (Pili Ruvalcaba Scribe) and accurately reflects the services I performed and decisions made by me, Willard Linda MD, as attested by the provider's signature.
[2018-10-09] MEDS ORDERED: ZOFRAN IV PRN (03:03)
[2018-10-09] MEDS ORDERED: NS 1,000 ML IV ONE (03:07)
[2018-10-09] MEDS ORDERED: ROCEPHIN 1 GM in NS 50 ML IV SCH (03:15)
[2018-10-09] MEDS ORDERED: HEPARIN IV PRN (06:14)
[2018-10-09] MEDS ORDERED: NS 2,000 ML MISC PRN (06:14)
[2018-10-09] MEDS ORDERED: TIGHT: 0.2 ML/HR FOR DIALYSIS MISC PRN (06:14)
--- NOTE | 2018-10-09 06:43 | HISTORY AND PHYSICAL ---
CHIEF COMPLAINT: Back pain, nausea, vomiting, diarrhea. RADIOLOGY PHYSICIAN: Lucas Cooper, PRIMARY CARE PROVIDER: Dr. Valentino. HISTORY OF PRESENT ILLNESS: Ms. Garcia is a 63-year-old female that is known to our service. She was last admitted on 09/14/2018. She looks much older than her stated age. She has a past medical history of end stage renal disease with Saturday, , Saturday hemodialysis, diabetes mellitus, type 2, hypertension, hypothyroidism, anemia of chronic disease, sleep apnea, chronic back pain, chronic urinary tract infections, a right breast wound with abscess status post partial mastectomy and previous sacral and buttocks area decubitus that are chronic. At any rate, over the last day she started having nausea, vomiting and diarrhea. She estimated that she had ten bouts of diarrhea and three episodes of vomiting. She denied any hematemesis, hematochezia or melena. She denied being around any family members that were sick. She has taken a lot of antibiotics IV and orally recently related to the right breast wound. C.difficile and stool cultures are pending. She will be admitted for further evaluation and treatment. PAST MEDICAL HISTORY: See HPI. PREVIOUS SURGICAL HISTORY: Right breast partial mastectomy, hysterectomy, carpal tunnel release, left knee surgery, bladder surgery, placement and replacement of left groin tunneled dialysis catheter. SOCIAL HISTORY: She is recently . No alcohol, tobacco or illicit drugs. FAMILY HISTORY: Notable for coronary artery disease, diabetes mellitus and uterine cancer in first degree relatives. ALLERGIES: No known drug allergies. HOME MEDICATIONS: Home medications have not been reconciled. REVIEW OF SYSTEMS: Fourteen-point review of systems conducted with the patient. Pertinent positives are listed above in the HPI. All other systems reviewed and found to be negative. PHYSICAL EXAMINATION: VITAL SIGNS: Temperature 98, pulse 73, respirations 18, blood pressure 161/108, oxygen saturation 98% on3 L nasal cannula. GENERAL: A 63-year-old female who looks much older than her stated age, lying in the ER stretcher, is alert and oriented times 3, answers all questions appropriately. HEENT: Head is atraumatic, normocephalic. Pupils equal, round, reactive to light. Extraocular eye movement is intact. Sclerae are anicteric. Conjunctiva is pale. Oral mucosa is dry. NECK: Supple. No JVD. No thyromegaly. Trachea is midline. No cervical lymphadenopathy. CARDIAC: S1, S2 appreciated. No murmurs, gallops, rubs. LUNGS: Clear to auscultation bilaterally. No rhonchi, wheezes, rales. Symmetric rise and fall with respirations. ABDOMEN: Soft, nondistended, nontender. Bowel sounds present all 4 quadrants, normoactive. No pulsatile mass. No organomegaly. EXTREMITIES: No clubbing, cyanosis Trace edema bilateral lower extremities. Nonpitting 1+ pedal pulses. GENITOURINARY: No bladder distention. Otherwise deferred. NEUROLOGICAL: Alert and oriented times 3. No focal motor deficits. Otherwise nonfocal examination. DIAGNOSTIC DATA: Chest x-ray: Mildly increased pulmonary vascular marking. CT of the abdomen and pelvis: Mild bilateral hydronephrosis. Retroperitoneal adenopathy. Rectal wall thickening with adjacent inflammatory changes. Cirrhosis of the liver. LABORATORY DATA: WBC 8.37. Hemoglobin 11.5. Hematocrit 36.6. Platelet count 368. INR 2.32. Sodium 140. Potassium 5.2. Chloride 102. Carbon dioxide 25. BUN 38. Creatinine 4.3. Glucose 103. Urine: Leukocyte esterase positive with too numerous to count WBCs. ASSESSMENT AND PLAN: 1. Colitis. Unsure if this is infectious in nature. At this time will treat with Flagyl IV. Will also give Rocephin 1 g for three days for dual therapy treatment of her urinary tract infection. 2. Urinary tract infection. Will give 1 g of Rocephin daily for the next three days. Cultures are pending. 3. Nausea, vomiting, diarrhea. Will give Zofran as needed. Will not attempt to slow down diarrhea until C.difficile returns for fear of toxic megacolon. 4. Diabetes mellitus, type 2. Fingerstick blood sugars with sliding scale insulin. 5. End stage renal disease with Saturday, , Saturday hemodialysis. Consult Dr. Cooper. 6. Hypertension. Continue home medications once reconciled. 7. Anemia of chronic disease, stable. Further recommendations per patient clinical course. Dictated by REUBEN Harden for Pascual Chacon MD cc: REUBEN Harden MD Bhavna Gowda, MD Independent exam and assessment done at bedside with COMPOUNDING TECHNICIAN Answered pt's question and the above plan was discussed with COMPOUNDING TECHNICIAN. YONAS
--- NOTE | 2018-10-09 07:01 | Diag Imaging Result Doc PS360 ---
CT ABDOMEN/PELVIS W/O CONTRAST - 10/08/2018 INDICATION: abd pain, acute kidney injury COMPARISON: 10/01/2018 FINDINGS: Stable extensive, heterogeneous infiltrates in the lung bases. There is probably a component of pulmonary edema as well. Trace pericardial effusion. Heart size remains enlarged. Stable severe vascular disease. Stable severe atrophy of the kidneys. Stable body wall edema. Stable cholecystectomy changes. All other abdominal organs remain normal. There is significant wall thickening of the rectum similar to prior. This is compatible with proctitis. No free air or free fluid. Stable severe body wall edema. There is osteopenia throughout the bones diffusely. There are moderate degenerative changes of the spine. No acute or suspicious bony lesion. IMPRESSION: 1. Stable significant bibasilar infiltrates consistent with edema and/or pneumonia. Stable cardiomegaly. 2. Proctitis. This exam was performed using automated exposure control, adjustment of mA or kV according to patient size, and/or use of iterative reconstruction technique Electronically signed by Manuel Montoya 10/09/2018 6:59 AM
--- NOTE | 2018-10-09 07:13 | Diag Imaging Result Doc PS360 ---
EXAM: CHEST-PORTABLE HISTORY: weak TECHNIQUE: Chest single view COMPARISON: 10/01/2018 FINDINGS: Poor inspiratory effort. Heart is mildly enlarged. There are increased interstitial markings/pulmonary edema similar to the prior study. No pleural effusions identified. No consolidation. IMPRESSION: Cardiomegaly with pulmonary edema. Electronically signed by Scott Bhardwaj 10/09/2018 7:11 AM
[2018-10-09] MEDS ORDERED: FLAGYL 500 MG/NS 500 MG/100 ML IVPB IV SCH (09:00)
[2018-10-09] MEDS: HUMALOG SUBQ SCH ×3 (11:26→17:14)
--- NOTE | 2018-10-09 14:34 | PROGRESS NOTE ---
DATE: 10/09/2018 SUBJECTIVE: Today Ms. Garcia refers to be doing fairly okay. Has not had any more diarrhea. OBJECTIVE: Vital signs: Blood pressure is 173/74, pulse of 71, respirations 16, temperature 98.1 degrees. The patient is saturating 95% on 3 L. General exam: Ms. Garcia is a 63-year-old female. She is in bed, no distress. HEENT: Mucosa is pink and moist. Anicteric. Acyanotic. Neck: Supple. Chest: Good air entry bilateral. There are no crepitations, no rhonchi. Cardiovascular: Regular rate and rhythm. Abdomen: Soft, nontender. Bowel sounds present. Extremities: No pedal edema. There is a tunnel dialysis catheter into the left femoral vein. CHAIN MAKER HAND: Patient is awake, alert and oriented. LABORATORY DATA: None for today. IMAGING STUDIES: A CT scan of the abdomen was done which shows stable significant bibasilar infiltrates consistent with edema and/or pneumonia. There is also proctitis. ASSESSMENT: 1. Profuse diarrhea associated with proctitis on CT imaging. The patient is currently on intravenous antibiotics. Has not had any more diarrhea since today. We are going to continue with the intravenous antibiotics for another 24 hours. If she continues to be stable, we will discharge her tomorrow. 2. History of end-stage renal disease on hemodialysis. Nephrology is on board. 3. Diabetes mellitus, controlled. 4. Hypertension. 5. Hypothyroidism. We will start the patient back on thyroid supplement. cc: Ray Leone MD
[2018-10-09] MEDS: FLAGYL PO SCH (17:15)
[2018-10-09] MEDS: APRESOLINE PO SCH (17:15)
[2018-10-09] MEDS: TYLENOL PO PRN (18:11)
--- NOTE | 2018-10-09 19:14 | NEPHROLOGY CONSULTATION ---
DATE: 10/09/2018 REASON FOR ADMISSION: Nausea and vomiting with chronic diarrhea for 48 hours associated with back pain. REASON FOR CONSULTATION: End-stage renal disease with hemodialysis. HISTORY OF PRESENT ILLNESS: Ms. Garcia is a 63-year-old white female who is known to our outpatient services for hemodialysis on Saturday, and Saturday. The patient states that she went to her regular scheduled dialysis appointment on Saturday. She stated that after that treatment, she had gone home and was being taken care of by her niece. She states that they had had a friend bring in fresh vegetables from their garden. She started to have nausea and vomiting, as well as did her niece. States that her niece was better after less than 24 hours. She herself has continued to have greater than 3-4 episodes of nausea and vomiting. She denies any hematemesis, hematochezia or any melena, though she has nothing but liquid stool which is frothy green in appearance, according to the patient, and a sore rectum and bottom. The patient was seen in the emergency room. She had an evaluation for C difficile. Stool cultures are pending. Her chest x-ray showed pulmonary edema. She had a CT of the chest indicating stable infiltrates versus pneumonia and proctitis on the CT of the abdomen. She does deny chest pain. No increased work of breathing. No complaints of increased lower extremity swelling. Positive for nausea, vomiting and liquid diarrhea stool. She has no fever or chills. Abdominal cramping. No recent falls. PAST MEDICAL HISTORY: End-stage renal disease with hemodialysis on Saturday, and Saturday, hypertension, diabetes mellitus type 2, hypothyroidism, anemia of chronic disease, sleep apnea, chronic back pain, chronic urinary tract infections, wound to right breast with abscess status post partial mastectomy, previous sacral and buttock decubitus (chronic), osteodystrophy of chronic disease. PAST SURGICAL HISTORY: The patient has had a right breast partial mastectomy in 2019, hysterectomy, carpal tunnel release, left knee surgery, bladder surgery, placement and replacement of left groin tunneled dialysis catheters. SOCIAL HISTORY: She is recently in the last month. Denies any tobacco, alcohol or illicit drug use. FAMILY HISTORY: Notable for coronary artery disease, diabetes mellitus, and uterine cancer in 1st- degree relatives. No end-stage renal disease. ALLERGIES: No known drug allergies. HOME MEDICATIONS: Have yet to be reconciled. REVIEW OF SYSTEMS: Times 10 with pertinent positives listed above in the HPI. LABORATORY DATA: Sodium 140, potassium 5.2, chloride 102. CO2 is 25, BUN 38,creatinine 4.3, glucose 103. Her anion gap is 13, calcium 8.4. Albumin is 3.8, white count 8.37, hemoglobin 11.5, hematocrit 36.6 with a platelet count of 368. Her pro time is 27.2 with an INR of 2.32, PTT 39.7. C difficile culture is currently pending. Chest x-ray with positive pulmonary edema. CT of the abdomen shows proctitis and infiltrates versus pneumonia. PHYSICAL EXAMINATION: Vital Signs: Temperature 97.6, blood pressure 151/108, heart rate 59, respirations 18. She is on room air. Last recorded saturation 98%. She has had 0 recorded in or out. Gastrointestinal: She is wearing a pad for her chronic diarrhea stools, recorded to have already had over 3-4 while in the ER. General: This is a 63-year-old white female. She is resting quietly on a stretcher in the emergency room. She appears chronically ill. Skin: Warm and dry. HEENT: Normocephalic, atraumatic. Conjunctivae are pale. CHAO. Mucous membranes dry. Neck: Supple. Trachea midline. No evidence of JVD. Cardiovascular: She has a regular rate and rhythm. No murmur or gallop is appreciated. Lungs: Basically clear to auscultation. Bilaterally equal excursion. She is on room air. Abdomen: Soft and nontender. Positive bowel sounds, hyperactive. Genitourinary: Not inspected. The patient is on her side. She has a reddened erythematous area to her buttock. Extremities: She has trace to 1+ lower extremity edema. No clubbing or cyanosis. Neurological: She is alert and oriented x3. ASSESSMENT/PLAN: 1. Chronic kidney disease stage 5D. The patient is due for her routine dialysis treatment today. We will place her on a 2K bath. She is to dialyze for 3.5 hours. We will attempt to pull 1 liter of ultrafiltration. 2. Colitis versus Clostridium difficile with chronic diarrhea stools. The patient has received Vancocin oral and Flagyl IV, along with Rocephin 1 gram IV ordered for 3 days for treatment of a urinary tract infection. Clostridium difficile cultures are currently pending. 3. Electrolytes and acid-base balance. These are acceptable with correction on dialysis. 4. Anemia. This is close to target. 5. Hypertension. This is stable. 6. Nausea and vomiting. The patient has been treated with Zofran. I would like to thank you for allowing us to follow with this patient. Dictated by REUBEN Rey for Lucas Cooper MD Face to face encounter, data reviewed, discussed with Annia Borden on 10/09/18. I agree with the above assessment and plan of care. cc: REUBEN Rey MD [facility]
[2018-10-09] MEDS ORDERED: XANAX PO ONE (21:00)
[2018-10-10] MEDS: HUMALOG SUBQ SCH ×3 (00:04→11:28)
[2018-10-10] MEDS: COREG PO SCH ×2 (00:05→10:06)
[2018-10-10] MEDS: AUGMENTIN PO SCH ×2 (00:05→10:06)
[2018-10-10] MEDS: TYLENOL PO PRN (02:22)
[2018-10-10 06:29] LABS: BASO# 0.04 X1000 (0.0-0.2); BASO% 0.6 % (0.0-0.8); EOS# 0.65 X1000 (0.0-0.7); EOS% 9.7 % (0.0-10.0); HEMOGLOBIN 10.4 g/dL (12.0-16.0); LYMPH# 2.17 X1000 (1.2-3.4); LYMPH% 32.3 % (20.5-51.1); MCH 24.8 PG (27-31); MCHC 30.6 g/dL (33-37); MCV 81.1 FL (81-99); MONO% 7.4 % (1.7-9.3); NEUT# 3.36 X1000 (1.4-6.5); PLT 329 X1000 (130-400); RBC 4.19 XMIL (4.2-5.4); RDW 19.3 % (11.5-14.5); WBC 6.72 X1000 (4.8-10.8)
[2018-10-10 06:55] LABS: CALCIUM 8.2 mg/dL (8.8-10.2); CREATININE 3.1 mg/dL (0.5-0.9); POTASSIUM 4.1 mmol/L (3.5-5.1)
[2018-10-10] MEDS ORDERED: SYNTHROID PO SCH (07:00)
[2018-10-10] MEDS ORDERED: NEURONTIN PO SCH (09:00)
[2018-10-10] MEDS ORDERED: COUMADIN PO SCH (09:00)
[2018-10-10] MEDS ORDERED: NORVASC PO SCH (09:00)
[2018-10-10] MEDS: FLAGYL PO SCH ×2 (10:06→12:43)
[2018-10-10] MEDS: APRESOLINE PO SCH ×2 (10:06→12:43)
[2018-10-10] MEDS ORDERED: SSD CREAM TOP SCH (11:15)
[2018-10-10 11:59] VITALS: BP 175/49
--- NOTE | 2018-10-10 15:33 | NEPHROLOGY PROGRESS NOTE ---
DATE: 10/10/2018 SUBJECTIVE: She is anxious to be discharged today because she has a planned for her tomorrow after dialysis. OBJECTIVE: Vital Signs: Blood pressure 175/49, heart rate 73, respiration 18, afebrile. General: No acute distress. Skin: Warm and dry. Neck: Neck veins are not distended. Heart: Regular. No gallops. Lungs: Equal, no crackles. Abdomen: Obese soft, nontender. Bowel sounds present. Extremities: Perhaps 1+ edema. No clubbing or cyanosis. IMPRESSION: 1. Chronic kidney disease 5D. 2. Volume status/electrolytes/acid base/anemia all in target. 3. Okay for discharge today and she can attend her routine treatment tomorrow. cc: Lucas Cooper MD
--- NOTE | 2018-10-10 20:41 | DISCHARGE SUMMARY ---
ADMISSION DATE: 10/09/2018 DISCHARGE DATE: 10/10/2018 DIAGNOSES: 1. Colitis. 2. Perfuse diarrhea associated with proctitis on CT imaging. 3. History of end-stage renal disease on hemodialysis followed by Dr. Cooper. 4. Diabetes mellitus controlled. 5. Hypertension. 6. Hypothyroid with a TSH of 10.55. CONSULTS: Dr. Cooper, nephrology. DIAGNOSTICS: 1. CT of the abdomen and pelvis without contrast revealed stable significant bibasilar infiltrates consistent with edema and/or pneumonia, stable cardiomegaly and proctitis. 2. Chest x-ray revealed cardiomegaly with pulmonary edema. 3. Microbiology. Urine culture revealed no growth. Clostridium difficile toxin was negative. Stool culture revealed no enteric pathogen. HOSPITAL COURSE: Ms Garcia presented to the emergency room complaining of back pain, nausea, vomiting and diarrhea. She was found to have proctitis on CT scan for which she was started on Flagyl and Rocephin. Zofran was given for nausea, vomiting. Diarrhea has decreased significantly having only 1 formed stool in the last 24 hours. Urine was negative. Urine culture was negative. She was found to have a TSH of 10.55 for which she was started on levothyroxine. Today she states that she is doing very well. She has tolerated a renal diet with no more nausea, no vomiting, no more diarrhea and she is ready for discharge. DISCHARGE PHYSICAL EXAM: Vital signs: Blood pressure is 170/49, respirations are 18, heart rate 73 with a temperature of 98.3 degrees oral and O2 saturations 96%. Cardiovascular: Regular rate and rhythm. S1 and S2 appreciated. She has no lower extremity edema. Peripheral pulses are palpable x4 extremities and calves are nontender. Pulmonary: Breath sounds are clear with no increased work of breathing noted. Chest rises and falls symmetric respiration. Gastrointestinal: Abdomen soft, nontender, nondistended with bowel sounds in all 4 quadrants. Neurologic: She is alert and oriented. DISCHARGE MEDICATIONS: 1. Levothyroxine 88 mcg p.o. daily. 2. Flagyl 250 mg p.o. t.i.d. for 7 days. 3. Augmentin 875 mg p.o. b.i.d. for 10 days. 4. Warfarin 2.5 mg p.o. daily. 5. Silvadene 4 times a day. 6. Protonix 40 mg daily. 7. Lasix 40 mg daily. 8. Gabapentin 200 mg p.o. daily. 9. Carvedilol 6.25 mg p.o. b.i.d. 10. Hydralazine 50 mg p.o. t.i.d. 11. Norvasc 10 mg p.o. daily. FOLLOWUP: 1. She is to call Dr. Valentino on Saturday to schedule an appointment for 7 to [address] Cooper. She is to have dialysis as scheduled and follow up with his office at his scheduled appointment. 3. She has been instructed to call to be seen sooner or return to the ER for any syncope, dizziness, chest pain, palpitations, shortness of breath, cough, temperature greater than 101, any chills, any night sweats, any nausea, vomiting, diarrhea, constipation, black or bloody vomitus or stools, any gross hematuria, dysuria, frequency, urgency. She is being discharged home in stable condition with family members. TIME SPENT: Greater than 30 minutes. Dictated by REUBEN Ramos for Ray Leone MD cc: MD aRy Fontenot MD I have seen and examined Ms. Garcia today. She is currently asymptomatic. No more abdomen pain nor diarrhea. Vitals stable and physical exams unremarkable. Ms Garcia is stable for discharge. I have reviewed and reconciled her home medications. I agree with the above discharge summary. VELVET BRANHAM
[2018-10-11] MEDS ORDERED: SYNTHROID PO SCH (07:00)
== END 2018-10-10 14:52 | disposition home health service (06) | DRG 391 ==
LOC: SUPCPDRO → ED 22:06 → 4N 10-09 01:15 → SUATTDRO 10-09 04:45 → EDIPHOLD 10-09 04:45 → 4N 10-09 07:51
PROVIDERS: ATTEND Internal Medicine
CPT/HCPCS: 71010; 71045; 74176; 80048; 80053; 81001; 82948; 84443; 85025; 85610; 85730; 87045; 87046; 87088; 87324; 96361; 96365; 96366; 96368; 99285; A9270; J0696; J1644; J7030; S0030; XXXXX

== ENCOUNTER 2018-11-01 18:58 | Inpatient (IN) ==
[2018-11-01] MEDS ORDERED: DUONEB (A & A) INH ONE (20:28)
[2018-11-01 21:11] LABS: ALLEN TEST YES; BE -1.7 mmoll (-3.0-3.0); BLOOD TYPE ARTERIAL; HCO3-(ACT) 23.6 mmoll (20.0-26.0); METHB 1.4 % (0.0-1.5); O2(CT) 12.5 mL/dL (15.0-23.0); O2HB 96.3 % (95.0-99.0); PCO2(98.6) 37 mmHg (35-45); PO2(98.6) 133 mmHg (60-100); SAMPLE BLOOD; SAO2 98.4 % (95.0-100.0)
[2018-11-01 21:12] LABS: MODALITY CANNULA
--- NOTE | 2018-11-01 21:12 | Diag Imaging Result Doc PS360 ---
EXAM: CHEST-PORTABLE 11/01/2018 HISTORY: sob/cp TECHNIQUE: AP portable upright at 2037 COMMENT: There is cardiomegaly. There is increased pulmonary vascularity. There is platelike opacity bilaterally and coarse interstitial opacities. Compared to 10/08/2018 the inspiration is slightly less optimal but otherwise are has been no appreciable change. IMPRESSION: Cardiomegaly, pulmonary edema and subsegmental atelectasis. Electronically signed by Brent Feliz 11/01/2018 9:10 PM
[2018-11-01 22:26] LABS: HEMATOCRIT 29.1 % (37.0-47.0); HEMOGLOBIN 8.9 g/dL (12.0-16.0); RBC 3.55 XMIL (4.2-5.4); WBC 6.61 X1000 (4.8-10.8)
[2018-11-01 22:27] LABS: BASO# 0.02 X1000 (0.0-0.2); BASO% 0.3 % (0.0-0.8); EOS# 0.32 X1000 (0.0-0.7); EOS% 4.8 % (0.0-10.0); LYMPH# 1.03 X1000 (1.2-3.4); LYMPH% 15.6 % (20.5-51.1); MCH 25.1 PG (27-31); MCHC 30.6 g/dL (33-37); MONO# 0.55 X1000 (0.11-0.59); MONO% 8.3 % (1.7-9.3); MPV 10.6 FL (7.4-10.4); NEUT# 4.69 X1000 (1.4-6.5); PLT 227 X1000 (130-400); RDW 20.5 % (11.5-14.5)
[2018-11-01 23:07] LABS: ALB/GLOB RATIO 1.5; ALBUMIN 3.5 g/dL (3.5-5.0); CREATININE 5.2 mg/dL (0.5-0.9); POTASSIUM 4.1 mmol/L (3.5-5.1); TOTAL BILIRUBIN 0.15 mg/dL (0.20-1.00); TOTAL PROTEIN 5.9 g/dL (6.3-8.3)
[2018-11-01 23:08] LABS: CALCIUM 6.9 mg/dL (8.8-10.2)
[2018-11-01 23:09] LABS: URINE SOURCE CATH
[2018-11-01 23:20] LABS: BILIRUBIN URINE NEGATIVE (NEGATIVE); BLOOD URINE MODERATE (NEGATIVE); COLOR ORANGE; GLUCOSE URINE 200 mg/dL (NEGATIVE); KETONE URINE NEGATIVE (NEGATIVE); LEUKOCYTES URINE LARGE (NEGATIVE); NITRITE URINE NEGATIVE (NEGATIVE); PH URINE 6.5; PROTEIN URINE 200 mg/dL (NEGATIVE); SP GRAVITY URINE 1.018; TURBIDITY URINE TURBID (CLEAR); UROBILINOGEN URINE NORMAL (NORMAL)
[2018-11-01 23:28] LABS: UR EPITHELIAL CELLS >10 /HPF (<10); URINE BACTERIA 1+ /HPF; URINE RBC TNTC /HPF (<10); URINE WBC TNTC /HPF (<10)
[2018-11-01 23:30] LABS: URINE CASTS NONE SEEN; URINE CRYSTALS NONE SEEN; URINE SMALL ROUND CELLS NONE SEEN; URINE YEAST NONE SEEN
[2018-11-02] MEDS ORDERED: CALCIUM GLUCONATE 2 GM in NS 100 ML IV ONE ×2 (01:22→12:00)
[2018-11-02] MEDS ORDERED: ZOFRAN IV PRN (05:39)
--- NOTE | 2018-11-02 07:02 | PROVIDER DOCUMENTATION ---
This chart was entered by Samantha Bowers Scribe, acting as scribe for Martin Self MD. HPI-Respiratory General - General Stated Complaint: SOB Time Seen by Provider: 11/01/18 20:31 Source: patient Allergies/Adverse Reactions: Patient Allergies Allergy/AdvReac Type Severity Reaction Status Date / Time No Known Allergies Allergy Verified 09/30/18 23:31 Home Medications: Home Medication List Medication Instructions Recorded Confirmed Last Taken Type Amlodipine Besylate 1 tab PO DAILY 06/27/18 11/02/18 10/08/18 08:00 History Gabapentin 2 cap PO DAILY 06/27/18 11/02/18 10/08/18 20:00 History Pantoprazole [Protonix] 1 tab PO DAILY 06/27/18 11/02/18 10/08/18 07:00 History Carvedilol 6.25 mg PO BID 09/30/18 11/02/18 10/08/18 21:00 History Furosemide [Lasix] 40 mg PO DAILY 09/30/18 11/02/18 10/08/18 08:00 History Hydralazine [Apresoline] 50 mg PO TID 09/30/18 11/02/18 10/08/18 20:00 History Warfarin Sodium 2.5 mg PO DAILY 09/30/18 11/02/18 10/08/18 08:00 History Silver Sulfadiazine [Silvadene] 1 applicatn TOPICAL 4DAY 10/09/18 11/02/1809/27 14:00 History Amoxicillin/Pot Clavulanate 875 mg PO Q12HR #10 tab 10/10/18 Unknown Rx [Augmentin] Levothyroxine [Synthroid] 88 microgm PO DAILY@0700 #120 tab 10/10/18 11/02/18 Unknown Rx Metronidazole [Flagyl] 250 mg PO TID #21 tab 10/10/18 Unknown Rx Fluconazole [Diflucan] 150 mg PO DAILY #1 tab 10/26/18 Unknown Rx Nitrofurantoin Monohyd/M-Cryst 100 mg PO BID #10 cap 10/26/18 Unknown Rx [Macrobid 100 mg Capsule] Ondansetron Odt [Zofran 4 mg Odt] 4 mg PO Q6H PRN PRN #12 tab 10/26/18 Unknown Rx - History of Present Illness-Resp Nature of Presenting Problem: Pt is 63/F presenting to ED w/ SOB. Pt sts that she has some chest tightness when she coughs, she is coughing yellow sputum. 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 pt has O2 at home and is on 4 L. Quality of Pain: reports: tightness Severity in ED: reports: moderate Onset/Duration: reports: gradual Timing: reports: still present Cough Quality/Degree: reports: mild Episode Frequency: chronic episodes Current Respiratory Medication Therapy: Initiated see nurses note Modifying Factors: improves with: coughing (coughing worsens) Associated Symptoms: reports: denies symptoms Similar Symptoms Previously?: Yes Recently seen or treated by another doctor?: No Review of Systems - Adult - REVIEW OF SYSTEMS - ADULT Constitutional: reports: no symptoms reported. denies: chills, fever Eyes: reports: no symptoms reported Ears, Nose, Mouth & Throat: reports: no symptoms reported Cardiovascular: reports: no symptoms reported. denies: chest pain Respiratory: reports: cough, shortness of breath Gastrointestinal: reports: no symptoms reported. denies: abdominal pain, nausea, vomiting Genitourinary: reports: no symptoms reported Musculoskeletal: reports: no symptoms reported Integumentary: reports: no symptoms reported Neurological: reports: no symptoms reported. denies: dizziness/vertigo, headache/migraines Psychiatric: reports: no symptoms reported Endocrine: reports: no symptoms reported Hematologic/Lymphatic: reports: no symptoms reported Allergic/Immunologic: reports: no symptoms reported All Other Systems: Reviewed and Negative Past History - Adult - PAST MEDICAL HISTORY-ADULT Review of Records: reports: Old Records Reviewed, Nursing Assessment Review, Medications Reviewed, Social history reviewed & non-contributory. Major Childhood Illnesses: reports: denies history Cardiovascular: reports: blood clots (dvt), CHF, HTN, hyperlipidemia, murmur Respiratory: reports: sleep apnea Gastrointestinal: reports: GERD Obstetrical/Gynecological: reports: denies history Genitourinary: reports: dialysis, ESRD, kidney disease, chronic UTI's, other (bladder spasms, neurogenic bladder with obstructions) Musculoskeletal: reports: denies history Neurological: reports: denies history Psychiatric: reports: denies history Endocrine/Immune: reports: Diabetes, thyroid disorder Other Conditions: reports: denies history - PRIOR SURGERIES/PROCEDURES Surgical/Procedure History: reports: cholecystectomy, hysterectomy, indwelling device (suprapubic cath--10/11, replaced 11/21 c daigle cath because suprapubic cath was dislodged), orthopedic (extremity), other (bladder surgery, left knee, right hand) - PRIOR HOSPITALIZATIONS Prior Hospitalizations: reports: for other non-related - IMMUNIZATION STATUS Childhood Immunizations: See Nurse Assessment Flu Vaccine: See Nurse Assessment - FAMILY HISTORY Family History: reviewed, not pertinent - SOCIAL HISTORY Smoking: denies, non-smoker Substance Use: none/never Alcohol Use Frequency: never Living Situation: family Physical Exam-General - PHYSICAL EXAM-ADULT Initial Vital Signs Reviewed: Yes - CONSTITUTIONAL General Appearance: appears well, alert, no apparent distress, obese - EYES Eyes: PERRL/EOMI, pink conjunctivae - HEAD, EARS, NOSE, MOUTH & THROAT HENMT: normocephalic/atraumatic, moist mucous membranes, normal ENT inspection, TMs normal, pharynx normal - NECK Neck: non-tender, full range of motion, supple, normal inspection - RESPIRATORY Respiratory: chest non-tender, normal breath sounds, crackles (crackles at R base) - CARDIOVASCULAR Cardiovascular: regular rate, rhythm - GASTROINTESTINAL (ABDOMEN) Abdominal Exam: normal bowel sounds, non tender, soft - LYMPHATIC Lymphatic: no adenopathy - MUSCULOSKELETAL Back Exam: normal inspection, no CVA tenderness, no vertebral tenderness Extremity: normal range of motion, non-tender, normal gait, normal inspection - SKIN Integumentary: normal color, normal turgor, warm/dry - NEUROLOGIC Neurologic: grossly normal - PSYCHIATRIC Psych/Mental Status: normal mood/affect, normal thought content, normal thought process, oriented x 3 - HEART Score HEART Score: History: Moderately Suspicious HEART Score: ECG: Non-Specific Repolarization Disturbance/LBBB/PM HEART Score: Age: 45-65 Years HEART Score: Risk Factors for Atherosclerotic Disease: 1 or 2 Risk Factors HEART Score: Troponin: 1-3x Normal Limit Total HEART Score:: 5 Progress - PLAN OF CARE/RESULTS Progress/Plan/Lab Results: Laboratory Results - last 24 hr 11/01/18 11/01/18 11/01/18 21:02 22:06 22:06 WBC 6.61 RBC 3.55 L Hgb 8.9 L Hct 29.1 L MCV 82.0 MCH 25.1 L MCHC 30.6 L RDW Std Deviation 20.5 H Plt Count 227 MPV 10.6 H Immature Gran % (Auto) 0.0 Neut % (Auto) 71.0 Lymph % (Auto) 15.6 L [place] % (Auto) 8.3 Eos % (Auto) 4.8 Baso % (Auto) 0.3 Immature Gran # (Auto) 0.00 Neut # (Auto) 4.69 Lymph # (Auto) 1.03 L [place] # (Auto) 0.55 Eos # (Auto) 0.32 Baso # (Auto) 0.02 Specimen Type ARTERIAL Sample Site R BRACHIAL pH 7.40 pCO2 37 pO2 133 H HCO3 23.6 Base Excess -1.7 Oxyhemoglobin 96.3 ABG O2 Sat (Calculated) 12.5 L ABG O2 Saturation 98.4 ABG Carboxyhemoglobin 0.70 ABG Methemoglobin 1.4 Freddy Test YES A-a O2 Difference 77.0 Total Hemoglobin 9.0 L Lactate 1.00 Liter Flow 4.0 Blood Gas Modality CANNULA FiO2 % 36.0 Sodium Potassium Chloride Carbon Dioxide Anion Gap BUN Creatinine Estimated GFR/1.73 m2 BUN/Creatinine Ratio Glucose Calculated Osmolality Calcium Magnesium Total Bilirubin AST ALT Alkaline Phosphatase Troponin T 0.303 H* Dik-Y-Iaydhuarvcr Pept Total Protein Albumin Globulin Albumin/Globulin Ratio Plasma Lactate Urine Source Urine Color Urine Turbidity Urine pH Ur Specific [place] Urine Protein Ur Glucose (Stick) Ur Ketones (Stick) Urine Blood Urine Nitrite Urine Bilirubin Urobilinogen Dipstick Urine Leukocytes Urine WBC (Auto) Urine RBC (Auto) U Epithel Cells (Auto) Urine Bacteria (Auto) Urine Crystals Small Round Cells Urine Casts Urine Yeast-like Cells 11/01/18 11/01/18 11/01/18 22:06 22:06 23:01 WBC RBC Hgb Hct MCV MCH MCHC RDW Std Deviation Plt Count MPV Immature Gran % (Auto) Neut % (Auto) Lymph % (Auto) [place] % (Auto) Eos % (Auto) Baso % (Auto) Immature Gran # (Auto) Neut # (Auto) Lymph # (Auto) [place] # (Auto) Eos # (Auto) Baso # (Auto) Specimen Type Sample Site pH pCO2 pO2 HCO3 Base Excess Oxyhemoglobin ABG O2 Sat (Calculated) ABG O2 Saturation ABG Carboxyhemoglobin ABG Methemoglobin Freddy Test A-a O2 Difference Total Hemoglobin Lactate Liter Flow Blood Gas Modality FiO2 % Sodium 138 Potassium 4.1 Chloride 99 Carbon Dioxide 22 L Anion Gap 17 BUN 33 H Creatinine 5.2 H Estimated GFR/1.73 m2 8 BUN/Creatinine Ratio 6 Glucose 160 H Calculated Osmolality 286 Calcium 6.9 L* Magnesium 2.0 Total Bilirubin 0.15 L AST 12 ALT 11 Alkaline Phosphatase 107 H Troponin T Qpn-S-Yljpmubkumz Pept 11897 H Total Protein 5.9 L Albumin 3.5 Globulin 2.4 Albumin/Globulin Ratio 1.5 Plasma Lactate Urine Source CATH Urine Color ORANGE Urine Turbidity TURBID Urine pH 6.5 Ur Specific [place] 1.018 Urine Protein 200 A Ur Glucose (Stick) 200 A Ur Ketones (Stick) NEGATIVE Urine Blood MODERATE A Urine Nitrite NEGATIVE Urine Bilirubin NEGATIVE Urobilinogen Dipstick NORMAL Urine Leukocytes LARGE A Urine WBC (Auto) TNTC A Urine RBC (Auto) TNTC A U Epithel Cells (Auto) >10 A Urine Bacteria (Auto) 1+ Urine Crystals NONE SEEN Small Round Cells NONE SEEN Urine Casts NONE SEEN Urine Yeast-like Cells NONE SEEN 11/01/18 23:37 WBC RBC Hgb Hct MCV MCH MCHC RDW Std Deviation Plt Count MPV Immature Gran % (Auto) Neut % (Auto) Lymph % (Auto) [place] % (Auto) Eos % (Auto) Baso % (Auto) Immature Gran # (Auto) Neut # (Auto) Lymph # (Auto) [place] # (Auto) Eos # (Auto) Baso # (Auto) Specimen Type Sample Site pH pCO2 pO2 HCO3 Base Excess Oxyhemoglobin ABG O2 Sat (Calculated) ABG O2 Saturation ABG Carboxyhemoglobin ABG Methemoglobin Freddy Test A-a O2 Difference Total Hemoglobin Lactate Liter Flow Blood Gas Modality FiO2 % Sodium Potassium Chloride Carbon Dioxide Anion Gap BUN Creatinine Estimated GFR/1.73 m2 BUN/Creatinine Ratio Glucose Calculated Osmolality Calcium Magnesium Total Bilirubin AST ALT Alkaline Phosphatase Troponin T Wfd-M-Dypjbobsojl Pept Total Protein Albumin Globulin Albumin/Globulin Ratio Plasma Lactate 0.6 Urine Source Urine Color Urine Turbidity Urine pH Ur Specific [place] Urine Protein Ur Glucose (Stick) Ur Ketones (Stick) Urine Blood Urine Nitrite Urine Bilirubin Urobilinogen Dipstick Urine Leukocytes Urine WBC (Auto) Urine RBC (Auto) U Epithel Cells (Auto) Urine Bacteria (Auto) Urine Crystals Small Round Cells Urine Casts Urine Yeast-like Cells Orders Category Date Time Status Admit - [facility] Routine AdmDCTranf 11/02/18 05:39 Active Activity - Up with Assistance ORDERED Care 11/02/18 05:39 Active Apply Mechanical Device [QM] ORDERED Care 11/02/18 05:39 Active Cardiac Monitoring DIRECTED Care 11/01/18 20:26 Active FSBS/Accucheck Result AC + HS Care 11/02/18 05:39 Active Intake and Output-Strict ORDERED Care 11/02/18 05:39 Active Nursing- Assist w/ IS as order ORDERED Care 11/02/18 05:39 Active Nursing- MD Consult Request ROUTINE Care 11/02/18 05:39 Active Saline Loc DIRECTED Care 11/02/18 05:39 Active Saline Loc NOW Care 11/01/18 20:26 Active Straight Catheterization ORDERED Care 11/01/18 20:29 Active Turn, Cough and Deep Breathe Q4HR.AWAKE Care 11/02/18 05:39 Active Update & Confirm Home Medicati ROUTINE Care 11/02/18 01:15 Active Vital Signs Order Q 4-HR ASSESS Care 11/02/18 05:39 Active Z-Document. for Tele Applied ORDERED Care 11/02/18 05:39 Active Physician/Provider Consults Routine Cons 11/02/18 08:00 Ordered Heart Healthy Diet Diet 11/02/18 05:40 Active CHEST-PORTABLE [RAD] Stat Exams 11/01/18 20:27 Completed ABG [RESP] Routine Lab 11/01/18 21:02 Completed BASIC METABOLIC PANEL [CHEM] Routine Lab 11/03/18 06:00 Ordered BLOOD CULTURE [BLDCUL] Stat Lab 11/01/18 04:59 Results CALCIUM [CHEM] Routine Lab 11/02/18 08:00 Ordered CBC WITH DIFF [HEME] Routine Lab 11/03/18 06:00 Ordered CBC WITH ELECTRONIC DIFF [HEME] Stat Lab 11/01/18 22:06 Completed COMPREHENSIVE METABOLIC PANEL [CHEM] Stat Lab 11/01/18 22:06 Completed LACTATE, PLASMA [CHEM] Stat Lab 11/01/18 23:37 Completed MAGNESIUM [CHEM] Stat Lab 11/01/18 22:06 Completed PRO B-NATRIURETIC PEPTIDE Stat Lab 11/01/18 22:06 Completed SPUTUM CULTURE WITH GRAM STAIN [RM] Routine Lab 11/02/18 05:39 Uncollected TROPONIN T Stat Lab 11/01/18 22:06 Completed URINALYSIS W/POSS RFLX CULT [URINALYSIS] Stat Lab 11/01/18 23:01 Completed URINE CULTURE [RM] Routine Lab 11/01/18 23:31 Received URINE MANUAL MICROSCOPIC [URINALYSIS] Stat Lab 11/01/18 23:01 Completed Acetaminophen [Tylenol] Med 11/02/18 05:39 Active 650 mg PO Q6H PRN PRN Albuterol 2.5MG/Ipratrop 0.5MG [Duoneb (A & A)] Med 11/01/18 20:28 Discontinued 3 ml INH NOW ONE Albuterol 2.5MG/Ipratrop 0.5MG [Duoneb (A & A)] Med 11/02/18 05:39 Active 3 ml INH RTQ6H Calcium Gluconate 2 gm Med 11/02/18 01:22 Discontinued 0.9% Sodium Chloride Inj [Ns] 100 ml IV NOW CefTRIAXONE [Rocephin] 1 gm Med 11/02/18 05:39 Active 0.9% Sodium Chloride Inj [Ns] 50 ml IV Q24H Insulin Lispro [Humalog] Med 11/02/18 07:00 Active See Protocol SUBQ 0700,1100,1600,2100 Ondansetron [Zofran] Med 11/02/18 05:39 Active 4 mg IV Q4H PRN PRN Aerosol Treatments Routine Ot 11/01/18 20:29 Completed Aerosol Treatments Routine Ot 11/02/18 05:39 Active Aerosol Treatments Stat Ot 11/01/18 20:29 Completed Aerosol Treatments Stat Ot 11/02/18 05:39 Active Incentive Spirometer Q4HR.AWAKE Ot 11/02/18 09:00 Ordered Incentive Spirometer Q4HR.AWAKE Ot 11/02/18 13:00 Ordered Incentive Spirometer Q4HR.AWAKE Ot 11/02/18 17:00 Ordered Incentive Spirometer Q4HR.AWAKE Ot 11/02/18 21:00 Ordered Incentive Spirometer Q4HR.AWAKE Ot 11/03/18 01:00 Ordered Incentive Spirometer Q4HR.AWAKE Ot 11/03/18 05:00 Ordered Oxygen Device Routine Ot 11/02/18 05:39 Active Telemetry [OM.EQ] Routine Oth 11/02/18 05:39 Active EKG [EKG] Stat Ther 11/01/18 20:26 Ordered Transfer/Admit Order [TRANSFER] Routine Transfer 11/02/18 01:16 Completed Result Diagrams: 11/01/18 22:06 11/01/18 22:06 - REASSESSMENT Reassessment #2 Time Reassessed: 23:55 Status: unchanged (feels sob and cough up yellow thick sputum, fluid overloaded, hx COPD .chronic daigle catheter. NOte chronic elev trop since May) - EKG 1 Time of EKG reading by physician:: 19:58 EKG Read and Signed by:: Martin Self EKG Interpretation (*Must complete 3 of following elements*): Abnormal (normal sinus rhythm, left axis deviation, Possible anterolateral infarct, age undetermined. Abnormal eCG) Rate: 68 Rhythm: Sinus [place]: left QRS: normal [place] Interval: normal ST Wave: normal - XRAY 1 XRAY: Bilateral Impression: Normal (MPRESSION: Cardiomegaly, pulmonary edema and subsegmental atelectasis. Electronically signed by Brent Feliz 11/01/2018 9:10 PM 11/01/18 2110) - CONSULTS/PCP/HOSPITALIST Notification #1 *Consult/PCP/Hospitalist*: Marta Time Discussed: 23:56 Consult Disposition: Admit Departure - Departure Date of Disposition Decision: 11/01/18 Time of Disposition Decision: 23:57 DIAGNOSIS: Chest pain, Shortness of breath, Elevated troponin, ESRD (end stage renal disease) Disposition: ADMITTED INPATIENT 09 Certified Medical Emergency: Emergent Condition: Stable - Critical Care Note This patient required my direct & personal management of CC.: No Attestation - Physician/ SARA Attestation Patient care was provided by Advanced Practice Provider:: No The physician spent face to face time with patient:: Yes Advanced Practice Provider documentation review:: Supervising physician onsite and consulted in the evaluation and care of this patient. The physician did have a face to face encounter with the patient. This chart was documented by the indicated scribe, (Samantha Bowers, Jameel) and accurately reflects the services I performed and decisions made by me, Martin Self MD, as attested by the provider's signature.
--- NOTE | 2018-11-02 08:05 | HISTORY AND PHYSICAL ---
CHIEF COMPLAINT: Shortness of breath, chest tightness. HISTORY OF PRESENT ILLNESS: This is a 63-year-old female, well known patient. She complained of some shortness of breath and chest tightness when she coughed. She denied any overt chest pain. She was having posttussive sputum that was yellow. Her chest x-ray showed pulmonary edema, cardiomegaly in the emergency room. The patient did not miss her dialysis treatment yesterday. She has Saturday, , Saturday hemodialysis. She will be admitted in observation status for further evaluation of treatment. PAST MEDICAL HISTORY: End stage renal disease with Saturday, , Saturday hemodialysis, diabetes mellitus type 2, hypertension, hypothyroidism, anemia of chronic disease, sleep apnea, chronic back pain, chronic urinary tract infection, right breast wound with abscess status post partial mastectomy, previous sacral and buttocks decubitus that are chronic. PAST SURGICAL HISTORY: Right breast partial mastectomy, hysterectomy, carpal tunnel release, left knee surgery, bladder surgery, placement of replacement of left groin tunneled catheter. SOCIAL HISTORY: She is . No alcohol, tobacco or illicit drugs. FAMILY HISTORY: Coronary artery disease, diabetes mellitus, and uterine cancer in first degree relatives. ALLERGIES: No known drug allergies. HOME MEDICATIONS: Amlodipine 10 mg p.o. daily, carvedilol 6.25 mg p.o. b.i.d., Lasix 40 mg p.o. daily, Neurontin 100 mg p.o. daily, hydralazine 50 mg p.o. t.i.d., levothyroxine 88 mcg p.o. daily, Protonix 40 mg p.o. daily, Coumadin 2.5 mg p.o. daily. REVIEW OF SYSTEMS: A 14-point review of systems is conducted with the patient and pertinent positives listed above in the HPI. All other systems reviewed and found to be negative. PHYSICAL EXAMINATION: VITAL SIGNS: Temperature is 98, pulse 68, respirations 18, blood pressure 130/69, oxygen saturation 96% on 4 L nasal cannula which is the patient's home O2 setting. GENERAL: This is a 63-year-old female who looks older than stated age, alert and oriented x3. Answers all questions appropriately. No acute distress. HEENT: Head is atraumatic and normocephalic. Pupils are equal, round and reactive to light. Extraocular eye movements intact. Sclerae anicteric. Conjunctivae is pale. Oral mucosa is moist. NECK: Supple. No JVD. No thyromegaly. Trachea is midline. No cervical lymphadenopathy. CARDIAC: S1 and S2 appreciated. No gallops. No rubs. Maybe 1/6 systolic ejection murmur noted. LUNGS: Crepitations noted throughout bilateral bases. No rhonchi. No wheezes. Symmetrical rise and fall with respirations. ABDOMEN: Soft, nontender and nondistended. Bowel sounds present in all 4 quadrants. Normoactive. EXTREMITIES: No clubbing or cyanosis. Trace edema, pitting, bilateral lower extremities. One plus pedal pulses. NEUROLOGICAL: Alert and oriented x3. Cranial nerves II through XII grossly intact. DIAGNOSTIC DATA: Chest x-ray with cardiomegaly, increased pulmonary vascular markings. WBC is 6.61, hemoglobin 8.9, hematocrit 29.1, platelet count 227. ABG shows pH of 7.40, pCO2 of 37, pO2 of 133, bicarb 23.6. Sodium is 138, potassium 4.1, chloride 99, carbon dioxide 22, BUN is 33, creatinine 5.2, glucose 160, calcium 6.9. Troponin is 0.303. Urine with greater than 10 epithelial cells; however, there were too numerous to count WBCs and was leukocyte esterase positive. ASSESSMENT AND PLAN: 1. Probable upper respiratory infection. We will give Rocephin 1 g IV daily, DuoNebs. The patient is saturating well on her home O2. We will place her in observation status. 2. Hypothyroidism. Continue Synthroid. 3. End stage renal disease with hemodialysis. We will consult Dr. Cooper. She did not miss her dialysis appointment. Continue Lasix daily. 4. Hypertension. Continue home medication. 5. Diabetes mellitus type 2 with hyperglycemia. Start sliding scale insulin with fingerstick blood sugar before meals and at bedtime. 6. Hypocalcemia. We will give 2 g of calcium, recheck tomorrow. Further recommendations based on clinical course. Dictated by REUBEN Harden for Chase Pappas MD I have performed a face to face diagnostic evaluation. Labs/ Xrays- reviewed. Exam- chest- rhonchi, CV- regular. A/P- URI, ESRD- admit for observation, supportive care, Nephrology consult for dialysis. Dr. Mian Truong#: [phone] cc: REUBEN Harden MD MTDD
[2018-11-02] MEDS: SSD CREAM TOP SCH ×3 (09:00→20:57)
[2018-11-02] MEDS ORDERED: SSD CREAM TOP SCH (09:00)
[2018-11-02] MEDS: DUONEB (A & A) INH SCH ×4 (09:35→21:51)
[2018-11-02 10:56] LABS: INR 2.32; PROTIME 27.1 Seconds (11.0-16.0)
[2018-11-02] MEDS: HUMALOG SUBQ SCH ×4 (11:40→20:58)
[2018-11-02] MEDS: COREG PO SCH ×2 (11:41→20:58)
[2018-11-02] MEDS: LASIX PO SCH (11:41)
[2018-11-02] MEDS: SYNTHROID PO SCH (11:41)
[2018-11-02] MEDS: PROTONIX PO SCH (11:41)
[2018-11-02] MEDS: NORVASC PO SCH (11:41)
[2018-11-02] MEDS: NEURONTIN PO SCH (11:41)
[2018-11-02] MEDS: APRESOLINE PO SCH ×3 (11:41→16:59)
[2018-11-02] MEDS: COUMADIN PO SCH (11:45)
[2018-11-02] MEDS: ROCEPHIN 1 GM in NS 50 ML IV SCH (11:45)
[2018-11-02] MEDS ORDERED: CALMOSEPTINE OINTMENT TOP PRN (20:26)
[2018-11-02] MEDS: TYLENOL PO PRN (21:56)
[2018-11-02] MEDS ORDERED: MORPHINE IV ONE (22:11)
[2018-11-02 22:38] LABS: POTASSIUM 4.6 mmol/L (3.5-5.1)
[2018-11-03] MEDS: NORCO-7.5 PO PRN ×2 (03:03→23:39)
[2018-11-03] MEDS: DUONEB (A & A) INH SCH ×4 (03:21→21:43)
[2018-11-03] MEDS: CALMOSEPTINE OINTMENT TOP SCH ×4 (04:32→20:35)
[2018-11-03] MEDS ORDERED: TIGHT: 0.2 ML/HR FOR DIALYSIS MISC PRN (06:17)
[2018-11-03] MEDS ORDERED: HEPARIN IV PRN (06:17)
[2018-11-03] MEDS ORDERED: NS 2,000 ML MISC PRN (06:17)
[2018-11-03] MEDS: SYNTHROID PO SCH (06:27)
[2018-11-03 06:34] LABS: BASO# 0.02 X1000 (0.0-0.2); BASO% 0.3 % (0.0-0.8); EOS# 0.35 X1000 (0.0-0.7); HEMATOCRIT 26.6 % (37.0-47.0); LYMPH# 1.45 X1000 (1.2-3.4); LYMPH% 24.8 % (20.5-51.1); MCH 24.7 PG (27-31); MCHC 30.1 g/dL (33-37); MCV 82.1 FL (81-99); MONO# 0.51 X1000 (0.11-0.59); MONO% 8.7 % (1.7-9.3); NEUT# 3.52 X1000 (1.4-6.5); NEUT% 60.2 % (42.2-75.2); PLT 245 X1000 (130-400); RBC 3.24 XMIL (4.2-5.4); RDW 20.3 % (11.5-14.5); WBC 5.85 X1000 (4.8-10.8)
[2018-11-03 06:43] LABS: INR 2.38; PROTIME 27.7 Seconds (11.0-16.0)
[2018-11-03] MEDS: HUMALOG SUBQ SCH ×3 (06:47→18:50)
[2018-11-03 07:06] LABS: CALCIUM 7.2 mg/dL (8.8-10.2); POTASSIUM 4.4 mmol/L (3.5-5.1)
[2018-11-03 07:15] LABS: CREATININE 5.9 mg/dL (0.5-0.9)
[2018-11-03] MEDS: SSD CREAM TOP SCH ×4 (08:16→20:34)
[2018-11-03] MEDS: NEURONTIN PO SCH (08:17)
[2018-11-03] MEDS: PROTONIX PO SCH (08:17)
--- NOTE | 2018-11-03 08:29 | EKG Report ---
Test Performed on : 11/01/2018 7:48:25 PM Test Reason : sob/cp Blood Pressure : / mmHG Vent. Rate : 068 BPM Atrial Rate : 068 BPM P-R Int : 178 ms QRS Dur : 102 ms QT Int : 426 ms P-R-T Axes : 033 -32 033 degrees QTc Int : 452 ms Normal sinus rhythm. Left axis deviation Possible Anterolateral infarct , age undetermined Abnormal ECG When compared with ECG of 31-JUL-2018 15:24, QRS duration has increased Borderline criteria for Anterolateral infarct are now present Unconfirmed Result
[2018-11-03] MEDS ORDERED: STERILE WATER INJ. INJ ONE (11:17)
[2018-11-03] MEDS ORDERED: CATHFLO IV ONE ×2 (11:17→11:19)
--- NOTE | 2018-11-03 15:16 | NEPHROLOGY CONSULTATION ---
DATE: 11/03/2018 REASON FOR ADMISSION: Shortness of breath associated with chest tightness. REASON FOR CONSULT: Chronic kidney disease stage 5 associated with fluid volume overload. CONSULTING PHYSICIAN: Dr. Moise per REUBEN Larson. HISTORY OF PRESENT ILLNESS: Ms. Garcia is a 63-year-old white female who is known to our outpatient services for hemodialysis on Saturday, Saturday, Saturday. Patient has been noncompliant in her dialysis treatment secondary to having chronic diarrhea and inability to be changed at the dialysis clinic. Her has recently and she is being cared for by her niece. She states that she has had some increased work of breathing and some chest tightness associated with cough, nonproductive. She denies any overt chest pain. No nausea, vomiting. Positive for diarrhea that has been ongoing for 2 to 3 months. Chest x-ray in the emergency room did show pulmonary edema, cardiomegaly. Due to her fluid volume overload, patient was admitted for further monitoring and evaluation with plan for dialysis today. PAST MEDICAL HISTORY: End-stage renal disease, hemodialysis of Saturday, , Saturday. Patient did attempt to go to her Saturday dialysis, but signed off early. Diabetes mellitus type 2, hypertension, hypothyroidism, anemia of chronic disease, sleep apnea, chronic back pain, chronic urinary tract infections, right breast wound with abscess, status post partial mastectomy, previous sacral and buttocks decubitus that remain chronic, and osteodystrophy of chronic disease. PAST SURGICAL HISTORY: Right breast partial mastectomy 2019, hysterectomy, carpal tunnel release, left knee surgery, bladder surgery, placement and replacement of left groin tunneled dialysis catheter from the left to the right with a previous dialysis tunneled catheter to the right chest wall. SOCIAL HISTORY: She is now . Denies any tobacco, alcohol, or illicit drug use. Has her niece that is living with her who is her current caregiver. FAMILY HISTORY: Positive for coronary artery disease, diabetes mellitus type 2, uterine cancer in first degree relatives. ALLERGIES: Listed as no known drug allergies. HOME MEDICATIONS: Amlodipine, carvedilol, Lasix Neurontin, hydralazine, levothyroxine, Protonix, and Coumadin. REVIEW OF SYSTEMS: Times 10 with pertinent positives listed above in the HPI. VITAL SIGNS: Last temperature 98.2 degrees, blood pressure 129/72, heart rate 60, respirations 16. She is on 4 L nasal cannula. Last recorded saturation is 98%. She has had 720 in. She has had 325 to void. LABORATORY DATA: Sodium is 138, potassium 4.4, chloride 99, CO2 22, BUN 44, creatinine 5.9, glucose 109, anion gap is 17, calcium 7.2, magnesium of 2. White count 5.85, hemoglobin 8, hematocrit 26.6, with a platelet count of 245,000. She has a ProTime of 27.7, INR of 2.38. The patient has positive urine culture, gram-positive cocci and gram-negative rods. Sputum cultures are currently pending. PHYSICAL EXAMINATION: General: This is a 63-year-old white female resting quietly in bed. She appears chronically ill, no acute distress. Skin: Warm and dry. HEENT: Normocephalic, atraumatic. Conjunctiva is pale. She has CHAO. Mucous membranes are dry. Neck: Supple. Trachea midline. She does have positive JVD. Cardiovascular: She is regular rate and rhythm. She has an S4 present. Lungs: Clear to auscultation anteriorly. Equal excursion. On O2. Abdomen: Large, obese, soft, nontender. Positive bowel sounds. Genitourinary: Not inspected. Patient has a Dean catheter that is in place. Extremities: Have 3+ lower extremity edema. Integumentary: Patient has a dialysis tunneled catheter to the right groin. Neurological: Alert and oriented x3. ASSESSMENT AND PLAN: 1. Chronic kidney disease stage 5D. The patient is in fluid volume overload requiring hemodialysis today. We will dialyze for 3.[address] her on a 2 K bath. We will attempt to pull 2-3 L of ultrafiltration with plan for dialysis again in the a.m. 2. Electrolytes and acid-base balance. These are acceptable with correction on dialysis. 3. Anemia. This remains low but stable. 4. Fluid volume overload. Patient states that she has not been attending her dialysis treatments or she has been signing off early secondary to chronic diarrhea. The patient states that she has had a GI workup. She is waiting to determine plan of action. 5. Chronic decubitus wounds to her back and buttock area. This continues to be monitored and treated by wound care in the hospital. I would like to thank you for allowing us to follow with this patient. Dictated by REUBEN Rey for Lucas Cooper MD Face to face encounter, data reviewed, discussed with Annia Borden on 11/03/18. I agree with the above assessment and plan of care. cc: REUBEN Rey MD [facility]
[2018-11-03] MEDS ORDERED: VANCOMYCIN IV PER PHARMACY MISC SCH (16:15)
--- NOTE | 2018-11-03 16:43 | PROGRESS NOTE ---
DATE: 11/03/2018 SUBJECTIVE: This patient is feeling better. She is not complaining of chest pain, mild shortness of breath. No acute events overnight. She is getting dialysis at this moment. OBJECTIVE: Vital Signs: Temperature 97.4 degrees, pulse respiratory rate 20, blood pressure 122/35, oxygen saturation 99% on 5 L nasal cannula. HEENT: Head normocephalic, no trauma. PERRLA. Neck: Supple. No JVD. No masses. Central trachea. Chest: Clear to auscultation, some crepitus at the bases. Abdomen: Soft, nontender, nondistended. No hepatosplenomegaly. Extremities: Trace edema, no clubbing, no cyanosis. Neurological: She is alert. She is oriented x3. No focal deficits. LABORATORY: WBC 5.8, hemoglobin 8, hematocrit 26.6, platelets 245,000. Sodium 138, potassium 4.4, chloride 99, bicarbonate 22, BUN 44, creatinine 5.9, glucose 109, calcium 7.2. ASSESSMENT AND PLAN: 1. Shortness of breath, secondary to some fluid overload and pneumonia. She has been placed on ceftriaxone. As per the patient, she is feeling better. Chest x- ray showed cardiomegaly, pulmonary edema, and 2 subsegmental atelectases. We will continue with the same management. She is getting dialysis. 2. She has a positive urine culture that showed gram-positive cocci and gram- negative rods. Continue with ceftriaxone. I will add vancomycin. She has been having some discomfort to urinate, but no dysuria and no change in the urine, though. 3. End-stage renal disease, on hemodialysis. She is getting dialysis at this moment. 4. Hypertension, stable. 5. Type 2 diabetes, stable. Continue with same management. 6. Hypocalcemia. Calcium level was 6.9, and corrected with albumin upon admission, it was low. It looks better. She is not having symptoms. cc: Inder Moise MD [facility]
[2018-11-03] MEDS ORDERED: VANCOMYCIN 1 GM/NS 1 GM/250 ML IVPB IV ONE (17:00)
[2018-11-03] MEDS: ROCEPHIN 1 GM in NS 50 ML IV SCH (18:30)
[2018-11-03] MEDS: APRESOLINE PO SCH ×3 (18:32→18:36)
[2018-11-03] MEDS: COREG PO SCH ×2 (18:33→20:34)
[2018-11-03] MEDS: LASIX PO SCH (18:34)
[2018-11-03] MEDS: NORVASC PO SCH (18:35)
[2018-11-03] MEDS: COUMADIN PO SCH (18:39)
[2018-11-04] MEDS: HUMALOG SUBQ SCH ×5 (01:13→21:07)
[2018-11-04] MEDS: DUONEB (A & A) INH SCH ×5 (03:25→22:43)
[2018-11-04] MEDS: SYNTHROID PO SCH ×2 (05:57→09:04)
[2018-11-04] MEDS ORDERED: HEPARIN IV PRN (06:19)
[2018-11-04] MEDS ORDERED: NS 2,000 ML MISC PRN (06:19)
[2018-11-04] MEDS ORDERED: TIGHT: 0.2 ML/HR FOR DIALYSIS MISC PRN (06:19)
[2018-11-04 06:51] LABS: BASO# 0.04 X1000 (0.0-0.2); BASO% 0.6 % (0.0-0.8); EOS% 6.2 % (0.0-10.0); HEMATOCRIT 29.2 % (37.0-47.0); HEMOGLOBIN 8.9 g/dL (12.0-16.0); LYMPH# 1.14 X1000 (1.2-3.4); LYMPH% 17.6 % (20.5-51.1); MCH 25.2 PG (27-31); MCHC 30.5 g/dL (33-37); MCV 82.7 FL (81-99); MONO# 0.57 X1000 (0.11-0.59); MONO% 8.8 % (1.7-9.3); MPV 10.9 FL (7.4-10.4); NEUT# 4.32 X1000 (1.4-6.5); NEUT% 66.8 % (42.2-75.2); PLT 260 X1000 (130-400); RBC 3.53 XMIL (4.2-5.4); RDW 20.2 % (11.5-14.5); WBC 6.47 X1000 (4.8-10.8)
[2018-11-04 07:02] LABS: INR 2.02; PROTIME 24.4 Seconds (11.0-16.0)
[2018-11-04 07:29] LABS: POTASSIUM 4.1 mmol/L (3.5-5.1)
[2018-11-04 07:30] LABS: CALCIUM 7.6 mg/dL (8.8-10.2); CREATININE 4.1 mg/dL (0.5-0.9)
[2018-11-04] MEDS: SSD CREAM TOP SCH ×4 (08:15→21:11)
--- NOTE | 2018-11-04 08:55 | PROGRESS NOTE ---
DATE: 11/04/2018 SUBJECTIVE: The patient is feeling better. She is feeling some burning sensation in the urine. We have a positive culture that showed gram-positive cocci and gram-negative rods. She has been placed on antibiotics. I will wait for the final bacteria and sensitivity. OBJECTIVE: Vital Signs: Temperature 98.6 degrees, pulse 69, respiratory rate 16, blood pressure 133/62, oxygen saturation 100% on 4 L of nasal cannula. HEENT: Head normocephalic. No trauma. PERRLA. Neck: Supple. No JVD. No masses. Central trachea. Chest: Clear to auscultation. Decreased breath sounds at the bases. Some crepitus at the bases as well. Abdomen: Soft, nontender, nondistended. No hepatosplenomegaly. Extremities: Trace edema. No clubbing. No cyanosis. Neurological: She is alert. She is oriented x3. No focal deficits. LABORATORY DATA: WBC 6.4, hemoglobin 8.9, hematocrit 29.2, platelets 260. PT 24.4, INR 2. Sodium 135, potassium 4.1, chloride 97, bicarbonate 24, BUN 28, creatinine 4.1, glucose 146, calcium 7.6. ASSESSMENT AND PLAN: 1. Shortness of breath, secondary to fluid overload, pneumonia. She has been placed on ceftriaxone and also vancomycin. As per the patient, she is feeling better. X-ray yesterday showed cardiomegaly, pulmonary edema, and segmental atelectasis. Will continue with the same management. 2. Urinary tract infection. She has a positive urine culture that showed gram- negative rods and gram-positive cocci. She has been placed on ceftriaxone and vancomycin. We will continue with the same management and will wait for the final bacteria and sensitivities. 3. End-stage renal disease, on hemodialysis. She is getting dialysis Saturday, Saturday, and Saturday. 4. Hypertension, stable. 5. Type 2 diabetes, stable. 6. Hypocalcemia, resolved, better. I will wait for the final sensitivity of the urine culture. I will continue with antibiotics. I will remove her Dean catheter, which has been in place for 3 weeks or so, and I will place a new one. cc: Inder Moise MD [facility]
[2018-11-04] MEDS: CALMOSEPTINE OINTMENT TOP SCH ×3 (09:05→17:40)
[2018-11-04] MEDS: ROCEPHIN 1 GM in NS 50 ML IV SCH (11:42)
[2018-11-04] MEDS: APRESOLINE PO SCH ×3 (11:45→23:15)
[2018-11-04] MEDS: NORCO-7.5 PO PRN ×2 (11:49→21:06)
[2018-11-04] MEDS: COREG PO SCH ×2 (17:39→21:06)
[2018-11-04] MEDS: ZYVOX 600 MG/D5W 600 MG/300 ML IVPB IV SCH (17:57)
[2018-11-04] MEDS: NEURONTIN PO SCH (17:59)
[2018-11-04] MEDS: LASIX PO SCH (17:59)
[2018-11-04] MEDS: NORVASC PO SCH (17:59)
[2018-11-04] MEDS: PROTONIX PO SCH (17:59)
[2018-11-04] MEDS: COUMADIN PO SCH (18:00)
--- NOTE | 2018-11-04 18:48 | NEPHROLOGY PROGRESS NOTE ---
DATE: 11/04/2018 TIME SEEN: 0725. SUBJECTIVE: Ms. Garcia is resting quietly in bed. Head of the bed is slightly elevated. She is in no acute distress. States that her diarrhea has improved just slightly. OBJECTIVE: Vital Signs: Temperature 99.1 degrees, blood pressure 119/39, heart rate 70, respirations 18. She is on 4 L nasal cannula. Last recorded saturation 93%. She has had 222 in with 100 mL out, though she had fluid removed on dialysis yesterday; this is not been recorded. Labs: Her sodium is 135, potassium is 4.1, chloride 97, CO2 24, BUN is 28, creatinine is 4.1. Her glucose is 146. The patient has an anion gap of 14. Her calcium is 7.6. Her ProTime is 24.4 with an INR of 2.02. Her white count is 6.47, hemoglobin is 8.9, hematocrit 29.2, platelet count is 260,000. PHYSICAL EXAMINATION: General: This is a 63-year-old white female resting quietly in bed. She appears chronically ill, no acute distress. Skin: Warm and dry. HEENT: Normocephalic, atraumatic. Conjunctiva is pale pink. She has CHAO. Mucous membranes are dry. Neck: Supple. Trachea midline. She continues with positive JVD. Cardiovascular: She is regular rate and rhythm. She has a soft murmur. Lungs: Clear to auscultation bilaterally. Equal excursion. On O2. Abdomen: Large, round, soft, nontender. Positive bowel sounds. Genitourinary: Not inspected. Minimal void with dialysis assist. Extremities: Continues with 2 to 3+ lower extremity edema. Patient has a tunneled dialysis catheter to the right groin. Integumentary: No rashes or lesions evident. She has a healing wound to her left breast. ASSESSMENT AND PLAN: 1. Chronic kidney disease stage 5D. Today is patient's routine dialysis treatment day. We will place her on a 2 K bath. She is to dialyze for 3.5 hours. We will attempt to pull 1 L of ultrafiltration. 2. Electrolytes and acid-base balance with correction on dialysis. 3. Anemia. This is low but stable. 4. Fluid volume overload with assistance with dialysis. This will be her 2nd treatment in a row. 5. Chronic decubitus wounds on the buttocks. Followed by the primary care. I would like to thank you for allowing us to follow with this patient. Dictated by REUBEN Rey for Lucas Cooper MD Face to face encounter, data reviewed, discussed with Annia Borden on 11/04/18. I agree with the above assessment and plan of care. cc: REUBEN Rey MD [facility]
[2018-11-05] MEDS: TYLENOL PO PRN (00:41)
[2018-11-05] MEDS: CALMOSEPTINE OINTMENT TOP SCH ×4 (03:05→17:29)
[2018-11-05] MEDS: DUONEB (A & A) INH SCH ×3 (03:38→16:41)
[2018-11-05] MEDS: ZYVOX 600 MG/D5W 600 MG/300 ML IVPB IV SCH ×2 (04:00→16:36)
[2018-11-05] MEDS: NORCO-7.5 PO PRN ×2 (04:01→14:12)
[2018-11-05] MEDS: SYNTHROID PO SCH (06:09)
[2018-11-05] MEDS ORDERED: TIGHT: 0.2 ML/HR FOR DIALYSIS MISC PRN (06:10)
[2018-11-05] MEDS ORDERED: NS 2,000 ML MISC PRN (06:10)
[2018-11-05] MEDS ORDERED: HEPARIN IV PRN (06:10)
[2018-11-05 06:30] LABS: BASO# 0.04 X1000 (0.0-0.2); BASO% 0.7 % (0.0-0.8); EOS# 0.49 X1000 (0.0-0.7); HEMATOCRIT 27.5 % (37.0-47.0); HEMOGLOBIN 8.3 g/dL (12.0-16.0); LYMPH# 1.73 X1000 (1.2-3.4); LYMPH% 28.3 % (20.5-51.1); MCH 25.5 PG (27-31); MCHC 30.2 g/dL (33-37); MCV 84.4 FL (81-99); MONO# 0.64 X1000 (0.11-0.59); MONO% 10.5 % (1.7-9.3); MPV 10.6 FL (7.4-10.4); NEUT# 3.22 X1000 (1.4-6.5); NEUT% 52.5 % (42.2-75.2); PLT 245 X1000 (130-400); RBC 3.26 XMIL (4.2-5.4); RDW 20.3 % (11.5-14.5); WBC 6.12 X1000 (4.8-10.8)
[2018-11-05] MEDS: HUMALOG SUBQ SCH ×3 (06:52→16:36)
[2018-11-05 06:55] LABS: ALBUMIN 3.1 g/dL (3.5-5.0); CALCIUM 7.8 mg/dL (8.8-10.2); CREATININE 3.2 mg/dL (0.5-0.9); PHOSPHORUS 4.7 mg/dL (2.7-4.5); POTASSIUM 3.9 mmol/L (3.5-5.1)
[2018-11-05] MEDS: PROTONIX PO SCH (11:30)
[2018-11-05] MEDS: LASIX PO SCH (11:30)
[2018-11-05] MEDS: NEURONTIN PO SCH (11:30)
[2018-11-05] MEDS: COUMADIN PO SCH (11:30)
[2018-11-05] MEDS: COREG PO SCH (11:30)
[2018-11-05] MEDS: NORVASC PO SCH (11:30)
[2018-11-05] MEDS: APRESOLINE PO SCH ×2 (11:30→16:35)
[2018-11-05] MEDS: SSD CREAM TOP SCH ×3 (11:31→17:30)
[2018-11-05] MEDS: ROCEPHIN 1 GM in NS 50 ML IV SCH (11:34)
--- NOTE | 2018-11-05 14:16 | PROGRESS NOTE ---
DATE: 11/05/2018 SUBJECTIVE: This patient is feeling better, but she has a positive culture that showed VRE and Pseudomonas, I have requested an evaluation by Infectious Disease Department for treatment. Hopefully, we are going to be able to discharge this patient in the next 24 hours. OBJECTIVE: Vital Signs: Temperature 97.7 degrees, pulse 71, respiratory rate 22, blood pressure 150/48, and oxygen saturation 99 percent on 4 L of nasal cannula. HEENT: Head normocephalic. No trauma. PERRLA. Neck: Supple. No JVD. No masses. Central trachea. Chest: Clear to auscultation. Decreased breath sounds at the bases. Some crepitus at the bases as well. Abdomen: Soft, nontender, and nondistended. No hepatosplenomegaly. Extremities: Trace edema. No clubbing. No cyanosis. Neurological: This patient is alert. She is oriented x3. No focal deficits. LABORATORY: WBC 6.1, hemoglobin 8.3, hematocrit 27.5, and platelets 245,000. Sodium 134, potassium 3.9, chloride 96, bicarbonate 28, BUN 21, creatinine 3.2, glucose 134, calcium 7.8, and phosphorus 4.7. ASSESSMENT AND PLAN: 1. Shortness of breath, secondary to fluid overload, pneumonia. She has been placed on antibiotics. Vancomycin has been stopped due to VRE urinary tract infection. 2. Urinary tract infection with a positive culture that showed VRE and Pseudomonas aeruginosa, I will continue with the same management for now. Infectious Disease Department has been consulted to evaluate this patient. 3. End-stage renal disease. Continue with hemodialysis as scheduled. 4. Hypertension stable. 5. Type 2 diabetes, stable. 6. Hypocalcemia, better. 7. I have requested an evaluation by Infectious Disease Department. Depending on that, I will be able to discharge this patient home either today or tomorrow. cc: Inder Moise MD [facility]
[2018-11-05 15:02] VITALS: BP 139/60
--- NOTE | 2018-11-05 15:15 | NEPHROLOGY PROGRESS NOTE ---
DATE: 11/05/2018 Date Seen: 11/05/2018. Time Seen 07:15. SUBJECTIVE: Ms. Garcia is resting quietly in bed. Her head of the bed is elevated. She states that she is feeling better. Has not gotten out of bed to walk. OBJECTIVE: Her most recent vital signs: Temperature 98.6 degrees blood pressure 122/59, heart rate 62, respirations 16. The patient is currently on room air. She has had 1598 in, 4104 out with 4 L on dialysis yesterday. LABORATORY DATA: Sodium 134, potassium 3.9, chloride 96, CO2 28, BUN 21, creatinine 3.2, glucose 134. Her anion gap is 10, calcium 7.8, phosphorus 4.2, albumin 3.1. White count 6.12, hemoglobin 8.3, hematocrit 27.5, with a platelet count of 245,000. PHYSICAL EXAMINATION: General: This is an 63-year-old white female. She is resting quietly in bed. She appears chronically ill no acute distress. Skin: Warm and dry. HEENT: Normocephalic, atraumatic. Conjunctivae pale pink. She has CHAO. Mucous membranes are dry. Neck: Supple. Trachea midline. She continues with positive JVD 6 cm at the clavicle. Cardiovascular: Regular rate and rhythm. Soft systolic murmur. Lungs: Clear to auscultation bilaterally. Equal excursion on O2. Abdomen: Large, round, soft, nontender. Positive bowel sounds. Genitourinary: Not inspected. Minimal void with dialysis assist. Extremities: Continue with 2+ lower extremity edema. Dialysis tunnel catheter remains to the right groin, dry and intact without redness or drainage. Integumentary: No rashes or lesions. Neurological: Alert and oriented x3. ASSESSMENT AND PLAN: 1. Chronic kidney disease stage 5D. The patient is due for her routine dialysis treatment in the a.m. No indications for intervention today. 2. Electrolytes, acid-base balance and anemia these are all acceptable. 3. Chronic decubitus wound on the buttocks, followed by primary care and Wound Care. I would like to thank you for allowing us to follow with this patient. Dictated by REUBEN Rey for Lucas Cooper MD Face to face encounter, data reviewed, discussed with Annia Borden on 11/05/18. I agree with the above assessment and plan of care. cc: REUBEN Rey MD [facility]
--- NOTE | 2018-11-05 22:39 | INFECTIOUS DISEASE CONSULT REP ---
DATE: 11/05/2018 CONCLUSION: The patient has a symptomatic vancomycin-resistant and penicillin resistant Enterococcal faecium and Pseudomonas aeruginosa urinary tract infection. RECOMMENDATIONS: The plan is to send the patient home today, and I will be sending the patient home on Zyvox 600 mg p.o. every 12 hours and Levaquin 250 mg p.o. daily both for 2 weeks. I have also ordered to have a CBC with differential drawn every week for the next 2 weeks also. The patient as mentioned above is bedridden, and it will not be possible for her to have a followup appointment in my office. DISCUSSION: The patient tells me that when she came into the hospital she was short of breath. She also was having dysuria and low back pain that extended into both flanks. Her urine culture grew out Pseudomonas and Enterococcus as mentioned above. The patient's CBC shows a white count of 6120, hemoglobin 8.3, and platelet count 245,000. Creatinine is 3.2. GFR is 15. Liver function studies are normal. She has a Dean catheter in place at home, and the catheter is changed every month. OBSTETRICAL/GYNECOLOGICAL HISTORY: She is a 8, para 8, AB 0. She has had a hysterectomy. REVIEW OF SYSTEMS: Eyes and ears: The patient says she does not have any problems seeing or hearing. Neck: No stiffness. Respiratory: No cough or dyspnea. Cardiovascular: No chest pain or palpitations. Genitourinary: See present illness. Gastrointestinal: The patient was having diarrhea, but this has cleared. Neurologic: Patient is unable to walk. She is bedridden. She does not have any seizures. Integument: No rashes. PREVIOUS HOSPITALIZATIONS AND OPERATIONS: She has had 8 labor and deliveries, a hysterectomy, surgery on her hand, surgery on her knee. She had a fracture of her right leg, but this did not require surgery. The patient has a tunneled dialysis catheter in the patient's right upper thigh area. MEDICAL DISEASES: Positive for end-stage renal disease, diabetes mellitus, hypertension, and hyperlipidemia. INFECTIOUS DISEASE HISTORY: Positive for pneumonia and UTI. FAMILY HISTORY: Positive for diabetes mellitus, hypertension, myocardial infarction, and cancer. SOCIAL HISTORY: The patient as mentioned above [place]ridden[place] . Her niece lives with her. The patient does not have any drug allergies. She does not have any pets at home. She does not smoke cigarettes, drink alcoholic beverages or abuse drugs. HOME MEDICATIONS: The home medications include the following: Amlodipine, carvedilol, Lasix, gabapentin, Apresoline, Synthroid, Zofran, Protonix and Coumadin. PHYSICAL EXAMINATION: Vital signs: Temperature is 97.7 degrees, pulse 71, respirations 22, blood pressure 150/48. The patient is 5 feet 2 inches tall and weighs 231 pounds. General: This is an obese, middle-aged female. She is in no acute distress. Head/eyes/ears/nose/throat: She can hear my spoken words and see near objects. There is no drainage from the nose or ears. Neck: No meningismus. Lungs: Clear to auscultation. Cardiovascular: Heart rate is regular. Abdomen: Soft and nontender. Extremities: High on the right thigh, there is a tunneled dialysis catheter present. There is a little bit of bleeding at the catheter site, but no erythema and no purulence. Neurologic: The patient is alert. She can move her arms well. She can barely move her legs. There is no tremor. Her sensation is intact to touch. Her memory as regarding her medical history seemed to be pretty good. Integument: No rash noted. Thank you for the consult. cc: Yovani Pa MD
--- NOTE | 2018-11-06 13:33 | DISCHARGE SUMMARY ---
ADMISSION DATE: 11/03/2018 DISCHARGE DATE: 11/05/2018 DISCHARGE DIAGNOSES: 1. Fluid overload, admitted with shortness of breath. 2. Urinary tract infection with a positive culture that showed VRE and Pseudomonas. 3. End-stage renal disease on hemodialysis. 4. Hypertension. 5. Type 2 diabetes. 6. Hypocalcemia. CONSULTATIONS: 1. Nephrology Department Dr. Cooper. 2. Infectious Disease Department Dr. Pa. HOSPITAL COURSE: A 63-year-old female, well known for our service came to the emergency department complaining of shortness of breath and chest tightness when she coughs. She denied any overt chest pain. She was having some yellowish sputum. X-ray showed pulmonary edema, and cardiomegaly in the emergency room. As per the patient, she did not miss her dialysis treatment the day before admission. She is scheduled Saturday, and Saturday. She was admitted on 11/02/2018. During this hospitalization also she states that she was having some urinary symptoms. We did a urine culture that showed VRE and Pseudomonas aeruginosa. Today, I consulted Dr. Pa to evaluate this patient. We have decided to discharge this patient since she is stable. She has no complaint of shortness of breath or chest pain. For her urinary tract infection, she will be treated with levofloxacin and Zyvox p.o. She will take those medication for 2 weeks, and follow up also in [address] Pa, Infectious Disease Department as an outpatient. CONDITION AT DISCHARGE: Upon discharge, the patient was in a stable medical condition. PHYSICAL EXAMINATION: Temperature 98.2 degrees, pulse 70, respiratory rate 22, blood pressure 139/60, and oxygen saturation 99 on 5 L of nasal cannula. HEENT: Head normocephalic. No trauma. PERRLA. Neck: Supple. No JVD. No masses. Central trachea. Chest: Clear to auscultation. Decreased breath sounds at the bases. Some crepitus at the bases as well. Abdomen: Soft, nontender, and nondistended. No hepatosplenomegaly. Extremities: Trace edema. No clubbing. No cyanosis. Neurological: The patient is alert. She is oriented x3. No focal deficits but generalized weakness. LABORATORY: WBC 6.1, hemoglobin 8.3, hematocrit 27.5, and platelets 245,000. Sodium 134, potassium 3.9, chloride 96, bicarbonate 28, BUN 21, creatinine 3.2, glucose 134, calcium 7.8, phosphorus 4.7, and albumin 3.1. DISCHARGE MEDICATIONS: The patient will be discharged with: 1. Zyvox p.o. 600 mg p.o. twice a day. 2. Levofloxacin 250 mg p.o. daily to complete 12 days. 3. DuoNeb 3 mL inhaler q.6 hours as needed for shortness of breath. 4. Amlodipine 1 tablet p.o. daily 10 mg. 5. Carvedilol 6.25 mg p.o. b.i.d. 6. Furosemide 40 mg p.o. daily. 7. Gabapentin 200 mg p.o. daily. 8. Hydralazine 50 mg p.o. t.i.d. 9. Levofloxacin 250 mg p.o. daily. 10. Synthroid 88 mcg p.o. daily. 11. Ondansetron 4 mg p.o. q.6 hours as needed. 12. Pantoprazole 40 mg p.o. daily. 13. Silver sulfadiazine 1 application topically 4 times a day. 14. Warfarin 2.5 mg p.o. daily. TIME SPENT: Time discharging this patient 35 minutes. cc: Inder Moise MD
== END 2018-11-05 18:51 | disposition home health service (06) | DRG 640 ==
LOC: ED 18:58 → EDIPHOLD 18:58 → SUATTDRO 11-02 02:06 → 4N 11-02 06:45
PROVIDERS: ATTEND Internal Medicine
CPT/HCPCS: 71010; 71045; 80048; 80053; 80069; 81001; 82310; 82805; 82948; 83605; 83735; 83880; 84132; 84134; 84484; 85025; 85610; 87040; 87070; 87077; 87088; 87186; 87205; 93005; 94640; 94761; 94799; 96374; 99285; A9270; J0610; J0696; J1644; J1815; J2020; J2270; J2997; J3370; J7030; XXXXX